=== PATIENT | female | born 1935 | race Caucasian/White ===

== ENCOUNTER → 2016-09-15 | Outpatient (CLI) | payer BC, OTHER ==
[~2016-09-15] MED LIST: ALLO100T PO; AMOX875T PO; ASPI81TA28 PO; ATOR-24 PO; CALC-354 PO; DONE10TA12 PO; ENAL10TA88 PO; ERTA1INJ IV; FURO-85 PO; INSDGI SC; LEVO125T4 PO; LEVO750T23 PO; METO50TA16 PO; MULTTAB58 PO; NMN10 PO; NVLG SC; PRED10TA PO; PRLSR20 PO; SRQ400 PO; SYN150 PO; VENL75CA73 PO
[2016-09-15 17:30] LABS: ESTIMATED AVERAGE GLUCOSE 137 mg/dl; HA1C FLAG Normal (Normal)
[2016-09-15 19:38] LABS: ALT/SGPT 28 U/L (12-78); AST/SGOT 19 U/L (15-37); BLOOD UREA NITROGEN 23 mg/dl (7-18); BUN/CREATININE RATIO 18.1 (10-20); CALCIUM 9.4 mg/dl (8.5-10.1); CARBON DIOXIDE 32 mmol/L (21-32); CHLORIDE 96 mmol/L (98-107); GLUCOSE 227 mg/dl (70-99); POTASSIUM 4.5 mmol/L (3.5-5.1); SODIUM 137 mmol/L (136-145)
[2016-09-15 19:49] LABS: ALB/GLOB RATIO 1.1 (0.9-2); ALKALINE PHOSPHATASE 143 U/L (45-117)
== END | disposition home or self-care (01) ==
LOC: C.LABBFT 13:00
PROVIDERS: ATTEND Internal Medicine
DX: E11.649 Type 2 diabetes mellitus with hypoglycemia without coma (principal)

== ENCOUNTER 2016-12-26 17:43 | Inpatient (IN) | payer BC, OTHER ==
[~2016-12-26] VITALS: Ht 154.9 cm; Wt 95.0 kg
[~2016-12-26 17:43] MED LIST changes: -AMOX875T PO; -INSDGI SC; -LEVO125T4 PO; +LEVO125T5 PO; -LEVO750T23 PO; -NVLG SC; -PRED10TA PO; -SRQ400 PO; -SYN150 PO
[2016-12-26] MEDS ORDERED: ALBUT/IPRATROP 3MG/0.5MG NEB 3 ML VIAL INH STA ×2 (18:18→21:04)
[2016-12-26] MEDS ORDERED: METHYLPREDNISOLONE 125 MG VIAL IV STA (18:18)
[2016-12-26] MEDS ORDERED: LEVAQUIN 750MG / 150ML D5W IV STA (18:59)
[2016-12-26 19:01] LABS: BASO % 0.1 %; BASO ABS # 0.01 K/uL (0-0.2); COMPLETE YES; EOS % 4.5 %; HEMATOCRIT 36.4 % (37-47); IG% 0.3 %; LYMPH % 17.1 %; LYMPH ABS # 1.21 K/uL (1.2-3.4); MEAN CELL VOLUME 90.1 fL (80-100); MEAN CORPUSCULAR HEMOGLOBIN 30.9 pg (25-34); MEAN CORPUSCULAR HGB CONC 34.3 g/dl (32-36); MEAN PLATELET VOLUME 10.1 fL (7.4-10.4); MONO % 14.7 %; NEUT % 63.3 %; PLATELET COUNT 116 K/uL (130-400); RED BLOOD COUNT 4.04 M/uL (4.2-5.4); WHITE BLOOD COUNT 7.08 K/uL (4.8-10.8)
--- NOTE | 2016-12-26 19:12 | DIAGNOSTIC IMAGING REPORT ---
CT SCAN OF THE BRAIN WITHOUT IV CONTRAST CLINICAL HISTORY: Fall. COMPARISON STUDY: CT of the brain dated 05/23/2016. TECHNIQUE: Unenhanced axial CT scan of the brain is performed from the vertex to the skull base. The skull base was scanned twice due to motion artifact. CT DOSE: 691.05 mGy.cm FINDINGS: Brain parenchyma: There are age-related involutional changes noting mild subcortical and periventricular microangiopathic change. There is no hemorrhage, mass effect, or evidence of acute territorial ischemia by CT criteria. Dunaway-white matter is preserved. No extra-axial fluid collection is seen. Ventricles, sulci, cisterns: Prominent secondary to involutional change. Intracranial vasculature: There is mild atherosclerotic calcification of the cavernous carotid and vertebral arteries. Calvarium: The skeletal structures are osteopenic. There is no depressed calvarial fracture. Sinuses and mastoids: Air-fluid levels are present within the maxillary antra. Mucosal thickening is seen within the ethmoid and frontal sinuses. The mastoid air cells are well pneumatized. Orbits: The bony orbits are grossly intact. There are bilateral ocular lens implants. IMPRESSION: 1. Senescent changes as above with no hemorrhage, mass effect, or evidence of acute territorial ischemia by CT criteria criteria. 2. Paranasal sinus disease as above. Electronically signed by: Dameon Rey M.D. 12/26/2016 7:10 PM Dictated Date/Time: 12/26/2016 7:07 PM
--- NOTE | 2016-12-26 19:31 | DIAGNOSTIC IMAGING REPORT ---
SINGLE VIEW CHEST CLINICAL HISTORY: Dyspnea. FINDINGS: An AP, portable, upright chest radiograph is compared to study dated 05/23/2016 and correlated with chest CT dated 05/01/2016. The examination is degraded by portable technique, large body habitus, and apical lordotic positioning. The cardiomediastinal silhouette is unremarkable. There is atherosclerotic calcification of the thoracic ureter. There are low lung lines and bibasilar atelectasis. The lungs and pleural spaces are otherwise clear. No pneumothorax is seen. The skeletal structures are osteopenic. Degenerative change is seen in the shoulders and thoracic spine. IMPRESSION: Low lung volumes with no active disease in the chest. Electronically signed by: Dameon Rey M.D. 12/26/2016 7:29 PM Dictated Date/Time: 12/26/2016 7:27 PM
[2016-12-26 19:33] LABS: ALT/SGPT 31 U/L (12-78); AST/SGOT 20 U/L (15-37); BLOOD UREA NITROGEN 17 mg/dl (7-18); BUN/CREATININE RATIO 13.4 (10-20); CALCIUM 9.2 mg/dl (8.5-10.1); CARBON DIOXIDE 34 mmol/L (21-32); CHLORIDE 88 mmol/L (98-107); GLUCOSE 330 mg/dl (70-99); POTASSIUM 4.7 mmol/L (3.5-5.1); SODIUM 127 mmol/L (136-145)
--- NOTE | 2016-12-26 19:36 | DIAGNOSTIC IMAGING REPORT ---
LEFT HAND 3 VIEWS CLINICAL HISTORY: Fall with bruising. FINDINGS: 3 views of the left hand are obtained. No prior studies are available for comparison at the time of dictation. The skeletal structures are osteopenic. No fracture is seen. 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 Advanced arthritic change is seen at the first carpometacarpal joint, with bony sclerosis, overgrowth, subchondral cyst formation, and subluxation. Narrowing is also seen at the radiocarpal articulation. Only mild degenerative change is seen at the metacarpophalangeal joints. A chronic avulsion injury is suspected involving the ulnar styloid. There is chondrocalcinosis of the triangular fibrocartilage. The overlying soft tissues are within normal limits. IMPRESSION: 1. No fracture is seen. 2. Osteopenia and advanced arthritic change as above. Electronically signed by: Dameon Rey M.D. 12/26/2016 7:34 PM Dictated Date/Time: 12/26/2016 7:31 PM
[2016-12-26 19:37] LABS: ALB/GLOB RATIO 0.9 (0.9-2); ALKALINE PHOSPHATASE 129 U/L (45-117)
[2016-12-26 19:45] LABS: BETA-HYDROXYBUTYRATE 0.96 mg/dL (0.2-2.81); CKMB/CK RATIO 3.1 (0-3.0)
[2016-12-26 20:50] LABS: URINE APPEARANCE CLEAR (CLEAR); URINE BILIRUBIN NEG (NEG); URINE COLOR YELLOW; URINE NITRITE NEG (NEG); URINE PH 6.5 (4.5-7.5); URINE SPECIFIC GRAVITY 1.011 (1.000-1.030); UROBILINOGEN NEG (NEG)
[2016-12-26 20:51] LABS: MANUAL MICROSCOPIC REQUIRED? NO; REVIEW REQ? NO
[2016-12-26] MEDS ORDERED: NVLG SC (21:01)
[2016-12-26] MEDS ORDERED: SYN150 PO (21:01)
[2016-12-26] MEDS ORDERED: INSDGI SC (21:01)
[2016-12-26] MEDS ORDERED: QUET1TAB20 PO (21:01)
[2016-12-26] MEDS ORDERED: LORAZEPAM 2 MG/ML 1 ML VIAL IV PRN (22:00)
[2016-12-26] MEDS ORDERED: ONDANSETRON INJ 2 MG/ML 2 ML VIAL IV PRN (22:15)
[2016-12-26] MEDS ORDERED: HEPARIN SOD 5000 UNIT/0.5 ML CARP SQ SCH (22:15)
[2016-12-26] MEDS ORDERED: MAGNESIUM HYDROXIDE SUSP 30 ML UDC PO PRN (22:15)
[2016-12-26] MEDS ORDERED: POLYETHYLENE (MIRALAX) 17 GM PACK PO PRN (22:15)
[2016-12-26] MEDS ORDERED: ACETAMINOPHEN 325 MG TAB PO PRN (22:15)
[2016-12-26] MEDS ORDERED: ALUMINUM/MAGNESIUM/SIMETH (MAALOX MAX) 30 ML UDC PO PRN (22:15)
[2016-12-26] MEDS ORDERED: ALBUTEROL 0.083% NEBU SOLN 3 ML VIAL INH PRN (22:15)
[2016-12-26 22:32] VITALS: BMI 39.6
--- NOTE | 2016-12-26 22:46 | History and Physical ---
History & Physical Date & Time of Service: Dec 26, 2016 at 22:10 Chief Complaint: Chest Congestion,Cough, Dr Referred Primary Care Physician: Luis Siddiqui M.D. History of Present Illness Source: family, other Pt cannot provide an adequate history due to dementia - obtained form family. 81 y/o F Hx HTN, DM 2, dementia. URI symptoms for 2 days including persistent wheezing, cough, SOB. She was treated as an outpt starting a few days ago with antibiotics and a low dose of steroids. She appears to be worsening regardless. She had not c/o CP, N/V, dysuria and had not recorded any fevers. Initial labs reveal hyponatremia, JAKOB, thrombocytopenia, hyperglycemia and a mild lactic acid elevation without leukocytosis. She does not have a history of smoking or lung disease. She reportedly fell 2 days ago sustaining wrist and minor head trauma. A CT head revealed sinus disease only. Upper extrem XR was negative. Past Medical/Surgical History Medical Problems: (1) Dementia Status: Chronic - with psychosis (2) DIAB KAREEM WO COMPL, TYPE II OR UNSPEC TYPE, NOT UNCNTRLD Status: Chronic (3) DIVERTICULOSIS COLON (W/O MENT OF HEMORRHAGE) Status: Chronic (4) Diverticulosis of colon without hemorrhage Status: Chronic (5) Esophageal reflux Status: Chronic (6) GOUT NOS Status: Chronic (7) HYPERTENSION NOS Status: Chronic (8) Hyponatremia Status: Resolved (9) HYPOTHYROIDISM NOS Status: Chronic (10) Osteomyelitis Status: Resolved (11) Unspecified sleep apnea Status: Chronic Family History FH: heart disease Social History Smoking Status: Never Smoker Alcohol Use: none Drug Use: none Housing status: lives with family Occupational Status: retired Immunizations History of Influenza Vaccine: Yes Influenza Vaccine Date: Jun 17, 2011 History of Tetanus Vaccine?: Yes History of Pneumococcal: Yes History of Hepatitis B Vaccine: Unknown Multi-Drug Resistant Organisms History of MDRO: No Allergies Coded Allergies: No Known Allergies (Unverified , 12/26/16) Home Medications Scheduled Allopurinol (Zyloprim), 100 MG PO QAM Aspirin (Aspirin Ec), 81 MG PO QAM Atorvastatin (Lipitor), 40 MG PO QAM Calcium Carbonate-Cholecalcife (Caltrate 600+D), 1 TAB PO BID Donepezil Hydrochloride (Aricept), 10 MG PO HS Enalapril (Vasotec), 10 MG PO QAM Furosemide (Lasix), 20 MG PO Q2D Insulin Glargine (Lantus), 25 UNITS SC BID Levothyroxine Sodium (Synthroid), 150 MCG PO QAM Metoprolol Tartrate (Lopressor) (Lopressor), 50 MG PO QAM Metoprolol Tartrate (Lopressor) (Lopressor), 25 MG PO QPM Multiple Vitamin (Multivitamin), 1 TAB PO DAILY@1200 Omeprazole (Prilosec), 20 MG PO DAILY@1200 Quetiapine Fumarate (Quetiapine Fumarate), 400 MG PO QPM Venlafaxine Hcl (Venlafaxine Extended Rel), 75 MG PO QAM Scheduled PRN Insulin Aspart (Novolog), 5 UNITS SC PRN PRN for PRN Review of Systems Cannot obtain from this pt reliably - SOB, wheezing as above - she is denying symptoms and was intent on going home Respiratory: + dyspnea at rest, + dyspnea on exertion, + shortness of breath Physical Exam Vital Signs Date Time Temp Pulse Resp B/P Pulse Ox O2 Delivery O2 Flow Rate FiO2 12/26/16 21:37 75 18 186/90 98 Room Air 12/26/16 19:59 77 22 163/89 98 Nasal Cannula 2.0 12/26/16 18:50 78 12/26/16 18:39 94 Nasal Cannula 2.0 12/26/16 18:39 Nasal Cannula 2.0 12/26/16 18:39 94 2.0 12/26/16 17:54 36.8 76 20 154/74 97 Room Air General Appearance: + pertinent finding (Obese elderly female - she is conversing with herself although she can stop to answer questions with prodding and is oriented x 2 ) Head: normocephalic, atraumatic Eyes: normal inspection, PERRL, EOMI ENT: normal ENT inspection Neck: supple, + pertinent finding (Limited exam due to habitus) Respiratory/Chest: chest non-tender, + decreased breath sounds, + pertinent finding (mild end expiratory wheezing) Cardiovascular: regular rate, rhythm, normal peripheral pulses, + pertinent finding (faint sounds) Abdomen/GI: normal bowel sounds, non tender, soft Back: normal inspection, no CVA tenderness Extremities/Musculoskelatal: normal inspection, no calf tenderness, no pedal edema, normal range of motion Neurologic/Psych: medical affairs leader II-XII nml as tested, no motor/sensory deficits, alert, normal mood/affect Skin: normal color, warm/dry, no rash Diagnostics Laboratory Results Results Past 24 Hours Test 12/26/16 18:33 12/26/16 18:40 12/26/16 18:52 12/26/16 19:40 Range/Units White Blood Count 7.08 4.8-10.8 K/uL Red Blood Count 4.04 4.2-5.4 M/uL Hemoglobin 12.5 12.0-16.0 g/dL Hematocrit 36.4 37-47 % Mean Corpuscular Volume 90.1 80-100 fL Mean Corpuscular Hemoglobin 30.9 25-34 pg Mean Corpuscular Hemoglobin Concent 34.3 32-36 g/dl Platelet Count 116 130-400 K/uL Mean Platelet Volume 10.1 7.4-10.4 fL Neutrophils (%) (Auto) 63.3 % Lymphocytes (%) (Auto) 17.1 % Monocytes (%) (Auto) 14.7 % Eosinophils (%) (Auto) 4.5 % Basophils (%) (Auto) 0.1 % Neutrophils # (Auto) 4.48 1.4-6.5 K/uL Lymphocytes # (Auto) 1.21 1.2-3.4 K/uL Monocytes # (Auto) 1.04 0.11-0.59 K/uL Eosinophils # (Auto) 0.32 0-0.5 K/uL Basophils # (Auto) 0.01 0-0.2 K/uL RDW Standard Deviation 44.7 36.4-46.3 fL RDW Coefficient of Variation 13.5 11.5-14.5 % Immature Granulocyte % (Auto) 0.3 % Immature Granulocyte # (Auto) 0.02 0.00-0.02 K/uL Sodium Level 127 136-145 mmol/L Potassium Level 4.7 3.5-5.1 mmol/L Chloride Level 88 98-107 mmol/L Carbon Dioxide Level 34 21-32 mmol/L Anion Gap 5.0 3-11 mmol/L Blood Urea Nitrogen 17 7-18 mg/dl Creatinine 1.30 0.60-1.20 mg/dl Est Creatinine Clear Calc Drug Dose 36.3 ml/min Estimated GFR () 44.9 Estimated GFR (Non- 38.7 BUN/Creatinine Ratio 13.4 10-20 Random Glucose 330 70-99 mg/dl Calcium Level 9.2 8.5-10.1 mg/dl Total Bilirubin 0.6 0.2-1 mg/dl Aspartate Amino Transf (AST/SGOT) 20 15-37 U/L Alanine Aminotransferase (ALT/SGPT) 31 12-78 U/L Alkaline Phosphatase 129 45-117 U/L Total Creatine Kinase 128 26-192 U/L Creatine Kinase MB 4.0 0.5-3.6 ng/ml Creatine Kinase MB Ratio 3.1 0-3.0 Troponin I < 0.015 0-0.045 ng/ml Pro-B-Type Natriuretic Peptide 886 0-1800 pg/ml Total Protein 7.0 6.4-8.2 gm/dl Albumin 3.3 3.4-5.0 gm/dl Globulin 3.7 2.5-4.0 gm/dl Albumin/Globulin Ratio 0.9 0.9-2 Beta-Hydroxybutyric Acid 0.96 0.2-2.81 mg/dL Bedside Lactic Acid Venous 1.99 0.90-1.70 mmol/L Bedside Glucose 304 70-90 mg/dl Urine Color YELLOW Urine Appearance CLEAR CLEAR Urine pH 6.5 4.5-7.5 Urine Specific Constantia 1.011 1.000-1.030 Urine Protein NEG NEG Urine Glucose (UA) 2+ NEG Urine Ketones NEG NEG Urine Occult Blood NEG NEG Urine Nitrite NEG NEG Urine Bilirubin NEG NEG Urine Urobilinogen NEG NEG Urine Leukocyte Esterase NEG NEG Microbiology Results 12/26/16 Blood Culture, Received Pending 12/26/16 Blood Culture, Received Pending 12/26/16 Urine Culture, Received Pending CXR normal Impression Assessment and Plan 81 y/o F Hx HTN, DM 2, dementia with psychosis. 2 days of URI symptoms including persistent wheezing, cough, SOB. She was treated as an outpt starting a few days ago with antibiotics and a low dose of steroids. She appears to be worsening regardless. She had not c/o CP, N/V, dysuria and had not recorded any fevers. Initial labs reveal hyponatremia, JAKOB, mild thrombocytopenia, hyperglycemia and mild lactic acid elevation without leukocytosis. She does not have a history of smoking or lung disease. She reportedly fell 2 days ago sustaining wrist and minor head trauma. A CT head revealed sinus disease only. Upper extrem XR was negative. 1) URI - wheezing, SOB, mild hypoxia - will continue Levaquin treatment as there is no evidence of a worsening PNM and the clinical picture is more consistent with reactive airway disease. Will provide zen, 02 protocol, IV steroids. Consider CT chest if there is no improvement. There is suspicion for sinus infection on CT so that antibiotics may help regardless. 2) HypoNa - IVF - recheck AM - clinically hypovolemic and is more in the range of 131-2 when corrected for her Glu. 3) AJKOB - likely prerenal - has occurred during previous illnesses although creat was recently normal - IVF recheck BMP AM. Diuretics held. 4) DM - placed on SS + Lantus 5) Thrombocytopenia - appears mild/stable 6) Hypothyroidism - check TSH - cont Synthroid 7) Dementia - Cont PM Seroquel. Heparin prophylaxis - DNR/DNI Total time for this admit including review of labs, meds, imaging, records - discussion with pt, family, ER attending - 38 min Level of Care Med/Surg Resuscitation Status DO NOT RESUSCITATE VTE Prophylaxis VTE Risk Assessment Done? Y/N: Yes Risk Level: Moderate Given or contraindicated: Unfractionated heparin SQ
[2016-12-26 23:20] VITALS: BP 171/82; PULSE 92; TEMP 37; O2SAT 93
[2016-12-27] VITALS (9 sets, daily range): BP systolic 144–161; BP diastolic 72–86; PULSE 65–92; TEMP 36.7–37; O2SAT 91–97; BMI 39.6
[2016-12-27] MEDS ORDERED: GLUCOSE 10 TABS/TUBE PO PRN (00:45)
[2016-12-27] MEDS ORDERED: GLUCOSE 40% GEL 15 GM TUBE PO PRN (00:45)
[2016-12-27] MEDS ORDERED: DEXTROSE 50% 50 ML SYR IV PRN (00:45)
[2016-12-27] MEDS ORDERED: LORAZEPAM INJ 0.5 MG in SYRINGE 0.75 ML IV PRN (00:45)
[2016-12-27] MEDS ORDERED: GLUCAGON FOR INJ 1 MG VIAL SQ PRN (00:45)
[2016-12-27] MEDS: METHYLPREDNISOLONE IV 40 MG in SYRINGE 0 ML IV SCH ×4 (00:53→18:37)
[2016-12-27] MEDS: INSULIN GLARGINE SOLOSTAR 100 UNITS/ML 3 ML PEN SC SCH ×3 (01:16→21:01)
[2016-12-27] MEDS: INSULIN ASPART 100 UNITS/ML 3 ML PEN SC SCH ×5 (01:17→21:00)
--- NOTE | 2016-12-27 02:02 | EMERGENCY ROOM VISIT NOTE ---
History Report prepared by Michael: Sp Wild Under the Supervision of: Dr. Zachary Plummer M.D. First contact with patient: 18:05 Chief Complaint: CONGESTION Stated Complaint: CHEST CONGESTION,COUGH, DR REFERRED History of Present Illness The patient is a 81 year old female who presents to the Emergency Room with complaints of worsening chest congestion beginning yesterday. Per family, the patient was referred to the ED by Dr. Siddiqui's office. She states that the patient was found to have a suspected left lower lobe pneumonia when she was seen earlier today. The patient's family states that the patient had similar symptoms occurring almost two months ago, though they never completely resolved. She notes that the patient was recently on Levaquin and Prednisone for her symptoms. The patient's family notes that the patient fell two days ago and hit her face and left hand on grass. The patient also complains of a cough and a headache. She states that her cough produces a yellow sputum. She has no history of COPD. She has no history of smoking. The patient has a history of diabetes, dementia and hypertension. Pt denies LOC, fevers, chills, diaphoresis , visual changes, neck pain, chest pain, nausea, vomiting, abdominal pain, back pain, melena, hematochezia, urinary symptoms, numbness, weakness, lymphadenopathy, rash, or other complaints. Source of History: patient, family Onset: Yesterday Position: chest Quality: other (congestion) Timing: worsening Associated Symptoms: + cough (productive), + headache, No back pain, No nausea, No vomiting Review of Systems See HPI for pertinent positives and negatives. A total of ten systems were reviewed and were otherwise negative. Past Medical & Surgical Medical Problems: (1) Bronchitis (2) Cellulitis (3) Dementia (4) DIAB KAREEM WO COMPL, TYPE II OR UNSPEC TYPE, NOT UNCNTRLD (5) Diabetic infection of left foot (6) DIVERTICULOSIS COLON (W/O MENT OF HEMORRHAGE) (7) Diverticulosis of colon without hemorrhage (8) Esophageal reflux (9) GOUT NOS (10) HYPERTENSION NOS (11) Hyponatremia (12) HYPOTHYROIDISM NOS (13) Hypoxia (14) Mental status change (15) Osteomyelitis (16) Pneumonia (17) Unspecified sleep apnea (18) URI (upper respiratory infection) Family History FH: heart disease Social History Smoking Status: Never Smoker Alcohol Use: none Drug Use: none Occupation Status: retired Current/Historical Medications Scheduled Allopurinol (Zyloprim), 100 MG PO QAM Aspirin (Aspirin Ec), 81 MG PO QAM Atorvastatin (Lipitor), 40 MG PO QAM Calcium Carbonate-Cholecalcife (Caltrate 600+D), 1 TAB PO BID Donepezil Hydrochloride (Aricept), 10 MG PO HS Enalapril (Vasotec), 10 MG PO QAM Furosemide (Lasix), 20 MG PO Q2D Insulin Glargine (Lantus), 25 UNITS SC BID Levothyroxine Sodium (Synthroid), 150 MCG PO QAM Metoprolol Tartrate (Lopressor) (Lopressor), 50 MG PO QAM Metoprolol Tartrate (Lopressor) (Lopressor), 25 MG PO QPM Multiple Vitamin (Multivitamin), 1 TAB PO DAILY@1200 Omeprazole (Prilosec), 20 MG PO DAILY@1200 Quetiapine Fumarate (Quetiapine Fumarate), 400 MG PO QPM Venlafaxine Hcl (Venlafaxine Extended Rel), 75 MG PO QAM Scheduled PRN Insulin Aspart (Novolog), 5 UNITS SC PRN PRN for PRN Allergies Coded Allergies: No Known Allergies (Unverified , 12/26/16) Physical Exam Vital Signs Date Time Temp Pulse Resp B/P Pulse Ox O2 Delivery O2 Flow Rate FiO2 12/26/16 21:37 75 18 186/90 98 Room Air 12/26/16 19:59 77 22 163/89 98 Nasal Cannula 2.0 12/26/16 18:50 78 12/26/16 18:39 94 Nasal Cannula 2.0 12/26/16 18:39 Nasal Cannula 2.0 12/26/16 18:39 94 2.0 12/26/16 17:54 36.8 76 20 154/74 97 Room Air Physical Exam GENERAL: Awake, alert, uncomfortable-appearing, in no distress HENT: Normocephalic, atraumatic. Oropharynx unremarkable. EYES: Normal conjunctiva. Sclera non-icteric. NECK: Supple. No nuchal rigidity. FROM. No JVD. RESPIRATORY: Inspiratory and expiratory wheezing to auscultation. CARDIAC: Regular rate, normal rhythm. Extremities warm and well perfused. Pulses equal. ABDOMEN: Soft, non-distended. No tenderness to palpation. No rebound or guarding. No masses. RECTAL: Deferred. MUSCULOSKELETAL: Chest examination reveals no tenderness. The back is symmetrical on inspection without obvious abnormality. There is no CVA tenderness to palpation. Swelling and tenderness over the left thenar eminence. Small bruise on the left bicep. LOWER EXTREMITIES: Calves are equal size bilaterally and non-tender. 1+ lower extremity edema. No discoloration. NEURO: Normal sensorium. No sensory or motor deficits noted. SKIN: No rash or jaundice noted. Medical Decision & Procedures ER Provider Diagnostic Interpretation: X ray results as stated below per my interpretation and radiologist interpretation. Other radiology results as stated below per my review and radiologist interpretation SINGLE VIEW CHEST FINDINGS: An AP, portable, upright chest radiograph is compared to study dated 05/23/2016 and correlated with chest CT dated 05/01/2016. The examination is degraded by portable technique, large body habitus, and apical lordotic positioning. The cardiomediastinal silhouette is unremarkable. There is atherosclerotic calcification of the thoracic ureter. There are low lung lines and bibasilar atelectasis. The lungs and pleural spaces are otherwise clear. No pneumothorax is seen. The skeletal structures are osteopenic. Degenerative change is seen in the shoulders and thoracic spine. IMPRESSION: Low lung volumes with no active disease in the chest. Electronically signed by: Dameon Rey M.D. LEFT HAND 3 VIEWS FINDINGS: 3 views of the left hand are obtained. No prior studies are available for comparison at the time of dictation. The skeletal structures are osteopenic. No fracture is seen. 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 Advanced arthritic change is seen at the first carpometacarpal joint, with bony sclerosis, overgrowth, subchondral cyst formation, and subluxation. Narrowing is also seen at the radiocarpal articulation. Only mild degenerative change is seen at the metacarpophalangeal joints. A chronic avulsion injury is suspected involving the ulnar styloid. There is chondrocalcinosis of the triangular fibrocartilage. The overlying soft tissues are within normal limits. IMPRESSION: 1. No fracture is seen. 2. Osteopenia and advanced arthritic change as above. Electronically signed by: Dameon Rey M.D. CT SCAN OF THE BRAIN WITHOUT IV CONTRAST FINDINGS: Brain parenchyma: There are age-related involutional changes noting mild subcortical and periventricular microangiopathic change. There is no hemorrhage, mass effect, or evidence of acute territorial ischemia by CT criteria. Dunaway-white matter is preserved. No extra-axial fluid collection is seen. Ventricles, sulci, cisterns: Prominent secondary to involutional change. Intracranial vasculature: There is mild atherosclerotic calcification of the cavernous carotid and vertebral arteries. Calvarium: The skeletal structures are osteopenic. There is no depressed calvarial fracture. Sinuses and mastoids: Air-fluid levels are present within the maxillary antra. Mucosal thickening is seen within the ethmoid and frontal sinuses. The mastoid air cells are well pneumatized. Orbits: The bony orbits are grossly intact. There are bilateral ocular lens implants. IMPRESSION: 1. Senescent changes as above with no hemorrhage, mass effect, or evidence of acute territorial ischemia by CT criteria criteria. 2. Paranasal sinus disease as above. Electronically signed by: Dameon Rey M.D. Laboratory Results 12/26/16 18:33 Red Blood Count 4.04, Mean Corpuscular Volume 90.1, Mean Corpuscular Hemoglobin 30.9, Mean Corpuscular Hemoglobin Concent 34.3, Mean Platelet Volume 10.1, Neutrophils (%) (Auto) 63.3, Lymphocytes (%) (Auto) 17.1, Monocytes (%) (Auto) 14.7, Eosinophils (%) (Auto) 4.5, Basophils (%) (Auto) 0.1, Neutrophils # (Auto ) 4.48, Lymphocytes # (Auto) 1.21, Monocytes # (Auto) 1.04, Eosinophils # (Auto ) 0.32, Basophils # (Auto) 0.01 12/26/16 18:33 Test 12/26/16 18:33 12/26/16 18:40 12/26/16 19:40 White Blood Count 7.08 K/uL (4.8-10.8) Red Blood Count 4.04 M/uL (4.2-5.4) Hemoglobin 12.5 g/dL (12.0-16.0) Hematocrit 36.4 % (37-47) Mean Corpuscular Volume 90.1 fL (80-100) Mean Corpuscular Hemoglobin 30.9 pg (25-34) Mean Corpuscular Hemoglobin Concent 34.3 g/dl (32-36) Platelet Count 116 K/uL (130-400) Mean Platelet Volume 10.1 fL (7.4-10.4) Neutrophils (%) (Auto) 63.3 % Lymphocytes (%) (Auto) 17.1 % Monocytes (%) (Auto) 14.7 % Eosinophils (%) (Auto) 4.5 % Basophils (%) (Auto) 0.1 % Neutrophils # (Auto) 4.48 K/uL (1.4-6.5) Lymphocytes # (Auto) 1.21 K/uL (1.2-3.4) Monocytes # (Auto) 1.04 K/uL (0.11-0.59) Eosinophils # (Auto) 0.32 K/uL (0-0.5) Basophils # (Auto) 0.01 K/uL (0-0.2) RDW Standard Deviation 44.7 fL (36.4-46.3) RDW Coefficient of Variation 13.5 % (11.5-14.5) Immature Granulocyte % (Auto) 0.3 % Immature Granulocyte # (Auto) 0.02 K/uL (0.00-0.02) Anion Gap 5.0 mmol/L (3-11) Est Creatinine Clear Calc Drug Dose 36.3 ml/min Estimated GFR () 44.9 Estimated GFR (Non- 38.7 BUN/Creatinine Ratio 13.4 (10-20) Calcium Level 9.2 mg/dl (8.5-10.1) Total Bilirubin 0.6 mg/dl (0.2-1) Aspartate Amino Transf (AST/SGOT) 20 U/L (15-37) Alanine Aminotransferase (ALT/SGPT) 31 U/L (12-78) Alkaline Phosphatase 129 U/L (45-117) Total Creatine Kinase 128 U/L (26-192) Creatine Kinase MB 4.0 ng/ml (0.5-3.6) Creatine Kinase MB Ratio 3.1 (0-3.0) Troponin I < 0.015 ng/ml (0-0.045) Pro-B-Type Natriuretic Peptide 886 pg/ml (0-1800) Total Protein 7.0 gm/dl (6.4-8.2) Albumin 3.3 gm/dl (3.4-5.0) Globulin 3.7 gm/dl (2.5-4.0) Albumin/Globulin Ratio 0.9 (0.9-2) Beta-Hydroxybutyric Acid 0.96 mg/dL (0.2-2.81) Bedside Lactic Acid Venous 1.99 mmol/L (0.90-1.70) Urine Color YELLOW Urine Appearance CLEAR (CLEAR) Urine pH 6.5 (4.5-7.5) Urine Specific Mart 1.011 (1.000-1.030) Urine Protein NEG (NEG) Urine Glucose (UA) 2+ (NEG) Urine Ketones NEG (NEG) Urine Occult Blood NEG (NEG) Urine Nitrite NEG (NEG) Urine Bilirubin NEG (NEG) Urine Urobilinogen NEG (NEG) Urine Leukocyte Esterase NEG (NEG) Laboratory results reviewed by me Medications Administered Medications (Trade) Dose Ordered Sig/Edilberto Route Start Time Stop Time Status Last Admin Dose Admin Methylprednisolone Sodium Succinate (Solu-Medrol IV) 125 mg NOW STAT IV 12/26/16 18:18 12/26/16 18:19 DC 12/26/16 18:34 125 MG Albuterol/ Ipratropium (Duoneb) 3 ml NOW STAT INH 12/26/16 18:18 12/26/16 18:19 DC 12/26/16 18:18 3 ML Levofloxacin (Levaquin / D5W) 750 mg NOW STAT IV 12/26/16 18:59 12/26/16 19:00 DC 12/26/16 19:54 750 MG Albuterol/ Ipratropium (Duoneb) 3 ml NOW STAT INH 12/26/16 21:04 12/26/16 21:05 DC 12/26/16 21:24 3 ML ECG Indication: chest pain (congestion) Rate (beats per minute): 74 Rhythm: sinus with SA Findings: no acute ischemic change, no ectopy, other (LAD. LVH. ) ED Course 1812: The patient was evaluated in room A9. A complete history and physical exam was performed. 1817: Ordered Duoneb 3 mL INH, Solu-Medrol 125 mg IV. 1858: Ordered Levaquin / D5W 750 mg IV. 1914: I reassessed the patient. She is currently at imaging. 2039: Upon reexamination, the patient was resting comfortably. I discussed the test results and treatment plan with her. The patient will be evaluated for further management. Medical Decision Triage Nursing notes reviewed. The patient's presentation and history were concerning for breathing difficulties. Etiologies such as pneumonia, COPD, reactive airway disease, CHF, cardiac ischemia, pulmonary embolism, pneumothorax, musculoskeletal, infections, gastrointestinal, as well as others were entertained. The patient was evaluated. She had minimal complaints but had significant wheezing. She had increased work of breathing. Blood work was ordered. Cultures were obtained. Lactate was done and was found to be slightly elevated. Chest x-ray and ECG were performed. No ischemia on ECG. The patient 's CBC was unremarkable. She had moderate hyponatremia noted on chemistry panel. She was also hyperglycemic. The patient had a unremarkable BNP and troponin. On reassessment she was doing better after the initial steroids and DuoNeb. She was given a second DuoNeb. The patient was also treated with IV Levaquin due to concerns for possible sepsis when her initial lactate was elevated and she was having respiratory difficulty. As it turns out there is no significant pneumonia. The patient's blood pressures been stable. She does have sinus disease on CT imaging. There is no trauma findings noted. The patient also has no fracture. As she is having increased work of breathing and failed outpatient management further testing will be necessary in the hospital. The chart was completed utilizing [employer] Speech voice recognition software. Grammatical errors, random word insertions, pronoun errors, and incomplete sentences are an occasional consequence of this system due to software limitations, ambient noise, and hardware issues. Any formal questions or concerns about the content, text, or information contained within the body of this dictation should be directly addressed to the physician for clarification. Consults Time Called: 2034 Consulting Physician: [facility] [place] Call: 2039 Discussed the patient's case. The patient will be evaluated for further treatment and disposition. Impression Primary Impression: Shortness of breath Additional Impressions: Wheezing Hyponatremia Hyperglycemia Scribe Attestation The scribe's documentation has been prepared under my direction and personally reviewed by me in its entirety. I confirm that the note above accurately reflects all work, treatment, procedures, and medical decision making performed by me. Departure Information Dispostion Being Evaluated By Hospitalist Referrals Luis Siddiqui M.D. (PCP) Patient Instructions My [facility] Problem Qualifiers
[2016-12-27] MEDS ORDERED: LEVOFLOXACIN CONSULT ACTIVE PRN (02:15)
[2016-12-27] MEDS: ALBUT/IPRATROP 3MG/0.5MG NEB 3 ML VIAL INH SCH ×4 (02:15→19:06)
--- NOTE | 2016-12-27 03:18 | Progress Note ---
Progress Note Date of Service Dec 27, 2016. Progress Note Phone by nursing informing me that patient's BSG > 400 since being admitted from ED. Patient was given 25 U Lantus and 7 U Aspart (per sliding scale parameters). Repeat BSG at 02:45 was 388. 9 units of regular insulin IV one time ordered for patient. In addition, sliding scale correction factor tightened to 30.
[2016-12-27] MEDS ORDERED: INSULIN HUMAN REGULAR PER UNIT 9 UNITS in SYRINGE 8.91 ML IV STA (03:27)
[2016-12-27] MEDS: LEVOTHYROXINE 150 MCG TAB PO SCH (06:14)
[2016-12-27 07:10] LABS: HEMATOCRIT 37.1 % (37-47); MEAN CELL VOLUME 89.2 fL (80-100); MEAN CORPUSCULAR HEMOGLOBIN 30.5 pg (25-34); MEAN CORPUSCULAR HGB CONC 34.2 g/dl (32-36); MEAN PLATELET VOLUME 10.1 fL (7.4-10.4); PLATELET COUNT 134 K/uL (130-400); RED BLOOD COUNT 4.16 M/uL (4.2-5.4); WHITE BLOOD COUNT 6.11 K/uL (4.8-10.8)
[2016-12-27 07:14] LABS: PROTHROMBIN TIME (PATIENT) 11.1 SECONDS (9.0-12.0)
[2016-12-27 07:50] LABS: BUN/CREATININE RATIO 13.5 (10-20); CALCIUM 9.7 mg/dl (8.5-10.1); CREATININE 1.4 mg/dl (0.60-1.20); MAGNESIUM 1.8 mg/dl (1.8-2.4); POTASSIUM 4.6 mmol/L (3.5-5.1)
[2016-12-27 08:01] LABS: BETA-HYDROXYBUTYRATE 1.22 mg/dL (0.2-2.81)
[2016-12-27] MEDS: CALCIUM 600MG + VIT D 400 IU TAB PO SCH ×2 (08:28→20:44)
[2016-12-27] MEDS: METOPROLOL TARTRATE 50 MG TAB PO SCH (08:28)
[2016-12-27] MEDS: ENALAPRIL MALEATE 10 MG TAB PO SCH (08:29)
[2016-12-27] MEDS: VENLAFAXINE HCL XR 75 MG CAPXR PO SCH (08:30)
[2016-12-27] MEDS: ASPIRIN 81 MG ECTAB PO SCH (08:30)
[2016-12-27] MEDS: ATORVASTATIN 40 MG TAB PO SCH (08:30)
[2016-12-27] MEDS: ALLOPURINOL 100 MG TAB PO SCH (08:31)
--- NOTE | 2016-12-27 09:07 | Hospitalist Progress Note ---
Hospitalist Progress Note Date of Service Dec 27, 2016. Subjective Pt evaluation today including: conversation w/ patient, conversation w/ family Pain: None PO Intake: Good Voiding: no voiding problems The patient was seen and examined this morning. Pt reports doing well. She states her breathing is slightly improved but is still coughing and bringing up sputum. Her granddaughter is present at bedside who provides history that she has been talking to herself and responding to hallucinations for about 20 years. It used to be worse with paranoid hallucination but now is improved since being on seroquel. The patient has no acute complaints. Constitutional: No chills, No fatigue, No fever, No sweats Eyes: No diplopia, No redness ENT: No dental problems, No nasal symptoms Respiratory: + cough, + sputum, No wheezing Cardiovascular: No chest pain, No palpitations Abdomen: No constipation, No diarrhea, No nausea, No pain, No vomiting Musculoskeletal: No joint pain, No muscle pain, No swelling Female : No dysuria Psychiatric: + problem reported (auditory hallucinations) Endo: No fatigue Skin: No itch, No rash Objective Vital Signs Date Time Temp Pulse Resp B/P Pulse Ox O2 Delivery O2 Flow Rate FiO2 12/27/16 07:36 36.7 92 22 144/83 91 Room Air 12/27/16 07:05 92 18 91 Room Air 12/27/16 00:13 144/72 12/27/16 00:00 Room Air 12/26/16 23:20 37.0 92 18 171/82 93 Room Air 12/26/16 22:54 85 20 168/96 94 Room Air 12/26/16 22:32 Nasal Cannula 2.0 12/26/16 22:17 81 12/26/16 21:37 75 18 186/90 98 Room Air 12/26/16 19:59 77 22 163/89 98 Nasal Cannula 2.0 12/26/16 18:50 78 12/26/16 18:39 94 Nasal Cannula 2.0 12/26/16 18:39 Nasal Cannula 2.0 12/26/16 18:39 94 2.0 12/26/16 17:54 36.8 76 20 154/74 97 Room Air Physical Exam General Appearance: WD/WN, no apparent distress, + obese, + pertinent finding ( mumbling things to herself throughout exam, answers appropriately, follows commands) Eyes: PERRL, EOMI ENT: hearing grossly normal, pharynx normal Neck: supple, no JVD Respiratory/Chest: chest non-tender, no respiratory distress, no accessory muscle use, + pertinent finding (on 2 L O2 via NC, +inspiratory and expiratory wheezing throughout, worse on the left compared to right, + cough) Cardiovascular: regular rate, rhythm, no murmur Abdomen: normal bowel sounds, non tender, soft Extremities: non-tender, no pedal edema, no calf tenderness Neurologic/Psychiatric: no motor/sensory deficits, alert, oriented x 3 Skin: normal color, warm/dry Laboratory Results Last 24 Hours Test 12/26/16 18:33 12/26/16 18:40 12/26/16 18:52 12/26/16 19:40 White Blood Count 7.08 K/uL Red Blood Count 4.04 M/uL Hemoglobin 12.5 g/dL Hematocrit 36.4 % Mean Corpuscular Volume 90.1 fL Mean Corpuscular Hemoglobin 30.9 pg Mean Corpuscular Hemoglobin Concent 34.3 g/dl Platelet Count 116 K/uL Mean Platelet Volume 10.1 fL Neutrophils (%) (Auto) 63.3 % Lymphocytes (%) (Auto) 17.1 % Monocytes (%) (Auto) 14.7 % Eosinophils (%) (Auto) 4.5 % Basophils (%) (Auto) 0.1 % Neutrophils # (Auto) 4.48 K/uL Lymphocytes # (Auto) 1.21 K/uL Monocytes # (Auto) 1.04 K/uL Eosinophils # (Auto) 0.32 K/uL Basophils # (Auto) 0.01 K/uL RDW Standard Deviation 44.7 fL RDW Coefficient of Variation 13.5 % Immature Granulocyte % (Auto) 0.3 % Immature Granulocyte # (Auto) 0.02 K/uL Sodium Level 127 mmol/L Potassium Level 4.7 mmol/L Chloride Level 88 mmol/L Carbon Dioxide Level 34 mmol/L Anion Gap 5.0 mmol/L Blood Urea Nitrogen 17 mg/dl Creatinine 1.30 mg/dl Est Creatinine Clear Calc Drug Dose 36.3 ml/min Estimated GFR () 44.9 Estimated GFR (Non- 38.7 BUN/Creatinine Ratio 13.4 Random Glucose 330 mg/dl Calcium Level 9.2 mg/dl Total Bilirubin 0.6 mg/dl Aspartate Amino Transf (AST/SGOT) 20 U/L Alanine Aminotransferase (ALT/SGPT) 31 U/L Alkaline Phosphatase 129 U/L Total Creatine Kinase 128 U/L Creatine Kinase MB 4.0 ng/ml Creatine Kinase MB Ratio 3.1 Troponin I < 0.015 ng/ml Pro-B-Type Natriuretic Peptide 886 pg/ml Total Protein 7.0 gm/dl Albumin 3.3 gm/dl Globulin 3.7 gm/dl Albumin/Globulin Ratio 0.9 Beta-Hydroxybutyric Acid 0.96 mg/dL Bedside Lactic Acid Venous 1.99 mmol/L Bedside Glucose 304 mg/dl Urine Color YELLOW Urine Appearance CLEAR Urine pH 6.5 Urine Specific Ethel 1.011 Urine Protein NEG Urine Glucose (UA) 2+ Urine Ketones NEG Urine Occult Blood NEG Urine Nitrite NEG Urine Bilirubin NEG Urine Urobilinogen NEG Urine Leukocyte Esterase NEG Test 12/27/16 00:55 12/27/16 00:57 12/27/16 02:45 12/27/16 03:44 Bedside Glucose 431 mg/dl 424 mg/dl 388 mg/dl 399 mg/dl Test 12/27/16 06:55 12/27/16 07:49 White Blood Count 6.11 K/uL Red Blood Count 4.16 M/uL Hemoglobin 12.7 g/dL Hematocrit 37.1 % Mean Corpuscular Volume 89.2 fL Mean Corpuscular Hemoglobin 30.5 pg Mean Corpuscular Hemoglobin Concent 34.2 g/dl RDW Standard Deviation 45.0 fL RDW Coefficient of Variation 13.7 % Platelet Count 134 K/uL Mean Platelet Volume 10.1 fL Prothrombin Time 11.1 SECONDS Prothromb Time International Ratio 1.0 Sodium Level 131 mmol/L Potassium Level 4.6 mmol/L Chloride Level 92 mmol/L Carbon Dioxide Level 33 mmol/L Anion Gap 6.0 mmol/L Blood Urea Nitrogen 19 mg/dl Creatinine 1.40 mg/dl Est Creatinine Clear Calc Drug Dose 33.7 ml/min Estimated GFR () 41.0 Estimated GFR (Non- 35.4 BUN/Creatinine Ratio 13.5 Random Glucose 347 mg/dl Lactic Acid Level 2.2 mmol/L Calcium Level 9.7 mg/dl Magnesium Level 1.8 mg/dl Beta-Hydroxybutyric Acid 1.22 mg/dL Bedside Glucose 361 mg/dl Assessment and Plan 81 y/o F Hx HTN, DM 2, dementia with psychosis. 2 days of URI symptoms including persistent wheezing, cough, SOB admitted after routine appt with PCP, Dr. Bennett who sent her to the ED for wheezing. URI - wheezing, SOB, mild hypoxia - will continue Levaquin (day 4) treatment as there is no evidence of a worsening PNM and the clinical picture is more consistent with reactive airway disease. - Sx seem to be improving with Solumedrol 40 mg Q6H hopefully can titrate down steriods tomorrow switch to prednisone orally - Continue prn 02 protocol and duonebs - Sinus infection on CT present so levaquin will help regardless. Hyponatremia - IVF overnight as she appeared dehydrated at time of admission. - NA+ still depressed this morning, clinically hypovolemic and is more in the range of 131-2 when corrected for her Glu. - if not improving with tighter glucose control consider SIADH DM II - Continue ISS with Lantus 25 U BID - Tightened coverage with CR of 20 and carb ratio 1:7 for elevated glucose. JAKOB on CKD stage III - Cr. actually increased from 1.3 to 1.4, will continue fluid hydration- likely prerenal - - Diuretics held - Follow with am labs Thrombocytopenia - appears mild/stable HTN - Continue metoprolol tartrate 50 mg QAM and 25 mg QPM Hypothyroidism - TSH not checked, will order - cont Synthroid Dementia Auditory Hallucinations- chronic, nonthreatening, pt hears her late , brothers and sisters (who are all ) and this does not bother her. She frequently talks to herself at baseline. Seroquel has decreased paranoid hallucinations. - Cont PM Seroquel 400 mg qpm Depression - Cont effexor 75 mg daily DVT ppx: teds, scds, heparin subq CODE STATUS: DNR Disposition: From home, lives with her sister, granddaughter who is present today serves as a caregiver during day. PT/OT to eval for rehab/SNF. Likely d/ c tomorrow
[2016-12-27] MEDS: PANTOprazole SOD 40 MG TAB PO SCH (13:10)
[2016-12-27] MEDS: HEPARIN SOD 5000 UNIT/0.5 ML CARP SQ SCH ×2 (13:58→21:06)
[2016-12-27] MEDS ORDERED: PHARMACY GLYCEMIC MGMT CONSULT PRN (14:00)
--- NOTE | 2016-12-27 14:20 | Pharmacy Progress Note ---
Glycemic Control Intl Consult Date of Service Dec 27, 2016. Scope Glycemic Pharmacist consulted by Dr Brannon on 12/27/16 for glycemic control and to write orders per [facility] inpatient glycemic control protocol Objective Weight (Kilograms): 95.000 Accuchecks BSG (last 24hrs): Test 12/26/16 18:33 12/26/16 18:52 12/27/16 00:57 12/27/16 02:45 Random Glucose 330 mg/dl (70-99) Bedside Glucose 304 mg/dl (70-90) 424 mg/dl (70-90) 388 mg/dl (70-90) Test 12/27/16 03:44 12/27/16 06:55 12/27/16 07:49 12/27/16 11:11 Bedside Glucose 399 mg/dl (70-90) 361 mg/dl (70-90) 338 mg/dl (70-90) Random Glucose 347 mg/dl (70-99) Laboratory Data (last 24hrs) Test 12/26/16 18:33 12/27/16 06:55 Anion Gap 5.0 mmol/L 6.0 mmol/L BUN/Creatinine Ratio 13.4 13.5 Blood Urea Nitrogen 17 mg/dl 19 mg/dl Creatinine 1.30 mg/dl 1.40 mg/dl Potassium Level 4.7 mmol/L 4.6 mmol/L Sodium Level 127 mmol/L 131 mmol/L White Blood Count 7.08 K/uL 6.11 K/uL Red Blood Count 4.04 M/uL Hemoglobin 12.5 g/dL Hematocrit 36.4 % Mean Corpuscular Volume 90.1 fL Mean Corpuscular Hemoglobin 30.9 pg Mean Corpuscular Hemoglobin Concent 34.3 g/dl Platelet Count 116 K/uL Mean Platelet Volume 10.1 fL Neutrophils (%) (Auto) 63.3 % Lymphocytes (%) (Auto) 17.1 % Monocytes (%) (Auto) 14.7 % Eosinophils (%) (Auto) 4.5 % Basophils (%) (Auto) 0.1 % Neutrophils # (Auto) 4.48 K/uL Lymphocytes # (Auto) 1.21 K/uL Monocytes # (Auto) 1.04 K/uL Eosinophils # (Auto) 0.32 K/uL Basophils # (Auto) 0.01 K/uL Recent Pertinent Medications Outpatient Anti-diabetic Regimen: * NovoLog 5 units SQ PRN * Lantus 24 units SQ BID * A1c = 6.4 % 09/2016 The patient is currently receiving: * Basal insulin: Lantus 24 units every 12 hours * Correctional Insulin: NovoLog Correction per scale ACHS Goal Range: Low 120 mg/dL - High 160 mg/dL Correction Factor: 20 mg/dL/unit * Prandial insulin: Per carb ratio of 1 unit per 7 grams CHO consumed * IV regular insulin: 9 units IV x1 dose at ~0330 this morning Risk Factors for Insulin Resistance: * Steroids: Solu-Medrol 125mg IV x1 dose 12/26 evening, then Solu-Medrol 40mg IV every 6 hours around the clock * Infection: levofloxacin IV - day #2 of therapy * Diet: AHA/T2DM Assessment & Plan ASSESSMENT: Initial: * ADA & AACE recommend a goal blood sugar range 140-180 mg/dl for the majority of critically ill & non-critically ill patients. However, more stringent targets may be selected in individual cases. Lower goal range currently being used to help control acute hyperglycemia. * 81 y/o type 2 diabetic who enjoys good glycemic control as evidence by an A1c of 6.4% (barring lack of hypoglycemia) 12/27/16 * Currently, around the clock steroids are being utilized to help manage symptoms of URI * BSGs have not been below 300mg/dL today despite additional SQ and IV insulin doses * BHA increased from yesterday * Tighten NovoLog parameters based on a stress of 3 PLAN FOR INPATIENT GLYCEMIC CONTROL: * Basal insulin: * continue Lantus 25 units SQ BID - this may bee too much at baseline, but appears necessary with ATC steroids * Bolus insulin: * continue NovoLog SQ AC and HS - ADD Accu-checks at 00:00 and 04:00 - Accu-check at 15:00 today (2 hours after NovoLog administration at lunch to ensure appropriate trend of BSGs) * Tighten Correction factor to 15mg/dL/unit * Tighten Carb ratio to 1 unit per 6g of CHO consumed * If BSGs do not respond to additional SQ insulin * May consider IV bolus insulin (0.05-0.1unit/kg) * May consider IV infusion insulin RECOMMENDATIONS FOR DISCHARGE: * Awaited * Please note that the plan above was derived based on current level of insulin resistance and hospital stress. These recommendations are appropriate for inpatient admission only. Plan of care upon discharge will need to be reassessed to avoid potential outpatient hypo/hyperglycemia. Thank you.
[2016-12-27] MEDS ORDERED: INSULIN ASPART 100 UNITS/ML 3 ML PEN SC SCH (15:00)
[2016-12-27] MEDS ORDERED: INSULIN REGULAR 5 UNITS in SYRINGE 0 ML IV ONE (20:30)
[2016-12-27] MEDS: QUETIAPINE FUMARATE 200 MG TAB PO SCH (20:45)
[2016-12-27] MEDS: METOPROLOL TARTRATE 25 MG TAB PO SCH (20:46)
[2016-12-27] MEDS: DONEPEZIL HCL 10 MG TAB PO SCH (21:01)
[2016-12-28] MEDS: INSULIN ASPART 100 UNITS/ML 3 ML PEN SC SCH ×6 (00:18→21:20)
[2016-12-28] MEDS: METHYLPREDNISOLONE IV 40 MG in SYRINGE 0 ML IV SCH ×2 (00:18→05:35)
[2016-12-28] MEDS: ALBUT/IPRATROP 3MG/0.5MG NEB 3 ML VIAL INH SCH ×5 (02:12→19:35)
[2016-12-28] MEDS: LEVOTHYROXINE 150 MCG TAB PO SCH (05:35)
[2016-12-28] MEDS: HEPARIN SOD 5000 UNIT/0.5 ML CARP SQ SCH ×3 (05:39→21:06)
[2016-12-28 07:42] VITALS: PULSE 89; O2SAT 95
[2016-12-28 07:48] VITALS: BP 132/78; PULSE 79; TEMP 36.7; O2SAT 92
[2016-12-28 08:00] VITALS: O2SAT 92
--- NOTE | 2016-12-28 08:19 | Hospitalist Progress Note ---
Hospitalist Progress Note Date of Service Dec 28, 2016. Subjective Pt evaluation today including: conversation w/ patient Pain: None PO Intake: Good Voiding: no voiding problems The patient was seen and examined this morning. Pt reports doing well, slept good overnight, she has no acute complaints. Pt has been ambulating about the room with walker without difficulty or shortness of breath. Constitutional: No chills, No fever, No sweats Eyes: No diplopia, No redness ENT: No sore throat, No trouble swallowing Respiratory: No cough, No dyspnea on exertion, No shortness of breath, No wheezing Cardiovascular: No chest pain Abdomen: No constipation, No diarrhea, No nausea, No pain, No vomiting Musculoskeletal: No joint pain, No swelling Neurologic: No numbness/tingling, No weakness Endo: No fatigue Skin: No itch, No rash Objective Vital Signs Date Time Temp Pulse Resp B/P Pulse Ox O2 Delivery O2 Flow Rate FiO2 12/28/16 07:48 36.7 79 18 132/78 92 Room Air 12/28/16 07:42 89 16 95 12/27/16 23:34 37.0 65 22 144/77 97 Room Air 12/27/16 23:30 Room Air 12/27/16 19:06 83 16 93 Room Air 12/27/16 16:00 96 Room Air 12/27/16 14:59 37.0 71 22 161/86 96 Room Air 12/27/16 14:26 82 18 91 Room Air 12/27/16 10:30 91 Room Air 2.0 Physical Exam General Appearance: WD/WN, no apparent distress, + obese Eyes: PERRL, EOMI ENT: hearing grossly normal, pharynx normal Neck: supple, no JVD Respiratory/Chest: no respiratory distress, no accessory muscle use, + pertinent finding (on 2 L O2 via NC, + occasional expiratory wheeze) Cardiovascular: regular rate, rhythm, no murmur Abdomen: non tender, soft Extremities: non-tender, no pedal edema, no calf tenderness Neurologic/Psychiatric: alert, + pertinent finding (oriented to self, slightly mumbles to herself and repeats what i am saying, ) Skin: normal color, warm/dry Laboratory Results Last 24 Hours Test 12/27/16 11:11 12/27/16 15:21 12/27/16 17:00 12/27/16 20:13 Bedside Glucose 338 mg/dl 283 mg/dl 238 mg/dl 300 mg/dl Test 12/28/16 00:15 12/28/16 04:18 12/28/16 04:44 12/28/16 07:37 Bedside Glucose 206 mg/dl 180 mg/dl 250 mg/dl Assessment and Plan 81 y/o F Hx HTN, DM 2, dementia with psychosis. 2 days of URI symptoms including persistent wheezing, cough, SOB admitted after routine appt with PCP, Dr. Bennett who sent her to the ED for wheezing. URI - wheezing, SOB, mild hypoxia - will continue Levaquin (day 5) treatment as there is no evidence of a worsening PNM and the clinical picture is more consistent with reactive airway disease. - Sx seem to be improving- decrease Solumedrol 40 mg to Q12H, will get one more dose tonight and then switch to 40 mg prednisone tomorrow morning. - Continue prn 02 protocol and duonebs - Sinus infection on CT present so levaquin will help regardless. - Blood culture x 2 negative, urine culture neg Hyponatremia - IVF overnight as she appeared dehydrated at time of admission. - NA+ still depressed this morning, clinically hypovolemic and is more in the range of 131-2 when corrected for her Glu. - if not improving with tighter glucose control, consider SIADH DM II - Continue ISS with Lantus 25 U BID - Tightened coverage with CR of 15 and carb ratio 1:6 for elevated glucose with steroid administration. JAKOB on CKD stage III - Cr. increased to 1.5, will start NSS @ 100mL/hr x 1 day, encouraged fluid hydration orally as the patient has been tolerating oral intake without difficulty. - Diuretics held - euvolemic currently - Follow with am labs Thrombocytopenia - appears mild/stable HTN - Continue metoprolol tartrate 50 mg QAM and 25 mg QPM Hypothyroidism - TSH = 0.289 - cont Synthroid 150 mcg daily Dementia Auditory Hallucinations- chronic, nonthreatening, pt hears her late , brothers and sisters (who are all ) and this does not bother her. She frequently talks to herself at baseline. Seroquel has decreased paranoid hallucinations. - Cont PM Seroquel 400 mg qpm Depression - Cont effexor 75 mg daily DVT ppx: teds, scds, heparin subq CODE STATUS: DNR Disposition: From home, lives with her sister, granddaughter who is present today serves as a caregiver during day. PT/OT to eval for rehab/SNF. Likely dc in 1 day
[2016-12-28] MEDS: ENALAPRIL MALEATE 10 MG TAB PO SCH (08:30)
[2016-12-28] MEDS ORDERED: INSULIN GLARGINE SOLOSTAR 100 UNITS/ML 3 ML PEN SC SCH (08:30)
[2016-12-28] MEDS: ASPIRIN 81 MG ECTAB PO SCH (08:31)
[2016-12-28] MEDS: ATORVASTATIN 40 MG TAB PO SCH (08:31)
[2016-12-28] MEDS: ALLOPURINOL 100 MG TAB PO SCH (08:31)
[2016-12-28] MEDS: CALCIUM 600MG + VIT D 400 IU TAB PO SCH ×2 (08:31→21:05)
[2016-12-28] MEDS: VENLAFAXINE HCL XR 75 MG CAPXR PO SCH (08:32)
[2016-12-28 09:13] LABS: ESTIMATED AVERAGE GLUCOSE 209 mg/dl; HA1C FLAG Normal (Normal)
[2016-12-28 09:17] LABS: BUN/CREATININE RATIO 20.7 (10-20); CREATININE 1.5 mg/dl (0.60-1.20); MAGNESIUM 2.1 mg/dl (1.8-2.4); POTASSIUM 4.3 mmol/L (3.5-5.1)
[2016-12-28 09:21] LABS: CALCIUM 10.2 mg/dl (8.5-10.1)
--- NOTE | 2016-12-28 10:59 | Pharmacy Progress Note ---
Glycemic Control: Progress Nt Date of Service Dec 28, 2016. Scope Glycemic Pharmacist consulted by Dr Brannon on 12/27/16 for glycemic control and to write orders per [facility] inpatient glycemic control protocol. Objective Accuchecks BSG (last 24hrs): Test 12/27/16 11:11 12/27/16 15:21 12/27/16 17:00 12/27/16 20:13 Bedside Glucose 338 mg/dl (70-90) 283 mg/dl (70-90) 238 mg/dl (70-90) 300 mg/dl (70-90) Test 12/28/16 00:15 12/28/16 04:18 12/28/16 07:37 12/28/16 08:16 Bedside Glucose 206 mg/dl (70-90) 180 mg/dl (70-90) 250 mg/dl (70-90) Random Glucose 267 mg/dl (70-99) Laboratory Data (last 24hrs) Test 12/28/16 08:16 Anion Gap 7.0 mmol/L BUN/Creatinine Ratio 20.7 Blood Urea Nitrogen 31 mg/dl Creatinine 1.50 mg/dl Hemoglobin A1c 8.9 % Potassium Level 4.3 mmol/L Sodium Level 131 mmol/L HbA1c: Test 12/28/16 08:16 Hemoglobin A1c 8.9 %(4.5-5.6) H Recent Pertinent Medications Outpatient Anti-diabetic Regimen: * NovoLog 5 units SQ PRN if BSG >200mg/dL * usually refuses * Lantus 20 units SQ BID (increased 11/07/16 from 15u BID) * A1c = 6.4 % 09/2016 --> 8.9 % 12/28/16 The patient is currently receiving: * Basal insulin: Lantus 25 units every 12 hours * Correctional Insulin: NovoLog Correction per scale AC/HS/ Goal Range: Low 120 mg/dL - High 160 mg/dL Correction Factor: 12 mg/dL/unit * Prandial insulin: Per carb ratio of 1 unit per 5 grams CHO consumed * IV regular insulin: 5 units IV x1 dose 12/27 PM Risk Factors for Insulin Resistance: * Steroids: Solu-Medrol 40mg IV every 6 hours around the clock * Infection: levofloxacin IV - day #3 of therapy * Diet: AHA/T2DM - tolerating well Risk Factors for Insulin Resistance: * Increasing serum creatinine Assessment & Plan ASSESSMENT: Initial: * ADA & AACE recommend a goal blood sugar range 140-180 mg/dl for the majority of critically ill & non-critically ill patients. However, more stringent targets may be selected in individual cases. Lower goal range currently being used to help control acute hyperglycemia. * 81 y/o type 2 diabetic who uses primarily basal insulin for BSG control as an outpatient * Decline in glycemic control over the past 3 months * possibly a falsely low A1c reported in September for some reason * BSGs elevated on admission and continue to be high secondary to ATC steroids 12/28/16 * Currently, around the clock steroids are being utilized to help manage symptoms of URI * --> DECREASED TO Q12H DOSING X1 DOSE, THEN PREDNISONE 40MG PO DAILY STARTING 12/29 * BSGs have not been reliably below 250mg/dL despite 145 units of insulin on * Continue with tighten NovoLog parameters until dinner, then slightly loosen in anticipation of decreasing needs with decreasing steroid dose * give a one time dose of Lantus 32u this AM (25% increase) * change Lantus to range dosing this evening when steroids begin taper * Continue to decrease insulin doses with each stepdown in steroid therapy PLAN FOR INPATIENT GLYCEMIC CONTROL: * Basal insulin: * continue Lantus SQ BID - 15 units for bsg below 120mg/dL - 20 units for bsg 120-180mg/dL - 25 units for bsg above 180mg/dL * Lantus 32 units SQ x1 dose this AM (25% increase for sustained hyperglycemia) * Bolus insulin: * continue NovoLog SQ / * Goal range: 120-160mg/dL * Tighten Correction factor to 10mg/dL/unit then back to 15mg/dL/unit with dinner * Tighten Carb ratio to 1 unit per 4g of CHO consumed then back to 1:6 with dinner * Decrease insulin doses with each stepdown in steroid therapy * If BSGs do not respond to additional SQ insulin * May consider IV bolus insulin (0.05-0.1unit/kg) * May consider IV infusion insulin if BSG >350mg/dL RECOMMENDATIONS FOR DISCHARGE: * Awaited - may require scheduled NovoLog doses (in lieu of PRN dosing) to help control BSGs * Please note that the plan above was derived based on current level of insulin resistance and hospital stress. These recommendations are appropriate for inpatient admission only. Plan of care upon discharge will need to be reassessed to avoid potential outpatient hypo/hyperglycemia. Thank you.
[2016-12-28] MEDS: METOPROLOL TARTRATE 50 MG TAB PO SCH (12:37)
[2016-12-28] MEDS: PANTOprazole SOD 40 MG TAB PO SCH (12:42)
--- NOTE | 2016-12-28 13:04 | DIAGNOSTIC IMAGING REPORT ---
TWO VIEW CHEST CLINICAL HISTORY: Upper respiratory tract infection. FINDINGS: PA and lateral chest radiographs are compared to study dated 12/26/2016 and correlated with chest CT dated 05/01/2016. The PA view is degraded by patient rotation. The cardiomediastinal silhouette is top normal for projection. There is atherosclerotic calcification of the thoracic aorta. The lungs and pleural spaces are clear. No pneumothorax is seen. The skeletal structures are osteopenic. Degenerative change is seen in the shoulders and thoracic spine. IMPRESSION: No active disease in the chest. Electronically signed by: Dameon Rey M.D. 12/28/2016 1:02 PM Dictated Date/Time: 12/28/2016 1:00 PM
[2016-12-28] MEDS: SODIUM CHLORIDE 0.9% 1000ML 1,000 ML IV SCH ×2 (14:37→22:10)
[2016-12-28 14:40] VITALS: Ht 154.9 cm; Wt 95.0 kg
[2016-12-28 16:00] VITALS: O2SAT 94
[2016-12-28 16:03] VITALS: BP 160/62; PULSE 78; TEMP 36.3; O2SAT 94
[2016-12-28 16:07] VITALS: BP 125/77; PULSE 83; TEMP 36.7; O2SAT 94
[2016-12-28] MEDS ORDERED: LEVOFLOXACIN 750 MG TAB PO SCH (17:00)
[2016-12-28] MEDS ORDERED: LEVOFLOXACIN / D5W 750 MG in PREMIXED IN D5W 150 ML IV SCH ×2 (20:00)
[2016-12-28] MEDS ORDERED: METHYLPREDNISOLONE IV 40 MG in SYRINGE 0 ML IV SCH (20:00)
[2016-12-28] MEDS: METOPROLOL TARTRATE 25 MG TAB PO SCH (21:05)
[2016-12-28] MEDS: QUETIAPINE FUMARATE 200 MG TAB PO SCH (21:06)
[2016-12-28] MEDS: DONEPEZIL HCL 10 MG TAB PO SCH (21:06)
[2016-12-28] MEDS: INSULIN GLARGINE SOLOSTAR 100 UNITS/ML 3 ML PEN SC SCH (21:19)
[2016-12-29] MEDS: INSULIN ASPART 100 UNITS/ML 3 ML PEN SC SCH ×4 (00:01→12:34)
[2016-12-29 00:38] VITALS: BP 129/75; PULSE 77; TEMP 36.6; O2SAT 91
[2016-12-29] MEDS: ALBUT/IPRATROP 3MG/0.5MG NEB 3 ML VIAL INH SCH ×3 (01:05→11:23)
[2016-12-29] MEDS: HEPARIN SOD 5000 UNIT/0.5 ML CARP SQ SCH (05:46)
[2016-12-29] MEDS: LEVOTHYROXINE 150 MCG TAB PO SCH (05:46)
[2016-12-29 07:48] VITALS: BP 150/77; PULSE 74; TEMP 36.7; O2SAT 93
[2016-12-29 08:00] VITALS: O2SAT 93
[2016-12-29] MEDS: METOPROLOL TARTRATE 50 MG TAB PO SCH (08:39)
[2016-12-29] MEDS: ENALAPRIL MALEATE 10 MG TAB PO SCH (08:39)
[2016-12-29] MEDS: CALCIUM 600MG + VIT D 400 IU TAB PO SCH (08:39)
[2016-12-29] MEDS: ATORVASTATIN 40 MG TAB PO SCH (08:40)
[2016-12-29] MEDS: ASPIRIN 81 MG ECTAB PO SCH (08:40)
[2016-12-29] MEDS: VENLAFAXINE HCL XR 75 MG CAPXR PO SCH (08:40)
[2016-12-29] MEDS: ALLOPURINOL 100 MG TAB PO SCH (08:40)
[2016-12-29] MEDS: INSULIN GLARGINE SOLOSTAR 100 UNITS/ML 3 ML PEN SC SCH (08:50)
[2016-12-29] MEDS: SODIUM CHLORIDE 0.9% 1000ML 1,000 ML IV SCH (08:51)
--- NOTE | 2016-12-29 09:25 | Discharge Instructions ---
Discharge Instructions Date of Service Dec 29, 2016. Admission Reason for Admission: Upper Respiratory Infection Discharge Discharge Diagnosis / Problem: Upper respiratory infection Discharge Goals Goal(s): Decrease discomfort, Improve function, Increase independence, Improve disease control Activity Recommendations Activity Limitations: resume your previous activity Lifting Limitations: gradually increase as tolerated Exercise/Sports Limitations: gradually increase as tolerated Shower/Bathe: no limitations (with assistance) Driving or Machine Use: no limitations . Instructions / Follow-Up Instructions / Follow-Up You were admitted to [facility] with upper respiratory infection and diagnosed with same. During your stay here you were treated with intravenous antibiotics, steroids, duoneb treatments, fluids, and supportive therapy. Continue taking prednisone taper as follows below Take 40 mg x 2 days Take 30 mg x 2 days Take 20 mg x 2 days Take 10 mg x 2 days then STOP Follow up with your Primary Care Provider within 1 week. Current Hospital Diet Patient's current hospital diet: AHA Diet (Heart Healthy), Diabetes Type 2 Diet Discharge Diet Recommended Diet: AHA Diet (Heart Healthy), Diabetes Type 2 Diet Pending Studies Studies pending at discharge: no Laboratory Results Hemoglobin A1c Test 12/28/16 08:16 Range/Units Estimated Average Glucose 209 mg/dl Hemoglobin A1c 8.9 H 4.5-5.6 % Medical Emergencies . Who to Call and When: Medical Emergencies: If at any time you feel your situation is an emergency, please call 911 immediately. . Non-Emergent Contact Non-Emergency issues call your: Primary Care Provider Call Non-Emergent contact if: you have a fever, temperature is above 100.5, your pain is not controlled, you have any medication questions Call 911 if you experience any of the following: Shortness of breath, increased work of breathing, chest pain, palpitations, fever, chills, confusion, Please call your family physician if you have any other concerns regarding your health . . Past History Medical & Surgical History: (1) URI (upper respiratory infection) (2) Bronchitis (3) HYPERTENSION NOS (4) HYPOTHYROIDISM NOS (5) Dementia (6) Esophageal reflux (7) Diabetic infection of left foot . "Provider Documentation" section prepared by eJanette Cornell. . VTE Core Measure Inpt VTE Proph given/why not?: Unfractionated heparin SQ, T.E.D. Stockings, SCD 's
[2016-12-29] MEDS ORDERED: PRED10TA PO (09:28)
[2016-12-29] MEDS ORDERED: MAGNESIUM HYDROXIDE SUSP 30 ML UDC PO ONE (09:30)
[2016-12-29 11:06] VITALS: BP 150/77; TEMP 36.7; O2SAT 93
[2016-12-29 11:23] VITALS: PULSE 88; O2SAT 95
--- NOTE | 2016-12-29 12:50 | Discharge Summary ---
Discharge Summary Date of Service Dec 29, 2016. Discharge Summary Admission Date: Dec 26, 2016 at 22:07 Discharge Date: Dec 29, 2016 Discharge Disposition: Home with services Principal Diagnosis: Upper respiratory infection Immunizations: Have You Had Influenza Vaccine: Yes Influenza Vaccine Date: Jun 17, 2011 History of Tetanus Vaccine?: Yes History of Pneumococcal: Yes History of Hepatitis B Vaccine: Unknown Procedures: SINGLE VIEW CHEST 12/26/16 IMPRESSION: Low lung volumes with no active disease in the chest. CT SCAN OF THE BRAIN WITHOUT IV CONTRAST 12/26/16 IMPRESSION: 1. Senescent changes as above with no hemorrhage, mass effect, or evidence of acute territorial ischemia by CT criteria criteria. 2. Paranasal sinus disease as above. LEFT HAND 3 VIEWS 12/26/16 IMPRESSION: 1. No fracture is seen. 2. Osteopenia and advanced arthritic change as above. TWO VIEW CHEST 12/28/16 IMPRESSION: No active disease in the chest. Consultations: None Medication Reconciliation New Medications: Prednisone Tab (Prednisone) 10 Mg Tab 10 MG PO UD for 8 Days, #20 TAB Take 4 tabs daily x 2 days, then 3 tabs daily x 2 days, then 2 tabs daily x 2 days, then 1 tab daily x 2 days. Continued Medications: Allopurinol (Zyloprim) 100 Mg Tab 100 MG PO QAM, 0 Refills Aspirin (Aspirin Ec) 81 Mg Tab 81 MG PO QAM Atorvastatin (Lipitor) 40 Mg Tab 40 MG PO QAM Calcium Carbonate-Cholecalcife (Caltrate 600+D) 1 Tab Tab 1 TAB PO BID Donepezil Hydrochloride (Aricept) 10 Mg Tab 10 MG PO HS Enalapril (Vasotec) 10 Mg Tab 10 MG PO QAM, TAB Furosemide (Lasix) 20 Mg Tab 20 MG PO Q2D Insulin Aspart (Novolog) 100 Units/Ml Inj 5 UNITS SC PRN PRN for PRN, #10 Insulin Glargine (Lantus) 100 Unit/Ml Inj 25 UNITS SC BID, #10 Levothyroxine Sodium (Synthroid) 150 Mcg Tab 150 MCG PO QAM Metoprolol Tartrate (Lopressor) (Lopressor) 50 Mg Tab 50 MG PO QAM, 0 Refills Metoprolol Tartrate (Lopressor) (Lopressor) 50 Mg Tab 25 MG PO QPM, 0 Refills TAKE 1/2 OF A 50MG TABLET IN THE PM Multiple Vitamin (Multivitamin) 1 Tab Tab 1 TAB PO DAILY@1200, TAB Omeprazole (Prilosec) 20 Mg Capcr 20 MG PO DAILY@1200, 0 Refills Quetiapine Fumarate (Quetiapine Fumarate) 400 Mg Tab 400 MG PO QPM, #30 Venlafaxine Hcl (Venlafaxine Extended Rel) 75 Mg Cap 75 MG PO QAM, CAP Discharge Exam The patient was seen and examined this morning. Pt reports her breathing is baseline and feels ok today. She denies shortness of breath with ambulating to the bathroom. Pt denies any shortness of breath at rest and is on room air. She has no acute complaints. Review of Systems: Constitutional: No chills, No fever, No sweats Eyes: No diplopia, No redness ENT: No sore throat Respiratory: No cough, No dyspnea on exertion, No shortness of breath, No sputum, No wheezing Cardiovascular: No chest pain, No palpitations Abdomen: No constipation, No diarrhea, No nausea, No pain, No vomiting Musculoskeletal: No calf pain, No joint pain, No swelling Genitourinary - Female: No dysuria Neurologic: No numbness/tingling Psychiatric: + problem reported (auditory hallucinations) Endocrine: No fatigue Integumentary: No itch, No rash Hospital Course H&P per Dr. Toy Rodriguez MD History of Present Illness Source: family, other Pt cannot provide an adequate history due to dementia - obtained form family. 81 y/o F Hx HTN, DM 2, dementia. URI symptoms for 2 days including persistent wheezing, cough, SOB. She was treated as an outpt starting a few days ago with antibiotics and a low dose of steroids. She appears to be worsening regardless. She had not c/o CP, N/V, dysuria and had not recorded any fevers. Initial labs reveal hyponatremia, JAKOB, thrombocytopenia, hyperglycemia and a mild lactic acid elevation without leukocytosis. She does not have a history of smoking or lung disease. She reportedly fell 2 days ago sustaining wrist and minor head trauma. A CT head revealed sinus disease only. Upper extrem XR was negative. Physical Exam Vital Signs Date Time Temp Pulse Resp B/P Pulse Ox O2 Delivery O2 Flow Rate FiO2 12/26/16 21:37 75 18 186/90 98 Room Air 12/26/16 19:59 77 22 163/89 98 Nasal Cannula 2.0 12/26/16 18:50 78 12/26/16 18:39 94 Nasal Cannula 2.0 12/26/16 18:39 Nasal Cannula 2.0 12/26/16 18:39 94 2.0 12/26/16 17:54 36.8 76 20 154/74 97 Room Air General Appearance: + pertinent finding (Obese elderly female - she is conversing with herself although she can stop to answer questions with prodding and is oriented x 2 ) Head: normocephalic, atraumatic Eyes: normal inspection, PERRL, EOMI ENT: normal ENT inspection Neck: supple, + pertinent finding (Limited exam due to habitus) Respiratory/Chest: chest non-tender, + decreased breath sounds, + pertinent finding (mild end expiratory wheezing) Cardiovascular: regular rate, rhythm, normal peripheral pulses, + pertinent finding (faint sounds) Abdomen/GI: normal bowel sounds, non tender, soft Back: normal inspection, no CVA tenderness Extremities/Musculoskelatal: normal inspection, no calf tenderness, no pedal edema, normal range of motion Neurologic/Psych: [employer] II-XII nml as tested, no motor/sensory deficits, alert, normal mood/affect Skin: normal color, warm/dry, no rash Hospital Course: 81 y/o F Hx HTN, DM 2, dementia with psychosis. 2 days of URI symptoms including persistent wheezing, cough, SOB admitted after routine appt with PCP, who sent her to the ED for wheezing. Pt was treated with supportive therapy, IV steroids, finished a 5 day levaquin course, and her breath sounds improved. She was not short of breath at rest or on exertion and O2 sats were adequate on room air. Pt was stable for discharge home. URI - wheezing, SOB, mild hypoxia - finished course of Levaquin yesterday,as there is no evidence of a worsening PNM and the clinical picture is more consistent with reactive airway disease. - Sx seem to be improving- decreased Solumedrol 40 mg to Q12H yesterday and was started on oral prednisone today with planned taper today. Will get one more dose tonight and then switch to 40 mg prednisone tomorrow morning. - Continue prn 02 protocol and duonebs - Sinus infection on CT treated covered with levaquin - Blood culture x 2 negative, urine culture neg Hyponatremia - IVF overnight as she appeared dehydrated at time of admission. - NA+ still depressed this morning, clinically hypovolemic and is more in the range of 131-2 when corrected for her Glu. - if not improving with tighter glucose control, consider SIADH DM II - Continue ISS with Lantus 25 U BID - Tightened coverage with CR of 15 and carb ratio 1:6 for elevated glucose with steroid administration. JAKOB on CKD stage III - Cr. increased to 1.5, will start NSS @ 100mL/hr x 1 day, encouraged fluid hydration orally as the patient has been tolerating oral intake without difficulty. - Diuretics held - euvolemic currently - Follow with am labs Thrombocytopenia - appears mild/stable HTN - Continue metoprolol tartrate 50 mg QAM and 25 mg QPM Hypothyroidism - TSH = 0.289 - cont Synthroid 150 mcg daily Dementia Auditory Hallucinations- chronic, nonthreatening, pt hears her late , brothers and sisters (who are all ) and this does not bother her. She frequently talks to herself at baseline. Seroquel has decreased paranoid hallucinations. - Cont PM Seroquel 400 mg qpm Depression - Cont effexor 75 mg daily DVT ppx: teds, scds, heparin subq CODE STATUS: DNR Disposition: From home, lives with her sister, granddaughter who is present today serves as a caregiver during day. Discharge home today. Total Time Spent: Greater than 30 minutes This includes examination of the patient, discharge planning, medication reconciliation, and communication with other providers. Discharge Instructions Please refer to the electronic Patient Visit Report (Discharge Instructions) for additional information. Follow-Up Follow up with your Primary Care Provider within 1 week. Additional Copies To Luis Siddiqui M.D.
[2017-03-29] MEDS ORDERED: AMOX875T PO (11:25)
[2017-03-29] MEDS ORDERED: LEVO750T23 PO (11:25)
== END 2016-12-29 13:28 | disposition home or self-care (01) | DRG 202 ==
LOC: ENRESERVTM → ENRESERVDT → C.EDB 17:46 → C.MS4W 22:07
PROVIDERS: ADMIT Internal Medicine; ATTEND Hospitalist
DX: J40 Bronchitis, not specified as acute or chronic (principal); E87.2 Acidosis; E87.1 Hypo-osmolality and hyponatremia; N17.9 Acute kidney failure, unspecified; R44.0 Auditory hallucinations; J06.9 Acute upper respiratory infection, unspecified; J45.909 Unspecified asthma, uncomplicated; R09.02 Hypoxemia; J32.9 Chronic sinusitis, unspecified; D69.6 Thrombocytopenia, unspecified; E86.0 Dehydration; S69.92XA Unspecified injury of left wrist, hand and finger(s), initial encounter; S09.93XA Unspecified injury of face, initial encounter; W19.XXXA Unspecified fall, initial encounter; E11.65 Type 2 diabetes mellitus with hyperglycemia; I12.9 Hypertensive chronic kidney disease with stage 1 through stage 4 chronic kidney disease, or unspecified chronic kidney disease; E11.22 Type 2 diabetes mellitus with diabetic chronic kidney disease; N18.3 Chronic kidney disease, stage 3 (moderate); E03.9 Hypothyroidism, unspecified; F03.90 Unspecified dementia, unspecified severity, without behavioral disturbance, psychotic disturbance, mood disturbance, and anxiety; F32.9 Major depressive disorder, single episode, unspecified; Z91.81 History of falling; Z66 Do not resuscitate; Z79.82 Long term (current) use of aspirin; Z79.4 Long term (current) use of insulin; Z79.899 Other long term (current) drug therapy

== ENCOUNTER 2017-03-22 15:04 | Inpatient (IN) | payer BC, OTHER ==
[~2017-03-22] VITALS: Ht 160 cm; Wt 97.0 kg
[~2017-03-22 15:04] MED LIST changes: -ERTA1INJ IV; +INSDGI SC; -LEVO125T5 PO; -NMN10 PO; +NVLG SC; +SRQ400 PO; +SYN150 PO
[2017-03-22] MEDS ORDERED: ONDANSETRON INJ 2 MG/ML 2 ML VIAL IV PRN (17:30)
[2017-03-22] MEDS ORDERED: ACETAMINOPHEN 325 MG TAB PO PRN (17:30)
--- NOTE | 2017-03-22 17:36 | History and Physical ---
History & Physical Date & Time of Service: Mar 22, 2017 at 17:22 Chief Complaint: Right Foot Cellulitis Primary Care Physician: Luis Siddiqui M.D. History of Present Illness This is a 82 yo F with PMHX of HTN, DM II with hx of hypoglycemia, GERD, HLD, dementia with auditory and visual hallucinations, bronchospasm, hyponatremia, hypothyroidism, osteoarthritis, sleep apnea, gout, diverticulosis, left foot osteomyelitis hx 1 year ago,who presented to her PCP acute visit last week for R toe pain, given keflex, and returned this morning for checkup with worsening symptoms. The patient is a poor historian, so her son and granddaughter provide the majority of the history. The patient was seen in the office on 03/20/17 for left toe cellulitis and was started on Keflex 500 mg TID. Patient reports worsening right foot pain since then. The patient reports that her pain in the right foot localized to the lateral side near the base of her foot, involving the arch of her foot, and that she has been unable to walk on it for approximately one day. There is now redness and swelling which developed in the past 24 hours. The patient typically uses a walker for ambulation. She has been taking her normally scheduled medications as prescribed including allopurinol. She does have a history of a left toe osteomyelitis one year ago where she required a PICC line insertion and IV antibiotics due to sepsis. Past Medical/Surgical History Medical Problems: (1) Dementia Status: Chronic (2) DIAB KAREEM WO COMPL, TYPE II OR UNSPEC TYPE, NOT UNCNTRLD Status: Chronic (3) DIVERTICULOSIS COLON (W/O MENT OF HEMORRHAGE) Status: Chronic (4) Diverticulosis of colon without hemorrhage Status: Chronic (5) Esophageal reflux Status: Chronic (6) GOUT NOS Status: Chronic (7) HYPERTENSION NOS Status: Chronic (8) Hyponatremia Status: Resolved (9) HYPOTHYROIDISM NOS Status: Chronic (10) Osteomyelitis Status: Resolved (11) Unspecified sleep apnea Status: Chronic Surgical Hx Cararact surgery on both eyes Ear surgery Shoulder surgery Family History FH: heart disease Social History Smoking Status: Never Smoker Smokeless Tobacco Use: No Drug Use: none Housing status: lives with family Occupational Status: retired Immunizations History of Influenza Vaccine: Yes Influenza Vaccine Date: Jun 17, 2011 History of Tetanus Vaccine?: Yes History of Pneumococcal: Yes History of Hepatitis B Vaccine: Unknown Multi-Drug Resistant Organisms History of MDRO: No Allergies Coded Allergies: No Known Allergies (Unverified , 12/26/16) Home Medications Scheduled Allopurinol (Zyloprim), 100 MG PO QAM Aspirin (Aspirin Ec), 81 MG PO QAM Atorvastatin (Lipitor), 40 MG PO QAM Calcium Carbonate-Cholecalcife (Caltrate 600+D), 1 TAB PO BID Donepezil Hydrochloride (Aricept), 10 MG PO HS Enalapril (Vasotec), 10 MG PO QAM Furosemide (Lasix), 20 MG PO Q2D Insulin Glargine (Lantus), 25 UNITS SC BID Levothyroxine Sodium (Synthroid), 150 MCG PO QAM Metoprolol Tartrate (Lopressor) (Lopressor), 50 MG PO QAM Metoprolol Tartrate (Lopressor) (Lopressor), 25 MG PO QPM Multiple Vitamin (Multivitamin), 1 TAB PO DAILY@1200 Omeprazole (Prilosec), 20 MG PO DAILY@1200 Quetiapine Fumarate (Quetiapine Fumarate), 400 MG PO QPM Venlafaxine Hcl (Venlafaxine Extended Rel), 75 MG PO QAM Scheduled PRN Insulin Aspart (Novolog), 5 UNITS SC PRN PRN for PRN Review of Systems Constitutional: No fever, sweats or chills Eyes: No diplopia, no worsening or blurred vision ENT: normal hearing, no trouble swallowing Respiratory: No cough, sputum, dyspnea at rest or on exertion Cardiovascular: No chest pain, tightness or palpitations Abdomen: No pain, nausea, vomiting, diarrhea or constipation Musculoskeletal: See HPI. No calf pain. Neurologic: No weakness, numbness/tingling, or balance problems Psychiatric: + Auditory and visual hallucinations at baseline, non-frightening, sees and speaks to multiple children and adults, Seroquel is helping. Skin: No rash or itch Physical Exam General: awake, alert, no apparent distress, obese, mumbles to herself throughout the exam Head: Normocephalic, atraumatic ENT: PERRL, EOMI, no pharyngeal exudate, mucous membranes moist Chest: Diminished breath sounds throughout with expiratory wheeze in all marin , on room air, no crackles or rales Cardiac: Regular rate and rhythm, + systolic ejection murmur grade II/, no JVD , normal peripheral pulses, good capillary refill Abdominal: NABS x 4 quadrants, soft, nontender to palpation, no rebound, guarding or tenderness Extremities: RLE: Small open lesion overlying the right great toe on DIP, surrounding erythema extends from the lateral aspect of the foot that the posterior ankle, 2+ nonpitting edema, warm to touch, outlined with marker by myself. No peripheral edema or erythema on the left foot,calfs nontender to palpation Psych: Normal mood and affect, does mumble words occasionally to self during exam which is her baseline per family. Neuro: AAO x 3, strength intact bilaterally and related 5/5, no motor deficits, speech is clear, no peripheral sensory deficits Impression Assessment and Plan This is a 82 yo F with PMHX of HTN, DM II with hx of hypoglycemia, GERD, HLD, dementia with auditory and visual hallucinations, bronchospasm, hyponatremia, hypothyroidism, osteoarthritis, sleep apnea, gout, diverticulosis, left foot osteomyelitis hx 1 year ago,who presented to her PCP for a checkup after initiation of Keflex, found to have worsening erythema and edema of the right foot so was sent to the hospital. Cellulitis of the R foot vs acute gouty attack - Admit to medsur - X-ray of the foot 3 views if possible, can do 2 views if the patient is unable to stand - Check CBC, BMP, blood cultures 2, ESR, CRP, lactic acid - Started the patient on Zosyn and vancomycin for broad-spectrum coverage - Pain control with tylenol, toradol if Cr. function ok - PT/OT evals - We'll consult ID for antibiotic recs recommendations since patient has a history of left foot osteomyelitis on 04/29/18 and was followed by Dr. Sy. She required a PICC line insertion at that time and was on Invanz for 32 days, started on 05/13/16 then transitioned to Bactrim. - Continue allopurinol 100 mg QAM for now, - May consider steroids if this is an acute gout attack after infectious etiology ruled out DM II - Continue ISS with Lantus 25 U BID - Insulin sliding scale with Accu-Cheks ACHS CKD stage III - Cr. baseline of 1.3, follow PRP - Lasix 20 mg PO QOD held with possible infection - appears euvolemic at this time - Follow with am labs Bronchospasm, chronic - Pt has tight breath sounds with expiratory wheeze throughout, will add nebulizers Q4H while awake and prn for sob. HTN - Continue metoprolol tartrate 50 mg QAM and 25 mg QPM, enalapril 10 mg QAM, ASA 81 mg Hypothyroidism - TSH = 0.289 on 12/27/16 - cont Synthroid 150 mcg daily Dementia Auditory Hallucinations- chronic, nonthreatening, pt hears her late , brothers and sisters (who are all ), also hears voices of school friends , and small children swearing. She frequently talks to herself at baseline. Seroquel has decreased paranoid hallucinations - Cont PM Seroquel 400 mg qpm - COntinue aricept 10 mg HS Depression - Cont Effexor 75 mg daily DVT ppx: teds, scds, heparin subq CODE STATUS: DNR Disposition: Patient from home, lives with her daughter, PT/OT eval discharge when medically stable Level of Care Med/Surg Resuscitation Status DO NOT RESUSCITATE VTE Prophylaxis Risk Level: Low Given or contraindicated: T.E.D. Stockings, SCD's, Refusal of treatmnt by pt Reviewed: Pt Seen/Exam by Me History Physician Executive Director Of Marketing Supervision Note: I interviewed and examined the patient. Discussed with ISRRAEL Cornell and agree with findings and plan as documented in the note. Any exceptions or clarifications are listed here: Pt is an 82 yo female with a h/o uncontrolled DMII, gout, dementia, psychosis, GERD, HLD, asthma, hypothyroidism, osteoarthritis, sleep apnea, diverticulosis, and left foot osteomyelitis hx 1 year ago, here as a direct admit from the PCP office after what was thought to be failed outpatient treatment of right foot and ankle cellulitis.Pt had no signs or symptoms of sepsis, but due to pt refusing care in the past, there was concern for continued outpatient management and the need for further evaluation to rule out osteomyelitis given her previous history. She was admitted here this evening and her labs do show some mildly elevated ESR, Crp, no leukocytosis, and normal lactate. Pain and edema, erythema have progressively worsened over the last 4 days and she has been unable to ambulate on the foot. Vitals: afebrile, mildly hypertensive at 160 sys NAD, Obese, muttering to herself but then answers all questions appropriately RRR +2/6 SHANAE at LLSB Lungs with diffuse exp wheezes Abd +BS soft NT ND Ext: Rt foot with 2+ pitting edema of ankle and foot on dorsum, very mild erythema of medial foot and posterior ankle with +TTP mostly over lateral ankle and medial foot, with warmth to the touch, 1+ DP pulses bilat, no ttp over toes , +hammer toes throughout 82 yo female with right foot and ankle pain, erythema, and edema--> suspect gout vs cellulitis, need to r/o OM given uncontrolled DM and history of previous OM. ESR and Crp mildly elevated, not septic. Xray no evidence of OM -continue Zosyn and Vanc for now, consult ID -check uric acid level as well -follow ESR, Crp, CBC in AM -Check MRI foot and ankle to r/o OM definitively -Ortho consult to see about arthrocentesis to analyze for gouty crystals -consider prednisone but will await Ortho consultation Documented By: Nory Rivas
[2017-03-22] MEDS ORDERED: PATIENT'S HEIGHT AND/OR WEIGHT NEEDED SCH (17:45)
[2017-03-22] MEDS ORDERED: POLYETHYLENE (MIRALAX) 17 GM PACK PO PRN (17:45)
[2017-03-22] MEDS ORDERED: PIPERACILL/TAZOBAC CONSULT ACTIVE PRN (18:00)
[2017-03-22] MEDS ORDERED: VANCOMYCIN CONSULT ACTIVE PRN (18:00)
[2017-03-22] MEDS ORDERED: PIPERACILL/TAZOBAC IV 4.5 GM in DEXTROSE 5% 100ML 100 ML IV ONE (18:15)
[2017-03-22 18:39] LABS: BASO % 0.2 %; BASO ABS # 0.02 K/uL (0-0.2); COMPLETE YES; EOS % 3.2 %; HEMATOCRIT 37.7 % (37-47); IG% 0.1 %; LYMPH % 19.7 %; LYMPH ABS # 1.68 K/uL (1.2-3.4); MEAN CELL VOLUME 93.1 fL (80-100); MEAN CORPUSCULAR HEMOGLOBIN 32.1 pg (25-34); MEAN CORPUSCULAR HGB CONC 34.5 g/dl (32-36); MEAN PLATELET VOLUME 10.1 fL (7.4-10.4); MONO % 12.9 %; NEUT % 63.9 %; PLATELET COUNT 157 K/uL (130-400); RED BLOOD COUNT 4.05 M/uL (4.2-5.4); WHITE BLOOD COUNT 8.54 K/uL (4.8-10.8)
[2017-03-22 19:00] LABS: BLOOD UREA NITROGEN 17 mg/dl (7-18); BUN/CREATININE RATIO 13.4 (10-20); C-REACTIVE PROTEIN 2.36 mg/dl (0-0.29); CALCIUM 9.5 mg/dl (8.5-10.1); CARBON DIOXIDE 37 mmol/L (21-32); CHLORIDE 94 mmol/L (98-107); GLUCOSE 256 mg/dl (70-99); POTASSIUM 4.2 mmol/L (3.5-5.1); SODIUM 135 mmol/L (136-145)
[2017-03-22] MEDS ORDERED: GLUCOSE 10 TABS/TUBE PO PRN (19:15)
[2017-03-22] MEDS ORDERED: GLUCAGON FOR INJ 1 MG VIAL SQ PRN (19:15)
[2017-03-22] MEDS ORDERED: GLUCOSE 40% GEL 15 GM TUBE PO PRN (19:15)
[2017-03-22] MEDS ORDERED: DEXTROSE 50% 50 ML SYR IV PRN (19:15)
[2017-03-22] MEDS ORDERED: VANCOMYCIN INJ 2,250 MG in SODIUM CHLORIDE 0.9% 500ML 500 ML IV ONE (19:30)
--- NOTE | 2017-03-22 20:01 | DIAGNOSTIC IMAGING REPORT ---
RIGHT FOOT MIN 3 VIEWS ROUTINE CLINICAL HISTORY: Assess for osteomyelitis Right COMPARISON: None. DISCUSSION: The bones and joint spaces appear intact. There is no evidence of fracture, dislocation or bony disease. Considerable soft tissue edema. No bony destructive or erosive process. IMPRESSION: Soft tissue edema. Degenerative change. No evidence for bony destructive process. The above report was generated using voice recognition software. It may contain grammatical, syntax or spelling errors. Electronically signed by: Rosalio Early M.D. 03/22/2017 8:00 PM Dictated Date/Time: 03/22/2017 7:59 PM
[2017-03-22 20:22] VITALS: BMI 37.9
[2017-03-22] MEDS ORDERED: VANCOMYCIN INJ 1,000 MG in SODIUM CHLORIDE 0.9% 250ML 250 ML IV SCH (21:00)
[2017-03-22] MEDS: ALBUTEROL 0.083% NEBU SOLN 3 ML VIAL INH SCH (21:00)
--- NOTE | 2017-03-22 21:52 | DIAGNOSTIC IMAGING REPORT ---
RIGHT ORBITS FOR MRI HISTORY: pre-MRI screening. COMPARISON: None. FINDINGS: There are no radiopaque foreign bodies identified within the orbits. IMPRESSION: No radiopaque foreign bodies identified within the orbits. The above report was generated using voice recognition software. It may contain grammatical, syntax or spelling errors. Electronically signed by: Rosalio Early M.D. 03/22/2017 9:51 PM Dictated Date/Time: 03/22/2017 9:50 PM
[2017-03-22 22:40] VITALS: BP 162/85; PULSE 74; TEMP 36.7; BMI 37.9
[2017-03-22 22:41] VITALS: O2SAT 95
[2017-03-22] MEDS ORDERED: GADAVIST IV PRN (23:15)
[2017-03-22 23:56] VITALS: BP 153/71; PULSE 72; TEMP 37; O2SAT 96
[2017-03-23] VITALS (7 sets, daily range): BP systolic 89–125; BP diastolic 48–83; PULSE 56–68; TEMP 36.3–36.6; O2SAT 91–96; Ht 160 cm; Wt 97.0 kg
[2017-03-23 00:02] LABS: PROTHROMBIN TIME (PATIENT) 10.7 SECONDS (9.0-12.0)
[2017-03-23] MEDS: METOPROLOL TARTRATE 25 MG TAB PO SCH ×2 (00:26→21:15)
[2017-03-23] MEDS: CALCIUM 600MG + VIT D 400 IU TAB PO SCH ×3 (00:26→21:14)
[2017-03-23] MEDS: DONEPEZIL HCL 10 MG TAB PO SCH ×2 (00:26→21:14)
[2017-03-23] MEDS: QUETIAPINE FUMARATE 200 MG TAB PO SCH ×2 (00:26→21:15)
[2017-03-23] MEDS: ACETAMINOPHEN 500 MG TAB PO SCH ×4 (00:27→21:13)
[2017-03-23] MEDS: INSULIN GLARGINE SOLOSTAR 100 UNITS/ML 3 ML PEN SC SCH ×3 (00:34→21:20)
[2017-03-23] MEDS: INSULIN ASPART 100 UNITS/ML 3 ML PEN SC SCH ×5 (00:37→21:19)
[2017-03-23] MEDS: ALBUTEROL 0.083% NEBU SOLN 3 ML VIAL INH SCH ×5 (01:54→19:14)
[2017-03-23] MEDS: PIPERACILL/TAZOBAC IV 4.5 GM in DEXTROSE 5% 100ML IV SCH ×3 (02:13→18:18)
[2017-03-23] MEDS: HEPARIN SOD 5000 UNIT/0.5 ML CARP SQ SCH ×3 (06:14→21:20)
[2017-03-23] MEDS: LEVOTHYROXINE 150 MCG TAB PO SCH (06:15)
[2017-03-23 06:25] LABS: BASO % 0.3 %; BASO ABS # 0.02 K/uL (0-0.2); COMPLETE YES; HEMATOCRIT 32.8 % (37-47); IG% 0.3 %; LYMPH ABS # 2.18 K/uL (1.2-3.4); MEAN CELL VOLUME 91.9 fL (80-100); MEAN CORPUSCULAR HEMOGLOBIN 31.1 pg (25-34); MEAN CORPUSCULAR HGB CONC 33.8 g/dl (32-36); MEAN PLATELET VOLUME 9.5 fL (7.4-10.4); MONO % 12.4 %; PLATELET COUNT 132 K/uL (130-400); RED BLOOD COUNT 3.57 M/uL (4.2-5.4); WHITE BLOOD COUNT 7.51 K/uL (4.8-10.8)
[2017-03-23 06:58] LABS: BUN/CREATININE RATIO 10.5 (10-20); C-REACTIVE PROTEIN 2.41 mg/dl (0-0.29); CALCIUM 9.3 mg/dl (8.5-10.1); CREATININE 1.7 mg/dl (0.60-1.20); POTASSIUM 3.9 mmol/L (3.5-5.1)
--- NOTE | 2017-03-23 07:20 | DIAGNOSTIC IMAGING REPORT ---
MRI OF THE RIGHT FOREFOOT WITHOUT AND WITH CONTRAST CLINICAL HISTORY: Foot pain. Possible osteomyelitis. COMPARISON STUDY: No previous studies for comparison. FINDINGS: Imaging was performed in the sagittal, axial, and coronal planes before and after the administration of 5.5 cc of intravenous Gadavist. There are flexion deformities of the toes. There are no areas of marrow edema to indicate neoplasm,: Fracture, or osteomyelitis. The Lisfranc joint appears intact. There is moderate soft tissue edema, most pronounced dorsally. There are no fluid collections to indicate osteomyelitis. There is mild edema and enhancement of the flexor and intraosseous musculature. This could indicate a mild nonspecific myositis. IMPRESSION: 1. No evidence of occult fracture 2. No evidence of osteomyelitis 3. Moderate soft tissue edema most pronounced dorsally 4. Mild edema and enhancement of the flexor intraosseous musculature. This could indicate a mild nonspecific myositis Electronically signed by: Grant Sewell M.D. 03/23/2017 7:19 AM Dictated Date/Time: 03/23/2017 6:46 AM
--- NOTE | 2017-03-23 07:31 | DIAGNOSTIC IMAGING REPORT ---
RIGHT LOWER EXT NONJOINT COMBO CLINICAL HISTORY: 82 years-old Female presenting with right foot pain and swelling since Jaden, unable to walk, localizes to the lateral ankle, no history of injury, r/o osteomyelitis or gout, no prior surgery, no history cancer. TECHNIQUE: Multisequence, multiplanar MR imaging of the right ankle performed after the administration of intravenous contrast. IV contrast: 9.5 mL of Gadavist. Axial COMPARISON: Correlation made to plain radiographs from 03/22/2017. FINDINGS: Tendons: Achilles tendon normal in morphology and signal intensity. Anterior, and posterior tendons appear intact. Fluid noted in the tendon sheath along the peroneus longus and peroneus brevis, indicative of tenosynovitis. Joint effusion: None. Ligaments: Anterior talofibular ligament appears intact. Deltoid and spring ligaments are normal as visualized. Plantar fascia: Visualized portions of the plantar fascia normal in morphology and signal intensity. Bones: No bony edema. Ankle mortise intact. Hindfoot and midfoot articulations congruent. Musculature: Intramuscular edema in the flexor digitorum brevis and to a lesser extent in the deeper flexor compartment. Postcontrast imaging demonstrates enhancement of this region. Fatty atrophy noted in the abductor hallucis and abductor digiti minimi. Remaining soft tissues: Diffuse subcutaneous edema predominantly along the dorsum of the foot. IMPRESSION: 1. Edematous and enhancing flexor compartment musculature concerning for myositis. No evidence of osteomyelitis. No acute osseous injury. 2. Evidence of tenosynovitis of the peroneus longus and peroneus brevis. 3. Diffuse subcutaneous edema. Electronically signed by: Sam Andrade M.D. 03/23/2017 7:30 AM Dictated Date/Time: 03/23/2017 6:51 AM
[2017-03-23 07:55] LABS: ESTIMATED AVERAGE GLUCOSE 186 mg/dl; HA1C FLAG Normal (Normal)
[2017-03-23] MEDS: ASPIRIN 81 MG ECTAB PO SCH (08:16)
[2017-03-23] MEDS: METOPROLOL TARTRATE 50 MG TAB PO SCH (08:17)
[2017-03-23] MEDS: VENLAFAXINE HCL XR 75 MG CAPXR PO SCH (08:17)
[2017-03-23] MEDS: ALLOPURINOL 100 MG TAB PO SCH (08:17)
[2017-03-23] MEDS: ATORVASTATIN 40 MG TAB PO SCH (08:17)
[2017-03-23] MEDS: PANTOprazole SOD 40 MG TAB PO SCH (08:17)
--- NOTE | 2017-03-23 11:01 | Medical Consult ---
Consultation Date of Consultation: Mar 23, 2017. Attending Physician: Nory Rivas MD Reason for Consultation: cellulitis, osteomyelitis of R great toe History of Present Illness Patient is an 82 yo female with an extensive medical history including DM, dementia, gout, and history of osteomyelitis of the left foot last year in May at which time she was seen by Dr. Sy. She presented to the hospital for admission for concerns of right foot cellulitis. The patient states that she is unsure when her right foot became edematous/erythematous, but she knows that it started recently. She states that her right ankle hurts whenever she tries to bear weight. She denies fever, sweats, chills, SOB, chest pain, N/V/D, or left foot pain. She did have MRI of the right foot and right lower extremity. MRI showed edematous and enhancing flexor compartment concerning for myositis but no evidence of osteomyelitis. Tenosynovitis of the peroneus longus and brevis was also noted along with subcutaneous edema. WBC count on admission was 8.54. ESR was 37. She has been afebrile. Blood cultures are pending. Ortho consult is pending. She is currently on IV Vancomycin and Zosyn. Past Medical/Surgical History Medical Problems: (1) Altered mental status Status: Acute (2) Cellulitis of right foot Status: Acute (3) Closed head injury Status: Acute (4) Hyperglycemia Status: Acute (5) Hyponatremia Status: Acute (6) Hypoxia Status: Acute (7) Multiple contusions Status: Acute (8) Shortness of breath Status: Acute (9) Wheezing Status: Acute Medical Problems: (1) Bronchitis (2) Cellulitis (3) Cellulitis of right toe (4) Dementia (5) DIAB KAREEM WO COMPL, TYPE II OR UNSPEC TYPE, NOT UNCNTRLD (6) Diabetic infection of left foot (7) DIVERTICULOSIS COLON (W/O MENT OF HEMORRHAGE) (8) Diverticulosis of colon without hemorrhage (9) Esophageal reflux (10) GOUT NOS (11) HYPERTENSION NOS (12) Hyponatremia (13) HYPOTHYROIDISM NOS (14) Hypoxia (15) Mental status change (16) Osteomyelitis (17) Pneumonia (18) Unspecified sleep apnea (19) URI (upper respiratory infection) Family History FH: heart disease Noncontributory Social History Smoking Status: Never Smoker Smokeless Tobacco Use: No Drug Use: none Occupation Status: retired Allergies Coded Allergies: No Known Allergies (Unverified , 12/26/16) Home Medications Reported Home Medications Medications Dose Route/Sig Max Daily Dose Days Date Category Dose Instructions Novolog (Insulin Aspart) 100 Units/Ml Inj 5 Units SC PRN PRN 12/26/16 Reported Lantus (Insulin Glargine) 100 Unit/Ml Inj 25 Units SC BID 12/26/16 Reported Quetiapine Fumarate 400 Mg Tab 400 Mg PO QPM 12/26/16 Reported Synthroid (Levothyroxine Sodium) 150 Mcg Tab 150 Mcg PO QAM 12/26/16 Reported Caltrate 600+D (Calcium Carbonate-Cholecalcife) 1 Tab Tab 1 Tab PO BID 05/01/16 Reported Aspirin Ec (Aspirin) 81 Mg Tab 81 Mg PO QAM 05/01/16 Reported Multivitamin (Multiple Vitamin) 1 Tab Tab 1 Tab PO DAILY@1200 09/10/15 Reported Vasotec (Enalapril Maleate) 10 Mg Tab 10 Mg PO QAM 09/10/15 Reported Venlafaxine Extended Rel (Venlafaxine Hcl) 75 Mg Cap 75 Mg PO QAM 09/10/15 Reported Lasix (Furosemide) 20 Mg Tab 20 Mg PO Q2D 09/10/15 Reported Aricept (Donepezil Hydrochloride) 10 Mg Tab 10 Mg PO HS 01/16/12 Reported Prilosec (Omeprazole) 20 Mg Capcr 20 Mg PO DAILY@1200 11/04/11 Reported Zyloprim (Allopurinol) 100 Mg Tab 100 Mg PO QAM 11/04/11 Reported Lopressor (Metoprolol Tartrate) 50 Mg Tab 25 Mg PO QPM 06/22/11 Reported TAKE 1/2 OF A 50MG TABLET IN THE PM Lopressor (Metoprolol Tartrate) 50 Mg Tab 50 Mg PO QAM 06/22/11 Reported Lipitor (Atorvastatin Calcium) 40 Mg Tab 40 Mg PO QAM 12/31/08 Reported Current Inpatient Medications Current Inpatient Medications Medications (Trade) Dose Ordered Sig/Edilberto Route Start Time Stop Time Status Last Admin Dose Admin Acetaminophen (Tylenol Tab) 650 mg Q4H PRN PO 03/22/17 17:30 04/21/17 17:29 Future Hold Polyethylene (Miralax Powder Packet) 17 gm DAILY PRN PO 03/22/17 17:45 04/21/17 17:44 Ondansetron HCl (Zofran Inj) 4 mg Q6H PRN IV 03/22/17 17:30 04/21/17 17:29 Allopurinol (Zyloprim Tab) 100 mg QAM PO 03/23/17 09:00 04/22/17 08:59 03/23/17 08:17 100 MG Aspirin (Ecotrin Tab) 81 mg QAM PO 03/23/17 09:00 04/22/17 08:59 03/23/17 08:16 81 MG Atorvastatin Calcium (Lipitor Tab) 40 mg QAM PO 03/23/17 09:00 04/22/17 08:59 03/23/17 08:17 40 MG Donepezil HCl (Aricept Tab) 10 mg HS PO 03/22/17 21:00 04/21/17 20:59 03/23/17 00:26 10 MG Enalapril Maleate (Vasotec Tab) 10 mg QAM PO 03/23/17 09:00 04/22/17 08:59 Insulin Glargine (Lantus Solostar Pen) 25 units BID SC 03/22/17 21:00 04/21/17 20:59 03/23/17 08:24 25 UNITS Levothyroxine Sodium (Synthroid Tab) 150 mcg DAILYBB PO 03/23/17 06:30 04/22/17 06:29 03/23/17 06:15 150 MCG Metoprolol Tartrate (Lopressor Tab) 25 mg QPM PO 03/22/17 21:00 04/21/17 20:59 03/23/17 00:26 25 MG Metoprolol Tartrate (Lopressor Tab) 50 mg QAM PO 03/23/17 09:00 04/22/17 08:59 Multivitamins (Multivitamin Tab) 1 tab DAILY@1200 PO 03/23/17 12:00 04/22/17 11:59 Venlafaxine HCl (effeXOR EXTENDED REL CAP) 75 mg QAM PO 03/23/17 09:00 04/22/17 08:59 03/23/17 08:17 75 MG Calcium/Vitamin D (Caltrate Plus Tab) 1 tab BID PO 03/22/17 21:00 04/21/17 20:59 03/23/17 08:16 1 TAB Pantoprazole Sodium (Protonix Tab) 40 mg QAM PO 03/23/17 09:00 04/22/17 08:59 03/23/17 08:17 40 MG Quetiapine Fumarate (seroQUEL TAB) 400 mg HS PO 03/22/17 21:00 04/21/17 20:59 03/23/17 00:26 400 MG Piperacillin Sod/ Tazobactam Sod (Consult) 1 ea UD PRN N/A 03/22/17 18:00 04/21/17 17:59 Vancomycin HCl (Consult) 1 ea UD PRN N/A 03/22/17 18:00 04/21/17 17:59 Heparin Sodium (Porcine) (Heparin Sq 5000 Unit/0.5ml) 5,000 unit Q8H SQ 03/23/17 06:00 04/22/17 05:59 03/23/17 06:14 5,000 UNIT Insulin Aspart (novoLOG ASPART) SLIDING SCALE If C... ACHS SC 03/22/17 21:00 04/21/17 20:59 03/23/17 08:23 3 UNITS Glucose (Glucose 40% Gel) 15-30 GRAMS 15 GRAMS... UD PRN PO 03/22/17 19:15 04/21/17 19:14 Glucose (Glucose Chew Tab) 4-8 Tablets 4 Tabl... UD PRN PO 03/22/17 19:15 04/21/17 19:14 Dextrose (Dextrose 50% 50ML Syringe) 25-50ML OF 50% DW IV FOR... UD PRN IV 03/22/17 19:15 04/21/17 19:14 Glucagon (Glucagon Inj) 1 mg UD PRN SQ 03/22/17 19:15 04/21/17 19:14 Acetaminophen (Tylenol Tab) 1,000 mg Q8 PO 03/22/17 22:00 04/21/17 21:59 03/23/17 06:15 1,000 MG Piperacillin Sod/ Tazobactam Sod 4.5 gm/Dextrose 120 ml @ 30 mls/hr Q8H IV 03/23/17 02:00 04/02/17 01:59 03/23/17 10:07 30 MLS/HR Albuterol Sulfate (Ventolin 0.083% 2.5MG/3ML Neb) 2.5 mg Q6R INH 03/22/17 21:00 04/21/17 20:59 Gadobutrol (Gadavist) 9.5 mmol UD PRN IV 03/22/17 23:15 03/26/17 23:14 Vancomycin HCl 1000 mg/Sodium Chloride 270 ml @ 125 mls/hr Q30H IV 03/24/17 06:00 04/02/17 05:59 Review of Systems Constitutional: + fatigue, No fever, No chills, No sweats Eyes: No worsening of vision ENT: No hearing loss Respiratory: No cough, No shortness of breath Cardiovascular: No chest pain Abdomen: No pain, No nausea, No vomiting, No diarrhea Musculoskeletal: + joint pain (right foot and ankle), + swelling (right ankle/ foot) Genitourinary - Female: No dysuria, No urinary frequency, No urinary urgency Integumentary: + color change (mild erythema of the right foot and ankle), No rash, No itch Physical Exam Date Time Temp Pulse Resp B/P (MAP) Pulse Ox O2 Delivery O2 Flow Rate FiO2 03/23/17 10:32 Room Air 03/23/17 08:11 56 103/67 (79) 03/23/17 07:56 36.3 58 16 89/48 (62) 94 Room Air 03/23/17 01:20 Room Air 03/22/17 23:56 37.0 72 20 153/71 (98) 96 Room Air 03/22/17 22:41 95 Room Air 03/22/17 22:40 36.7 74 18 162/85 General Appearance: no apparent distress, + obese Head: normocephalic, atraumatic Eyes: normal inspection, sclerae normal ENT: hearing grossly normal Neck: supple, trachea midline Respiratory/Chest: chest non-tender, no respiratory distress, no accessory muscle use, + decreased breath sounds (bases) Cardiovascular: regular rate, rhythm, no murmur Abdomen/GI: normal bowel sounds, non tender, soft Extremities/Musculoskelatal: + swelling (right 1-2+ pitting pedal edema. Tenderness of the right lateral ankle) Neurologic/Psych: alert, normal mood/affect, oriented x 3 Skin: no rash, + pertinent finding (very mild erythema/discoloration of the right lateral ankle and foot. Note line drawn around the area) Laboratory Results RIGHT LOWER EXT NONJOINT COMBO CLINICAL HISTORY: 82 years-old Female presenting with right foot pain and swelling since Jaden, unable to walk, localizes to the lateral ankle, no history of injury, r/o osteomyelitis or gout, no prior surgery, no history cancer. TECHNIQUE: Multisequence, multiplanar MR imaging of the right ankle performed after the administration of intravenous contrast. IV contrast: 9.5 mL of Gadavist. Axial COMPARISON: Correlation made to plain radiographs from 03/22/2017. FINDINGS: Tendons: Achilles tendon normal in morphology and signal intensity. Anterior, and posterior tendons appear intact. Fluid noted in the tendon sheath along the peroneus longus and peroneus brevis, indicative of tenosynovitis. Joint effusion: None. Ligaments: Anterior talofibular ligament appears intact. Deltoid and spring ligaments are normal as visualized. Plantar fascia: Visualized portions of the plantar fascia normal in morphology and signal intensity. Bones: No bony edema. Ankle mortise intact. Hindfoot and midfoot articulations congruent. Musculature: Intramuscular edema in the flexor digitorum brevis and to a lesser extent in the deeper flexor compartment. Postcontrast imaging demonstrates enhancement of this region. Fatty atrophy noted in the abductor hallucis and abductor digiti minimi. Remaining soft tissues: Diffuse subcutaneous edema predominantly along the dorsum of the foot. IMPRESSION: 1. Edematous and enhancing flexor compartment musculature concerning for myositis. No evidence of osteomyelitis. No acute osseous injury. 2. Evidence of tenosynovitis of the peroneus longus and peroneus brevis. 3. Diffuse subcutaneous edema. Item Value Date Time Blood Culture Received 03/22/171821 Blood Pending Blood Culture Received 03/22/171813 Blood Pending Last 24 Hours Test 03/22/17 17:12 03/22/17 17:22 03/22/17 18:14 03/22/17 18:22 Bedside Glucose 250 mg/dl Uric Acid 4.4 mg/dl White Blood Count 8.54 K/uL Red Blood Count 4.05 M/uL Hemoglobin 13.0 g/dL Hematocrit 37.7 % Mean Corpuscular Volume 93.1 fL Mean Corpuscular Hemoglobin 32.1 pg Mean Corpuscular Hemoglobin Concent 34.5 g/dl Platelet Count 157 K/uL Mean Platelet Volume 10.1 fL Neutrophils (%) (Auto) 63.9 % Lymphocytes (%) (Auto) 19.7 % Monocytes (%) (Auto) 12.9 % Eosinophils (%) (Auto) 3.2 % Basophils (%) (Auto) 0.2 % Neutrophils # (Auto) 5.46 K/uL Lymphocytes # (Auto) 1.68 K/uL Monocytes # (Auto) 1.10 K/uL Eosinophils # (Auto) 0.27 K/uL Basophils # (Auto) 0.02 K/uL RDW Standard Deviation 48.0 fL RDW Coefficient of Variation 14.1 % Immature Granulocyte % (Auto) 0.1 % Immature Granulocyte # (Auto) 0.01 K/uL Erythrocyte Sedimentation Rate 37 mm/hr Lactic Acid Level 1.4 mmol/L Sodium Level 135 mmol/L Potassium Level 4.2 mmol/L Chloride Level 94 mmol/L Carbon Dioxide Level 37 mmol/L Anion Gap 4.0 mmol/L Blood Urea Nitrogen 17 mg/dl Creatinine 1.30 mg/dl Estimated GFR () 44.6 Estimated GFR (Non- 38.4 BUN/Creatinine Ratio 13.4 Random Glucose 256 mg/dl Calcium Level 9.5 mg/dl C-Reactive Protein 2.36 mg/dl Test 03/22/17 20:48 03/22/17 23:45 03/23/17 00:31 03/23/17 06:01 Bedside Glucose 277 mg/dl 195 mg/dl Prothrombin Time 10.7 SECONDS Prothromb Time International Ratio 1.0 Activated Partial Thromboplast Time 25.9 SECONDS Partial Thromboplastin Ratio 1.0 White Blood Count 7.51 K/uL Red Blood Count 3.57 M/uL Hemoglobin 11.1 g/dL Hematocrit 32.8 % Mean Corpuscular Volume 91.9 fL Mean Corpuscular Hemoglobin 31.1 pg Mean Corpuscular Hemoglobin Concent 33.8 g/dl Platelet Count 132 K/uL Mean Platelet Volume 9.5 fL Neutrophils (%) (Auto) 54.0 % Lymphocytes (%) (Auto) 29.0 % Monocytes (%) (Auto) 12.4 % Eosinophils (%) (Auto) 4.0 % Basophils (%) (Auto) 0.3 % Neutrophils # (Auto) 4.06 K/uL Lymphocytes # (Auto) 2.18 K/uL Monocytes # (Auto) 0.93 K/uL Eosinophils # (Auto) 0.30 K/uL Basophils # (Auto) 0.02 K/uL RDW Standard Deviation 48.0 fL RDW Coefficient of Variation 14.2 % Immature Granulocyte % (Auto) 0.3 % Immature Granulocyte # (Auto) 0.02 K/uL Erythrocyte Sedimentation Rate 29 mm/hr Sodium Level 136 mmol/L Potassium Level 3.9 mmol/L Chloride Level 96 mmol/L Carbon Dioxide Level 37 mmol/L Anion Gap 3.0 mmol/L Blood Urea Nitrogen 18 mg/dl Creatinine 1.70 mg/dl Est Creatinine Clear Calc Drug Dose 28.8 ml/min Estimated GFR () 32.2 Estimated GFR (Non- 27.8 BUN/Creatinine Ratio 10.5 Random Glucose 125 mg/dl Estimated Average Glucose 186 mg/dl Hemoglobin A1c 8.1 % Calcium Level 9.3 mg/dl C-Reactive Protein 2.41 mg/dl Test 03/23/17 07:08 Bedside Glucose 114 mg/dl Assessment & Plan Diabetic female with right ankle and foot cellulitis along with possible septic tenosynovitis and myositis. She is currently on IV Vancomycin and Zosyn which is appropriate pending further workup and final cultures. Will await orthopedic opinion regarding tenosynovitis/myositis. We will follow. Case reviewed and agree with above assessment.
[2017-03-23] MEDS: ENALAPRIL MALEATE 10 MG TAB PO SCH (12:42)
[2017-03-23] MEDS: MULTIVITAMIN TAB PO SCH (12:42)
--- NOTE | 2017-03-23 13:28 | Pharmacy Progress Note ---
Pharmacy Abx Initial Consult Date of Service Mar 23, 2017. Pharmacy Dosing Scope Date of Consult: 03/22/17 Consultation requested by: Gregoria Cornell, PAC Pharmacy is consulted to initiate vancomycin and Zosyn IV dosing therapy, order appropriate labs and adjust drug dose/frequency. Subjective The patient is a 82 year old female admitted on Mar 22, 2017 at 15:04. Objective Height (Feet): 5 Height (Inches): 3.00 Weight (Kilograms): 97.000 (BMI = 38) Vital Signs (Past 12Hrs) Vital Signs Past 12 Hours Date Time Temp Pulse Resp B/P (MAP) Pulse Ox O2 Delivery O2 Flow Rate FiO2 03/23/17 12:39 56 125/83 (97) 03/23/17 10:32 Room Air 03/23/17 08:11 56 103/67 (79) 03/23/17 07:56 36.3 58 16 89/48 (62) 94 Room Air Lab Results (24Hrs) Laboratory Tests (24 Hours) Test 03/22/17 18:14 03/23/17 06:01 Lactic Acid Level 1.4 mmol/L (0.4-2.0) C-Reactive Protein 2.41 mg/dl (0-0.29) H Erythrocyte Sedimentation Rate 29 mm/hr (0-21) H White Blood Count 7.51 K/uL (4.8-10.8) Red Blood Count 3.57 M/uL (4.2-5.4) L Hemoglobin 11.1 g/dL (12.0-16.0) L Hematocrit 32.8 % (37-47) L Mean Corpuscular Volume 91.9 fL (80-100) Mean Corpuscular Hemoglobin 31.1 pg (25-34) Mean Corpuscular Hemoglobin Concent 33.8 g/dl (32-36) Platelet Count 132 K/uL (130-400) Mean Platelet Volume 9.5 fL (7.4-10.4) Neutrophils (%) (Auto) 54.0 % Lymphocytes (%) (Auto) 29.0 % Monocytes (%) (Auto) 12.4 % Eosinophils (%) (Auto) 4.0 % Basophils (%) (Auto) 0.3 % Neutrophils # (Auto) 4.06 K/uL (1.4-6.5) Lymphocytes # (Auto) 2.18 K/uL (1.2-3.4) Monocytes # (Auto) 0.93 K/uL (0.11-0.59) H Eosinophils # (Auto) 0.30 K/uL (0-0.5) Basophils # (Auto) 0.02 K/uL (0-0.2) Micro Results Date/Time Source Procedure Growth Status 03/22/17 18:22 Blood Blood Culture Pending Received 03/22/17 18:14 Blood Blood Culture Pending Received Assessment & Plan Assessment 82 year old female admitted for R foot cellulitis with possible septic tenosynovitis and myositis Today is day #2 of antibiotics SCr has increased from 1.3-> 1.7 so need to be cautious with vancomycin dosing Plan Vancomycin IV * Loading dose: 2250 mg (24 mg/kg) - given last night * Maintenance dose: 1000 mg IV (10.3 mg/kg) every 30 hours * Goal trough level for cellulitis/septic tenosynovitis : ~15 mcg/mL * Trough level ordered for 03/25/17 prior to the dose due at noon - will NOT be at steady state but need to evaluate level sooner due to elevated BMI and reduced renal function * A less than traditional dose and/or extended dosing interval has/have been selected due to likelihood of drug accumulation in obese patient/patient with h/ o CKD. Piperacillin/tazobactam * 4.5 g bolus administered over 30 minutes, then 4.5 g IV extended infusion every 8 hours for CrCl greater than 20 mL/min * Aggressive dosing selected due to BMI 35 or more Pharmacy will continue to follow and will adjust dose/frequency as necessary. Thank you.
[2017-03-23] MEDS ORDERED: VANCOMYCIN INJ 1,250 MG in SODIUM CHLORIDE 0.9% 250ML 250 ML IV SCH (20:00)
--- NOTE | 2017-03-24 01:09 | Hospitalist Progress Note ---
Hospitalist Progress Note Date of Service Mar 23, 2017. Subjective Pt evaluation today including: conversation w/ patient Patient with no complaints All Other Systems: Reviewed and Negative Objective Vital Signs Date Time Temp Pulse Resp B/P (MAP) Pulse Ox O2 Delivery O2 Flow Rate FiO2 03/24/17 00:00 Room Air 03/23/17 23:19 36.6 68 20 111/67 (82) 93 Room Air 03/23/17 16:02 91 Room Air 03/23/17 15:57 36.4 67 18 124/74 (91) 91 Room Air 03/23/17 14:05 62 14 96 Room Air 03/23/17 12:39 56 125/83 (97) 03/23/17 10:32 Room Air 03/23/17 08:11 56 103/67 (79) 03/23/17 07:56 36.3 58 16 89/48 (62) 94 Room Air 03/23/17 01:20 Room Air Physical Exam General Appearance: no apparent distress Eyes: normal inspection ENT: hearing grossly normal Neck: trachea midline Respiratory/Chest: lungs clear Cardiovascular: regular rate, rhythm Abdomen: normal bowel sounds Extremities: normal inspection Laboratory Results Last 24 Hours Test 03/23/17 06:01 03/23/17 07:08 03/23/17 11:14 03/23/17 16:23 White Blood Count 7.51 K/uL Red Blood Count 3.57 M/uL Hemoglobin 11.1 g/dL Hematocrit 32.8 % Mean Corpuscular Volume 91.9 fL Mean Corpuscular Hemoglobin 31.1 pg Mean Corpuscular Hemoglobin Concent 33.8 g/dl Platelet Count 132 K/uL Mean Platelet Volume 9.5 fL Neutrophils (%) (Auto) 54.0 % Lymphocytes (%) (Auto) 29.0 % Monocytes (%) (Auto) 12.4 % Eosinophils (%) (Auto) 4.0 % Basophils (%) (Auto) 0.3 % Neutrophils # (Auto) 4.06 K/uL Lymphocytes # (Auto) 2.18 K/uL Monocytes # (Auto) 0.93 K/uL Eosinophils # (Auto) 0.30 K/uL Basophils # (Auto) 0.02 K/uL RDW Standard Deviation 48.0 fL RDW Coefficient of Variation 14.2 % Immature Granulocyte % (Auto) 0.3 % Immature Granulocyte # (Auto) 0.02 K/uL Erythrocyte Sedimentation Rate 29 mm/hr Sodium Level 136 mmol/L Potassium Level 3.9 mmol/L Chloride Level 96 mmol/L Carbon Dioxide Level 37 mmol/L Anion Gap 3.0 mmol/L Blood Urea Nitrogen 18 mg/dl Creatinine 1.70 mg/dl Est Creatinine Clear Calc Drug Dose 28.8 ml/min Estimated GFR () 32.2 Estimated GFR (Non- 27.8 BUN/Creatinine Ratio 10.5 Random Glucose 125 mg/dl Estimated Average Glucose 186 mg/dl Hemoglobin A1c 8.1 % Calcium Level 9.3 mg/dl C-Reactive Protein 2.41 mg/dl Bedside Glucose 114 mg/dl 105 mg/dl 145 mg/dl Test 03/23/17 19:55 Bedside Glucose 117 mg/dl Assessment and Plan This is a 82 yo F with PMHX of HTN, DM II with hx of hypoglycemia, GERD, HLD, dementia with auditory and visual hallucinations, bronchospasm, hyponatremia, hypothyroidism, osteoarthritis, sleep apnea, gout, diverticulosis, left foot osteomyelitis hx 1 year ago,who presented to her PCP for a checkup after initiation of Keflex, found to have worsening erythema and edema of the right foot so was sent to the hospital. Cellulitis of the R foot vs acute gouty attack -Improved with Zosyn plus vancomycin - May consider steroids if this is an acute gout attack after infectious etiology ruled out DM II - Continue ISS with Lantus 25 U BID - Insulin sliding scale with Accu-Cheks ACHS CKD stage III - Cr. baseline of 1.3, follow PRP - Lasix 20 mg PO QOD held with possible infection - appears euvolemic at this time - Follow with am labs Bronchospasm, chronic - Pt has tight breath sounds with expiratory wheeze throughout, will add nebulizers Q4H while awake and prn for sob. Patient improved with nebulized treatments HTN - Continue metoprolol tartrate 50 mg QAM and 25 mg QPM, enalapril 10 mg QAM, ASA 81 mg Hypothyroidism - TSH = 0.289 on 12/27/16 - cont Synthroid 150 mcg daily Dementia Auditory Hallucinations- chronic, nonthreatening, pt hears her late , brothers and sisters (who are all ), also hears voices of school friends , and small children swearing. She frequently talks to herself at baseline. Seroquel has decreased paranoid hallucinations - Cont PM Seroquel 400 mg qpm - COntinue aricept 10 mg HS Depression - Cont Effexor 75 mg daily DVT ppx: teds, scds, heparin subq CODE STATUS: DNR Disposition: Patient from home, lives with her daughter, PT/OT eval discharge when medically stable Level of Care Med/Surg Resuscitation Status DO NOT RESUSCITATE VTE Prophylaxis Risk Level: Low Given or contraindicated: T.E.D. Stockings, SCD's, Refusal of treatmnt by pt
[2017-03-24] MEDS: ALBUTEROL 0.083% NEBU SOLN 3 ML VIAL INH SCH ×4 (01:50→19:16)
[2017-03-24] MEDS: PIPERACILL/TAZOBAC IV 4.5 GM in DEXTROSE 5% 100ML IV SCH ×3 (02:19→18:17)
[2017-03-24] MEDS: HEPARIN SOD 5000 UNIT/0.5 ML CARP SQ SCH ×3 (05:30→22:06)
[2017-03-24] MEDS: LEVOTHYROXINE 150 MCG TAB PO SCH (05:32)
[2017-03-24] MEDS ORDERED: VANCOMYCIN INJ 1,000 MG in SODIUM CHLORIDE 0.9% 250ML 250 ML IV SCH (06:00)
[2017-03-24] MEDS: ACETAMINOPHEN 500 MG TAB PO SCH ×3 (06:16→23:07)
[2017-03-24 07:15] VITALS: BP 129/78; PULSE 62; TEMP 37.3; O2SAT 93
[2017-03-24 07:24] LABS: BASO % 0.6 %; BASO ABS # 0.04 K/uL (0-0.2); COMPLETE YES; EOS % 4.5 %; HEMATOCRIT 35.2 % (37-47); IG% 0.5 %; LYMPH % 33.1 %; LYMPH ABS # 2.11 K/uL (1.2-3.4); MEAN CELL VOLUME 92.6 fL (80-100); MEAN CORPUSCULAR HGB CONC 32.4 g/dl (32-36); MEAN PLATELET VOLUME 9.9 fL (7.4-10.4); MONO % 11.4 %; NEUT % 49.9 %; PLATELET COUNT 157 K/uL (130-400); WHITE BLOOD COUNT 6.38 K/uL (4.8-10.8)
[2017-03-24] MEDS: INSULIN ASPART 100 UNITS/ML 3 ML PEN SC SCH ×4 (07:55→22:05)
[2017-03-24 07:58] LABS: BUN/CREATININE RATIO 11.8 (10-20); CALCIUM 9.9 mg/dl (8.5-10.1); POTASSIUM 3.7 mmol/L (3.5-5.1)
[2017-03-24] MEDS: CALCIUM 600MG + VIT D 400 IU TAB PO SCH ×2 (08:30→23:07)
[2017-03-24] MEDS: PANTOprazole SOD 40 MG TAB PO SCH (08:30)
[2017-03-24] MEDS: VENLAFAXINE HCL XR 75 MG CAPXR PO SCH (08:30)
[2017-03-24] MEDS: METOPROLOL TARTRATE 50 MG TAB PO SCH (08:30)
[2017-03-24] MEDS: ENALAPRIL MALEATE 10 MG TAB PO SCH (08:30)
[2017-03-24] MEDS: ALLOPURINOL 100 MG TAB PO SCH (08:30)
[2017-03-24] MEDS: ATORVASTATIN 40 MG TAB PO SCH (08:30)
[2017-03-24] MEDS: ASPIRIN 81 MG ECTAB PO SCH (08:30)
[2017-03-24] MEDS: INSULIN GLARGINE SOLOSTAR 100 UNITS/ML 3 ML PEN SC SCH ×2 (08:32→22:06)
[2017-03-24] MEDS: MULTIVITAMIN TAB PO SCH (12:08)
--- NOTE | 2017-03-24 14:21 | Infectious Disease Progress Nt ---
Progress Note Date of Service Mar 24, 2017. Subjective Pt evaluation today including: conversation w/ patient, physical exam, chart review, lab review, review of studies, review of inpatient medication list Patient is feeling slightly improved today. She offers no real complaints. She states that she does not have any pain in her lateral ankle currently. Her white blood cell count today was 6.38. Her creatinine was 2.00. Orthopedics does not appear to have evaluated this patient yet. She is currently on IV Zosyn and vancomycin. She has been afebrile. Blood cultures are showing no growth to date. All Other Systems: Reviewed and Negative Medications Current Inpatient Medications Medications (Trade) Dose Ordered Sig/Edilberto Route Start Time Stop Time Status Last Admin Dose Admin Acetaminophen (Tylenol Tab) 650 mg Q4H PRN PO 03/22/17 17:30 04/21/17 17:29 Future Hold Polyethylene (Miralax Powder Packet) 17 gm DAILY PRN PO 03/22/17 17:45 04/21/17 17:44 Ondansetron HCl (Zofran Inj) 4 mg Q6H PRN IV 03/22/17 17:30 04/21/17 17:29 Allopurinol (Zyloprim Tab) 100 mg QAM PO 03/23/17 09:00 04/22/17 08:59 03/24/17 08:30 100 MG Aspirin (Ecotrin Tab) 81 mg QAM PO 03/23/17 09:00 04/22/17 08:59 03/24/17 08:30 81 MG Atorvastatin Calcium (Lipitor Tab) 40 mg QAM PO 03/23/17 09:00 04/22/17 08:59 03/24/17 08:30 40 MG Donepezil HCl (Aricept Tab) 10 mg HS PO 03/22/17 21:00 04/21/17 20:59 03/23/17 21:14 10 MG Enalapril Maleate (Vasotec Tab) 10 mg QAM PO 03/23/17 09:00 04/22/17 08:59 03/24/17 08:30 10 MG Insulin Glargine (Lantus Solostar Pen) 25 units BID SC 03/22/17 21:00 04/21/17 20:59 03/24/17 08:32 25 UNITS Levothyroxine Sodium (Synthroid Tab) 150 mcg DAILYBB PO 03/23/17 06:30 04/22/17 06:29 03/24/17 05:32 150 MCG Metoprolol Tartrate (Lopressor Tab) 25 mg QPM PO 03/22/17 21:00 04/21/17 20:59 03/23/17 21:15 25 MG Metoprolol Tartrate (Lopressor Tab) 50 mg QAM PO 03/23/17 09:00 04/22/17 08:59 03/24/17 08:30 50 MG Multivitamins (Multivitamin Tab) 1 tab DAILY@1200 PO 03/23/17 12:00 04/22/17 11:59 03/24/17 12:08 1 TAB Venlafaxine HCl (effeXOR EXTENDED REL CAP) 75 mg QAM PO 03/23/17 09:00 04/22/17 08:59 03/24/17 08:30 75 MG Calcium/Vitamin D (Caltrate Plus Tab) 1 tab BID PO 03/22/17 21:00 04/21/17 20:59 03/24/17 08:30 1 TAB Pantoprazole Sodium (Protonix Tab) 40 mg QAM PO 03/23/17 09:00 04/22/17 08:59 03/24/17 08:30 40 MG Quetiapine Fumarate (seroQUEL TAB) 400 mg HS PO 03/22/17 21:00 04/21/17 20:59 03/23/17 21:15 400 MG Piperacillin Sod/ Tazobactam Sod (Consult) 1 ea UD PRN N/A 03/22/17 18:00 04/21/17 17:59 Vancomycin HCl (Consult) 1 ea UD PRN N/A 03/22/17 18:00 04/21/17 17:59 Heparin Sodium (Porcine) (Heparin Sq 5000 Unit/0.5ml) 5,000 unit Q8H SQ 03/23/17 06:00 04/22/17 05:59 03/24/17 13:52 5,000 UNIT Insulin Aspart (novoLOG ASPART) SLIDING SCALE If C... ACHS SC 03/22/17 21:00 04/21/17 20:59 03/24/17 12:11 6 UNITS Glucose (Glucose 40% Gel) 15-30 GRAMS 15 GRAMS... UD PRN PO 03/22/17 19:15 04/21/17 19:14 Glucose (Glucose Chew Tab) 4-8 Tablets 4 Tabl... UD PRN PO 03/22/17 19:15 04/21/17 19:14 Dextrose (Dextrose 50% 50ML Syringe) 25-50ML OF 50% DW IV FOR... UD PRN IV 03/22/17 19:15 04/21/17 19:14 Glucagon (Glucagon Inj) 1 mg UD PRN SQ 03/22/17 19:15 04/21/17 19:14 Acetaminophen (Tylenol Tab) 1,000 mg Q8 PO 03/22/17 22:00 04/21/17 21:59 03/24/17 13:51 1,000 MG Piperacillin Sod/ Tazobactam Sod 4.5 gm/Dextrose 120 ml @ 30 mls/hr Q8H IV 03/23/17 02:00 04/02/17 01:59 03/24/17 09:46 30 MLS/HR Albuterol Sulfate (Ventolin 0.083% 2.5MG/3ML Neb) 2.5 mg Q6R INH 03/22/17 21:00 04/21/17 20:59 03/23/17 13:57 2.5 MG Gadobutrol (Gadavist) 9.5 mmol UD PRN IV 03/22/17 23:15 03/26/17 23:14 Vancomycin HCl 1000 mg/Sodium Chloride 270 ml @ 125 mls/hr Q30H IV 03/24/17 06:00 04/02/17 05:59 Future Hold 03/24/17 06:16 125 MLS/HR Objective Vital Signs Date Time Temp Pulse Resp B/P (MAP) Pulse Ox O2 Delivery O2 Flow Rate FiO2 03/24/17 08:30 Room Air 03/24/17 07:15 37.3 62 18 129/78 (95) 93 Room Air 03/24/17 00:00 Room Air 03/23/17 23:19 36.6 68 20 111/67 (82) 93 Room Air 03/23/17 16:02 91 Room Air 03/23/17 15:57 36.4 67 18 124/74 (91) 91 Room Air Physical Exam General Appearance: WD/WN, no apparent distress Eyes: normal inspection, sclerae normal ENT: hearing grossly normal Neck: supple Respiratory/Chest: no respiratory distress, no accessory muscle use Cardiovascular: regular rate, rhythm Extremities: + pertinent finding (mild edema RLE) Neurologic/Psychiatric: alert, normal mood/affect Skin: warm/dry Laboratory Results Item Value Date Time Blood Culture - Preliminary Resulted 03/22/17 1822 Blood NO GROWTH TO DATE. Blood Culture - Preliminary Resulted 03/22/17 1814 Blood NO GROWTH TO DATE. Last 24 Hours Test 03/23/17 16:23 03/23/17 19:55 03/24/17 05:41 03/24/17 07:29 Bedside Glucose 145 mg/dl 117 mg/dl 71 mg/dl White Blood Count 6.38 K/uL Red Blood Count 3.80 M/uL Hemoglobin 11.4 g/dL Hematocrit 35.2 % Mean Corpuscular Volume 92.6 fL Mean Corpuscular Hemoglobin 30.0 pg Mean Corpuscular Hemoglobin Concent 32.4 g/dl Platelet Count 157 K/uL Mean Platelet Volume 9.9 fL Neutrophils (%) (Auto) 49.9 % Lymphocytes (%) (Auto) 33.1 % Monocytes (%) (Auto) 11.4 % Eosinophils (%) (Auto) 4.5 % Basophils (%) (Auto) 0.6 % Neutrophils # (Auto) 3.18 K/uL Lymphocytes # (Auto) 2.11 K/uL Monocytes # (Auto) 0.73 K/uL Eosinophils # (Auto) 0.29 K/uL Basophils # (Auto) 0.04 K/uL RDW Standard Deviation 49.6 fL RDW Coefficient of Variation 14.5 % Immature Granulocyte % (Auto) 0.5 % Immature Granulocyte # (Auto) 0.03 K/uL Sodium Level 138 mmol/L Potassium Level 3.7 mmol/L Chloride Level 97 mmol/L Carbon Dioxide Level 36 mmol/L Anion Gap 5.0 mmol/L Blood Urea Nitrogen 24 mg/dl Creatinine 2.00 mg/dl Est Creatinine Clear Calc Drug Dose 24.5 ml/min Estimated GFR () 26.5 Estimated GFR (Non- 22.8 BUN/Creatinine Ratio 11.8 Random Glucose 66 mg/dl Calcium Level 9.9 mg/dl Test 03/24/17 11:44 Bedside Glucose 169 mg/dl Assessment and Plan Diabetic female with right ankle and foot cellulitis along with possible septic tenosynovitis and myositis. She is currently on IV Vancomycin and Zosyn which is appropriate pending further workup. Will await orthopedic opinion regarding tenosynovitis/myositis. If orthopedic intervention is not planned, patient likely will need at least 2 weeks of broad-spectrum IV antibiotics. We will follow. Case reviewed and agree with above assessment.
[2017-03-24 15:06] VITALS: BP 132/76; PULSE 64; TEMP 36.7; O2SAT 92
--- NOTE | 2017-03-24 17:20 | Orthopedic Progress Note ---
Orthopedic Progress Note Date of Service Mar 24, 2017. Subjective Reports: feeling well, Denies: complaints Additional Notes: States that her ankle and foot have been feeling a little better each day. No new complaints. Objective Right ankle and foot with markings to follow erythema. Mainly erythematous over the lateral malleolus. Mildly tender on palpation. No fluid collection that I can feel. Boggy swelling. Good DF/PF of the lateral ankle with mild pain on dorsiflexion. Sensation intact. Date Time Temp Pulse Resp B/P (MAP) Pulse Ox O2 Delivery O2 Flow Rate FiO2 03/24/17 15:06 36.7 64 19 132/76 (94) 92 Room Air 03/24/17 08:30 Room Air 03/24/17 07:15 37.3 62 18 129/78 (95) 93 Room Air 03/24/17 00:00 Room Air 03/23/17 23:19 36.6 68 20 111/67 (82) 93 Room Air Laboratory Results 24 Hours: Test 03/24/17 05:41 White Blood Count 6.38 K/uL Red Blood Count 3.80 M/uL Hemoglobin 11.4 g/dL Hematocrit 35.2 % Mean Corpuscular Volume 92.6 fL Mean Corpuscular Hemoglobin 30.0 pg Mean Corpuscular Hemoglobin Concent 32.4 g/dl Platelet Count 157 K/uL Mean Platelet Volume 9.9 fL Neutrophils (%) (Auto) 49.9 % Lymphocytes (%) (Auto) 33.1 % Monocytes (%) (Auto) 11.4 % Eosinophils (%) (Auto) 4.5 % Basophils (%) (Auto) 0.6 % Neutrophils # (Auto) 3.18 K/uL Lymphocytes # (Auto) 2.11 K/uL Monocytes # (Auto) 0.73 K/uL Eosinophils # (Auto) 0.29 K/uL Basophils # (Auto) 0.04 K/uL Assessment & Plan Assessment: Cellulitis vs Gout of the right ankle. Original consult dictated today by Dr Denise Melton to see pt over the weekend to follow progress. Continue IV antibx
--- NOTE | 2017-03-24 17:48 | ORTHOPEDIC CONSULTATION ---
DATE OF CONSULTATION: 03/24/2017 CHIEF COMPLAINT: Right ankle pain. HISTORY OF PRESENT ILLNESS: The patient has had previous bouts of painful swelling in the foot before. This most recent time started 3 or 4 days ago. She is currently admitted to the hospital on intravenous antibiotics. PHYSICAL EXAMINATION: Reveals diffuse swelling about the right foot and ankle. No gross ankle effusion. Minimal discomfort on active or passive range of motion of the ankle. ASSESSMENT: Cellulitis right ankle. Recommend continued physical therapy. Weightbearing as tolerated. We will follow for evidence of developing abscess.
[2017-03-24] MEDS: METOPROLOL TARTRATE 25 MG TAB PO SCH (23:05)
[2017-03-24] MEDS: DONEPEZIL HCL 10 MG TAB PO SCH (23:05)
[2017-03-24] MEDS: QUETIAPINE FUMARATE 200 MG TAB PO SCH (23:06)
[2017-03-24 23:09] VITALS: BP 189/81; PULSE 82; TEMP 36.6; O2SAT 90
--- NOTE | 2017-03-25 00:19 | Hospitalist Progress Note ---
Hospitalist Progress Note Date of Service Mar 24, 2017. Subjective Pt evaluation today including: conversation w/ patient Patient ankle feeling better Objective Vital Signs Date Time Temp Pulse Resp B/P (MAP) Pulse Ox O2 Delivery O2 Flow Rate FiO2 03/25/17 00:00 Room Air 03/24/17 23:09 36.6 82 20 189/81 (117) 90 Room Air 03/24/17 16:30 Room Air 03/24/17 15:06 36.7 64 19 132/76 (94) 92 Room Air 03/24/17 08:30 Room Air 03/24/17 07:15 37.3 62 18 129/78 (95) 93 Room Air Physical Exam General Appearance: no apparent distress ENT: hearing grossly normal Neck: trachea midline Respiratory/Chest: lungs clear Cardiovascular: regular rate, rhythm Abdomen: normal bowel sounds, non tender Extremities: no calf tenderness Laboratory Results Last 24 Hours Test 03/24/17 05:41 03/24/17 07:29 03/24/17 11:44 03/24/17 16:18 White Blood Count 6.38 K/uL Red Blood Count 3.80 M/uL Hemoglobin 11.4 g/dL Hematocrit 35.2 % Mean Corpuscular Volume 92.6 fL Mean Corpuscular Hemoglobin 30.0 pg Mean Corpuscular Hemoglobin Concent 32.4 g/dl Platelet Count 157 K/uL Mean Platelet Volume 9.9 fL Neutrophils (%) (Auto) 49.9 % Lymphocytes (%) (Auto) 33.1 % Monocytes (%) (Auto) 11.4 % Eosinophils (%) (Auto) 4.5 % Basophils (%) (Auto) 0.6 % Neutrophils # (Auto) 3.18 K/uL Lymphocytes # (Auto) 2.11 K/uL Monocytes # (Auto) 0.73 K/uL Eosinophils # (Auto) 0.29 K/uL Basophils # (Auto) 0.04 K/uL RDW Standard Deviation 49.6 fL RDW Coefficient of Variation 14.5 % Immature Granulocyte % (Auto) 0.5 % Immature Granulocyte # (Auto) 0.03 K/uL Sodium Level 138 mmol/L Potassium Level 3.7 mmol/L Chloride Level 97 mmol/L Carbon Dioxide Level 36 mmol/L Anion Gap 5.0 mmol/L Blood Urea Nitrogen 24 mg/dl Creatinine 2.00 mg/dl Est Creatinine Clear Calc Drug Dose 24.5 ml/min Estimated GFR () 26.5 Estimated GFR (Non- 22.8 BUN/Creatinine Ratio 11.8 Random Glucose 66 mg/dl Calcium Level 9.9 mg/dl Bedside Glucose 71 mg/dl 169 mg/dl 89 mg/dl Test 03/24/17 19:54 Bedside Glucose 110 mg/dl Assessment and Plan This is a 82 yo F with PMHX of HTN, DM II with hx of hypoglycemia, GERD, HLD, dementia with auditory and visual hallucinations, bronchospasm, hyponatremia, hypothyroidism, osteoarthritis, sleep apnea, gout, diverticulosis, left foot osteomyelitis hx 1 year ago,who presented to her PCP for a checkup after initiation of Keflex, found to have worsening erythema and edema of the right foot so was sent to the hospital. Cellulitis of the R foot vs acute gouty attack -Improved with Zosyn plus vancomycin DM II - Continue ISS with Lantus 25 U BID - Insulin sliding scale with Accu-Cheks ACHS CKD stage III - Cr. baseline of 1.3, follow PRP - Lasix 20 mg PO QOD held with possible infection - appears euvolemic at this time - Follow with am labs Bronchospasm, chronic - Pt has tight breath sounds with expiratory wheeze throughout, will add nebulizers Q4H while awake and prn for sob. Patient improved with nebulized treatments HTN - Continue metoprolol tartrate 50 mg QAM and 25 mg QPM, enalapril 10 mg QAM, ASA 81 mg Hypothyroidism - TSH = 0.289 on 12/27/16 - cont Synthroid 150 mcg daily Dementia Auditory Hallucinations- chronic, nonthreatening, pt hears her late , brothers and sisters (who are all ), also hears voices of school friends , and small children swearing. She frequently talks to herself at baseline. Seroquel has decreased paranoid hallucinations - Cont PM Seroquel 400 mg qpm - COntinue aricept 10 mg HS Depression - Cont Effexor 75 mg daily DVT ppx: teds, scds, heparin subq CODE STATUS: DNR Disposition: Patient from home, lives with her daughter, PT/OT eval discharge when medically stable Level of Care Med/Surg Resuscitation Status DO NOT RESUSCITATE VTE Prophylaxis Risk Level: Low Given or contraindicated: T.E.D. Stockings, SCD's, Refusal of treatmnt by pt
[2017-03-25] MEDS: ALBUTEROL 0.083% NEBU SOLN 3 ML VIAL INH SCH ×4 (02:05→18:56)
[2017-03-25] MEDS: PIPERACILL/TAZOBAC IV 4.5 GM in DEXTROSE 5% 100ML IV SCH ×3 (02:29→18:27)
[2017-03-25] MEDS: LEVOTHYROXINE 150 MCG TAB PO SCH (05:58)
[2017-03-25] MEDS: ACETAMINOPHEN 500 MG TAB PO SCH ×3 (05:58→22:00)
[2017-03-25] MEDS: HEPARIN SOD 5000 UNIT/0.5 ML CARP SQ SCH ×3 (06:01→22:18)
[2017-03-25 06:44] VITALS: BP 119/61
[2017-03-25 07:39] LABS: BASO % 0.7 %; BASO ABS # 0.04 K/uL (0-0.2); COMPLETE YES; EOS % 5.3 %; HEMATOCRIT 33.4 % (37-47); IG% 0.2 %; LYMPH % 35.6 %; LYMPH ABS # 2.02 K/uL (1.2-3.4); MEAN CELL VOLUME 93.8 fL (80-100); MEAN CORPUSCULAR HEMOGLOBIN 30.6 pg (25-34); MEAN CORPUSCULAR HGB CONC 32.6 g/dl (32-36); MEAN PLATELET VOLUME 9.1 fL (7.4-10.4); MONO % 12.3 %; NEUT % 45.9 %; PLATELET COUNT 128 K/uL (130-400); RED BLOOD COUNT 3.56 M/uL (4.2-5.4); WHITE BLOOD COUNT 5.67 K/uL (4.8-10.8)
[2017-03-25 07:41] VITALS: BP 131/63; PULSE 64; TEMP 36.4; O2SAT 92
[2017-03-25 07:45] VITALS: O2SAT 92
[2017-03-25] MEDS: METOPROLOL TARTRATE 50 MG TAB PO SCH (08:32)
[2017-03-25] MEDS: ASPIRIN 81 MG ECTAB PO SCH (08:32)
[2017-03-25] MEDS: PANTOprazole SOD 40 MG TAB PO SCH (08:32)
[2017-03-25] MEDS: ENALAPRIL MALEATE 10 MG TAB PO SCH (08:32)
[2017-03-25] MEDS: ALLOPURINOL 100 MG TAB PO SCH (08:32)
[2017-03-25] MEDS: ATORVASTATIN 40 MG TAB PO SCH (08:33)
[2017-03-25] MEDS: CALCIUM 600MG + VIT D 400 IU TAB PO SCH ×2 (08:33→22:10)
[2017-03-25] MEDS: VENLAFAXINE HCL XR 75 MG CAPXR PO SCH (08:33)
[2017-03-25] MEDS: INSULIN ASPART 100 UNITS/ML 3 ML PEN SC SCH ×4 (08:39→22:16)
[2017-03-25] MEDS: INSULIN GLARGINE SOLOSTAR 100 UNITS/ML 3 ML PEN SC SCH ×2 (08:40→22:17)
[2017-03-25 08:52] LABS: CREATININE 1.6 mg/dl (0.60-1.20)
[2017-03-25] MEDS ORDERED: VANCOMYCIN TROUGH ONE (11:30)
--- NOTE | 2017-03-25 11:37 | Orthopedic Progress Note ---
Orthopedic Progress Note Date of Service Mar 25, 2017. Subjective Reports: feeling well, Denies: chest pain, SOB, nausea / vomiting, light headedness, calf pain Additional Notes: Right foot pain improved. No pain at rest. Continued improving with weightbearing. No fever or chills. Objective calves soft nontender, capillary refill less than 2 sec., A&O x3, toes mobile Diminished erythema and resolving proximal streaking r foot and ankle. Right foot soft with minimal tenderness with moderate pressure palpation. Diminished light touch sensation consistent with neuropathy. Multiple rigid hammertoes B LE. Hallux valgus with clawing deformity. DP/PT 2/4 b LE. No open ulcers or rashes B LE. Date Time Temp Pulse Resp B/P (MAP) Pulse Ox O2 Delivery O2 Flow Rate FiO2 03/25/17 07:45 92 Room Air 03/25/17 07:41 36.4 64 16 131/63 (85) 92 Room Air 03/25/17 06:44 119/61 (80) 03/25/17 00:00 Room Air 03/24/17 23:09 36.6 82 20 189/81 (117) 90 Room Air 03/24/17 16:30 Room Air 03/24/17 15:06 36.7 64 19 132/76 (94) 92 Room Air Laboratory Results 24 Hours: Test 03/25/17 07:24 White Blood Count 5.67 K/uL Red Blood Count 3.56 M/uL Hemoglobin 10.9 g/dL Hematocrit 33.4 % Mean Corpuscular Volume 93.8 fL Mean Corpuscular Hemoglobin 30.6 pg Mean Corpuscular Hemoglobin Concent 32.6 g/dl Platelet Count 128 K/uL Mean Platelet Volume 9.1 fL Neutrophils (%) (Auto) 45.9 % Lymphocytes (%) (Auto) 35.6 % Monocytes (%) (Auto) 12.3 % Eosinophils (%) (Auto) 5.3 % Basophils (%) (Auto) 0.7 % Neutrophils # (Auto) 2.60 K/uL Lymphocytes # (Auto) 2.02 K/uL Monocytes # (Auto) 0.70 K/uL Eosinophils # (Auto) 0.30 K/uL Basophils # (Auto) 0.04 K/uL Assessment & Plan Assessment: Cellulitis of the right foot/ankle-improved on IV anbx. Multiple hammertoes and clawtoes B LE Diabetic neuropathy B LE. Plan: Limited WB R LE with soft stable foot wear Continue IV antibx per Medical service. Nonoperative care at this time, will eventually need multiple hammertoe/ clawtoe corrections Will sign off for now. F/U with Dr Melton in office 2-3 weeks for reassessment
--- NOTE | 2017-03-25 11:39 | Consultant Recommendations ---
Cane Weigher Recommendations Date of Service Mar 25, 2017. Cane Weigher Recommendations WBAT with custom Diabetic footwear and inserts Foot checks 3x per day F/U with Dr Melton in 2-3 weeks for reassessment
[2017-03-25] MEDS: MULTIVITAMIN TAB PO SCH (12:44)
--- NOTE | 2017-03-25 13:40 | Pharmacy Progress Note ---
Pharmacy Abx Dose Progress Nt Date of Service Mar 25, 2017. Pharmacy Dosing Scope The patient is currently receiving the following antimicrobial agents per Pharmacy consult: Vancomycin 1000 mg IV/PO every 30 hours Objective Height (Feet): 5 Height (Inches): 3.00 Weight (Kilograms): 97.000 (BMI = 38) Vital Signs (Past 12Hrs) Vital Signs Past 12 Hours Date Time Temp Pulse Resp B/P (MAP) Pulse Ox O2 Delivery O2 Flow Rate FiO2 03/25/17 07:45 92 Room Air 03/25/17 07:41 36.4 64 16 131/63 (85) 92 Room Air 03/25/17 06:44 119/61 (80) Lab Results (24Hrs) Laboratory Tests (24 Hours) Test 03/25/17 07:24 White Blood Count 5.67 K/uL (4.8-10.8) Red Blood Count 3.56 M/uL (4.2-5.4) L Hemoglobin 10.9 g/dL (12.0-16.0) L Hematocrit 33.4 % (37-47) L Mean Corpuscular Volume 93.8 fL (80-100) Mean Corpuscular Hemoglobin 30.6 pg (25-34) Mean Corpuscular Hemoglobin Concent 32.6 g/dl (32-36) Platelet Count 128 K/uL (130-400) L Mean Platelet Volume 9.1 fL (7.4-10.4) Neutrophils (%) (Auto) 45.9 % Lymphocytes (%) (Auto) 35.6 % Monocytes (%) (Auto) 12.3 % Eosinophils (%) (Auto) 5.3 % Basophils (%) (Auto) 0.7 % Neutrophils # (Auto) 2.60 K/uL (1.4-6.5) Lymphocytes # (Auto) 2.02 K/uL (1.2-3.4) Monocytes # (Auto) 0.70 K/uL (0.11-0.59) H Eosinophils # (Auto) 0.30 K/uL (0-0.5) Basophils # (Auto) 0.04 K/uL (0-0.2) Micro Results Date/Time Source Procedure Growth Status 03/22/17 18:22 Blood Blood Culture - Preliminary NO GROWTH TO DATE. Resulted 03/22/17 18:14 Blood Blood Culture - Preliminary NO GROWTH TO DATE. Resulted Assessment & Plan Assessment 82 year old female admitted for R foot cellulitis with possible septic tenosynovitis and myositis * day #3 of antibiotics * fluctuating renal function - Scr improved to 1.6 mg/dL today Plan Vancomycin IV * Trough level of 10.8 mg/dL is subtherapeutic (of note, level not at steady state) * Increase dose to 1250 mg (12.8 mg/kg) IV every 24 hours * Goal trough level for cellulitis/septic tenosynovitis : >/= 15 mcg/mL * Will repeat trough level on 03/27 if patient remains in hospital Piperacillin/tazobactam * 4.5 g bolus administered over 30 minutes, then 4.5 g IV extended infusion every 8 hours for CrCl greater than 20 mL/min * Aggressive dosing selected due to BMI 35 or more Pharmacy will continue to follow and will adjust dose/frequency as necessary. Thank you.
[2017-03-25] MEDS: VANCOMYCIN INJ 1,250 MG in SODIUM CHLORIDE 0.9% 250ML 250 ML IV SCH (14:12)
[2017-03-25 16:00] VITALS: O2SAT 93
[2017-03-25 16:23] VITALS: BP 183/78; PULSE 63; TEMP 36.5; O2SAT 93
--- NOTE | 2017-03-25 19:22 | Hospitalist Progress Note ---
Hospitalist Progress Note Date of Service Mar 25, 2017. Subjective Pt evaluation today including: conversation w/ patient, physical exam, chart review, review of inpatient medication list Objective Vital Signs Date Time Temp Pulse Resp B/P (MAP) Pulse Ox O2 Delivery O2 Flow Rate FiO2 03/25/17 16:23 36.5 63 18 183/78 (113) 93 Room Air 03/25/17 07:45 92 Room Air 03/25/17 07:41 36.4 64 16 131/63 (85) 92 Room Air 03/25/17 06:44 119/61 (80) 03/25/17 00:00 Room Air 03/24/17 23:09 36.6 82 20 189/81 (117) 90 Room Air Physical Exam General Appearance: no apparent distress ENT: hearing grossly normal Neck: supple, trachea midline Respiratory/Chest: chest non-tender, lungs clear Cardiovascular: regular rate, rhythm Abdomen: normal bowel sounds Extremities: non-tender Neurologic/Psychiatric: alert Laboratory Results Last 24 Hours Test 03/24/17 19:54 03/25/17 07:24 03/25/17 07:25 03/25/17 11:07 Bedside Glucose 110 mg/dl 107 mg/dl 117 mg/dl White Blood Count 5.67 K/uL Red Blood Count 3.56 M/uL Hemoglobin 10.9 g/dL Hematocrit 33.4 % Mean Corpuscular Volume 93.8 fL Mean Corpuscular Hemoglobin 30.6 pg Mean Corpuscular Hemoglobin Concent 32.6 g/dl Platelet Count 128 K/uL Mean Platelet Volume 9.1 fL Neutrophils (%) (Auto) 45.9 % Lymphocytes (%) (Auto) 35.6 % Monocytes (%) (Auto) 12.3 % Eosinophils (%) (Auto) 5.3 % Basophils (%) (Auto) 0.7 % Neutrophils # (Auto) 2.60 K/uL Lymphocytes # (Auto) 2.02 K/uL Monocytes # (Auto) 0.70 K/uL Eosinophils # (Auto) 0.30 K/uL Basophils # (Auto) 0.04 K/uL RDW Standard Deviation 50.5 fL RDW Coefficient of Variation 14.7 % Immature Granulocyte % (Auto) 0.2 % Immature Granulocyte # (Auto) 0.01 K/uL Creatinine 1.60 mg/dl Est Creatinine Clear Calc Drug Dose 30.6 ml/min Estimated GFR () 34.7 Estimated GFR (Non- 29.9 Test 03/25/17 11:42 03/25/17 16:39 Vancomycin Level Trough 10.8 mcg/ml Bedside Glucose 117 mg/dl Assessment and Plan This is a 82 yo F with PMHX of HTN, DM II with hx of hypoglycemia, GERD, HLD, dementia with auditory and visual hallucinations, bronchospasm, hyponatremia, hypothyroidism, osteoarthritis, sleep apnea, gout, diverticulosis, left foot osteomyelitis hx 1 year ago,who presented to her PCP for a checkup after initiation of Keflex, found to have worsening erythema and edema of the right foot so was sent to the hospital. Cellulitis of the R foot vs acute gouty attack -Improved with Zosyn plus vancomycin Continue with present antibiotics orthopedics input and infectious disease appreciated DM II - Continue ISS with Lantus 25 U BID - Insulin sliding scale with Accu-Cheks ACHS CKD stage III - Cr. baseline of 1.3, follow PRP Bronchospasm, chronic - Pt has tight breath sounds with expiratory wheeze throughout, will add nebulizers Q4H while awake and prn for sob. Patient improved with nebulized treatments HTN - Continue metoprolol tartrate 50 mg QAM and 25 mg QPM, enalapril 10 mg QAM, ASA 81 mg Hypothyroidism - TSH = 0.289 on 12/27/16 - cont Synthroid 150 mcg daily Dementia Auditory Hallucinations- chronic, nonthreatening, pt hears her late , brothers and sisters (who are all ), also hears voices of school friends , and small children swearing. She frequently talks to herself at baseline. Seroquel has decreased paranoid hallucinations - Cont PM Seroquel 400 mg qpm - COntinue aricept 10 mg HS Depression - Cont Effexor 75 mg daily DVT ppx: teds, scds, heparin subq CODE STATUS: DNR Disposition: Patient from home, lives with her daughter, PT/OT eval discharge when medically stable Level of Care Med/Surg Resuscitation Status DO NOT RESUSCITATE VTE Prophylaxis Risk Level: Low Given or contraindicated: T.E.D. Stockings, SCD's, Refusal of treatmnt by pt
[2017-03-25] MEDS: METOPROLOL TARTRATE 25 MG TAB PO SCH (22:10)
[2017-03-25] MEDS: QUETIAPINE FUMARATE 200 MG TAB PO SCH (22:11)
[2017-03-25] MEDS: DONEPEZIL HCL 10 MG TAB PO SCH ×2 (22:11→23:31)
[2017-03-26] VITALS (7 sets, daily range): BP systolic 146–186; BP diastolic 63–89; PULSE 60–72; TEMP 36.3–36.7; O2SAT 91–95
[2017-03-26] MEDS: PIPERACILL/TAZOBAC IV 4.5 GM in DEXTROSE 5% 100ML IV SCH ×3 (01:57→17:59)
[2017-03-26] MEDS: ALBUTEROL 0.083% NEBU SOLN 3 ML VIAL INH SCH ×4 (03:00→19:00)
[2017-03-26] MEDS: ACETAMINOPHEN 500 MG TAB PO SCH ×3 (06:00→21:49)
[2017-03-26] MEDS: HEPARIN SOD 5000 UNIT/0.5 ML CARP SQ SCH ×3 (06:06→21:43)
[2017-03-26] MEDS: LEVOTHYROXINE 150 MCG TAB PO SCH (06:06)
[2017-03-26 06:47] LABS: MEAN CELL VOLUME 92.8 fL (80-100); MEAN CORPUSCULAR HEMOGLOBIN 29.4 pg (25-34); MEAN CORPUSCULAR HGB CONC 31.7 g/dl (32-36); MEAN PLATELET VOLUME 8.7 fL (7.4-10.4); PLATELET COUNT 136 K/uL (130-400); RED BLOOD COUNT 3.88 M/uL (4.2-5.4); WHITE BLOOD COUNT 5.84 K/uL (4.8-10.8)
[2017-03-26] MEDS: CALCIUM 600MG + VIT D 400 IU TAB PO SCH ×2 (08:10→21:48)
[2017-03-26] MEDS: VENLAFAXINE HCL XR 75 MG CAPXR PO SCH (08:10)
[2017-03-26] MEDS: METOPROLOL TARTRATE 50 MG TAB PO SCH (08:10)
[2017-03-26] MEDS: ATORVASTATIN 40 MG TAB PO SCH (08:10)
[2017-03-26] MEDS: PANTOprazole SOD 40 MG TAB PO SCH (08:10)
[2017-03-26] MEDS: ASPIRIN 81 MG ECTAB PO SCH (08:10)
[2017-03-26] MEDS: ENALAPRIL MALEATE 10 MG TAB PO SCH (08:10)
[2017-03-26] MEDS: ALLOPURINOL 100 MG TAB PO SCH (08:11)
[2017-03-26] MEDS: INSULIN GLARGINE SOLOSTAR 100 UNITS/ML 3 ML PEN SC SCH ×2 (08:17→21:43)
[2017-03-26] MEDS: INSULIN ASPART 100 UNITS/ML 3 ML PEN SC SCH ×4 (08:17→21:41)
[2017-03-26] MEDS: MULTIVITAMIN TAB PO SCH (12:12)
[2017-03-26] MEDS: VANCOMYCIN INJ 1,250 MG in SODIUM CHLORIDE 0.9% 250ML 250 ML IV SCH (14:01)
--- NOTE | 2017-03-26 18:29 | Hospitalist Progress Note ---
Hospitalist Progress Note Date of Service Mar 26, 2017. Subjective Pt evaluation today including: conversation w/ patient Patient with no complaints feeling better Objective Vital Signs Date Time Temp Pulse Resp B/P (MAP) Pulse Ox O2 Delivery O2 Flow Rate FiO2 03/26/17 16:17 36.5 60 18 186/86 (119) 93 Room Air 03/26/17 10:30 36.4 72 20 146/74 (98) 94 Room Air 03/26/17 08:00 95 Room Air 03/26/17 07:13 36.5 70 20 181/77 (111) 95 Room Air 03/26/17 00:11 36.7 67 20 162/89 (113) 91 Room Air 03/26/17 00:10 Room Air Physical Exam General Appearance: WD/WN Eyes: normal inspection ENT: hearing grossly normal Neck: trachea midline Respiratory/Chest: lungs clear Cardiovascular: regular rate, rhythm Abdomen: normal bowel sounds Extremities: normal range of motion Laboratory Results Last 24 Hours Test 03/25/17 20:29 03/26/17 06:36 03/26/17 07:38 03/26/17 11:25 Bedside Glucose 204 mg/dl 134 mg/dl 137 mg/dl White Blood Count 5.84 K/uL Red Blood Count 3.88 M/uL Hemoglobin 11.4 g/dL Hematocrit 36.0 % Mean Corpuscular Volume 92.8 fL Mean Corpuscular Hemoglobin 29.4 pg Mean Corpuscular Hemoglobin Concent 31.7 g/dl RDW Standard Deviation 49.9 fL RDW Coefficient of Variation 14.7 % Platelet Count 136 K/uL Mean Platelet Volume 8.7 fL Test 03/26/17 16:30 Bedside Glucose 101 mg/dl Assessment and Plan This is a 82 yo F with PMHX of HTN, DM II with hx of hypoglycemia, GERD, HLD, dementia with auditory and visual hallucinations, bronchospasm, hyponatremia, hypothyroidism, osteoarthritis, sleep apnea, gout, diverticulosis, left foot osteomyelitis hx 1 year ago,who presented to her PCP for a checkup after initiation of Keflex, found to have worsening erythema and edema of the right foot so was sent to the hospital. 1. Cellulitis of the R foot vs acute gouty attack -Improved with Zosyn plus vancomycin Continue with present antibiotics orthopedics input and infectious disease appreciated Physical therapy eval and treat 2. DM II - Continue ISS with Lantus 25 U BID - Insulin sliding scale with Accu-Cheks ACHS 3. CKD stage III - Cr. baseline of 1.3, follow PRP 4. Bronchospasm, chronic - Pt has tight breath sounds with expiratory wheeze throughout, will add nebulizers Q4H while awake and prn for sob. Patient improved with nebulized treatments 5. HTN - Continue metoprolol tartrate 50 mg QAM and 25 mg QPM, enalapril 10 mg QAM, ASA 81 mg 6. Hypothyroidism - TSH = 0.289 on 12/27/16 - cont Synthroid 150 mcg daily 7. Dementia Auditory Hallucinations- chronic, nonthreatening, pt hears her late , brothers and sisters (who are all ), also hears voices of school friends , and small children swearing. She frequently talks to herself at baseline. Seroquel has decreased paranoid hallucinations - Cont PM Seroquel 400 mg qpm - COntinue aricept 10 mg HS 8. Depression - Cont Effexor 75 mg daily 9. DVT ppx: teds, scds, heparin subq 10. CODE STATUS: DNR Disposition: Patient from home, lives with her daughter, PT/OT eval discharge when medically stable Level of Care Med/Surg Resuscitation Status DO NOT RESUSCITATE VTE Prophylaxis Risk Level: Low Given or contraindicated: T.E.D. Stockings, SCD's, Refusal of treatmnt by pt
[2017-03-26 19:27] LABS: BUN/CREATININE RATIO 10.2 (10-20); CALCIUM 9.6 mg/dl (8.5-10.1); CREATININE 1.7 mg/dl (0.60-1.20); POTASSIUM 4.1 mmol/L (3.5-5.1)
[2017-03-26] MEDS: DONEPEZIL HCL 10 MG TAB PO SCH (21:48)
[2017-03-26] MEDS: METOPROLOL TARTRATE 25 MG TAB PO SCH (21:48)
[2017-03-26] MEDS: QUETIAPINE FUMARATE 200 MG TAB PO SCH (21:49)
[2017-03-27 01:00] VITALS: BP 172/81; PULSE 75
[2017-03-27] MEDS: ALBUTEROL 0.083% NEBU SOLN 3 ML VIAL INH SCH ×4 (02:11→18:58)
[2017-03-27] MEDS: PIPERACILL/TAZOBAC IV 4.5 GM in DEXTROSE 5% 100ML IV SCH ×3 (02:36→17:35)
[2017-03-27] MEDS: ACETAMINOPHEN 500 MG TAB PO SCH ×3 (06:00→21:34)
[2017-03-27] MEDS: LEVOTHYROXINE 150 MCG TAB PO SCH (06:17)
[2017-03-27] MEDS: HEPARIN SOD 5000 UNIT/0.5 ML CARP SQ SCH ×3 (06:25→21:34)
[2017-03-27 06:54] LABS: CREATININE 1.6 mg/dl (0.60-1.20)
[2017-03-27 07:07] VITALS: BP 136/75; PULSE 70; TEMP 36.4; O2SAT 92
[2017-03-27] MEDS: CALCIUM 600MG + VIT D 400 IU TAB PO SCH ×2 (08:51→21:37)
[2017-03-27] MEDS: ASPIRIN 81 MG ECTAB PO SCH (08:51)
[2017-03-27] MEDS: ALLOPURINOL 100 MG TAB PO SCH (08:51)
[2017-03-27] MEDS: ATORVASTATIN 40 MG TAB PO SCH (08:51)
[2017-03-27] MEDS: PANTOprazole SOD 40 MG TAB PO SCH (08:51)
[2017-03-27] MEDS: VENLAFAXINE HCL XR 75 MG CAPXR PO SCH (08:51)
[2017-03-27] MEDS: ENALAPRIL MALEATE 10 MG TAB PO SCH (08:52)
[2017-03-27] MEDS: METOPROLOL TARTRATE 50 MG TAB PO SCH (08:52)
[2017-03-27] MEDS: INSULIN ASPART 100 UNITS/ML 3 ML PEN SC SCH ×4 (08:58→21:31)
[2017-03-27] MEDS: INSULIN GLARGINE SOLOSTAR 100 UNITS/ML 3 ML PEN SC SCH ×2 (08:59→21:32)
[2017-03-27] MEDS: MULTIVITAMIN TAB PO SCH (11:59)
[2017-03-27] MEDS ORDERED: VANCOMYCIN TROUGH SCH (13:30)
[2017-03-27] MEDS: VANCOMYCIN INJ 1,250 MG in SODIUM CHLORIDE 0.9% 250ML 250 ML IV SCH (14:09)
--- NOTE | 2017-03-27 14:56 | Infectious Disease Progress Nt ---
Progress Note Date of Service Mar 27, 2017. Subjective Pt evaluation today including: conversation w/ patient, physical exam, chart review, lab review, review of studies, review of inpatient medication list Patient is feeling slightly better today. She continues to have some tenderness of the right lateral ankle. She states that she does not want to go to rehab. She states that bearing weight on her ankle still slightly hurts. Reviewed orthopedic notes- no surgical intervention planned. Question gout versus cellulitis. WBC count yesterday was 5.84. Creatinine today was 1.60. Blood cultures showing no growth. All Other Systems: Reviewed and Negative Medications Current Inpatient Medications Medications (Trade) Dose Ordered Sig/Edilberto Route Start Time Stop Time Status Last Admin Dose Admin Acetaminophen (Tylenol Tab) 650 mg Q4H PRN PO 03/22/17 17:30 04/21/17 17:29 Future Hold Polyethylene (Miralax Powder Packet) 17 gm DAILY PRN PO 03/22/17 17:45 04/21/17 17:44 Ondansetron HCl (Zofran Inj) 4 mg Q6H PRN IV 03/22/17 17:30 04/21/17 17:29 Allopurinol (Zyloprim Tab) 100 mg QAM PO 03/23/17 09:00 04/22/17 08:59 03/27/17 08:51 100 MG Aspirin (Ecotrin Tab) 81 mg QAM PO 03/23/17 09:00 04/22/17 08:59 03/27/17 08:51 81 MG Atorvastatin Calcium (Lipitor Tab) 40 mg QAM PO 03/23/17 09:00 04/22/17 08:59 03/27/17 08:51 40 MG Donepezil HCl (Aricept Tab) 10 mg HS PO 03/22/17 21:00 04/21/17 20:59 03/26/17 21:48 10 MG Enalapril Maleate (Vasotec Tab) 10 mg QAM PO 03/23/17 09:00 04/22/17 08:59 03/27/17 08:52 10 MG Levothyroxine Sodium (Synthroid Tab) 150 mcg DAILYBB PO 03/23/17 06:30 04/22/17 06:29 03/27/17 06:17 150 MCG Metoprolol Tartrate (Lopressor Tab) 25 mg QPM PO 03/22/17 21:00 04/21/17 20:59 03/26/17 21:48 25 MG Metoprolol Tartrate (Lopressor Tab) 50 mg QAM PO 03/23/17 09:00 04/22/17 08:59 03/27/17 08:52 50 MG Multivitamins (Multivitamin Tab) 1 tab DAILY@1200 PO 03/23/17 12:00 04/22/17 11:59 03/27/17 11:59 1 TAB Venlafaxine HCl (effeXOR EXTENDED REL CAP) 75 mg QAM PO 03/23/17 09:00 04/22/17 08:59 03/27/17 08:51 75 MG Calcium/Vitamin D (Caltrate Plus Tab) 1 tab BID PO 03/22/17 21:00 04/21/17 20:59 03/27/17 08:51 1 TAB Pantoprazole Sodium (Protonix Tab) 40 mg QAM PO 03/23/17 09:00 04/22/17 08:59 03/27/17 08:51 40 MG Quetiapine Fumarate (seroQUEL TAB) 400 mg HS PO 03/22/17 21:00 04/21/17 20:59 03/26/17 21:49 400 MG Piperacillin Sod/ Tazobactam Sod (Consult) 1 ea UD PRN N/A 03/22/17 18:00 04/21/17 17:59 Vancomycin HCl (Consult) 1 ea UD PRN N/A 03/22/17 18:00 04/21/17 17:59 Heparin Sodium (Porcine) (Heparin Sq 5000 Unit/0.5ml) 5,000 unit Q8H SQ 03/23/17 06:00 04/22/17 05:59 03/27/17 14:07 5,000 UNIT Insulin Aspart (novoLOG ASPART) SLIDING SCALE If C... ACHS SC 03/22/17 21:00 04/21/17 20:59 03/27/17 11:58 5 UNITS Glucose (Glucose 40% Gel) 15-30 GRAMS 15 GRAMS... UD PRN PO 03/22/17 19:15 04/21/17 19:14 Glucose (Glucose Chew Tab) 4-8 Tablets 4 Tabl... UD PRN PO 03/22/17 19:15 04/21/17 19:14 Dextrose (Dextrose 50% 50ML Syringe) 25-50ML OF 50% DW IV FOR... UD PRN IV 03/22/17 19:15 04/21/17 19:14 Glucagon (Glucagon Inj) 1 mg UD PRN SQ 03/22/17 19:15 04/21/17 19:14 Acetaminophen (Tylenol Tab) 1,000 mg Q8 PO 03/22/17 22:00 04/21/17 21:59 03/27/17 14:08 1,000 MG Piperacillin Sod/ Tazobactam Sod 4.5 gm/Dextrose 120 ml @ 30 mls/hr Q8H IV 03/23/17 02:00 04/02/17 01:59 03/27/17 10:11 30 MLS/HR Albuterol Sulfate (Ventolin 0.083% 2.5MG/3ML Neb) 2.5 mg Q6R INH 03/22/17 21:00 04/21/17 20:59 03/23/17 13:57 2.5 MG Insulin Glargine (Lantus Solostar Pen) 20 units BID SC 03/24/17 21:00 04/23/17 20:59 03/27/17 08:59 20 UNITS Vancomycin HCl 1250 mg/Sodium Chloride 275 ml @ 125 mls/hr Q24H IV 03/25/17 14:00 04/02/17 05:59 03/27/17 14:09 125 MLS/HR Objective Vital Signs Date Time Temp Pulse Resp B/P (MAP) Pulse Ox O2 Delivery O2 Flow Rate FiO2 03/27/17 08:08 Room Air 03/27/17 07:07 36.4 70 18 136/75 (95) 92 Room Air 03/27/17 01:00 75 172/81 (111) 03/26/17 23:59 Room Air 03/26/17 23:31 36.3 66 18 179/63 (101) 92 Room Air 03/26/17 16:17 36.5 60 18 186/86 (119) 93 Room Air 03/26/17 16:00 94 Room Air Physical Exam General Appearance: no apparent distress, + obese Eyes: normal inspection, sclerae normal ENT: hearing grossly normal Neck: supple, trachea midline Respiratory/Chest: no respiratory distress, no accessory muscle use Cardiovascular: regular rate, rhythm Extremities: + swelling (1+ right pedal edema. Continued mild edema of the right lateral ankle. Mild tenderness to palpation. ) Neurologic/Psychiatric: alert, normal mood/affect Skin: normal color, warm/dry, no rash Laboratory Results Item Value Date Time Blood Culture - Preliminary Resulted 03/22/17 1822 Blood NO GROWTH TO DATE. Blood Culture - Preliminary Resulted 03/22/174 Blood NO GROWTH TO DATE. Last 24 Hours Test 03/26/17 16:30 03/26/17 18:49 03/26/17 20:50 03/27/17 06:04 Bedside Glucose 101 mg/dl 173 mg/dl Sodium Level 137 mmol/L Potassium Level 4.1 mmol/L Chloride Level 98 mmol/L Carbon Dioxide Level 34 mmol/L Anion Gap 5.0 mmol/L Blood Urea Nitrogen 17 mg/dl Creatinine 1.70 mg/dl 1.60 mg/dl Est Creatinine Clear Calc Drug Dose 28.8 ml/min 30.6 ml/min Estimated GFR () 32.2 34.7 Estimated GFR (Non- 27.8 29.9 BUN/Creatinine Ratio 10.2 Random Glucose 150 mg/dl Calcium Level 9.6 mg/dl Test 03/27/17 07:28 03/27/17 11:40 03/27/17 14:06 Bedside Glucose 190 mg/dl 194 mg/dl Assessment and Plan Diabetic female with right ankle and foot cellulitis along with possible septic tenosynovitis and myositis. She is currently on IV Vancomycin and Zosyn which is appropriate pending further workup. Patient has completed about 6 days of IV abx therapy. Ideally, would continue current therapy to complete 14 days with follow up prior to discontinuation. If she continues to improve, may consider transition to PO Levaquin and Augmentin. We will follow. PROVIDER ADDENDUM: Patient reviewed with Mrs. Sears. agree with above assessment.
[2017-03-27 15:55] VITALS: BP 166/75; PULSE 59; TEMP 36.5; O2SAT 92
--- NOTE | 2017-03-27 16:00 | Progress Note ---
Subjective Date of Service: Mar 27, 2017. Subjective Pt evaluation today including: conversation w/ patient, physical exam, chart review, lab review, review of studies, review of inpatient medication list No acute events overnight No fevers Pt resting comfortably in bed Problem List Medical Problems: (1) Altered mental status Status: Acute (2) Cellulitis of right foot Status: Acute (3) Closed head injury Status: Acute (4) Hyperglycemia Status: Acute (5) Hyponatremia Status: Acute (6) Hypoxia Status: Acute (7) Multiple contusions Status: Acute (8) Shortness of breath Status: Acute (9) Wheezing Status: Acute Review of Systems Constitutional: No fever, No chills, No sweats, No weight loss, No weakness Eyes: No worsening of vision, No eye pain, No redness, No discharge Respiratory: No cough, No sputum, No wheezing, No shortness of breath, No dyspnea on exertion Cardiac: No chest pain, No orthopnea, No PND, No edema Abdomen: No pain, No nausea, No vomiting, No diarrhea Musculoskeletal: No joint pain, No muscle pain, No swelling, No calf pain Female : No dysuria, No urinary frequency, No hematuria Neurologic: No memory loss, No paralysis, No weakness, No numbness/tingling Psychiatric: No depression symptoms, No anhedonism, No anxiety, No insomnia Endo: No fatigue, No excessive thirst, No excessive urination Skin: No rash, No itch Objective Vital Signs Date Time Temp Pulse Resp B/P (MAP) Pulse Ox O2 Delivery O2 Flow Rate FiO2 03/27/17 08:08 Room Air 03/27/17 07:07 36.4 70 18 136/75 (95) 92 Room Air 03/27/17 01:00 75 172/81 (111) 03/26/17 23:59 Room Air 03/26/17 23:31 36.3 66 18 179/63 (101) 92 Room Air 03/26/17 16:17 36.5 60 18 186/86 (119) 93 Room Air 03/26/17 16:00 94 Room Air Physical Exam General Appearance: WD/WN, no apparent distress ENT: normal ENT inspection, hearing grossly normal, TMs normal, pharynx normal Neck: supple, no adenopathy, thyroid normal, no JVD Respiratory/Chest: chest non-tender, lungs clear, normal breath sounds, no respiratory distress Cardiovascular: regular rate, rhythm, no edema, no gallop, no JVD Abdomen: normal bowel sounds, non tender, soft, no organomegaly Extremities: normal range of motion, non-tender, normal inspection, + pertinent finding (mild redness right foot but clearing from demarcated line, no pain) Neurologic/Psychiatric: no motor/sensory deficits, alert, normal mood/affect, oriented x 3 Laboratory Results Last 24 Hours Test 03/26/17 16:30 03/26/17 18:49 03/26/17 20:50 03/27/17 06:04 Bedside Glucose 101 mg/dl 173 mg/dl Sodium Level 137 mmol/L Potassium Level 4.1 mmol/L Chloride Level 98 mmol/L Carbon Dioxide Level 34 mmol/L Anion Gap 5.0 mmol/L Blood Urea Nitrogen 17 mg/dl Creatinine 1.70 mg/dl 1.60 mg/dl Est Creatinine Clear Calc Drug Dose 28.8 ml/min 30.6 ml/min Estimated GFR () 32.2 34.7 Estimated GFR (Non- 27.8 29.9 BUN/Creatinine Ratio 10.2 Random Glucose 150 mg/dl Calcium Level 9.6 mg/dl Test 03/27/17 07:28 03/27/17 11:40 03/27/17 14:06 Bedside Glucose 190 mg/dl 194 mg/dl Vancomycin Level Trough 14.6 mcg/ml Assessment and Plan This is a 82 yo F with PMHX of HTN, DM II with hx of hypoglycemia, GERD, HLD, dementia with auditory and visual hallucinations, bronchospasm, hyponatremia, hypothyroidism, osteoarthritis, sleep apnea, gout, diverticulosis, left foot osteomyelitis hx 1 year ago,who presented to her PCP for a checkup after initiation of Keflex, found to have worsening erythema and edema of the right foot so was sent to the hospital. Cellulitis/tenosynvitis of the R foot Improved with Zosyn plus vancomycin Blood cx NG ID consulted, rec continued IV antibx for 14 days Pt states she wants only PO on DC Will give 1 more day IV then transition to PO on discharge DM II stable Continue ISS with Lantus 25 U BID Insulin sliding scale with Accu-Cheks ACHS CKD stage III Cr 1.6 today Cr. baseline of 1.3, follow PRP Bronchospasm, chronic Pt has tight breath sounds with expiratory wheeze throughout, will add nebulizers Q4H while awake and prn for sob. Patient improved with nebulized treatments HTN improving with pain control Continue metoprolol tartrate 50 mg QAM and 25 mg QPM, enalapril 10 mg QAM, ASA 81 mg Hypothyroidism TSH = 0.289 on 12/27/16 Cont Synthroid 150 mcg daily Dementia Auditory Hallucinations- chronic, nonthreatening, pt hears her late , brothers and sisters (who are all ), also hears voices of school friends , and small children swearing. She frequently talks to herself at baseline. Seroquel has decreased paranoid hallucinations Cont PM Seroquel 400 mg qpm Continue aricept 10 mg HS Depression Cont Effexor 75 mg daily DVT ppx: teds, scds, heparin subq CODE STATUS: DNR
--- NOTE | 2017-03-27 16:29 | Pharmacy Progress Note ---
Pharmacy Abx Dose Progress Nt Date of Service Mar 27, 2017. Pharmacy Dosing Scope The patient is currently receiving the following antimicrobial agents per Pharmacy consult: Vancomycin 1250mg IV q24h Zosyn 4.5gm IV q8h (extended infusion) Objective Height (Feet): 5 Height (Inches): 3.00 Weight (Kilograms): 97.000 (BMI = 38) Vital Signs (Past 12Hrs) Vital Signs Past 12 Hours Date Time Temp Pulse Resp B/P (MAP) Pulse Ox O2 Delivery O2 Flow Rate FiO2 03/27/17 15:55 36.5 59 18 166/75 (105) 92 Room Air 03/27/17 08:08 Room Air 03/27/17 07:07 36.4 70 18 136/75 (95) 92 Room Air Lab Results (24Hrs) Item Value Date Time Vancomycin Level Trough 10.8 mcg/ml 03/25/17 1142 Vancomycin Level Trough 14.6 mcg/ml 03/27/17 1406 Micro Results Date/Time Source Procedure Growth Status 03/22/17 18:22 Blood Blood Culture - Preliminary NO GROWTH TO DATE. Resulted 03/22/17 18:14 Blood Blood Culture - Preliminary NO GROWTH TO DATE. Resulted Assessment & Plan Assessment * 82 year old female admitted for R foot cellulitis with possible septic tenosynovitis and myositis * day #6 of antibiotics * fluctuating renal function - Scr 1.6mg/dL today Plan Vancomycin IV * Trough level of 14.6mg/dL is almost therapeutic (of note, level not at steady state) * Continue Vancomycin 1250mg (12.8 mg/kg) IV q24h * Goal trough level for cellulitis/septic tenosynovitis : >/= 15 mcg/mL * Will recheck trough in a few days if pt remains admitted and/or on IV Vancomycin Piperacillin/tazobactam * 4.5 g bolus administered over 30 minutes, then 4.5 g IV extended infusion every 8 hours for CrCl greater than 20 mL/min * Aggressive dosing selected due to BMI 35 or more Pharmacy will continue to follow and will adjust dose/frequency as necessary. Thank you.
[2017-03-27] MEDS: QUETIAPINE FUMARATE 200 MG TAB PO SCH (21:36)
[2017-03-27] MEDS: METOPROLOL TARTRATE 25 MG TAB PO SCH (21:36)
[2017-03-27] MEDS: DONEPEZIL HCL 10 MG TAB PO SCH (21:37)
[2017-03-27 21:39] VITALS: BP 158/83; PULSE 67
[2017-03-27 23:27] VITALS: BP 138/63; PULSE 69; TEMP 36.4; O2SAT 92
[2017-03-28] MEDS: ALBUTEROL 0.083% NEBU SOLN 3 ML VIAL INH SCH ×4 (01:53→18:55)
[2017-03-28] MEDS: PIPERACILL/TAZOBAC IV 4.5 GM in DEXTROSE 5% 100ML IV SCH ×3 (01:58→17:56)
[2017-03-28] MEDS: ACETAMINOPHEN 500 MG TAB PO SCH ×3 (06:00→20:59)
[2017-03-28] MEDS: LEVOTHYROXINE 150 MCG TAB PO SCH (06:22)
[2017-03-28] MEDS: HEPARIN SOD 5000 UNIT/0.5 ML CARP SQ SCH ×3 (06:25→20:55)
[2017-03-28 07:44] VITALS: BP 117/69; PULSE 71; TEMP 36.6; O2SAT 94
[2017-03-28 08:00] VITALS: O2SAT 94
[2017-03-28] MEDS: ASPIRIN 81 MG ECTAB PO SCH (08:18)
[2017-03-28] MEDS: ENALAPRIL MALEATE 10 MG TAB PO SCH (08:19)
[2017-03-28] MEDS: ALLOPURINOL 100 MG TAB PO SCH (08:19)
[2017-03-28] MEDS: METOPROLOL TARTRATE 50 MG TAB PO SCH (08:19)
[2017-03-28] MEDS: ATORVASTATIN 40 MG TAB PO SCH (08:19)
[2017-03-28 08:20] LABS: CREATININE 1.5 mg/dl (0.60-1.20)
[2017-03-28] MEDS: CALCIUM 600MG + VIT D 400 IU TAB PO SCH ×2 (08:20→20:58)
[2017-03-28] MEDS: VENLAFAXINE HCL XR 75 MG CAPXR PO SCH (08:20)
[2017-03-28] MEDS: PANTOprazole SOD 40 MG TAB PO SCH (08:20)
[2017-03-28] MEDS: INSULIN ASPART 100 UNITS/ML 3 ML PEN SC SCH ×4 (08:26→21:16)
[2017-03-28] MEDS: INSULIN GLARGINE SOLOSTAR 100 UNITS/ML 3 ML PEN SC SCH ×2 (08:27→21:17)
[2017-03-28] MEDS: MULTIVITAMIN TAB PO SCH (12:44)
[2017-03-28] MEDS: VANCOMYCIN INJ 1,250 MG in SODIUM CHLORIDE 0.9% 250ML 250 ML IV SCH (14:10)
[2017-03-28 15:18] VITALS: BP 183/69; PULSE 71; TEMP 36.9; O2SAT 95
--- NOTE | 2017-03-28 16:18 | Progress Note ---
Subjective Date of Service: Mar 28, 2017. Subjective Pt evaluation today including: conversation w/ patient, physical exam, chart review, lab review, review of studies, review of inpatient medication list States right foot pain No redness or swelling No acute events overnight Problem List Medical Problems: (1) Altered mental status Status: Acute (2) Cellulitis of right foot Status: Acute (3) Closed head injury Status: Acute (4) Hyperglycemia Status: Acute (5) Hyponatremia Status: Acute (6) Hypoxia Status: Acute (7) Multiple contusions Status: Acute (8) Shortness of breath Status: Acute (9) Wheezing Status: Acute Review of Systems Constitutional: No fever, No chills, No sweats, No weight loss Eyes: No worsening of vision, No eye pain, No redness, No discharge ENT: No hearing loss, No unusual epistaxis, No nasal symptoms, No sore throat Respiratory: No cough, No sputum, No wheezing, No shortness of breath Cardiac: No chest pain, No orthopnea, No PND, No edema Abdomen: No pain, No nausea, No vomiting, No diarrhea Musculoskeletal: No joint pain, No muscle pain, No swelling, No calf pain Female : No dysuria, No urinary frequency, No hematuria Neurologic: No memory loss, No paralysis, No weakness, No numbness/tingling Psychiatric: No depression symptoms, No anhedonism, No anxiety, No insomnia Endo: No fatigue, No excessive thirst Skin: No rash, No itch Objective Vital Signs Date Time Temp Pulse Resp B/P (MAP) Pulse Ox O2 Delivery O2 Flow Rate FiO2 03/28/17 15:18 36.9 71 18 183/69 (107) 95 Room Air 03/28/17 08:00 94 Room Air 03/28/17 07:44 36.6 71 18 117/69 (85) 94 Room Air 03/28/17 00:00 Room Air 03/27/17 23:27 36.4 69 20 138/63 (88) 92 Room Air 03/27/17 21:39 67 158/83 (108) Physical Exam General Appearance: WD/WN, no apparent distress Eyes: normal inspection, PERRL, EOMI, sclerae normal Neck: supple, no adenopathy, thyroid normal, no JVD Respiratory/Chest: chest non-tender, lungs clear, normal breath sounds, no respiratory distress Cardiovascular: regular rate, rhythm, no edema, no gallop, no JVD Abdomen: normal bowel sounds, non tender, soft, no organomegaly Neurologic/Psychiatric: no motor/sensory deficits, alert, normal mood/affect, oriented x 3 Skin: normal color, warm/dry, no rash Lymphatic: no adenopathy Laboratory Results Last 24 Hours Test 03/27/17 16:52 03/27/17 20:04 03/28/17 06:51 03/28/17 07:30 Bedside Glucose 124 mg/dl 245 mg/dl 158 mg/dl Creatinine 1.50 mg/dl Est Creatinine Clear Calc Drug Dose 32.6 ml/min Estimated GFR () 37.5 Estimated GFR (Non- 32.3 Test 03/28/17 11:12 Bedside Glucose 191 mg/dl Assessment and Plan This is a 82 yo F with PMHX of HTN, DM II with hx of hypoglycemia, GERD, HLD, dementia with auditory and visual hallucinations, bronchospasm, hyponatremia, hypothyroidism, osteoarthritis, sleep apnea, gout, diverticulosis, left foot osteomyelitis hx 1 year ago,who presented to her PCP for a checkup after initiation of Keflex, found to have worsening erythema and edema of the right foot so was sent to the hospital. Cellulitis/tenosynvitis of the R foot Improved with Zosyn plus vancomycin Blood cx NG ID consulted, rec continued IV antibx for 14 days Pt states she wants only PO on DC, likely DC in next 24 hrs DM II stable Continue ISS with Lantus 25 U BID Insulin sliding scale with Accu-Cheks ACHS CKD stage III Cr 1.5 today Cr. baseline of 1.3, follow PRP Bronchospasm, chronic Pt has tight breath sounds with expiratory wheeze throughout, will add nebulizers Q4H while awake and prn for sob. Patient improved with nebulized treatments HTN improving with pain control Continue metoprolol tartrate 50 mg QAM and 25 mg QPM, enalapril 10 mg QAM, ASA 81 mg Hypothyroidism TSH = 0.289 on 12/27/16 Cont Synthroid 150 mcg daily Dementia Auditory Hallucinations- chronic, nonthreatening, pt hears her late , brothers and sisters (who are all ), also hears voices of school friends , and small children swearing. She frequently talks to herself at baseline. Seroquel has decreased paranoid hallucinations Cont PM Seroquel 400 mg qpm Continue aricept 10 mg HS Depression Cont Effexor 75 mg daily DVT ppx: teds, scds, heparin subq CODE STATUS: DNR
[2017-03-28] MEDS: QUETIAPINE FUMARATE 200 MG TAB PO SCH (20:57)
[2017-03-28] MEDS: DONEPEZIL HCL 10 MG TAB PO SCH (20:59)
[2017-03-28] MEDS: METOPROLOL TARTRATE 25 MG TAB PO SCH (20:59)
[2017-03-28 23:08] VITALS: BP 116/58; PULSE 66; TEMP 36.6; O2SAT 92
[2017-03-29] MEDS: ALBUTEROL 0.083% NEBU SOLN 3 ML VIAL INH SCH ×3 (02:35→14:26)
[2017-03-29] MEDS: PIPERACILL/TAZOBAC IV 4.5 GM in DEXTROSE 5% 100ML IV SCH ×2 (03:38→10:52)
[2017-03-29] MEDS: ACETAMINOPHEN 500 MG TAB PO SCH ×2 (06:00→14:00)
[2017-03-29] MEDS: LEVOTHYROXINE 150 MCG TAB PO SCH (06:09)
[2017-03-29] MEDS: HEPARIN SOD 5000 UNIT/0.5 ML CARP SQ SCH ×2 (06:10→14:00)
[2017-03-29 07:17] VITALS: BP 112/73; PULSE 61; TEMP 36.4; O2SAT 92
[2017-03-29 08:00] VITALS: O2SAT 92
[2017-03-29] MEDS: VENLAFAXINE HCL XR 75 MG CAPXR PO SCH (08:31)
[2017-03-29] MEDS: CALCIUM 600MG + VIT D 400 IU TAB PO SCH (08:31)
[2017-03-29] MEDS: MULTIVITAMIN TAB PO SCH (08:31)
[2017-03-29] MEDS: ASPIRIN 81 MG ECTAB PO SCH (08:31)
[2017-03-29] MEDS: METOPROLOL TARTRATE 50 MG TAB PO SCH (08:31)
[2017-03-29] MEDS: ENALAPRIL MALEATE 10 MG TAB PO SCH (08:31)
[2017-03-29] MEDS: PANTOprazole SOD 40 MG TAB PO SCH (08:31)
[2017-03-29] MEDS: ATORVASTATIN 40 MG TAB PO SCH (08:31)
[2017-03-29] MEDS: ALLOPURINOL 100 MG TAB PO SCH (08:32)
[2017-03-29] MEDS: INSULIN GLARGINE SOLOSTAR 100 UNITS/ML 3 ML PEN SC SCH (08:35)
[2017-03-29] MEDS: INSULIN ASPART 100 UNITS/ML 3 ML PEN SC SCH ×2 (08:35→12:53)
[2017-03-29 08:57] LABS: HEMATOCRIT 36.5 % (37-47); MEAN CELL VOLUME 93.8 fL (80-100); MEAN CORPUSCULAR HEMOGLOBIN 29.8 pg (25-34); MEAN CORPUSCULAR HGB CONC 31.8 g/dl (32-36); MEAN PLATELET VOLUME 9.8 fL (7.4-10.4); PLATELET COUNT 144 K/uL (130-400); RED BLOOD COUNT 3.89 M/uL (4.2-5.4); WHITE BLOOD COUNT 5.55 K/uL (4.8-10.8)
[2017-03-29] MEDS ORDERED: LEVO750T23 PO (11:25)
[2017-03-29] MEDS ORDERED: AMOX875T PO (11:25)
--- NOTE | 2017-03-29 11:27 | Discharge Instructions ---
Discharge Instructions Date of Service Mar 29, 2017. Admission Reason for Admission: Right Foot Cellulitis Discharge Discharge Diagnosis / Problem: right foot cellulitis,tenosynovitis Discharge Goals Goal(s): Decrease discomfort, Improve function, Increase independence, Improve disease control, Learn about illness, Diagnostic testing, Prevent Disease Progression Activity Recommendations Activity Limitations: resume your previous activity . Instructions / Follow-Up Instructions / Follow-Up Patient to be discharged home Prescriptions sent for two antibiotics on discharge: levaquin 750 mg tablet to take once a day and augmentin 875/125 tablet to take twice a day, please take for 7 days total If worsening fevers, redness or swelling in feet please report back to ER Follow up with Dr Siddiqui in 1-2 weeks Current Hospital Diet Patient's current hospital diet: Diabetes Type 2 Diet Discharge Diet Recommended Diet: Diabetes Type 2 Diet Pending Studies Studies pending at discharge: no Laboratory Results Hemoglobin A1c Test 03/23/17 06:01 Range/Units Estimated Average Glucose 186 mg/dl Hemoglobin A1c 8.1 H 4.5-5.6 % Medical Emergencies . Who to Call and When: Medical Emergencies: If at any time you feel your situation is an emergency, please call 911 immediately. . Non-Emergent Contact Non-Emergency issues call your: Primary Care Provider Call Non-Emergent contact if: you have a fever, your pain is worsening . . "Provider Documentation" section prepared by [facility]. . Ui Engineer Recommendations Ui Engineer Recommendations: WBAT with custom Diabetic footwear and inserts Foot checks 3x per day F/U with Dr Melton in 2-3 weeks for reassessment VTE Core Measure Inpt VTE Proph given/why not?: TMathieu Stockings, SCD's, Refusal of treatmnt by pt
[2017-03-29 12:29] VITALS: BP 112/73; PULSE 61; TEMP 36.4; O2SAT 92
[2017-03-29] MEDS: VANCOMYCIN INJ 1,250 MG in SODIUM CHLORIDE 0.9% 250ML 250 ML IV SCH (14:00)
--- NOTE | 2017-03-29 15:05 | Discharge Summary ---
Discharge Summary Date of Service Mar 29, 2017. Discharge Summary Admission Date: Mar 22, 2017 at 15:04 Discharge Date: Mar 29, 2017 Discharge Disposition: Home Principal Diagnosis: Right foot cellulitis/tenosynovitis Immunizations: Have You Had Influenza Vaccine: Yes Influenza Vaccine Date: Jun 17, 2011 History of Tetanus Vaccine?: Yes History of Pneumococcal: Yes History of Hepatitis B Vaccine: Unknown Consultations: Infectious disease Medication Reconciliation New Medications: Amoxicillin & Pot Clavulanate (Augmentin 875-125 mg) 1 Tab Tab 875 MG PO BID for 7 Days, #14 TAB Levofloxacin (Levaquin) 750 Mg Tab 1 TAB PO DAILY for 7 Days, #7 TAB Continued Medications: Allopurinol (Zyloprim) 100 Mg Tab 100 MG PO QAM, 0 Refills Aspirin (Aspirin Ec) 81 Mg Tab 81 MG PO QAM Atorvastatin (Lipitor) 40 Mg Tab 40 MG PO QAM Calcium Carbonate-Cholecalcife (Caltrate 600+D) 1 Tab Tab 1 TAB PO BID Donepezil Hydrochloride (Aricept) 10 Mg Tab 10 MG PO HS Enalapril (Vasotec) 10 Mg Tab 10 MG PO QAM, TAB Furosemide (Lasix) 20 Mg Tab 20 MG PO Q2D Insulin Aspart (Novolog) 100 Units/Ml Inj 5 UNITS SC PRN PRN for PRN, #10 Insulin Glargine (Lantus) 100 Unit/Ml Inj 25 UNITS SC BID, #10 Levothyroxine Sodium (Synthroid) 150 Mcg Tab 150 MCG PO QAM Metoprolol Tartrate (Lopressor) (Lopressor) 50 Mg Tab 50 MG PO QAM, 0 Refills Metoprolol Tartrate (Lopressor) (Lopressor) 50 Mg Tab 25 MG PO QPM, 0 Refills TAKE 1/2 OF A 50MG TABLET IN THE PM Multiple Vitamin (Multivitamin) 1 Tab Tab 1 TAB PO DAILY@1200, TAB Omeprazole (Prilosec) 20 Mg Capcr 20 MG PO DAILY@1200, 0 Refills Quetiapine Fumarate (Quetiapine Fumarate) 400 Mg Tab 400 MG PO QPM, #30 Venlafaxine Hcl (Venlafaxine Extended Rel) 75 Mg Cap 75 MG PO QAM, CAP Discharge Exam Review of Systems: Constitutional: No fever, No chills, No sweats, No weakness ENT: No hearing loss, No unusual epistaxis, No nasal symptoms, No sore throat Respiratory: No cough, No sputum, No wheezing, No shortness of breath Cardiovascular: No chest pain, No orthopnea, No PND, No edema Abdomen: No pain, No nausea, No vomiting, No diarrhea Musculoskeletal: No joint pain, No muscle pain, No swelling, No calf pain Genitourinary - Female: No dysuria, No urinary frequency, No urinary urgency , No urinary incontinence Neurologic: No memory loss, No paralysis, No weakness, No numbness/tingling Psychiatric: No depression symptoms, No anhedonism, No anxiety, No insomnia Endocrine: No fatigue, No excessive thirst, No excessive urination Physical Exam: General Appearance: WD/WN, no apparent distress Eyes: normal inspection, PERRL, EOMI, sclerae normal ENT: normal ENT inspection, hearing grossly normal, TMs normal, pharynx normal Neck: supple, no adenopathy, thyroid normal, no JVD Respiratory/Chest: chest non-tender, lungs clear, normal breath sounds, no respiratory distress Cardiovascular: regular rate, rhythm, no edema, no gallop, no JVD Abdomen / GI: normal bowel sounds, non tender, soft, no organomegaly Extremities: normal inspection, no calf tenderness, normal capillary refill , no pedal edema Neurologic/Psychiatric: no motor/sensory deficits, alert, normal mood/affect , normal reflexes Skin: normal color, warm/dry, no rash Lymphatic: no adenopathy Hospital Course This is a 82 yo F with PMHX of HTN, DM II with hx of hypoglycemia, GERD, HLD, dementia with auditory and visual hallucinations, bronchospasm, hyponatremia, hypothyroidism, osteoarthritis, sleep apnea, gout, diverticulosis, left foot osteomyelitis hx 1 year ago,who presented to her PCP for a checkup after initiation of Keflex, found to have worsening erythema and edema of the right foot so was sent to the hospital. Cellulitis/tenosynvitis of the R foot Improved with Zosyn plus vancomycin Blood cx NG ID consulted, rec continued IV antibx for 14 days Pt states she wants only PO antibx on DC Pt completed 7 days of IV antibx as inpt, will DC on levaquin 750 mg PO daily and augmentin 875/125 PO BID for 7 more days Pt reports improved pain, swelling and redness DM II stable Continue ISS with Lantus 25 U BID Insulin sliding scale with Accu-Cheks ACHS CKD stage III close to baseline Cr. baseline of 1.3 Bronchospasm, chronic Pt has tight breath sounds with expiratory wheeze throughout, will add nebulizers Q4H while awake and prn for sob. Patient improved with nebulized treatments HTN improving with pain control Continue metoprolol tartrate 50 mg QAM and 25 mg QPM, enalapril 10 mg QAM, ASA 81 mg Hypothyroidism TSH = 0.289 on 12/27/16 Cont Synthroid 150 mcg daily Dementia Auditory Hallucinations- chronic, nonthreatening, pt hears her late , brothers and sisters (who are all ), also hears voices of school friends , and small children swearing. She frequently talks to herself at baseline. Seroquel has decreased paranoid hallucinations Cont PM Seroquel 400 mg qpm Continue aricept 10 mg HS Depression Cont Effexor 75 mg daily DVT ppx: teds, scds, heparin subq CODE STATUS: DNR Total Time Spent: Greater than 30 minutes This includes examination of the patient, discharge planning, medication reconciliation, and communication with other providers. Discharge Instructions Please refer to the electronic Patient Visit Report (Discharge Instructions) for additional information. Additional Copies To Luis Siddiqui M.D.
== END 2017-03-29 15:30 | disposition home health service (06) | DRG 603 ==
LOC: C.MS2W 15:04
PROVIDERS: ADMIT Family Medicine; ATTEND Hospitalist
DX: L03.115 Cellulitis of right lower limb (principal); R44.0 Auditory hallucinations; M65.171 Other infective (teno)synovitis, right ankle and foot; M10.9 Gout, unspecified; N18.3 Chronic kidney disease, stage 3 (moderate); I12.9 Hypertensive chronic kidney disease with stage 1 through stage 4 chronic kidney disease, or unspecified chronic kidney disease; E11.22 Type 2 diabetes mellitus with diabetic chronic kidney disease; E11.40 Type 2 diabetes mellitus with diabetic neuropathy, unspecified; E11.65 Type 2 diabetes mellitus with hyperglycemia; F03.90 Unspecified dementia, unspecified severity, without behavioral disturbance, psychotic disturbance, mood disturbance, and anxiety; K21.9 Gastro-esophageal reflux disease without esophagitis; E78.5 Hyperlipidemia, unspecified; E03.9 Hypothyroidism, unspecified; J98.01 Acute bronchospasm; F32.9 Major depressive disorder, single episode, unspecified; G47.30 Sleep apnea, unspecified; Z66 Do not resuscitate; Z79.4 Long term (current) use of insulin; Z79.82 Long term (current) use of aspirin; Z79.899 Other long term (current) drug therapy

== ENCOUNTER → 2017-06-20 | Outpatient (CLI) | payer BC, OTHER ==
[2017-06-20 17:34] LABS: URINE APPEARANCE CLEAR (CLEAR); URINE BILIRUBIN NEG (NEG); URINE COLOR YELLOW; URINE EPITHELIAL CELL AUTO >30 /lpf (0-5); URINE NITRITE NEG (NEG); URINE SPECIFIC GRAVITY 1.014 (1.000-1.030); UROBILINOGEN NEG (NEG)
[2017-06-20 17:41] LABS: MANUAL MICROSCOPIC REQUIRED? NO; REVIEW REQ? NO
== END | disposition home or self-care (01) ==
LOC: C.LABSPEC 12:13
PROVIDERS: ATTEND Physician Assistant Medical
DX: R39.9 Unspecified symptoms and signs involving the genitourinary system (principal)

== ENCOUNTER → 2017-06-22 | Outpatient (CLI) | payer BC, OTHER ==
[2017-06-22 17:04] LABS: ALT/SGPT 25 U/L (12-78); AST/SGOT 17 U/L (15-37); BLOOD UREA NITROGEN 16 mg/dl (7-18); BUN/CREATININE RATIO 11.8 (10-20); CALCIUM 9.6 mg/dl (8.5-10.1); CARBON DIOXIDE 35 mmol/L (21-32); CHLORIDE 93 mmol/L (98-107); CREATININE 1.32 mg/dl (0.60-1.20); GLUCOSE 147 mg/dl (70-99); POTASSIUM 5.1 mmol/L (3.5-5.1); SODIUM 132 mmol/L (136-145)
[2017-06-22 17:07] LABS: ALB/GLOB RATIO 0.8 (0.9-2); ALKALINE PHOSPHATASE 156 U/L (45-117)
== END | disposition home or self-care (01) ==
LOC: C.LABBC 13:37
PROVIDERS: ATTEND Physician Assistant Medical
DX: J06.9 Acute upper respiratory infection, unspecified (principal)

== ENCOUNTER → 2017-06-28 | Outpatient (CLI) | payer BC, OTHER ==
[~2017-06-28] MED LIST changes: +QUET1TAB20 PO; -SRQ400 PO
[2017-06-28 17:46] LABS: BLOOD UREA NITROGEN 17 mg/dl (7-18); BUN/CREATININE RATIO 12.3 (10-20); CALCIUM 9.2 mg/dl (8.5-10.1); CARBON DIOXIDE 35 mmol/L (21-32); CHLORIDE 91 mmol/L (98-107); CREATININE 1.35 mg/dl (0.60-1.20); GLUCOSE 161 mg/dl (70-99); POTASSIUM 4.6 mmol/L (3.5-5.1); SODIUM 130 mmol/L (136-145)
== END | disposition home or self-care (01) ==
LOC: C.LABBFT 13:27
PROVIDERS: ATTEND Physician Assistant Medical
DX: E03.9 Hypothyroidism, unspecified (principal); E87.1 Hypo-osmolality and hyponatremia

== ENCOUNTER → 2017-09-13 | Outpatient (CLI) | payer OTHER ==
[2017-09-13 17:54] LABS: ALBUMIN 3.3 gm/dl (3.4-5.0); ALT/SGPT 26 U/L (12-78); BLOOD UREA NITROGEN 17 mg/dl (7-18); CALCIUM 10.4 mg/dl (8.5-10.1); CARBON DIOXIDE 35 mmol/L (21-32); GLUCOSE 204 mg/dl (70-99); POTASSIUM 4.7 mmol/L (3.5-5.1); SODIUM 127 mmol/L (136-145)
[2017-09-13 18:04] LABS: ALKALINE PHOSPHATASE 142 U/L (45-117); AST/SGOT 19 U/L (15-37); TOTAL PROTEIN 7.8 gm/dl (6.4-8.2)
[2017-09-14 06:19] LABS: HEMOGLOBIN A1C 8.6 % (4.5-5.6)
== END | disposition home or self-care (01) ==
LOC: C.LABBFT 14:11
PROVIDERS: ATTEND Internal Medicine
DX: E11.649 Type 2 diabetes mellitus with hypoglycemia without coma (principal)

== ENCOUNTER 2017-10-20 15:39 | Emergency (ER) | payer OTHER ==
[~2017-10-20] VITALS: Ht 160 cm; Wt 99.4 kg
[2017-10-20 15:40] VITALS: TEMP 37; O2SAT 98
--- NOTE | 2017-10-20 15:53 | EMERGENCY ROOM VISIT NOTE ---
History Report prepared by Michael: Adina Hawley Under the Supervision of: Dr. Jp Huang D.O. First contact with patient: 15:43 Chief Complaint: ALTERED MENTAL STATUS Stated Complaint: AMS, NAUSEA History of Present Illness The patient is a 82 year old female who presents to the Emergency Room with complaints of altered mental status and generalized weakness. The patient presented to the emergency department by ambulance. Her granddaughter/ c java developer arrived emergency department with the patient. She states for the last few days her grandmother has been progressively more weak. She is having difficulty ambulating. She appears to have shakiness in her legs. She does not have any unilateral weakness or facial droop but her granddaughter states that she has been having slurred speech. According to the prehospital personnel the patient also complained of a headache but at this time she does not complain of any headache. Her granddaughter states that she also complained of nausea earlier but none at this time. There was no witnessed fall but the patient has a bruise on her right hand. This bruise is not painful. She does not have any other signs of trauma according to her granddaughter. The patient denies having any chest pain shortness of breath. She does have underlying dementia. Source of History: family (granddaughter/c java developer) History Limited By: AMS Associated Symptoms: No chest pain, No SOB, No weakness (unilateral ) Note: Negative facial droop. Positive slurred speech and bruise on right hand. Review of Systems See HPI for pertinent positives & negatives. A total of 10 systems reviewed and were otherwise negative. Past Medical & Surgical Medical Problems: (1) Bronchitis (2) Cellulitis (3) Cellulitis of right toe (4) Dementia (5) DIAB KAREEM WO COMPL, TYPE II OR UNSPEC TYPE, NOT UNCNTRLD (6) Diabetic infection of left foot (7) DIVERTICULOSIS COLON (W/O MENT OF HEMORRHAGE) (8) Diverticulosis of colon without hemorrhage (9) Esophageal reflux (10) GOUT NOS (11) HYPERTENSION NOS (12) Hyponatremia (13) HYPOTHYROIDISM NOS (14) Hypoxia (15) Mental status change (16) Osteomyelitis (17) Pneumonia (18) Unspecified sleep apnea (19) URI (upper respiratory infection) Family History FH: heart disease Social History Smoking Status: Never Smoker Alcohol Use: none Drug Use: none Occupation Status: retired Current/Historical Medications Scheduled Allopurinol (Zyloprim), 100 MG PO QAM Aspirin (Aspirin Ec), 81 MG PO QAM Atorvastatin (Lipitor), 40 MG PO QAM Calcium Carbonate-Cholecalcife (Caltrate 600+D), 1 TAB PO BID Donepezil Hydrochloride (Aricept), 10 MG PO HS Enalapril (Vasotec), 10 MG PO QAM Insulin Glargine (Lantus), 25 UNITS SC BID Levothyroxine Sodium (Levothyroxine Sodium), 175 MCG PO DAILY Memantine (Namenda), 10 MG PO BID Metoprolol Tartrate (Lopressor) (Lopressor), 50 MG PO QAM Metoprolol Tartrate (Lopressor) (Lopressor), 25 MG PO QPM Multiple Vitamin (Multivitamin), 1 TAB PO DAILY@1200 Nystatin (Topical) (Nystatin), 1 APPLN TOP TID Olanzapine (Zyprexa), 5 MG PO BID Omeprazole (Prilosec), 20 MG PO DAILY@1200 Polyethylene Glycol 3350 (Miralax), 17 GM PO DAILY Quetiapine Fumarate (Quetiapine Fumarate), 400 MG PO HS Venlafaxine Hcl (Venlafaxine Hcl Er), 150 MG PO DAILY Scheduled PRN Furosemide (Lasix), 20 MG PO DAILY PRN for WEIGHT GAIN/EDEMA Insulin Aspart (Novolog), 5 UNITS SC TIDM PRN for Hyperglycemia Protocol Lorazepam (Ativan), 0.5 MG PO BID PRN for Anxiety/Agitation Allergies Coded Allergies: No Known Allergies (Unverified , 10/20/17) Physical Exam Vital Signs Date Time Temp Pulse Resp B/P (MAP) Pulse Ox O2 Delivery O2 Flow Rate FiO2 10/20/17 19:34 78 20 150/80 90 10/20/17 18:22 61 18 158/63 99 Nasal Cannula 2.0 10/20/17 17:29 61 10/20/17 17:07 68 18 185/82 99 Room Air 10/20/17 15:40 89 Room Air 10/20/17 15:40 98 Nasal Cannula 2.0 10/20/17 15:40 37.0 68 13 149/88 89 Room Air 10/20/17 15:40 89 Room Air Physical Exam GENERAL: Patient is a awake and alert. She answers questions appropriately but slowly. EYES: The conjunctivae are clear. The pupils are round and reactive. EARS, NOSE, MOUTH AND THROAT: The nose is without any evidence of any deformity. Mucous membranes are moist tongue is midline NECK: The neck is nontender and supple. RESPIRATORY: Diminished breath sounds were noted throughout. There are rales at both bases. No tachypnea or conversational dyspnea was noted. CARDIOVASCULAR: Regular rate and rhythm noted there no murmurs rubs or gallops normal S1 normal S2 GASTROINTESTINAL: The abdomen was distended but soft. There is diffuse tenderness to palpation but no guarding or rigidity. MUSCULOSKELETAL/EXTREMITIES: There is no evidence of gross deformity full range of motion is noted in the hips and shoulders. There is ecchymosis over the right hand but no tenderness to palpation. SKIN: There is no obvious evidence of any rash. There is bilateral pedal edema. NEUROLOGIC: Patient is awake alert and oriented to person place and situation. She is confused about the time. Strength is diminished but symmetric. Medical Decision & Procedures ER Provider Diagnostic Interpretation: Radiology results as stated below per my review and radiologist interpretation: CHEST ONE VIEW PORTABLE CLINICAL HISTORY: Altered status. Weakness. COMPARISON STUDY: Chest radiograph December 28, 2016. FINDINGS: Lung volumes are mildly diminished. There is slight elevation of the right hemidiaphragm. There is no evidence for pulmonary edema. Minimal left basilar opacity favors atelectasis. There is no consolidation to suggest pneumonia. Cardiomediastinal silhouette is stable. IMPRESSION: 1. No acute cardiopulmonary findings. 2. Mild left basilar opacity which favors atelectasis. Electronically signed by: Germán Guevara M.D. 10/20/2017 4:31 PM Dictated Date/Time: 10/20/2017 4:[address] CT DOSE: 921.40 mGy.cm HISTORY: EVALUATE ALTERED MENTAL STATUS/WEAKNESS TECHNIQUE: Multiaxial CT images of the head were performed without the use of intravenous contrast. Automated exposure control was utilized for this study. A dose lowering technique was utilized adhering to the principles of ALARA. Comparison: Head CT 12/26/2016. Findings: The paranasal sinuses and mastoid air cells are clear. The calvarium and skull base are intact. There is no mass, hematoma, midline shift, acute infarct. White matter hypodensity is nonspecific but suggestive of microvascular ischemic change. The ventricles and sulci demonstrate mild age-related involutional changes. Impression: No acute intracranial abnormality. Atrophy and microvascular ischemic changes. Electronically signed by: Les Ibarra M.D. 10/20/2017 5:08 PM Dictated Date/Time: 10/20/2017 5:[address] OF THE ABDOMEN AND PELVIS WITHOUT CONTRAST CLINICAL HISTORY: Abdominal pain. Altered mental status. Nausea. COMPARISON STUDY: CT of the abdomen and pelvis January 16, 2012. TECHNIQUE: Axial images of the abdomen and pelvis were obtained without IV contrast. Images were reviewed in the axial, sagittal, and coronal planes. A dose lowering technique was utilized adhering to the principles of ALARA. FINDINGS: Lung bases are clear. A subcentimeter left breast nodule is unchanged since exam of January 16, 2012 and is therefore benign. No renal, ureteral or bladder calculi are present. There is no hydronephrosis or hydroureter. Evaluation of the remainder of the abdomen and pelvis is suboptimal on this unenhanced exam. There are small gallstones within the gallbladder without evidence for acute cholecystitis. There is no biliary or pancreatic ductal dilatation. Bilateral adrenal hypodense nodules are unchanged and prior CT and are consistent with adenomas. There is no evidence for a bowel obstruction. The appendix is slightly bulbous but is unchanged in appearance. There is no periappendiceal infiltration. There is no evidence for acute appendicitis. This colonic diverticulosis without evidence for acute diverticulitis. No suspicious osseous lesions are present. There is no lymphadenopathy or ascites. IMPRESSION: 1. No acute process within the abdomen or pelvis on unenhanced exam. 2. Cholelithiasis without evidence for acute cholecystitis. 3. No bowel obstruction. No evidence for acute appendicitis. Electronically signed by: Germán Guevara M.D. 10/20/2017 5:13 PM Dictated Date/Time: 10/20/2017 5:06 PM Laboratory Results 10/20/17 16:00 Red Blood Count 4.37, Mean Corpuscular Volume 94.5, Mean Corpuscular Hemoglobin 31.8, Mean Corpuscular Hemoglobin Concent 33.7, Mean Platelet Volume 9.8, Neutrophils (%) (Auto) 61.4, Lymphocytes (%) (Auto) 25.6, Monocytes (%) (Auto) 10.1, Eosinophils (%) (Auto) 2.1, Basophils (%) (Auto) 0.4, Neutrophils # (Auto ) 4.76, Lymphocytes # (Auto) 1.98, Monocytes # (Auto) 0.78, Eosinophils # (Auto ) 0.16, Basophils # (Auto) 0.03 10/20/17 16:00 Test 10/20/17 16:00 10/20/17 16:05 White Blood Count 7.74 K/uL (4.8-10.8) Red Blood Count 4.37 M/uL (4.2-5.4) Hemoglobin 13.9 g/dL (12.0-16.0) Hematocrit 41.3 % (37-47) Mean Corpuscular Volume 94.5 fL (80-100) Mean Corpuscular Hemoglobin 31.8 pg (25-34) Mean Corpuscular Hemoglobin Concent 33.7 g/dl (32-36) Platelet Count 158 K/uL (130-400) Mean Platelet Volume 9.8 fL (7.4-10.4) Neutrophils (%) (Auto) 61.4 % Lymphocytes (%) (Auto) 25.6 % Monocytes (%) (Auto) 10.1 % Eosinophils (%) (Auto) 2.1 % Basophils (%) (Auto) 0.4 % Neutrophils # (Auto) 4.76 K/uL (1.4-6.5) Lymphocytes # (Auto) 1.98 K/uL (1.2-3.4) Monocytes # (Auto) 0.78 K/uL (0.11-0.59) Eosinophils # (Auto) 0.16 K/uL (0-0.5) Basophils # (Auto) 0.03 K/uL (0-0.2) RDW Standard Deviation 51.2 fL (36.4-46.3) RDW Coefficient of Variation 14.8 % (11.5-14.5) Immature Granulocyte % (Auto) 0.4 % Immature Granulocyte # (Auto) 0.03 K/uL (0.00-0.02) Prothrombin Time 10.7 SECONDS (9.0-12.0) Prothromb Time International Ratio 1.0 (0.9-1.1) Activated Partial Thromboplast Time 23.8 SECONDS (21.0-31.0) Partial Thromboplastin Ratio 0.9 Anion Gap 3.0 mmol/L (3-11) Est Creatinine Clear Calc Drug Dose 33.7 ml/min Estimated GFR () 38.4 Estimated GFR (Non- 33.1 BUN/Creatinine Ratio 10.2 (10-20) Calcium Level 10.9 mg/dl (8.5-10.1) Phosphorus Level 3.3 mg/dl (2.5-4.9) Magnesium Level 1.7 mg/dl (1.8-2.4) Total Bilirubin 0.5 mg/dl (0.2-1) Direct Bilirubin 0.2 mg/dl (0-0.2) Aspartate Amino Transf (AST/SGOT) 19 U/L (15-37) Alanine Aminotransferase (ALT/SGPT) 26 U/L (12-78) Alkaline Phosphatase 125 U/L (45-117) Total Creatine Kinase 52 U/L (26-192) Creatine Kinase MB 1.4 ng/ml (0.5-3.6) Creatine Kinase MB Ratio 2.7 (0-3.0) Troponin I < 0.015 ng/ml (0-0.045) Pro-B-Type Natriuretic Peptide 509 pg/ml (0-1800) Total Protein 7.1 gm/dl (6.4-8.2) Albumin 3.3 gm/dl (3.4-5.0) Lipase 135 U/L (73-393) Thyroid Stimulating Hormone (TSH) 3.780 uIu/ml (0.300-4.500) Urine Color YELLOW Urine Appearance CLEAR (CLEAR) Urine pH 7.0 (4.5-7.5) Urine Specific [place] 1.011 (1.000-1.030) Urine Protein 1+ (NEG) Urine Glucose (UA) NEG (NEG) Urine Ketones NEG (NEG) Urine Occult Blood NEG (NEG) Urine Nitrite NEG (NEG) Urine Bilirubin NEG (NEG) Urine Urobilinogen NEG (NEG) Urine Leukocyte Esterase TRACE (NEG) Urine WBC (Auto) 1-5 /hpf (0-5) Urine RBC (Auto) 0-4 /hpf (0-4) Urine Hyaline Casts (Auto) 1-5 /lpf (0-5) Urine Epithelial Cells (Auto) >30 /lpf (0-5) Urine Bacteria (Auto) NEG (NEG) Laboratory results per my review. Medications Administered Medications (Trade) Dose Ordered Sig/Edilberto Route Start Time Stop Time Status Last Admin Dose Admin Magnesium Sulfate (Magnesium Sulfate) 1 gm NOW STAT IV 10/20/17 17:06 10/20/17 17:07 DC 10/20/17 17:30 1 GM ECG Per My Interpretation Indication: weakness Rate (beats per minute): 68 Rhythm: normal sinus Findings: no ectopy, other (No acute ST segments, LVH was noted by voltage criteria. ) Comparison ECG Date: 12/26/16 Change: no significant change ED Course 1544: The patient was evaluated in room B9. A complete history and physical examination were performed. 1705: Ordered Magnesium Sulfate 1 gm IV 170: I checked on the patient at this time. She appears content. 1906: Upon reevaluation, the patient is content. I discussed the results and treatment plan with her and her granddaughter. They verbalized agreement of the treatment plan. She was discharged home. Medical Decision Prior records/ancillary studies reviewed and summarized above. Nursing notes reviewed. Additional history obtained from the patient's granddaughter as well as the prehospital personnel. The patient's history was concerning for altered mental status. Differential diagnosis: Etiologies such as metabolic, infection, hypoglycemia, electrolyte abnormalities , cardiac sources, intracerebral event, toxicologic, neurologic, as well as others were entertained. The patient is an 82-year-old female who presented to the emergency department for evaluation of altered mental status. The patient's caregiver felt that she was having lower extremity weakness. The patient appeared to be at her baseline on my evaluation according to family members. I discussed the patient' s laboratory and radiographic studies with her and her family members. She was treated with IV magnesium replacement as well as IV fluids. She was improved on subsequent reevaluation. I discussed follow-up and recommended that they call the primary care physician and she is possible to schedule a follow-up appointment. Otherwise encouraged to continue all medications as prescribed and return to the emergency department immediately if symptoms change worsening of the need arises. Medication Reconcilliation Current Medication List: was personally reviewed by me Blood Pressure Screening Patient's blood pressure: Elevated blood pressure Blood pressure disposition: Elevated BP felt to be situational Impression Primary Impression: Generalized weakness Additional Impressions: Hypomagnesemia Dehydration Scribe Attestation The scribe's documentation has been prepared under my direction and personally reviewed by me in its entirety. I confirm that the note above accurately reflects all work, treatment, procedures, and medical decision making performed by me. Departure Information Dispostion Home / Self-Care Referrals Luis Siddiqui M.D. (PCP) Forms HOME CARE DOCUMENTATION FORM, IMPORTANT VISIT INFORMATION Patient Instructions My [facility] Additional Instructions Continue all medications as prescribed. Encourage the patient to eat and drink as frequently as possible. Follow-up with your primary care physician as soon as possible. Return to the emergency department immediately if symptoms change or worsen or the need arises. Problem Qualifiers
[2017-10-20 15:55] VITALS: Ht 160 cm; Wt 99.4 kg
[2017-10-20 16:27] LABS: BASO % 0.4 %; BASO ABS # 0.03 K/uL (0-0.2); EOS % 2.1 %; EOS ABS # 0.16 K/uL (0-0.5); HEMATOCRIT 41.3 % (37-47); HEMOGLOBIN 13.9 g/dL (12.0-16.0); IG# 0.03 K/uL (0.00-0.02); LYMPH % 25.6 %; LYMPH ABS # 1.98 K/uL (1.2-3.4); MEAN CELL VOLUME 94.5 fL (80-100); MEAN CORPUSCULAR HEMOGLOBIN 31.8 pg (25-34); MEAN CORPUSCULAR HGB CONC 33.7 g/dl (32-36); MEAN PLATELET VOLUME 9.8 fL (7.4-10.4); MONO % 10.1 %; MONO ABS # 0.78 K/uL (0.11-0.59); NEUT % 61.4 %; NEUT ABS # 4.76 K/uL (1.4-6.5); PLATELET COUNT 158 K/uL (130-400); RED CELL DISTRIBUTION WIDTH CV 14.8 % (11.5-14.5); RED CELL DISTRIBUTION WIDTH SD 51.2 fL (36.4-46.3); WHITE BLOOD COUNT 7.74 K/uL (4.8-10.8)
--- NOTE | 2017-10-20 16:32 | DIAGNOSTIC IMAGING REPORT ---
CHEST ONE VIEW PORTABLE CLINICAL HISTORY: Altered status. Weakness. COMPARISON STUDY: Chest radiograph December 28, 2016. FINDINGS: Lung volumes are mildly diminished. There is slight elevation of the right hemidiaphragm. There is no evidence for pulmonary edema. Minimal left basilar opacity favors atelectasis. There is no consolidation to suggest pneumonia. Cardiomediastinal silhouette is stable. IMPRESSION: 1. No acute cardiopulmonary findings. 2. Mild left basilar opacity which favors atelectasis. Electronically signed by: Germán Guevara M.D. 10/20/2017 4:31 PM Dictated Date/Time: 10/20/2017 4:29 PM
[2017-10-20 16:36] LABS: PTT PATIENT 23.8 SECONDS (21.0-31.0)
[2017-10-20 16:52] LABS: ALBUMIN 3.3 gm/dl (3.4-5.0); ALT/SGPT 26 U/L (12-78); AST/SGOT 19 U/L (15-37); BLOOD UREA NITROGEN 15 mg/dl (7-18); CALCIUM 10.9 mg/dl (8.5-10.1); CARBON DIOXIDE 41 mmol/L (21-32); CREATININE 1.47 mg/dl (0.60-1.20); GLUCOSE 124 mg/dl (70-99); LIPASE 135 U/L (73-393); PHOSPHORUS 3.3 mg/dl (2.5-4.9); POTASSIUM 4.1 mmol/L (3.5-5.1); SODIUM 135 mmol/L (136-145)
[2017-10-20 16:55] LABS: ALKALINE PHOSPHATASE 125 U/L (45-117); CKMB 1.4 ng/ml (0.5-3.6); TOTAL PROTEIN 7.1 gm/dl (6.4-8.2)
[2017-10-20] MEDS ORDERED: MAGNESIUM SULFATE 1GM / D5W 1 GM BAG IV STA (17:06)
--- NOTE | 2017-10-20 17:10 | DIAGNOSTIC IMAGING REPORT ---
HEAD CT NONCONTRAST CT DOSE: 921.40 mGy.cm HISTORY: EVALUATE ALTERED MENTAL STATUS/WEAKNESS TECHNIQUE: Multiaxial CT images of the head were performed without the use of intravenous contrast. Automated exposure control was utilized for this study. A dose lowering technique was utilized adhering to the principles of ALARA. Comparison: Head CT 12/26/2016. Findings: The paranasal sinuses and mastoid air cells are clear. The calvarium and skull base are intact. There is no mass, hematoma, midline shift, acute infarct. White matter hypodensity is nonspecific but suggestive of microvascular ischemic change. The ventricles and sulci demonstrate mild age-related involutional changes. Impression: No acute intracranial abnormality. Atrophy and microvascular ischemic changes. Electronically signed by: Les Ibarra M.D. 10/20/2017 5:08 PM Dictated Date/Time: 10/20/2017 5:05 PM
--- NOTE | 2017-10-20 17:14 | DIAGNOSTIC IMAGING REPORT ---
CT OF THE ABDOMEN AND PELVIS WITHOUT CONTRAST CLINICAL HISTORY: Abdominal pain. Altered mental status. Nausea. COMPARISON STUDY: CT of the abdomen and pelvis January 16, 2012. TECHNIQUE: Axial images of the abdomen and pelvis were obtained without IV contrast. Images were reviewed in the axial, sagittal, and coronal planes. A dose lowering technique was utilized adhering to the principles of ALARA. FINDINGS: Lung bases are clear. A subcentimeter left breast nodule is unchanged since exam of January 16, 2012 and is therefore benign. No renal, ureteral or bladder calculi are present. There is no hydronephrosis or hydroureter. Evaluation of the remainder of the abdomen and pelvis is suboptimal on this unenhanced exam. There are small gallstones within the gallbladder without evidence for acute cholecystitis. There is no biliary or pancreatic ductal dilatation. Bilateral adrenal hypodense nodules are unchanged and prior CT and are consistent with adenomas. There is no evidence for a bowel obstruction. The appendix is slightly bulbous but is unchanged in appearance. There is no periappendiceal infiltration. There is no evidence for acute appendicitis. This colonic diverticulosis without evidence for acute diverticulitis. No suspicious osseous lesions are present. There is no lymphadenopathy or ascites. IMPRESSION: 1. No acute process within the abdomen or pelvis on unenhanced exam. 2. Cholelithiasis without evidence for acute cholecystitis. 3. No bowel obstruction. No evidence for acute appendicitis. Electronically signed by: Germán Guevara M.D. 10/20/2017 5:13 PM Dictated Date/Time: 10/20/2017 5:06 PM
[2017-10-20] MEDS ORDERED: NYST1POW7 TOP (17:30)
[2017-10-20] MEDS ORDERED: POLY335019 PO (17:30)
[2017-10-20] MEDS ORDERED: NMN10 PO (17:30)
[2017-10-20] MEDS ORDERED: LORA-741 PO (17:30)
[2017-10-20] MEDS ORDERED: VENL150T33 PO (17:30)
[2017-10-20] MEDS ORDERED: OLAN-111 PO (17:30)
[2017-10-20] MEDS ORDERED: LEVO175T3 PO (17:30)
[2017-10-20 19:34] VITALS: BP 150/80; PULSE 78; O2SAT 90
== END 2017-10-20 19:30 | disposition home or self-care (01) ==
LOC: EDBD 15:39 → C.EDB 15:40
DX: R53.1 Weakness (principal); E83.42 Hypomagnesemia; E86.0 Dehydration; F03.90 Unspecified dementia, unspecified severity, without behavioral disturbance, psychotic disturbance, mood disturbance, and anxiety; E11.9 Type 2 diabetes mellitus without complications; I10 Essential (primary) hypertension; E03.9 Hypothyroidism, unspecified; R60.9 Edema, unspecified; M10.9 Gout, unspecified; K21.9 Gastro-esophageal reflux disease without esophagitis; Z87.01 Personal history of pneumonia (recurrent); Z79.82 Long term (current) use of aspirin; Z79.4 Long term (current) use of insulin; Z79.899 Other long term (current) drug therapy

== ENCOUNTER → 2017-10-24 | Outpatient (CLI) | payer OTHER ==
[~2017-10-24] MED LIST changes: +LEVO175T3 PO; +LORA-741 PO; +NMN10 PO; +NYST1POW7 TOP; +OLAN-111 PO; +POLY335019 PO; -SYN150 PO; +VENL150T33 PO; -VENL75CA73 PO
--- NOTE | 2017-10-24 14:38 | DIAGNOSTIC IMAGING REPORT ---
LEFT FIRST TOE 3 VIEWS HISTORY: Left first toe pain. ACUTE OSTEOMYELITIS OF TOE COMPARISON: None. FINDINGS: The bones are osteopenic. No acute fracture or dislocation. Soft tissue swelling within the first toe. Small soft tissue ulceration at the distal tip of the toe which measures 6 mm. No underlying bony abnormality to suggest osteomyelitis. Mild osteoarthritis at the first MTP joint and interphalangeal joint. Flexion deformities seen within the toes. No radiopaque foreign bodies. IMPRESSION: A 6 mm skin ulceration at the distal tip of the left first toe. No underlying bony abnormality to suggest osteomyelitis. Electronically signed by: Les Ibarra M.D. 10/24/2017 2:36 PM Dictated Date/Time: 10/24/2017 2:34 PM
== END | disposition home or self-care (01) ==
LOC: C.RAD1850 14:15
PROVIDERS: ATTEND Nurse Practitioner
DX: M86.172 Other acute osteomyelitis, left ankle and foot (principal); L97.529 Non-pressure chronic ulcer of other part of left foot with unspecified severity

== ENCOUNTER 2017-12-08 14:10 | Inpatient (IN) | payer OTHER ==
[~2017-12-08] VITALS: Ht 157.5 cm; Wt 99.5 kg
[~2017-12-08 14:10] MED LIST changes: -INSDGI SC; -LEVO175T3 PO; -LORA-741 PO; -METO50TA16 PO; -NMN10 PO; -NVLG SC; -NYST1POW7 TOP; -OLAN-111 PO; -POLY335019 PO; -QUET1TAB20 PO; -VENL150T33 PO
[2017-12-08] MEDS ORDERED: ALBUT/IPRATROP 3MG/0.5MG NEB 3 ML VIAL INH STA ×2 (14:25→15:40)
--- NOTE | 2017-12-08 14:28 | EMERGENCY ROOM VISIT NOTE ---
History Report prepared by Michael: Fransisco Aceves Under the Supervision of: Freedom De LeonO. First contact with patient: 14:18 Chief Complaint: RESPIRATORY PROBLEMS Stated Complaint: RESPIRATORY Nursing Triage Summary: See triage note History of Present Illness The patient is an 82 year old female with a history of pneumonia who presents to the Emergency Room with complaints of worsening respiratory problems that started 2 days ago. Per the patient's daughter, the patient started getting sick with a cough and hoarse voice. The patient has also been complaining of headaches. This morning, she was noted to be very shaky on her feet, and had to be caught because she was about to fall. The patient has been complaining of feeling weak. She was seen at Dr. Siddiqui's office this morning, and her oxygen saturation was noted to be 80%. She was given a breathing treatment there. Any fevers or leg swelling was denied on behalf of the patient. She did get her flu shot this season. Source of History: patient, family, nursing staff Onset: 2 days ago Position: other (global) Symptom Intensity: o2 sat 80 Quality: other (respiratory problems) Timing: worsening Associated Symptoms: + headache, + cough, + SOB, + weakness, No fevers Note: Leg swelling denied. Review of Systems See HPI for pertinent positives & negatives. A total of 10 systems reviewed and were otherwise negative. Past Medical & Surgical Medical Problems: (1) Acute respiratory failure with hypoxia (2) Bronchitis (3) Cellulitis (4) Cellulitis of right toe (5) Dementia (6) DIAB KAREEM WO COMPL, TYPE II OR UNSPEC TYPE, NOT UNCNTRLD (7) Diabetic infection of left foot (8) DIVERTICULOSIS COLON (W/O MENT OF HEMORRHAGE) (9) Diverticulosis of colon without hemorrhage (10) Esophageal reflux (11) GOUT NOS (12) HYPERTENSION NOS (13) Hyponatremia (14) HYPOTHYROIDISM NOS (15) Hypoxia (16) Mental status change (17) Osteomyelitis (18) Pneumonia (19) Unspecified sleep apnea (20) URI (upper respiratory infection) Family History FH: heart disease Social History Smoking Status: Never Smoker Alcohol Use: none Drug Use: none Occupation Status: retired Current/Historical Medications Scheduled Allopurinol (Zyloprim), 100 MG PO QAM Aspirin (Aspirin Ec), 81 MG PO QAM Atorvastatin (Lipitor), 40 MG PO QAM Calcium Carbonate-Cholecalcife (Caltrate 600+D), 1 TAB PO BID Donepezil Hydrochloride (Aricept), 10 MG PO HS Enalapril (Vasotec), 10 MG PO QAM Furosemide (Lasix), 20 MG PO Q2D Insulin Glargine (Lantus), 25 UNITS SC BID Levothyroxine Sodium (Levothyroxine Sodium), 175 MCG PO DAILY Memantine (Namenda), 10 MG PO BID Metoprolol Tartrate (Lopressor) (Lopressor), 50 MG PO QAM Metoprolol Tartrate (Lopressor) (Lopressor), 25 MG PO QPM Multiple Vitamin (Multivitamin), 1 TAB PO DAILY@1200 Nystatin (Topical) (Nystatin), 1 APPLN TOP TID Olanzapine (Zyprexa), 5 MG PO BID Omeprazole (Prilosec), 20 MG PO DAILY@1200 Polyethylene Glycol 3350 (Miralax), 17 GM PO DAILY Quetiapine Fumarate (Quetiapine Fumarate), 400 MG PO HS Venlafaxine Hcl (Venlafaxine Hcl Er), 150 MG PO DAILY Scheduled PRN Insulin Aspart (Novolog), 5 UNITS SC TIDM PRN for Hyperglycemia Protocol Lorazepam (Ativan), 0.5 MG PO BID PRN for Anxiety/Agitation Allergies Coded Allergies: No Known Allergies (Unverified , 10/20/17) Physical Exam Vital Signs Date Time Temp Pulse Resp B/P (MAP) Pulse Ox O2 Delivery O2 Flow Rate FiO2 12/08/17 16:07 70 18 179/95 100 Nebulizer 9.0 12/08/17 14:24 Nasal Cannula 2.0 12/08/17 14:19 67 12/08/17 14:14 37.4 70 18 179/82 96 Nasal Cannula 3.0 12/08/17 14:14 87 Room Air 12/08/17 14:14 96 Nasal Cannula 3.0 Physical Exam GENERAL: Patient is awake, alert, mildly anxious appearing. EYES: The conjunctivae are clear. The pupils are round and reactive. EARS, NOSE, MOUTH AND THROAT: The nose is without any evidence of any deformity. Mucous membranes are moist tongue is midline NECK: The neck is nontender and supple. RESPIRATORY: Lung sounds are diminished throughout with expiratory wheezing in all marin. Tachypnea and conversational dyspnea noted. CARDIOVASCULAR: Regular rate and rhythm noted there no murmurs rubs or gallops normal S1 normal S2 GASTROINTESTINAL: The abdomen is soft. Bowel sounds are present in all quadrants. Abdomen is nontender MUSCULOSKELETAL/EXTREMITIES: There is no evidence of gross deformity full range of motion is noted in the hips and shoulders SKIN: There is no obvious evidence of any rash. There are no petechiae, pallor or cyanosis noted. NEUROLOGIC: Patient is awake alert and oriented x3. Medical Decision & Procedures ER Provider Diagnostic Interpretation: X-ray results as stated below per interpretation by me and the radiologist. SINGLE VIEW CHEST CLINICAL HISTORY: Dyspnea. FINDINGS: An AP, portable, upright chest radiograph is compared to study dated 10/20/2017. The examination is degraded by portable technique and patient rotation. The heart is enlarged and there is atherosclerotic calcification of the thoracic aorta. The pulmonary vasculature is noncongested. There are low lung volumes. No airspace consolidation or large pleural effusion is identified. No pneumothorax is seen. The skeletal structures are osteopenic. The bony thorax is grossly intact. Degenerative change is seen throughout the thoracic spine. IMPRESSION: Cardiomegaly with no acute cardiopulmonary abnormality. Electronically signed by: Dameon Rey M.D. 12/08/2017 2:48 PM Dictated Date/Time: 12/08/2017 2:47 PM Laboratory Results Test 12/08/17 14:25 12/08/17 14:33 12/08/17 14:54 Prothrombin Time 11.0 SECONDS (9.0-12.0) Prothromb Time International Ratio 1.0 (0.9-1.1) Activated Partial Thromboplast Time 25.5 SECONDS (21.0-31.0) Partial Thromboplastin Ratio 1.0 Total Bilirubin 0.6 mg/dl (0.2-1) Aspartate Amino Transf (AST/SGOT) 18 U/L (15-37) Alanine Aminotransferase (ALT/SGPT) 23 U/L (12-78) Alkaline Phosphatase 141 U/L (45-117) Troponin I < 0.015 ng/ml (0-0.045) Pro-B-Type Natriuretic Peptide 750 pg/ml (0-1800) Total Protein 7.1 gm/dl (6.4-8.2) Albumin 3.3 gm/dl (3.4-5.0) Globulin 3.8 gm/dl (2.5-4.0) Albumin/Globulin Ratio 0.9 (0.9-2) Influenza Type A (RT-PCR) Neg for Influ A (NEG) Influenza Type B (RT-PCR) Neg for Influ B (NEG) Venous Blood pH 7.30 (7.36-7.41) Venous Blood Partial Pressure CO2 78 mmHg (38.0-50.0) Venous Blood Partial Pressure O2 38 mmHg Venous Blood HCO3 38 mmol/L Venous Blood Oxygen Saturation 64.3 % Venous Blood Base Excess 8.4 mEq/L Laboratory results per my review. Medications Administered Medications (Trade) Dose Ordered Sig/Edilberto Route Start Time Stop Time Status Last Admin Dose Admin Albuterol/ Ipratropium (Duoneb) 3 ml NOW STAT INH 12/08/17 14:25 12/08/17 14:27 DC 12/08/17 14:35 3 ML Albuterol/ Ipratropium (Duoneb) 3 ml NOW STAT INH 12/08/17 15:40 12/08/17 15:41 DC 12/08/17 16:06 3 ML Methylprednisolone Sodium Succinate (Solu-Medrol IV) 125 mg NOW STAT IV 12/08/17 15:43 12/08/17 15:44 DC 12/08/17 16:06 125 MG Acetaminophen (Tylenol Tab) 650 mg Q4H PRN PO 12/08/17 16:45 01/07/18 16:44 12/08/17 22:49 650 MG ECG Per My Interpretation Indication: SOB/dyspnea Rate (beats per minute): 69 Rhythm: normal sinus Findings: other (LVH noted by voltage criteria, no acute ST segment abnormalities) ED Course 1420: The patient was evaluated in room A3. A complete history and physical examination were performed. 1425: DuoNeb 3 ml INH. 1543: Solu-Medrol IV 125 mg. 1600: Upon reevaluation, the patient is resting. I discussed results and treatment plan with her. She verbalizes agreement and understanding. The patient will be evaluated for further management and care. 1603: I discussed the patient with Neelima JOHNSTON. She will evaluate the patient for further treatment. Medical Decision Differential diagnosis: Etiologies such as infections, reactive airway disease, pneumonia, pneumothorax , COPD, CHF, cardiac ischemia, pulmonary embolism, musculoskeletal, gastrointestinal, as well as others were entertained. Nursing notes reviewed. The patient is an 82-year-old female who presented to the emergency department for an evaluation of shortness of breath. The patient was treated with DuoNeb therapy in the emergency department. On subsequent reevaluation she was somewhat improved. The patient was further treated with IV steroids as well as multiple DuoNeb treatments. She continued to have significant symptoms. I discussed the patient's laboratory and radiographic studies with her. Because of her ongoing symptoms and hypoxia I also discussed this case with the on-call [facility] hospitalist group. They have agreed to evaluate the patient in the emergency department for further management and disposition. Medication Reconcilliation Current Medication List: was personally reviewed by me Blood Pressure Screening Patient's blood pressure: Elevated blood pressure Referred to hospitalist. Consults Time Called: 1600 Consulting Physician: Neelima DELGADO Returned Call: 1603 I discussed the patient with Neelima JOHNSTON. She will evaluate the patient for further treatment. Impression Primary Impression: Hyponatremia Additional Impressions: Bronchitis Hypoxia Scribe Attestation The scribe's documentation has been prepared under my direction and personally reviewed by me in its entirety. I confirm that the note above accurately reflects all work, treatment, procedures, and medical decision making performed by me. Departure Information Dispostion Being Evaluated By Hospitalist Referrals Luis Siddiqui M.D. (PCP) Patient Instructions My [facility] Health Problem Qualifiers
[2017-12-08 14:45] LABS: BASO % 0.2 %; BASO ABS # 0.02 K/uL (0-0.2); EOS % 2.2 %; EOS ABS # 0.22 K/uL (0-0.5); HEMATOCRIT 38.1 % (37-47); IG# 0.03 K/uL (0.00-0.02); LYMPH % 14.9 %; LYMPH ABS # 1.49 K/uL (1.2-3.4); MEAN CELL VOLUME 93.2 fL (80-100); MEAN CORPUSCULAR HEMOGLOBIN 31.8 pg (25-34); MEAN CORPUSCULAR HGB CONC 34.1 g/dl (32-36); MEAN PLATELET VOLUME 9.6 fL (7.4-10.4); MONO % 10.1 %; MONO ABS # 1.01 K/uL (0.11-0.59); NEUT % 72.3 %; NEUT ABS # 7.21 K/uL (1.4-6.5); PLATELET COUNT 130 K/uL (130-400); RED CELL DISTRIBUTION WIDTH CV 14.6 % (11.5-14.5); RED CELL DISTRIBUTION WIDTH SD 49.6 fL (36.4-46.3); WHITE BLOOD COUNT 9.98 K/uL (4.8-10.8)
--- NOTE | 2017-12-08 14:49 | DIAGNOSTIC IMAGING REPORT ---
SINGLE VIEW CHEST CLINICAL HISTORY: Dyspnea. FINDINGS: An AP, portable, upright chest radiograph is compared to study dated 10/20/2017. The examination is degraded by portable technique and patient rotation. The heart is enlarged and there is atherosclerotic calcification of the thoracic aorta. The pulmonary vasculature is noncongested. There are low lung volumes. No airspace consolidation or large pleural effusion is identified. No pneumothorax is seen. The skeletal structures are osteopenic. The bony thorax is grossly intact. Degenerative change is seen throughout the thoracic spine. IMPRESSION: Cardiomegaly with no acute cardiopulmonary abnormality. Electronically signed by: Dameon Rey M.D. 12/08/2017 2:48 PM Dictated Date/Time: 12/08/2017 2:47 PM
[2017-12-08 14:50] LABS: PTT PATIENT 25.5 SECONDS (21.0-31.0)
[2017-12-08 14:57] LABS: ALBUMIN 3.3 gm/dl (3.4-5.0); BLOOD UREA NITROGEN 15 mg/dl (7-18); CALCIUM 9.9 mg/dl (8.5-10.1); CARBON DIOXIDE 37 mmol/L (21-32); CREATININE 1.23 mg/dl (0.60-1.20); GLUCOSE 164 mg/dl (70-99); POTASSIUM 4.8 mmol/L (3.5-5.1); SODIUM 127 mmol/L (136-145)
[2017-12-08 15:05] LABS: ALKALINE PHOSPHATASE 141 U/L (45-117); ALT/SGPT 23 U/L (12-78); AST/SGOT 18 U/L (15-37); TOTAL PROTEIN 7.1 gm/dl (6.4-8.2)
[2017-12-08 15:28] LABS: INFLUENZA A PCR Neg for Influ A (NEG); INFLUENZA B PCR Neg for Influ B (NEG)
[2017-12-08] MEDS ORDERED: METHYLPREDNISOLONE 125 MG VIAL IV STA (15:43)
[2017-12-08] MEDS ORDERED: ACETAMINOPHEN 325 MG TAB PO PRN (16:45)
[2017-12-08] MEDS ORDERED: ONDANSETRON INJ 2 MG/ML 2 ML VIAL IV PRN (16:45)
--- NOTE | 2017-12-08 17:27 | History and Physical ---
History & Physical Date & Time of Service: Dec 08, 2017 at 16:11 Chief Complaint: Respiratory Primary Care Physician: Luis Siddiqui M.D. History of Present Illness Source: patient, family Ms. Buckley has baseline dementia so her granddaughter provides most of the history. Today Ms. Buckley was very weak on her feet and feeling unwell. She had sweats, headache, appeared to have labored breathing and at her pcp office today , her sats were around 80%. No fevers. She has been ill since Monday. She did have swelling in her lower extremities last week and received an extra lasix. She has had a moist cough productive of brown sputum. Patient's daughter also had a cough as well as a cousin. ROS Constitutional: see HPI Respiratory: see HPI Cardiac: no chest pain, palpitations,orthopnea or lightheadedness GI: no abdominal pain, nausea, vomiting, diarrhea or constipation : no dysuria or hesitancy Extremities: no joint pain or weakness Skin: no rash All other systems reviewed and negative Past Medical/Surgical History Medical Problems: (1) Altered mental status (2) Bronchitis (3) Cellulitis (4) Cellulitis of right foot (5) Cellulitis of right toe (6) Closed head injury (7) Dehydration (8) Dementia (9) DIAB KAREEM WO COMPL, TYPE II OR UNSPEC TYPE, NOT UNCNTRLD (10) Diabetic infection of left foot (11) DIVERTICULOSIS COLON (W/O MENT OF HEMORRHAGE) (12) Diverticulosis of colon without hemorrhage (13) Esophageal reflux (14) Generalized weakness (15) GOUT NOS (16) Hyperglycemia (17) HYPERTENSION NOS (18) Hypomagnesemia (19) Hyponatremia (20) Hyponatremia (21) HYPOTHYROIDISM NOS (22) Hypoxia (23) Hypoxia (24) Mental status change (25) Multiple contusions (26) Osteomyelitis (27) Pneumonia (28) Shortness of breath (29) Unspecified sleep apnea (30) URI (upper respiratory infection) (31) Wheezing Family History FH: heart disease non contributory due to advance disease Social History Smoking Status: Never Smoker Smokeless Tobacco Use: No Alcohol Use: none Drug Use: none Housing status: lives with family Occupational Status: retired Immunizations History of Influenza Vaccine: Yes Influenza Vaccine Date: May 05, 2017 History of Tetanus Vaccine?: Yes History of Pneumococcal: Yes History of Hepatitis B Vaccine: Unknown Allergies Coded Allergies: No Known Allergies (Unverified , 10/20/17) Home Medications Scheduled Allopurinol (Zyloprim), 100 MG PO QAM Aspirin (Aspirin Ec), 81 MG PO QAM Atorvastatin (Lipitor), 40 MG PO QAM Calcium Carbonate-Cholecalcife (Caltrate 600+D), 1 TAB PO BID Donepezil Hydrochloride (Aricept), 10 MG PO HS Enalapril (Vasotec), 10 MG PO QAM Furosemide (Lasix), 20 MG PO Q2D Insulin Glargine (Lantus), 25 UNITS SC BID Levothyroxine Sodium (Levothyroxine Sodium), 175 MCG PO DAILY Memantine (Namenda), 10 MG PO BID Metoprolol Tartrate (Lopressor) (Lopressor), 50 MG PO QAM Metoprolol Tartrate (Lopressor) (Lopressor), 25 MG PO QPM Multiple Vitamin (Multivitamin), 1 TAB PO DAILY@1200 Nystatin (Topical) (Nystatin), 1 APPLN TOP TID Olanzapine (Zyprexa), 5 MG PO BID Omeprazole (Prilosec), 20 MG PO DAILY@1200 Polyethylene Glycol 3350 (Miralax), 17 GM PO DAILY Quetiapine Fumarate (Quetiapine Fumarate), 400 MG PO HS Venlafaxine Hcl (Venlafaxine Hcl Er), 150 MG PO DAILY Scheduled PRN Insulin Aspart (Novolog), 5 UNITS SC TIDM PRN for Hyperglycemia Protocol Lorazepam (Ativan), 0.5 MG PO BID PRN for Anxiety/Agitation Physical Exam Vital Signs Date Time Temp Pulse Resp B/P (MAP) Pulse Ox O2 Delivery O2 Flow Rate FiO2 12/08/17 16:07 70 18 179/95 100 Nebulizer 9.0 12/08/17 14:24 Nasal Cannula 2.0 12/08/17 14:19 67 12/08/17 14:14 37.4 70 18 179/82 96 Nasal Cannula 3.0 12/08/17 14:14 87 Room Air 12/08/17 14:14 96 Nasal Cannula 3.0 General: no distress Eyes: normal inspection, PERLL Respiratory: chest non tender, coarse breath sounds with expiratory wheezes throughout lung marin, no respiratory distress, no accessory muscle use Cardiac: regular rate and rhythm, no rub or gallop, 2/6 holosystolic murmur LLSB , no edema, no jvd GI/: active bowel sounds, no abd pain or tenderness, soft, non distended Extremities: normal range of motion, normal strength, non tender Neuro/Psych: oriented to person only, normal mood and affect Skin: normal color, dry Diagnostics Laboratory Results Results Past 24 Hours Test 12/08/17 14:25 12/08/17 14:33 12/08/17 14:54 Range/Units White Blood Count 9.98 4.8-10.8 K/uL Red Blood Count 4.09 4.2-5.4 M/uL Hemoglobin 13.0 12.0-16.0 g/dL Hematocrit 38.1 37-47 % Mean Corpuscular Volume 93.2 80-100 fL Mean Corpuscular Hemoglobin 31.8 25-34 pg Mean Corpuscular Hemoglobin Concent 34.1 32-36 g/dl Platelet Count 130 130-400 K/uL Mean Platelet Volume 9.6 7.4-10.4 fL Neutrophils (%) (Auto) 72.3 % Lymphocytes (%) (Auto) 14.9 % Monocytes (%) (Auto) 10.1 % Eosinophils (%) (Auto) 2.2 % Basophils (%) (Auto) 0.2 % Neutrophils # (Auto) 7.21 1.4-6.5 K/uL Lymphocytes # (Auto) 1.49 1.2-3.4 K/uL Monocytes # (Auto) 1.01 0.11-0.59 K/uL Eosinophils # (Auto) 0.22 0-0.5 K/uL Basophils # (Auto) 0.02 0-0.2 K/uL RDW Standard Deviation 49.6 36.4-46.3 fL RDW Coefficient of Variation 14.6 11.5-14.5 % Immature Granulocyte % (Auto) 0.3 % Immature Granulocyte # (Auto) 0.03 0.00-0.02 K/uL Prothrombin Time 11.0 9.0-12.0 SECONDS Prothromb Time International Ratio 1.0 0.9-1.1 Activated Partial Thromboplast Time 25.5 21.0-31.0 SECONDS Partial Thromboplastin Ratio 1.0 Sodium Level 127 136-145 mmol/L Potassium Level 4.8 3.5-5.1 mmol/L Chloride Level 87 98-107 mmol/L Carbon Dioxide Level 37 21-32 mmol/L Anion Gap 3.0 3-11 mmol/L Blood Urea Nitrogen 15 7-18 mg/dl Creatinine 1.23 0.60-1.20 mg/dl Est Creatinine Clear Calc Drug Dose 40.1 ml/min Estimated GFR () 47.6 Estimated GFR (Non- 41.1 BUN/Creatinine Ratio 12.2 10-20 Random Glucose 164 70-99 mg/dl Calcium Level 9.9 8.5-10.1 mg/dl Total Bilirubin 0.6 0.2-1 mg/dl Aspartate Amino Transf (AST/SGOT) 18 15-37 U/L Alanine Aminotransferase (ALT/SGPT) 23 12-78 U/L Alkaline Phosphatase 141 45-117 U/L Troponin I < 0.015 0-0.045 ng/ml Pro-B-Type Natriuretic Peptide 750 0-1800 pg/ml Total Protein 7.1 6.4-8.2 gm/dl Albumin 3.3 3.4-5.0 gm/dl Globulin 3.8 2.5-4.0 gm/dl Albumin/Globulin Ratio 0.9 0.9-2 Influenza Type A (RT-PCR) Neg for Influ A NEG Influenza Type B (RT-PCR) Neg for Influ B NEG Venous Blood pH 7.30 7.36-7.41 Venous Blood Partial Pressure CO2 78 38.0-50.0 mmHg Venous Blood Partial Pressure O2 38 mmHg Venous Blood HCO3 38 mmol/L Venous Blood Oxygen Saturation 64.3 % Venous Blood Base Excess 8.4 mEq/L Microbiology Results 12/08/17 Blood Culture, Received Pending 12/08/17 Blood Culture, Received Pending Diagnostic Radiology SINGLE VIEW CHEST CLINICAL HISTORY: Dyspnea. FINDINGS: An AP, portable, upright chest radiograph is compared to study dated 10/20/2017. The examination is degraded by portable technique and patient rotation. The heart is enlarged and there is atherosclerotic calcification of the thoracic aorta. The pulmonary vasculature is noncongested. There are low lung volumes. No airspace consolidation or large pleural effusion is identified. No pneumothorax is seen. The skeletal structures are osteopenic. The bony thorax is grossly intact. Degenerative change is seen throughout the thoracic spine. IMPRESSION: Cardiomegaly with no acute cardiopulmonary abnormality. Electronically signed by: Dameon Rey M.D. 12/08/2017 2:48 PM EKG Normal sinus rhythm Left axis deviation Voltage criteria for left ventricular hypertrophy Abnormal ECG When compared with ECG of 20-OCT-2017 15:55, Non-specific change in ST segment in Inferior leads Impression Assessment and Plan Ms. Buckley is an 82 year old woman here for hypoxic respiratory failure Hypoxic respiratory failure due to viral illness with reactive airway vs pneumonia vs CHF - admit telemetry - Solu-medrol bid, bipap, duonebs - Blood cultures, sputum culture - will give IV levaquin - may discontinue of no growth from cultures after 48 hours - Bipap - patient is retaining CO2 - VBG CO2 78 - CT chest no contrast - no fluid overload, bilateral basilar consolidations likely atelectasis - Rapid flu negative - flu pcr - droplet precautions until resulted DM II - lantus, ss, glycemic consult as patient prescribed steroids - bsgs ac and hs Dementia - continue home antipsychotics, memantine, donepezil, venlafaxine GERD - ppi HTN - prn hydralazine - continue enalapril Gout - continue allopurinol Hypothyroid - levothyroxine Hypercholesteremia - continue statin Full code - daughter was unclear of code status wishes and will check with poa - she thinks patient might be DNR heparin subq Resident Physician Supervision Note: I was present with Caryl Bennett [employer] during the history and exam. I discussed the case with the resident and agree with the findings and plan as documented in the note. Any exceptions or clarifications are listed here: 82 y/o F Hx DM II, HTN, HPL, dementia - pt had a URI earlier in the wk - was brought into PCP who noted breathing was labored and diverted pt to the hospital. She is hypoxic on arrival. Both a CT chest and CXR are equivocal (Atelectasis vs infection) - pt does not have a known history of COPD OE AAO x 1 S1,2 R Decreased air movement at bases NT, ND Minimal edema BL P: URI - treated with nebs, steroids, abx due to persistent hypoxia - 02 protocol provided DM - placed on SS HTN - cont enalapril HPL - statin Documented By: Toy Rodriguez Advanced Directives Existing Advance Directive: No Existing Living Will: No Existing Power of Electronic Equipment Trades Worker: No (son) Existing Health Care Proxy: No Resuscitation Status full code VTE Prophylaxis Will order VTE Prophylaxis: Yes
[2017-12-08] MEDS ORDERED: VENL150T33 PO (17:30)
[2017-12-08] MEDS ORDERED: OLAN-111 PO (17:30)
[2017-12-08] MEDS ORDERED: NYST1POW7 TOP (17:30)
[2017-12-08] MEDS ORDERED: NMN10 PO (17:30)
[2017-12-08] MEDS ORDERED: SODIUM CHLORIDE 0.9% 1000ML 1,000 ML IV SCH (17:30)
[2017-12-08] MEDS ORDERED: POLY335019 PO (17:30)
[2017-12-08] MEDS ORDERED: LEVO175T3 PO (17:30)
[2017-12-08] MEDS ORDERED: LORA-741 PO (17:30)
[2017-12-08] MEDS ORDERED: HydrALAZINE HCL 20 MG/ML VIAL IV. PRN (17:45)
[2017-12-08] MEDS ORDERED: PHARMACY GLYCEMIC MGMT CONSULT SCH (17:46)
--- NOTE | 2017-12-08 18:00 | Pharmacy Progress Note ---
Glycemic Control Intl Consult Date of Service Dec 08, 2017. Scope Glycemic Pharmacist consulted by SANDY Seo on 12/08/17 for glycemic control and to write orders per [facility] inpatient glycemic control protocol Objective Weight (Kilograms): 98.300 Accuchecks BSG (last 24hrs): Test 12/08/17 14:25 Random Glucose 164 mg/dl (70-99) Laboratory Data (last 24hrs) Test 12/08/17 14:25 Anion Gap 3.0 mmol/L BUN/Creatinine Ratio 12.2 Blood Urea Nitrogen 15 mg/dl Creatinine 1.23 mg/dl Potassium Level 4.8 mmol/L Sodium Level 127 mmol/L White Blood Count 9.98 K/uL Red Blood Count 4.09 M/uL Hemoglobin 13.0 g/dL Hematocrit 38.1 % Mean Corpuscular Volume 93.2 fL Mean Corpuscular Hemoglobin 31.8 pg Mean Corpuscular Hemoglobin Concent 34.1 g/dl Platelet Count 130 K/uL Mean Platelet Volume 9.6 fL Neutrophils (%) (Auto) 72.3 % Lymphocytes (%) (Auto) 14.9 % Monocytes (%) (Auto) 10.1 % Eosinophils (%) (Auto) 2.2 % Basophils (%) (Auto) 0.2 % Neutrophils # (Auto) 7.21 K/uL Lymphocytes # (Auto) 1.49 K/uL Monocytes # (Auto) 1.01 K/uL Eosinophils # (Auto) 0.22 K/uL Basophils # (Auto) 0.02 K/uL Recent Pertinent Medications Outpatient Anti-diabetic Regimen: * Novolog 5 units TIDm prn BSG > 200mg/dl * Lantus 25 units BID * A1c = 8.6 % 09/13/17 Risk Factors for Insulin Resistance: * Steroids: Solu-medrol 125mg IV x1 in ED, then 60mg IV Q12H * Infection: possible Pneumonia, IV Levaquin * Diet: Type 2 DM Assessment & Plan ASSESSMENT: * 82 year old type 2 diabetic admitted with respiratory failure d/t CHF vs pneumonia, started on IV steroids. * Pt known to pharmacy glycemic service from past admissions * Will start with tight CF and CR for IV steroids, and home dose of Lantus, and titrate as needed. * Will add additional accuchecks overnight for IV steroids PLAN FOR INPATIENT GLYCEMIC CONTROL: * Basal insulin with LANTUS 25 units SQ BID * Correctional Insulin with NOVOLOG per scale ACHS or Q6hrs while NPO and 0000 and 0400 * Goal Range: Low 110 mg/dL - High 140 mg/dL * Correction Factor: 10 mg/dL/unit * Nutritional / Prandial insulin per carb ratio of 1 unit per 4 grams CHO consumed * Please note that the plan above was derived based on current level of insulin resistance and hospital stress. These recommendations are appropriate for inpatient admission only. Plan of care upon discharge will need to be reassessed to avoid potential outpatient hypo/hyperglycemia. Thank you.
--- NOTE | 2017-12-08 18:16 | DIAGNOSTIC IMAGING REPORT ---
(CHEST) THORAX WITHOUT CLINICAL HISTORY: Shortness of breath. Suspected pneumonia. COMPARISON STUDY: Chest x-ray dated 12/08/2017, CT scan dated 04/23/2016 CT DOSE: 781.59 mGy.cm TECHNIQUE: CT of the thorax was performed from the thoracic inlet to the lung bases. Images are reviewed in the axial, sagittal, and coronal planes. IV contrast was not administered for this examination. A dose lowering technique was utilized adhering to the principles of ALARA. FINDINGS: Thyroid: Imaged portions of the thyroid gland are normal in appearance. Thoracic aorta: There is mild ectasia of the ascending thoracic aorta which measures 38 mm. Heart: The heart is borderline enlarged. There is no pericardial effusion. Lungs and pleural spaces: There are no pleural effusions. There are dependent lower lobe airspace opacities likely atelectatic. The upper lobes are clear. Mediastinum: There is no mediastinal lymphadenopathy. Whit: There is no evidence of pathologic hilar adenopathy given the limitations of a noncontrast study Axilla: There is no evidence of pathologic axillary lymphadenopathy Upper abdomen: Cholelithiasis. 20 mm left adrenal adenoma. Skeletal structures: There are no lytic or blastic osseous lesions. IMPRESSION: 1. Lower lobe dependent opacities, likely atelectatic 2. No evidence of pathologic adenopathy 3. Cholelithiasis 4. Left adrenal adenoma Electronically signed by: Grant Sewell M.D. 12/08/2017 6:14 PM Dictated Date/Time: 12/08/2017 6:10 PM
[2017-12-08 18:35] VITALS: BP 181/82; PULSE 84; TEMP 36.8; O2SAT 98; Ht 157.5 cm; Wt 99.5 kg
[2017-12-08] MEDS: ALBUT/IPRATROP 3MG/0.5MG NEB 3 ML VIAL INH SCH (18:57)
[2017-12-08] MEDS ORDERED: INSULIN ASPART 100 UNITS/ML 3 ML PEN SC SCH (19:00)
[2017-12-08] MEDS: SODIUM CHLORIDE 0.9% 1000ML 1,000 ML IV SCH (19:15)
[2017-12-08] MEDS ORDERED: LEVOFLOXACIN CONSULT ACTIVE PRN (19:30)
[2017-12-08] MEDS ORDERED: METO50TA16 PO ×2 (20:23)
[2017-12-08] MEDS: LEVOFLOXACIN / D5W 750 MG in PREMIXED IN D5W 150 ML IV SCH (20:59)
[2017-12-08] MEDS: NYSTATIN POWDER 15GM BTL EXT SCH (21:00)
[2017-12-08] MEDS: HEPARIN SOD 5000 UNIT/0.5 ML CARP SQ SCH (21:00)
[2017-12-08] MEDS: OLANZAPINE 5 MG TAB PO SCH (21:00)
[2017-12-08] MEDS ORDERED: NVLG SC (21:01)
[2017-12-08] MEDS ORDERED: INSDGI SC (21:01)
[2017-12-08] MEDS ORDERED: QUET1TAB20 PO (21:01)
[2017-12-08] MEDS: MEMANTINE 10 MG TAB PO SCH (21:05)
[2017-12-08] MEDS: DONEPEZIL HCL 10 MG TAB PO SCH (21:05)
[2017-12-08] MEDS: CALCIUM 600MG + VIT D 400 IU TAB PO SCH (21:05)
[2017-12-08] MEDS: METOPROLOL TARTRATE 25 MG TAB PO SCH (21:05)
[2017-12-08] MEDS: QUETIAPINE FUMARATE 200 MG TAB PO SCH (21:05)
[2017-12-08] MEDS: INSULIN ASPART 100 UNITS/ML 3 ML PEN SC SCH (21:10)
[2017-12-08] MEDS: INSULIN GLARGINE SOLOSTAR 100 UNITS/ML 3 ML PEN SC SCH (21:10)
[2017-12-08 23:38] VITALS: BP 163/73; PULSE 68; TEMP 36.2; O2SAT 92
[2017-12-09] VITALS (10 sets, daily range): BP systolic 144–161; BP diastolic 67–82; PULSE 65–89; TEMP 36.5–37.2; O2SAT 91–99
[2017-12-09] MEDS ORDERED: INSULIN ASPART 100 UNITS/ML 3 ML PEN SC SCH
[2017-12-09] MEDS: INSULIN ASPART 100 UNITS/ML 3 ML PEN SC SCH ×6 (00:36→20:42)
[2017-12-09] MEDS: METHYLPREDNISOLONE IV 60 MG in SYRINGE 0 ML IV SCH ×2 (04:06→16:03)
[2017-12-09] MEDS: SODIUM CHLORIDE 0.9% 1000ML 1,000 ML IV SCH ×2 (04:08→14:11)
[2017-12-09] MEDS: LEVOTHYROXINE 175 MCG TAB PO SCH (06:30)
[2017-12-09] MEDS: ALBUT/IPRATROP 3MG/0.5MG NEB 3 ML VIAL INH SCH ×4 (07:15→19:22)
[2017-12-09] MEDS: ASPIRIN 81 MG ECTAB PO SCH (08:47)
[2017-12-09] MEDS: NYSTATIN POWDER 15GM BTL EXT SCH ×3 (08:47→21:13)
[2017-12-09] MEDS: ENALAPRIL MALEATE 10 MG TAB PO SCH (08:48)
[2017-12-09] MEDS: VENLAFAXINE HCL XR 150 MG CAPXR PO SCH (08:48)
[2017-12-09] MEDS: ALLOPURINOL 100 MG TAB PO SCH (08:49)
[2017-12-09] MEDS: ATORVASTATIN 40 MG TAB PO SCH (08:49)
[2017-12-09] MEDS: POLYETHYLENE (MIRALAX) 17 GM PACK PO SCH (08:49)
[2017-12-09] MEDS: MEMANTINE 10 MG TAB PO SCH ×2 (08:49→20:40)
[2017-12-09] MEDS: METOPROLOL TARTRATE 50 MG TAB PO SCH (08:49)
[2017-12-09] MEDS: CALCIUM 600MG + VIT D 400 IU TAB PO SCH ×2 (08:50→20:41)
[2017-12-09] MEDS: OLANZAPINE 5 MG TAB PO SCH ×2 (08:50→20:40)
[2017-12-09] MEDS: HEPARIN SOD 5000 UNIT/0.5 ML CARP SQ SCH ×2 (08:55→20:43)
[2017-12-09] MEDS ORDERED: INSULIN GLARGINE SOLOSTAR 100 UNITS/ML 3 ML PEN SC SCH (09:00)
[2017-12-09] MEDS: PANTOprazole SOD 40 MG TAB PO SCH (12:18)
[2017-12-09] MEDS: MULTIVITAMIN TAB PO SCH (12:18)
--- NOTE | 2017-12-09 12:37 | Pharmacy Progress Note ---
Pharmacy Glycemic Short Note 2 Date of Service Dec 09, 2017. OUTPATIENT ANTIDIABETIC REGIMEN: * Lantus 25 units twice daily * Novolog 5 units TIDM if blood sugar greater than 200 mg/dL ASSESSMENT: * Ms Buckley is an 82 y/o F with a PMH of gout, hypothyroidism, dementia, and poorly controlled type 2 diabetes who presents with SOB/weakness. Differential diagnosis includes pneumonia vs CHF exacerbation. Patient received Solu-Medrol 125 mg x 1 yesterday then 60 mg IV q12 hours starting this morning. Blood sugar on admission was 164 mg/dL. Overnight blood sugar was 242-204 mg/dL with fasting of 169 mg/dL. Patient received 18 units of Novolog overnight. * For Lantus, gave additional 5 units this morning as patient is already at weight-based stress of 3 dosing as well as has extremely heavy basal regimen at home. Will resume home dose tonight with 0200 check to ensure full 24 hour coverage. For Novolog, the correction factor appeared to reduce blood sugars successfully. Tightened carbohydrate ratio slightly to produce more Novolog coverage. For steroids, a 40/60 split of basal/bolus is desired. PLAN FOR INPATIENT GLYCEMIC CONTROL: * Basal insulin * Lantus 30 units SQ x 1 then 25 units SQ BID * Bolus insulin * NovoLog per scale ACHS or Q6hrs while NPO * Goal Range: Low 110 mg/dL - High 140 mg/dL * Correction Factor: 8 mg/dL/unit * Nutritional / Prandial insulin per carb ratio of 1 unit per 3 grams CHO consumed PLAN FOR DISCHARGE: * Patient's HbA1C is not well controlled. Recommend lowering threshold for patient to receive Novolog so that the patient's regimen is not completely basal insulin.
--- NOTE | 2017-12-09 16:35 | Progress Note ---
Subjective Date of Service: Dec 09, 2017. Subjective this pt is pleasantly confused, she remains fairly short of breath and has accessory muscle use on exam Problem List Medical Problems: (1) Altered mental status Status: Acute (2) Cellulitis of right foot Status: Acute (3) Closed head injury Status: Acute (4) Hyperglycemia Status: Acute (5) Hyponatremia Status: Acute (6) Hypoxia Status: Acute (7) Multiple contusions Status: Acute (8) Shortness of breath Status: Acute (9) Wheezing Status: Acute Review of Systems Constitutional: + weakness, + fatigue, No fever, No chills Respiratory: + cough, + wheezing, + shortness of breath Cardiac: No chest pain, No edema Abdomen: No pain, No nausea, No vomiting, No diarrhea Female : No dysuria, No urinary frequency Objective Vital Signs Date Time Temp Pulse Resp B/P (MAP) Pulse Ox O2 Delivery O2 Flow Rate FiO2 12/09/17 07:15 88 18 96 Nasal Cannula 3.0 12/09/17 04:03 37.1 66 18 148/69 (95) 96 Nasal Cannula 3.0 12/09/17 04:00 Nasal Cannula 3.0 12/09/17 00:00 Nasal Cannula 3.0 12/08/17 23:38 36.2 68 22 163/73 (103) 92 Nasal Cannula 3.0 12/08/17 20:00 Nasal Cannula 3.0 12/08/17 18:35 36.8 84 18 181/82 98 Nasal Cannula 3.0 12/08/17 18:09 75 18 212/87 97 12/08/17 17:03 75 12/08/17 16:07 70 18 179/95 100 Nebulizer 9.0 12/08/17 14:24 Nasal Cannula 2.0 12/08/17 14:19 67 12/08/17 14:14 37.4 70 18 179/82 96 Nasal Cannula 3.0 12/08/17 14:14 87 Room Air 12/08/17 14:14 96 Nasal Cannula 3.0 Physical Exam General Appearance: WD/WN, + moderate distress Respiratory/Chest: + respiratory distress, + decreased breath sounds, + accessory muscle use, + rhonchi Cardiovascular: regular rate, rhythm, no murmur Abdomen: normal bowel sounds, non tender, soft Extremities: no pedal edema, no calf tenderness Neurologic/Psychiatric: alert, oriented x 3 Laboratory Results Last 24 Hours Test 12/08/17 14:25 12/08/17 14:33 12/08/17 14:54 12/08/17 17:20 White Blood Count 9.98 K/uL Red Blood Count 4.09 M/uL Hemoglobin 13.0 g/dL Hematocrit 38.1 % Mean Corpuscular Volume 93.2 fL Mean Corpuscular Hemoglobin 31.8 pg Mean Corpuscular Hemoglobin Concent 34.1 g/dl Platelet Count 130 K/uL Mean Platelet Volume 9.6 fL Neutrophils (%) (Auto) 72.3 % Lymphocytes (%) (Auto) 14.9 % Monocytes (%) (Auto) 10.1 % Eosinophils (%) (Auto) 2.2 % Basophils (%) (Auto) 0.2 % Neutrophils # (Auto) 7.21 K/uL Lymphocytes # (Auto) 1.49 K/uL Monocytes # (Auto) 1.01 K/uL Eosinophils # (Auto) 0.22 K/uL Basophils # (Auto) 0.02 K/uL RDW Standard Deviation 49.6 fL RDW Coefficient of Variation 14.6 % Immature Granulocyte % (Auto) 0.3 % Immature Granulocyte # (Auto) 0.03 K/uL Prothrombin Time 11.0 SECONDS Prothromb Time International Ratio 1.0 Activated Partial Thromboplast Time 25.5 SECONDS Partial Thromboplastin Ratio 1.0 Sodium Level 127 mmol/L Potassium Level 4.8 mmol/L Chloride Level 87 mmol/L Carbon Dioxide Level 37 mmol/L Anion Gap 3.0 mmol/L Blood Urea Nitrogen 15 mg/dl Creatinine 1.23 mg/dl Est Creatinine Clear Calc Drug Dose 40.1 ml/min Estimated GFR () 47.6 Estimated GFR (Non- 41.1 BUN/Creatinine Ratio 12.2 Random Glucose 164 mg/dl Calcium Level 9.9 mg/dl Total Bilirubin 0.6 mg/dl Aspartate Amino Transf (AST/SGOT) 18 U/L Alanine Aminotransferase (ALT/SGPT) 23 U/L Alkaline Phosphatase 141 U/L Troponin I < 0.015 ng/ml Pro-B-Type Natriuretic Peptide 750 pg/ml Total Protein 7.1 gm/dl Albumin 3.3 gm/dl Globulin 3.8 gm/dl Albumin/Globulin Ratio 0.9 Influenza Type A (RT-PCR) Neg for Influ A Influenza Type B (RT-PCR) Neg for Influ B Venous Blood pH 7.30 Venous Blood Partial Pressure CO2 78 mmHg Venous Blood Partial Pressure O2 38 mmHg Venous Blood HCO3 38 mmol/L Venous Blood Oxygen Saturation 64.3 % Venous Blood Base Excess 8.4 mEq/L Urine Color YELLOW Urine Appearance CLEAR Urine pH 6.0 Urine Specific [place] 1.010 Urine Protein TRACE Urine Glucose (UA) NEG Urine Ketones NEG Urine Occult Blood NEG Urine Nitrite NEG Urine Bilirubin NEG Urine Urobilinogen NEG Urine Leukocyte Esterase TRACE Urine WBC (Auto) 1-5 /hpf Urine RBC (Auto) 0-4 /hpf Urine Hyaline Casts (Auto) 1-5 /lpf Urine Epithelial Cells (Auto) >30 /lpf Urine Bacteria (Auto) NEG Test 12/08/17 20:03 12/09/17 00:15 12/09/17 03:59 12/09/17 06:14 Bedside Glucose 181 mg/dl 242 mg/dl 204 mg/dl 169 mg/dl Assessment and Plan Ms. Buckley is an 82 year old woman here for hypoxic respiratory failure Hypoxic respiratory failure due to viral illness with reactive airway possibly CHF - Solu-medrol bid, bipap, duonebs, added formoterol - Blood cultures, sputum culture, IV levaquin Vbg suggested some co2 retention, but she is improved despite no bipap - CT chest no contrast - no fluid overload, bilateral basilar consolidations likely atelectasis - Rapid flu negative - flu pcr - droplet precautions until resulted DM II- avinash, ss, glycemic consult as patient prescribed steroids - bsgs ac and hs Dementia- continue home antipsychotics, memantine, donepezil, venlafaxine GERD - ppi HTN- enalapril, prn hydralazine Gout asymptomatic allopurinol Hypothyroid- levothyroxine Hypercholesteremia- statin Full code - daughter was unclear of code status wishes and will check with poa - she thinks patient might be DNR heparin subq
[2017-12-09] MEDS: FORMOTEROL FUMA NEBULIZER SOLN 20 MCG/2 ML VIAL INH SCH (19:22)
[2017-12-09] MEDS: QUETIAPINE FUMARATE 200 MG TAB PO SCH (20:40)
[2017-12-09] MEDS: DONEPEZIL HCL 10 MG TAB PO SCH (20:41)
[2017-12-09] MEDS: METOPROLOL TARTRATE 25 MG TAB PO SCH (20:41)
[2017-12-09] MEDS: INSULIN GLARGINE SOLOSTAR 100 UNITS/ML 3 ML PEN SC SCH (20:43)
[2017-12-10] VITALS (11 sets, daily range): BP systolic 111–174; BP diastolic 65–88; PULSE 63–97; TEMP 36.5–37.1; O2SAT 90–98
[2017-12-10] MEDS: SODIUM CHLORIDE 0.9% 1000ML 1,000 ML IV SCH ×3 (00:09→20:07)
[2017-12-10] MEDS ORDERED: INSULIN ASPART 100 UNITS/ML 3 ML PEN SC SCH (02:00)
[2017-12-10] MEDS: METHYLPREDNISOLONE IV 60 MG in SYRINGE 0 ML IV SCH (04:18)
[2017-12-10] MEDS: LEVOTHYROXINE 175 MCG TAB PO SCH (05:38)
[2017-12-10 06:42] LABS: CREATININE 1.33 mg/dl (0.60-1.20)
[2017-12-10] MEDS: FORMOTEROL FUMA NEBULIZER SOLN 20 MCG/2 ML VIAL INH SCH ×2 (07:29→19:47)
[2017-12-10] MEDS: ALBUT/IPRATROP 3MG/0.5MG NEB 3 ML VIAL INH SCH ×4 (07:29→19:48)
--- NOTE | 2017-12-10 08:38 | Progress Note ---
Subjective Date of Service: Dec 10, 2017. Subjective Family has arrived and states Zyprexa has been discontinued, pt is slightly improved today but remains with some dyspnea and confused, she however is pleasant and has no focal complaints Problem List Medical Problems: (1) Altered mental status Status: Acute (2) Cellulitis of right foot Status: Acute (3) Closed head injury Status: Acute (4) Hyperglycemia Status: Acute (5) Hyponatremia Status: Acute (6) Hypoxia Status: Acute (7) Multiple contusions Status: Acute (8) Shortness of breath Status: Acute (9) Wheezing Status: Acute Review of Systems Constitutional: No fever, No chills, No weakness, No fatigue Respiratory: + cough, + shortness of breath, + dyspnea on exertion Cardiac: No chest pain, No edema Abdomen: No pain, No diarrhea Neurologic: + memory loss, + weakness Objective Vital Signs Date Time Temp Pulse Resp B/P (MAP) Pulse Ox O2 Delivery O2 Flow Rate FiO2 12/10/17 07:30 76 18 93 Nasal Cannula 2.0 12/10/17 04:00 Nasal Cannula 2.0 12/10/17 02:53 36.7 84 23 120/65 (83) 94 Nasal Cannula 2.0 12/10/17 00:00 Nasal Cannula 2.0 12/09/17 23:24 36.5 88 20 151/73 (99) 91 Nasal Cannula 2.0 12/09/17 20:14 37.2 86 18 160/82 (108) 99 Nasal Cannula 3.0 12/09/17 20:00 Nasal Cannula 2.0 12/09/17 19:24 74 18 92 Nasal Cannula 2.0 12/09/17 16:43 36.9 68 18 161/81 (107) 99 Nasal Cannula 7.0 12/09/17 16:00 Nasal Cannula 2.0 12/09/17 15:20 67 18 98 Nasal Cannula 3.0 12/09/17 12:00 Nasal Cannula 3.0 12/09/17 11:18 36.7 65 24 156/79 (104) 98 Nasal Cannula 3.0 12/09/17 11:08 89 18 96 Nasal Cannula 3.0 Physical Exam General Appearance: WD/WN, no apparent distress Neck: supple, no JVD Respiratory/Chest: + decreased breath sounds, + accessory muscle use, + rhonchi Cardiovascular: regular rate, rhythm, no murmur Abdomen: normal bowel sounds, non tender, soft Extremities: no pedal edema, no calf tenderness Neurologic/Psychiatric: alert, + disoriented Laboratory Results Last 24 Hours Test 12/09/17 11:18 12/09/17 16:11 12/09/17 20:22 12/10/17 01:59 Bedside Glucose 192 mg/dl 132 mg/dl 199 mg/dl 155 mg/dl Test 12/10/17 05:52 12/10/17 06:28 12/10/17 08:34 12/10/17 08:35 Creatinine 1.33 mg/dl Est Creatinine Clear Calc Drug Dose 36.6 ml/min Estimated GFR () 43.3 Estimated GFR (Non- 37.4 Bedside Glucose 182 mg/dl Assessment and Plan Ms. Buckley is an 82 year old woman here for hypoxic respiratory failure Hypoxic respiratory failure due to viral illness with reactive airway - Solu-medrol dose reduced 12/10, bid, bipap, duonebs, added formoterol with improvement - Blood cultures, sputum culture, IV levaquin Vbg had suggested some co2 retention, but she did not require Bipap - CT chest no contrast - no fluid overload, bilateral basilar consolidations likely atelectasis - Rapid flu negative - flu pcr - droplet precautions until resulted DM II- avinash, naveen, glycemic consult as patient prescribed steroids - bsgs ac and hs Dementia- continue home, memantine, donepezil, venlafaxine due to daytime sleepiness will reduce seroquel and family states had discontinued zyprexa some time ago GERD - ppi HTN- enalapril, prn hydralazine Gout asymptomatic allopurinol Hypothyroid- levothyroxine Hypercholesteremia- statin Full code - family is checking if living will addresses code status transfer to floor
[2017-12-10] MEDS: OLANZAPINE 5 MG TAB PO SCH (08:59)
[2017-12-10] MEDS: METOPROLOL TARTRATE 50 MG TAB PO SCH (09:00)
[2017-12-10] MEDS: POLYETHYLENE (MIRALAX) 17 GM PACK PO SCH (09:00)
[2017-12-10] MEDS: ENALAPRIL MALEATE 10 MG TAB PO SCH (09:00)
[2017-12-10] MEDS: ASPIRIN 81 MG ECTAB PO SCH (09:00)
[2017-12-10] MEDS ORDERED: INSULIN GLARGINE SOLOSTAR 100 UNITS/ML 3 ML PEN SC SCH (09:00)
[2017-12-10] MEDS: VENLAFAXINE HCL XR 150 MG CAPXR PO SCH (09:00)
[2017-12-10] MEDS: ATORVASTATIN 40 MG TAB PO SCH (09:00)
[2017-12-10] MEDS: NYSTATIN POWDER 15GM BTL EXT SCH ×3 (09:00→20:21)
[2017-12-10] MEDS: MEMANTINE 10 MG TAB PO SCH ×2 (09:00→20:24)
[2017-12-10] MEDS: CALCIUM 600MG + VIT D 400 IU TAB PO SCH ×2 (09:00→20:22)
[2017-12-10] MEDS: ALLOPURINOL 100 MG TAB PO SCH (09:00)
[2017-12-10] MEDS: INSULIN ASPART 100 UNITS/ML 3 ML PEN SC SCH ×4 (09:10→20:30)
[2017-12-10] MEDS: HEPARIN SOD 5000 UNIT/0.5 ML CARP SQ SCH ×2 (09:11→20:30)
[2017-12-10 09:13] LABS: HEMOGLOBIN 12.6 g/dL (12.0-16.0); IG# 0.02 K/uL (0.00-0.02); LYMPH % 6.1 %; LYMPH ABS # 0.61 K/uL (1.2-3.4); MEAN CELL VOLUME 96.2 fL (80-100); MEAN CORPUSCULAR HEMOGLOBIN 31.9 pg (25-34); MEAN CORPUSCULAR HGB CONC 33.2 g/dl (32-36); MEAN PLATELET VOLUME 9.5 fL (7.4-10.4); MONO % 5.3 %; MONO ABS # 0.53 K/uL (0.11-0.59); NEUT % 88.4 %; NEUT ABS # 8.76 K/uL (1.4-6.5); PLATELET COUNT 137 K/uL (130-400); RED CELL DISTRIBUTION WIDTH CV 15.2 % (11.5-14.5); RED CELL DISTRIBUTION WIDTH SD 53.6 fL (36.4-46.3); WHITE BLOOD COUNT 9.92 K/uL (4.8-10.8)
[2017-12-10 09:53] LABS: CALCIUM 9.4 mg/dl (8.5-10.1); CREATININE 1.25 mg/dl (0.60-1.20); POTASSIUM 4.9 mmol/L (3.5-5.1)
--- NOTE | 2017-12-10 11:22 | Pharmacy Progress Note ---
Pharmacy Glycemic Short Note 2 Date of Service Dec 10, 2017. OUTPATIENT ANTIDIABETIC REGIMEN: * Lantus 25 units twice daily * Novolog 5 units TIDM if blood sugar greater than 200 mg/dL ASSESSMENT: * Ms Buckley is an 82 y/o F with a PMH of gout, hypothyroidism, dementia, and poorly controlled type 2 diabetes who presents with SOB/weakness. Differential diagnosis includes pneumonia vs CHF exacerbation. Patient received Solu-Medrol 125 mg x 1 on admission then 60 mg IV q12 hours starting yesterday morning. She received 3 doses and this has been reduced to 40 mg IV q12 hours. Do not expect much difference in blood sugars even with this reduction. * Blood sugars yesterday were [phone] and fasting this morning was 182 mg/dL. She reduced 115 units of insulin yesterday with 55 units of basal. For Lantus, gave additional 5 units this morning to make 30 units. Have 30 units available for this evening in case blood sugar over 180 mg/dL. Overnight check added. * For Novolog, patient was tightened with breakfast then lunch. It appears that the correction factor is appropriate but carbohydrates are not covered. Decreased from lunch-dinner but increased from dinner-bedtime. Tighten carbohydrates. PLAN FOR INPATIENT GLYCEMIC CONTROL: * Basal insulin * Lantus 30 units SQ x 1 then 25-30 units SQ BID (30 units if blood sugar over 180 mg/dL) * Bolus insulin * NovoLog per scale ACHS or Q6hrs while NPO * Goal Range: Low 110 mg/dL - High 140 mg/dL * Correction Factor: 8 mg/dL/unit * Nutritional / Prandial insulin per carb ratio of 1 unit per 2 grams CHO consumed PLAN FOR DISCHARGE: * Patient's HbA1C is not well controlled. Recommend lowering threshold for patient to receive Novolog so that the patient's regimen is not completely basal insulin.
[2017-12-10] MEDS: MULTIVITAMIN TAB PO SCH (12:57)
[2017-12-10] MEDS: PANTOprazole SOD 40 MG TAB PO SCH (12:57)
[2017-12-10] MEDS: METHYLPREDNISOLONE IV 40 MG in SYRINGE 0 ML IV SCH (15:44)
[2017-12-10] MEDS: LEVOFLOXACIN / D5W 750 MG in PREMIXED IN D5W 150 ML IV SCH (20:08)
[2017-12-10] MEDS: METOPROLOL TARTRATE 25 MG TAB PO SCH (20:20)
[2017-12-10] MEDS: DONEPEZIL HCL 10 MG TAB PO SCH (20:21)
[2017-12-10] MEDS: QUETIAPINE FUMARATE 200 MG TAB PO SCH (20:23)
[2017-12-10] MEDS: INSULIN GLARGINE SOLOSTAR 100 UNITS/ML 3 ML PEN SC SCH (20:29)
[2017-12-11] VITALS (11 sets, daily range): BP systolic 157–192; BP diastolic 71–91; PULSE 68–98; TEMP 36.5–36.8; O2SAT 80–99
[2017-12-11] MEDS ORDERED: INSULIN ASPART 100 UNITS/ML 3 ML PEN SC SCH (02:00)
[2017-12-11] MEDS: METHYLPREDNISOLONE IV 40 MG in SYRINGE 0 ML IV SCH ×2 (03:56→16:50)
[2017-12-11] MEDS: LEVOTHYROXINE 175 MCG TAB PO SCH (05:53)
[2017-12-11 06:13] LABS: HEMATOCRIT 37.4 % (37-47); HEMOGLOBIN 12.3 g/dL (12.0-16.0); MEAN CELL VOLUME 97.7 fL (80-100); MEAN CORPUSCULAR HEMOGLOBIN 32.1 pg (25-34); MEAN CORPUSCULAR HGB CONC 32.9 g/dl (32-36); MEAN PLATELET VOLUME 9.3 fL (7.4-10.4); PLATELET COUNT 134 K/uL (130-400); RED CELL DISTRIBUTION WIDTH CV 15.4 % (11.5-14.5); RED CELL DISTRIBUTION WIDTH SD 54.8 fL (36.4-46.3); WHITE BLOOD COUNT 10.04 K/uL (4.8-10.8)
[2017-12-11 06:49] LABS: CALCIUM 9.2 mg/dl (8.5-10.1); CREATININE 1.22 mg/dl (0.60-1.20); POTASSIUM 5.1 mmol/L (3.5-5.1)
[2017-12-11] MEDS: ALBUT/IPRATROP 3MG/0.5MG NEB 3 ML VIAL INH SCH ×4 (06:56→19:43)
[2017-12-11] MEDS: FORMOTEROL FUMA NEBULIZER SOLN 20 MCG/2 ML VIAL INH SCH ×2 (06:56→19:44)
[2017-12-11] MEDS: INSULIN ASPART 100 UNITS/ML 3 ML PEN SC SCH ×4 (08:17→21:00)
[2017-12-11] MEDS: INSULIN GLARGINE SOLOSTAR 100 UNITS/ML 3 ML PEN SC SCH ×2 (08:18→21:40)
[2017-12-11] MEDS: HEPARIN SOD 5000 UNIT/0.5 ML CARP SQ SCH ×2 (08:19→21:40)
[2017-12-11] MEDS: SODIUM CHLORIDE 0.9% 1000ML 1,000 ML IV SCH (08:23)
[2017-12-11] MEDS: CALCIUM 600MG + VIT D 400 IU TAB PO SCH ×2 (08:24→21:23)
[2017-12-11] MEDS: NYSTATIN POWDER 15GM BTL EXT SCH ×3 (08:24→21:24)
[2017-12-11] MEDS: ALLOPURINOL 100 MG TAB PO SCH (08:25)
[2017-12-11] MEDS: ASPIRIN 81 MG ECTAB PO SCH (08:25)
[2017-12-11] MEDS: METOPROLOL TARTRATE 50 MG TAB PO SCH (08:26)
[2017-12-11] MEDS: ENALAPRIL MALEATE 10 MG TAB PO SCH (08:27)
[2017-12-11] MEDS: VENLAFAXINE HCL XR 150 MG CAPXR PO SCH (08:27)
[2017-12-11] MEDS: ATORVASTATIN 40 MG TAB PO SCH (08:27)
[2017-12-11] MEDS: POLYETHYLENE (MIRALAX) 17 GM PACK PO SCH (08:28)
[2017-12-11] MEDS: MEMANTINE 10 MG TAB PO SCH ×2 (08:28→21:22)
--- NOTE | 2017-12-11 11:45 | Pharmacy Progress Note ---
Pharmacy Glycemic Short Note 2 Date of Service Dec 11, 2017. OUTPATIENT ANTIDIABETIC REGIMEN: * Lantus 25 units twice daily * Novolog 5 units TIDM if blood sugar greater than 200 mg/dL Item Value Date Time Bedside Glucose 182 mg/dl H 12/10/17 0628 Bedside Glucose 209 mg/dl H 12/10/17 1124 Bedside Glucose 191 mg/dl H 12/10/17 1634 Bedside Glucose 90 mg/dl 12/10/172007 Bedside Glucose 113 mg/dl H 12/11/17 0158 Bedside Glucose 102 mg/dl H 12/11/17 0451 Bedside Glucose 137 mg/dl H 12/11/17 0737 ASSESSMENT: * 82yo T2DM female with adequate control of diabetes as an outpatient based on age/co-morbidities. * Pt has been receiving stressed outpatient insulin dosing for steroid induced hyperglycemia * Pt received 138 units of insulin over the past 24hrs with adequate control * 55 units of basal insulin with Lantus (outpatient dosing is 50 units) * 83 units of prandial/correctional insulin with NovoLog * Regimen is weighted towards prandial/correctional since steroids have their most profound effect on post-prandial hyperglycemia. Do not want large basal insulin doses on board in the event that steroids are rapidly tapered and then hypoglycemia could occur. * Steroids decreased from Solumedrol 60mg IV BID to Solumedrol 40mg IV BID. This should only yield a mild improvement in BSGs since total daily dose of steroids is still >80mg/dl. Therefore, will only make minimal changes today and titrate based on BSG trends. PLAN FOR INPATIENT GLYCEMIC CONTROL: * Basal insulin; no change, continue dosing per scale. * Lantus 25-30 units SQ BID (25 units if BSG <180 mg/dl & 30 units if BSG 180 mg/dL or above) * Bolus insulin: loosen CR for step down in steroid dosing * NovoLog per scale ACHS or Q6hrs while NPO * Goal Range: Low 110 mg/dL - High 140 mg/dL * Correction Factor: 8 mg/dL/unit * Nutritional / Prandial insulin per carb ratio of 1 unit per 3 grams CHO consumed PLAN FOR DISCHARGE: * A1c = 8.6% on 09/13/17 * This is in range for patient based on age/comorbidities. * No changes need to regimen at discharge unless steroid taper is continued. May need to increase dosage of NovoLog scale (increase to 10 units SQ TIDM) while patient on prednisone taper only
--- NOTE | 2017-12-11 12:00 | Hospitalist Progress Note ---
Hospitalist Progress Note Date of Service Dec 11, 2017. (Sandy Albert ., ISRRAEL-C) Subjective Pt evaluation today including: conversation w/ patient, conversation w/ family (granddaughter at bedside), physical exam, chart review, lab review, review of inpatient medication list Pain: None PO Intake: Tolerating PO diet Voiding: no voiding problems The patient reports feeling well. She is pleasantly confused. She denies any complaints. Per granddaughter at bedside, the patient had a productive cough following her nebulizer with thin, clear sputum. She has also noted wheezing, although this is improved from yesterday. Per nursing, the patient did de-sat last night on room air, down to 86% but is now sating fine on room air while awake. The patient denies fevers, chills, sweats, chest pain, palpitations, claudication, shortness of breath, nausea, vomiting, abdominal pain, dysuria, hematuria, urinary retention, paralysis, weakness, numbness and tingling. Additional Comments: See HPI for pertinent positives and negatives. All other systems reviewed and negative. (Snady Albert ., PA-C) Objective Vital Signs Date Time Temp Pulse Resp B/P (MAP) Pulse Ox O2 Delivery O2 Flow Rate FiO2 12/11/17 11:16 72 16 95 Room Air 12/11/17 07:52 36.5 87 20 172/91 (118) 95 2.0 12/11/17 06:57 68 16 92 Room Air 12/11/17 00:00 Room Air 12/10/17 22:27 90 174/88 (116) 12/10/17 22:14 36.8 88 20 173/75 (107) 95 Nasal Cannula 2.0 12/10/17 20:00 Room Air 12/10/17 19:48 68 16 90 Room Air 12/10/17 19:00 93 Room Air 12/10/17 16:00 Nasal Cannula 2.0 12/10/17 15:17 63 18 98 Nasal Cannula 2.0 12/10/17 14:12 36.5 64 20 111/74 (86) 93 2.0 12/10/17 12:00 Nasal Cannula 2.0 (Sandy Albert ., ISRRAEL-C) Physical Exam Notes: General appearance: +Morbidly obese. Well-developed, well-nourished, no apparent distress Head: Normocephalic, atraumatic Eyes: Normal inspection, PERRL, EOMI ENT: Normal ENT inspection, hearing grossly normal, pharynx normal Neck: Supple, no JVD, trachea midline Respiratory/Chest: +Tight, poor air movement, wheezing throughout. Decreased breath sounds. No respiratory distress Cardiovascular: +Systolic murmur. Regular rate & rhythm, no gallop Abdomen/GI: Normal bowel sounds, non-tender, soft Extremities/Musculoskeletal: Normal inspection, no calf tenderness, no pedal edema Neurological/Psych: +Disoriented to time. Alert, normal mood/affect, oriented x 2 Skin: Normal color, warm/dry, no rash (Sandy Albert ., PA-C) Laboratory Results Last 24 Hours Test 12/10/17 16:34 12/10/17 20:08 12/11/17 01:58 12/11/17 04:51 Bedside Glucose 191 mg/dl 90 mg/dl 113 mg/dl 102 mg/dl Test 12/11/17 05:58 12/11/17 07:37 12/11/17 11:28 White Blood Count 10.04 K/uL Red Blood Count 3.83 M/uL Hemoglobin 12.3 g/dL Hematocrit 37.4 % Mean Corpuscular Volume 97.7 fL Mean Corpuscular Hemoglobin 32.1 pg Mean Corpuscular Hemoglobin Concent 32.9 g/dl RDW Standard Deviation 54.8 fL RDW Coefficient of Variation 15.4 % Platelet Count 134 K/uL Mean Platelet Volume 9.3 fL Sodium Level 139 mmol/L Potassium Level 5.1 mmol/L Chloride Level 101 mmol/L Carbon Dioxide Level 34 mmol/L Anion Gap 3.0 mmol/L Blood Urea Nitrogen 23 mg/dl Creatinine 1.22 mg/dl Est Creatinine Clear Calc Drug Dose 39.9 ml/min Estimated GFR () 48.1 Estimated GFR (Non- 41.5 BUN/Creatinine Ratio 18.6 Random Glucose 119 mg/dl Calcium Level 9.2 mg/dl Bedside Glucose 137 mg/dl 219 mg/dl (Sandy Albert ., PA-C) Assessment and Plan 82 y/o female with a history of HTN, HLD, DM II, hypothyroidism, hyponatremia, anxiety/depression, dementia, gout, KELI, and GERD who presents with acute respiratory failure with hypoxia. Acute respiratory failure with hypoxia and hypercarbia secondary to reactive airway disease and/or viral illness--improving -Admitted to telemetry, stable, transferred to med/surg -Continue Solu-Medrol 40 mg IV q12h -Continue formoterol BID, DuoNebs QIDR -Blood cultures NGTD -Continue Levaquin 750 mg IV q48h, day #4 -Improved, no BiPAP -CT chest w/lower lobe opacities, likely atelectatic -Flu PCR negative HTN, HLD--stable -Continue ASA, enalapril 10 mg PO qd, Lopressor 50 mg PO qam and 25 mg PO qpm, Lipitor 40 mg PO qd -Change hydralazine 10 mg IV q6h prn SBP >160 DM II--HgbA1c 8.6 on 09/13/17 -Lantus SC BID per protocol, pharmacy managing -Insulin sliding scale -Check BSGs q ac and qhs Hypothyroidism -Continue Synthroid 175 mcg PO qd Acute on chronic hyponatremia--resolved w/IVF -D/C IVF Anxiety, depression, dementia--stable -Continue Effexor 150 mg PO qd, Seroquel 100 mg PO hs (decreased from home dose) , Aricept 10 mg PO hs, Namenda 10 mg PO BID Gout -Continue allopurinol 100 mg PO qd KELI, morbid obesity w/BMI 40.1 -CPAP DVT prophylaxis -Heparin 5000 units SC q12h -SCDs Code Status -Level I, FULL RESUSCITATION STATUS (Sandy Albert ., PA-C) I personally interviewed and examined the patient. I agree with history of present illness and physical exam mentioned above, I also performed my own history taking and examination. Past medical history and review of system has been obtained by myself I reviewed all pertinent labs and studies Reviewed current medications I discussed and formulated of the assessment and plan mentioned above. Please refer to the Summary mentioned below. 82-year-old female with history of dyslipidemia, diabetes mellitus, hypothyroidism, and anxiety/depression, dementia, gout, obstructive sleep apnea , GERD, hypertension who presented to the ED with acute respiratory failure with hypoxemia, appears to be secondary COPD exacerbation, patient started on bronchodilators and steroids. Also she had suspected pneumonia/bronchitis, started on levofloxacin. Started on her home medications She is currently improving slowly. General Appearance: not in acute distress Eyes: normal Sclerae, extraocular muscle intact ENT: hearing grossly normal Neck: supple Respiratory/Chest: Decreased air entry bilaterally, positive for wheezing, scattered rhonchi,no respiratory distress, no accessory muscle use Cardiovascular: regular rate, rhythm, no murmur Abdomen: non tender, soft, no masses Extremities: no edema musculoskeletal: no significant swelling or inflammation in any joint Neurologic/Psychiatric: Awake alert oriented times place and person moves all extremities sensation intact cranial nerves II-12 appear to be intact Skin: normal color, warm/dry, no rash Skin: normal color, warm/dry, no rash Oumou Mcleod MD, [facility] hospitalist group (Oumou Cunningham MD)
[2017-12-11] MEDS: MULTIVITAMIN TAB PO SCH (12:13)
[2017-12-11] MEDS: PANTOprazole SOD 40 MG TAB PO SCH (12:13)
--- NOTE | 2017-12-11 12:29 | Clinical Documentation Query ---
QUERY 1 OF [address] REED, In your clinical opinion is this patient being managed for: ( x) Hyponatremia treated and resolved ( ) Not Agree ( ) Other explanation of clinical findings (Please Explain) ( ) Unable to determine (Please Define) ( ) Need to Discuss The medical record reflects the following clinical findings, treatment, and risk factors. Clinical Indicators: 82 yo female presenting with worsening dyspnea. Initial Na 127 which has trended up to Na 139 Treatment: IV fluids, serial PRP's Risk Factors: age, viral illness QUERY 2 OF 2 In your clinical opinion is this patient being managed for: ( x ) Morbid obesity with BMI 40.1 ( ) Not Agree ( ) Other explanation of clinical findings (Please Explain) ( ) Unable to determine (Please Define) ( ) Need to Discuss A significantly high (>40) or significantly low (<19) BMI will impact the severity of illness and risk of mortality of your patient. However, the physician must document a correlating diagnosis in the medical record. Please clarify and document your clinical opinion in the progress notes and discharge summary. Terms such as "probable", "suspected", "likely", "questionable", "possible", or "still to be ruled out" are acceptable. IF IN AGREEMENT, YOU MUST DOCUMENT ABOVE DIAGNOSTIC STATEMENT IN DAILY PROGRESS NOTES AND DISCHARGE SUMMARY. This document is not part of the patient's record. Thank You, Reanna Gusman, BERNADETTE [phone]
[2017-12-11] MEDS ORDERED: HydrALAZINE HCL 20 MG/ML VIAL IV. PRN (14:30)
[2017-12-11] MEDS: QUETIAPINE FUMARATE 200 MG TAB PO SCH (21:21)
[2017-12-11] MEDS: DONEPEZIL HCL 10 MG TAB PO SCH (21:25)
[2017-12-11] MEDS: METOPROLOL TARTRATE 25 MG TAB PO SCH (21:31)
[2017-12-12] VITALS (11 sets, daily range): BP systolic 172–200; BP diastolic 79–104; PULSE 70–102; TEMP 36.3–37.4; O2SAT 90–97
[2017-12-12] MEDS: METHYLPREDNISOLONE IV 40 MG in SYRINGE 0 ML IV SCH ×2 (04:21→16:10)
[2017-12-12] MEDS: LEVOTHYROXINE 175 MCG TAB PO SCH (05:32)
[2017-12-12] MEDS: ALBUT/IPRATROP 3MG/0.5MG NEB 3 ML VIAL INH SCH ×3 (07:04→15:03)
[2017-12-12] MEDS: FORMOTEROL FUMA NEBULIZER SOLN 20 MCG/2 ML VIAL INH SCH (07:04)
[2017-12-12 07:21] LABS: HEMATOCRIT 44.5 % (37-47); HEMOGLOBIN 14.2 g/dL (12.0-16.0); MEAN CELL VOLUME 97.8 fL (80-100); MEAN CORPUSCULAR HEMOGLOBIN 31.2 pg (25-34); MEAN CORPUSCULAR HGB CONC 31.9 g/dl (32-36); MEAN PLATELET VOLUME 9.6 fL (7.4-10.4); PLATELET COUNT 163 K/uL (130-400); RED CELL DISTRIBUTION WIDTH CV 15.4 % (11.5-14.5); RED CELL DISTRIBUTION WIDTH SD 55.4 fL (36.4-46.3)
[2017-12-12 07:50] LABS: CALCIUM 9.9 mg/dl (8.5-10.1); CREATININE 1.23 mg/dl (0.60-1.20); POTASSIUM 4.3 mmol/L (3.5-5.1)
[2017-12-12] MEDS: LACTOBACILLUS ACIDOPHILUS (FLORANEX) TAB PO SCH ×3 (08:08→17:06)
[2017-12-12] MEDS: ASPIRIN 81 MG ECTAB PO SCH (08:08)
[2017-12-12] MEDS: ENALAPRIL MALEATE 10 MG TAB PO SCH (08:08)
[2017-12-12] MEDS: CALCIUM 600MG + VIT D 400 IU TAB PO SCH (08:08)
[2017-12-12] MEDS: VENLAFAXINE HCL XR 150 MG CAPXR PO SCH (08:08)
[2017-12-12] MEDS: ALLOPURINOL 100 MG TAB PO SCH (08:08)
[2017-12-12] MEDS: MEMANTINE 10 MG TAB PO SCH (08:10)
[2017-12-12] MEDS: ATORVASTATIN 40 MG TAB PO SCH (08:10)
[2017-12-12] MEDS: POLYETHYLENE (MIRALAX) 17 GM PACK PO SCH (08:10)
[2017-12-12] MEDS: METOPROLOL TARTRATE 50 MG TAB PO SCH (08:10)
[2017-12-12] MEDS: INSULIN ASPART 100 UNITS/ML 3 ML PEN SC SCH ×3 (08:15→17:08)
[2017-12-12] MEDS: HEPARIN SOD 5000 UNIT/0.5 ML CARP SQ SCH (08:16)
[2017-12-12] MEDS: INSULIN GLARGINE SOLOSTAR 100 UNITS/ML 3 ML PEN SC SCH (08:16)
[2017-12-12] MEDS: NYSTATIN POWDER 15GM BTL EXT SCH ×2 (08:16→13:33)
[2017-12-12] MEDS ORDERED: METOPROLOL TARTRATE 25 MG TAB PO ONE (09:00)
[2017-12-12] MEDS: PANTOprazole SOD 40 MG TAB PO SCH (12:13)
[2017-12-12] MEDS: MULTIVITAMIN TAB PO SCH (12:13)
[2017-12-12] MEDS ORDERED: AMLODIPINE BESYLATE 5 MG TAB PO ONE (13:00)
--- NOTE | 2017-12-12 13:52 | Pharmacy Progress Note ---
Pharmacy Glycemic Short Note 2 Date of Service Dec 12, 2017. OUTPATIENT ANTIDIABETIC REGIMEN: * Lantus 25 units twice daily * Novolog 5 units TIDM if blood sugar greater than 200 mg/dL Item Value Date Time Bedside Glucose 182 mg/dl H 12/10/17 0628 Bedside Glucose 209 mg/dl H 12/10/17 1124 Bedside Glucose 191 mg/dl H 12/10/17 1634 Bedside Glucose 90 mg/dl 12/10/172007 Bedside Glucose 113 mg/dl H 12/11/17 0158 Bedside Glucose 102 mg/dl H 12/11/17 0451 Bedside Glucose 137 mg/dl H 12/11/17 0737 Bedside Glucose 116 mg/dl H 12/11/17 1639 Bedside Glucose 68 mg/dl *L 12/11/172012 Bedside Glucose 99 mg/dl H 12/11/17 2115 Bedside Glucose 125 mg/dl H 12/12/17 0734 Bedside Glucose 138 mg/dl H 12/12/17 1122 ASSESSMENT: * 82yo T2DM female with adequate control of diabetes as an outpatient based on age/co-morbidities. * Pt has been receiving stressed outpatient insulin dosing for steroid induced hyperglycemia * Total daily insulin dose has been decreasing over the past 48hrs secondary to step down in steroid dosing. Pt received 138 units of insulin on 12/10/17 & 103 units of insulin on 12/11/17. * 50 units of basal insulin with Lantus (outpatient dosing is 50 units) * 50 units of prandial/correctional insulin with NovoLog * Pt with "LOW" BSG last evening at bedtime, BSG = 68 mg/dl. Low BSG most likely from CF/CR insulin and step down in steroid dosing. CF/CR were "loosened " yesterday and now BSGs in goal range. No changes needed. PLAN FOR INPATIENT GLYCEMIC CONTROL: * Basal insulin; no change * Lantus 25 units SQ BID * Bolus insulin: no change * NovoLog per scale ACHS or Q6hrs while NPO * Goal Range: Low 110 mg/dL - High 140 mg/dL * Correction Factor: 10 mg/dL/unit * Nutritional / Prandial insulin per carb ratio of 1 unit per 3 grams CHO consumed * Continue to taper NovoLog with each step down in steroid dosing. PLAN FOR DISCHARGE: * A1c = 8.6% on 09/13/17 * This is in range for patient based on age/comorbidities. * No changes need to regimen at discharge unless steroid taper is continued. May need to increase dosage of NovoLog scale (increase to 10 units SQ TIDM) while patient on prednisone taper only
[2017-12-12] MEDS ORDERED: LVQ750 PO (15:00)
[2017-12-12] MEDS ORDERED: PRED10TA PO (15:00)
[2017-12-12] MEDS ORDERED: AMLO10TA2 PO (15:00)
[2017-12-12] MEDS ORDERED: SRQ200 PO (15:00)
[2017-12-12] MEDS ORDERED: LCTX PO (15:00)
[2017-12-12] MEDS ORDERED: IPRA1AER2 INH (15:00)
--- NOTE | 2017-12-12 15:10 | Discharge Instructions ---
Discharge Instructions Date of Service Dec 12, 2017. Admission Reason for Admission: Acute Respiratory Failure With Hypoxia Discharge Discharge Diagnosis / Problem: Acute respiratory failure with hypoxia Discharge Goals Goal(s): Decrease discomfort, Improve function, Diagnostic testing, Therapeutic intervention Activity Recommendations Activity Limitations: resume your previous activity (as tolerated) . Instructions / Follow-Up Instructions / Follow-Up You were admitted to the hospital with acute respiratory failure and you were found to be hypoxic, requiring supplemental oxygen. This is likely due to an underlying reactive airway disease and/or pneumonia. You were treated with IV steroids, breathing treatments, and an antibiotic. As you are now feeling better and have been weaned off oxygen, you are now medically stable for discharge back to home with your caregivers. Medications: *Please take the following prednisone taper. This is an oral steroid to help your breathing. -Take 40 mg (4 tablets) by mouth daily for 2 days, then -Take 30 mg (3 tablets) by mouth daily for 2 days, then -Take 20 mg (2 tablets) by mouth daily for 2 days, then -Take 10 mg (1 tablet) by mouth daily for 2 days, then stop. *Please take Levaquin 750 mg every other day for 2 more doses. Take 1 tablet tonight, on 12/12, and the other tablet on 12/14. This is an antibiotic. *You may use the Combivent inhaler up to four times a day as needed for shortness of breath and/or wheezing. *You may take Floranex 4 tablets three times a day with meals. This is probiotic to protect your gut while you're on antibiotics. *You have been started on amlodipine 10 mg daily. This is a new blood pressure medication to take in addition to your normal regimen. *Your Seroquel dose has been reduced to 100 mg at bedtime. DO NOT take the 400 mg tablets. *Continue your other home medications as prescribed. Follow up: *You will be scheduled to follow up with your primary care provider. *Please have your caregivers continue to monitor your blood pressure at home to see if the new medication is helping to better control it. Please seek medical attention if you experience fevers, chills, sweats, dizziness/lightheadedness, loss of consciousness, chest pain, shortness of breath, nausea, vomiting, numbness or tingling. Current Hospital Diet Patient's current hospital diet: Diabetes Type 2 Diet Discharge Diet Recommended Diet: AHA Diet (Heart Healthy), Diabetes Type 2 Diet Pending Studies Studies pending at discharge: no Laboratory Results Hemoglobin A1c Test 09/13/17 14:17 Range/Units Estimated Average Glucose 200 mg/dl Hemoglobin A1c 8.6 H 4.5-5.6 % Medical Emergencies . Who to Call and When: Medical Emergencies: If at any time you feel your situation is an emergency, please call 911 immediately. . Non-Emergent Contact Non-Emergency issues call your: Primary Care Provider Call Non-Emergent contact if: you have a fever, you have any medication questions . Past History Medical & Surgical History: (1) Acute respiratory failure with hypoxia . "Provider Documentation" section prepared by Sandy Albert. .
--- NOTE | 2017-12-12 15:18 | Discharge Summary ---
Discharge Summary Date of Service Dec 12, 2017. Discharge Summary Admission Date: Dec 08, 2017 at 16:55 Discharge Date: Dec 12, 2017 Discharge Disposition: Home with services Principal Diagnosis: Acute respiratory failure with hypoxia Problems/Secondary Diagnoses: HTN, HLD, DM II, hypothyroidism, hyponatremia, anxiety/depression, dementia, gout, KELI, GERD Immunizations: Have You Had Influenza Vaccine: Yes Influenza Vaccine Date: May 05, 2017 History of Tetanus Vaccine?: Yes History of Pneumococcal: Yes History of Hepatitis B Vaccine: Unknown Procedures: (CHEST) THORAX WITHOUT CLINICAL HISTORY: Shortness of breath. Suspected pneumonia. COMPARISON STUDY: Chest x-ray dated 12/08/2017, CT scan dated 04/23/2016 CT DOSE: 781.59 mGy.cm TECHNIQUE: CT of the thorax was performed from the thoracic inlet to the lung bases. Images are reviewed in the axial, sagittal, and coronal planes. IV contrast was not administered for this examination. A dose lowering technique was utilized adhering to the principles of ALARA. FINDINGS: Thyroid: Imaged portions of the thyroid gland are normal in appearance. Thoracic aorta: There is mild ectasia of the ascending thoracic aorta which measures 38 mm. Heart: The heart is borderline enlarged. There is no pericardial effusion. Lungs and pleural spaces: There are no pleural effusions. There are dependent lower lobe airspace opacities likely atelectatic. The upper lobes are clear. Mediastinum: There is no mediastinal lymphadenopathy. Whit: There is no evidence of pathologic hilar adenopathy given the limitations of a noncontrast study Axilla: There is no evidence of pathologic axillary lymphadenopathy Upper abdomen: Cholelithiasis. 20 mm left adrenal adenoma. Skeletal structures: There are no lytic or blastic osseous lesions. IMPRESSION: 1. Lower lobe dependent opacities, likely atelectatic 2. No evidence of pathologic adenopathy 3. Cholelithiasis 4. Left adrenal adenoma Medication Reconciliation New Medications: Amlodipine Besylate (Norvasc) 10 Mg Tab 1 TAB PO DAILY for 30 Days, #30 TAB Ipratropium-Albuterol (Combivent Respimat) 1 Aer Aer 1 PUFFS INH QID PRN for SOB/Wheezing for 30 Days, #120 PUFFS Prednisone (Prednisone) 10 Mg Tab 10 MG PO UD for 8 Days, #20 TAB 4 tabs daily for 2 days, 3 tabs daily for 2 days, 2 tabs daily for 2 days, 1 tab daily for 2 days Lactobacillus Acidophilus (Floranex) 1 Tab Tab 4 TAB PO TIDM for 7 Days, #84 TAB Levofloxacin (Levofloxacin) 750 Mg Tab 750 MG PO Q48H for 4 Days, #2 TAB First dose due evening of 12/12, next dose 12/14 Quetiapine Fumarate (Seroquel) 200 Mg Tab 100 MG PO HS for 30 Days, #15 TAB Take 0.5 tablet at night Continued Medications: Allopurinol (Zyloprim) 100 Mg Tab 100 MG PO QAM, 0 Refills Aspirin (Aspirin Ec) 81 Mg Tab 81 MG PO QAM Atorvastatin (Lipitor) 40 Mg Tab 40 MG PO QAM Calcium Carbonate-Cholecalcife (Caltrate 600+D) 1 Tab Tab 1 TAB PO BID Donepezil Hydrochloride (Aricept) 10 Mg Tab 10 MG PO HS Enalapril (Vasotec) 10 Mg Tab 10 MG PO QAM, TAB Furosemide (Lasix) 20 Mg Tab 20 MG PO Q2D Insulin Aspart (Novolog) 100 Units/Ml Inj 5 UNITS SC TIDM PRN for Hyperglycemia Protocol 5 UNITS IF BSG IS GREATER THAN 200 Insulin Glargine (Lantus) 100 Unit/Ml Inj 25 UNITS SC BID, #10 Levothyroxine Sodium (Levothyroxine Sodium) 175 Mcg Tab 175 MCG PO DAILY, TAB Lorazepam (Ativan) 0.5 Mg Tab 0.5 MG PO BID PRN for Anxiety/Agitation, TAB Memantine (Namenda) 10 Mg Tab 10 MG PO BID, TAB Metoprolol Tartrate (Lopressor) (Lopressor) 50 Mg Tab 50 MG PO QAM, 0 Refills Metoprolol Tartrate (Lopressor) (Lopressor) 50 Mg Tab 25 MG PO QPM, 0 Refills TAKE 1/2 OF A 50MG TABLET IN THE PM Multiple Vitamin (Multivitamin) 1 Tab Tab 1 TAB PO DAILY@1200, TAB Nystatin (Topical) (Nystatin) 1 Pow Pow 1 APPLN TOP TID UNDER SKIN FOLDS Olanzapine (Zyprexa) 5 Mg Tab 5 MG PO BID, TAB Omeprazole (Prilosec) 20 Mg Capcr 20 MG PO DAILY@1200, 0 Refills Polyethylene Glycol 3350 (Miralax) 1 Pow Pow 17 GM PO DAILY, GM Venlafaxine Hcl (Venlafaxine Hcl Er) 150 Mg Tab 150 MG PO DAILY, TAB Discontinued Medications: Quetiapine Fumarate (Quetiapine Fumarate) 400 Mg Tab 400 MG PO HS, #30 Discharge Exam Patient reports feeling well, pleasantly confused. She reports a non- productive cough. The patient denies fevers, chills, sweats, chest pain, palpitations, claudication, wheezing, shortness of breath, nausea, vomiting, abdominal pain, dysuria, hematuria, urinary retention, paralysis, weakness, numbness and tingling. Constitutional: No fever, No chills, No sweats Eyes: No worsening of vision, No eye pain, No diplopia ENT: No hearing loss, No nasal symptoms, No trouble swallowing Respiratory: +Cough. No wheezing, No shortness of breath Cardiovascular: No chest pain, No claudication, No palpitations Abdomen: No pain, No nausea, No vomiting Musculoskeletal: No joint pain, No muscle pain, No swelling Genitourinary - Female: No dysuria, No urinary retention, No hematuria Neurologic: No paralysis, No weakness, No numbness/tingling Integumentary: No rash, No itch, No color change General appearance: +Morbidly obese. Well-developed, well-nourished, no apparent distress Head: Normocephalic, atraumatic Eyes: Normal inspection, PERRL, EOMI ENT: Normal ENT inspection, hearing grossly normal, pharynx normal Neck: Supple, no JVD, trachea midline Respiratory/Chest: +Decreased breath sounds, wheezing. No respiratory distress Cardiovascular: +Systolic murmur. Regular rate & rhythm, no gallop Abdomen/GI: Normal bowel sounds, non-tender, soft Extremities/Musculoskeletal: Normal inspection, no calf tenderness, no pedal edema Neurological/Psych: +Disoriented to time. Alert, normal mood/affect, oriented x 2 Skin: Normal color, warm/dry, no rash Hospital Course 82 y/o female with a history of HTN, HLD, DM II, hypothyroidism, hyponatremia, anxiety/depression, dementia, gout, KELI, and GERD who presents with acute respiratory failure with hypoxia. Acute respiratory failure with hypoxia and hypercarbia secondary to reactive airway disease and/or viral illness vs PNA--improving -Admitted to telemetry, stable, transferred to med/surg -Continue Solu-Medrol 40 mg IV q12h. D/C with Prednisone taper: 40 mg x 2 days , 30 mg x 2 days, 20 mg x 2 days, 10 mg x 2 days -Continue formoterol BID, DuoNebs QIDR. D/C with Combivent inhaler prn SOB/ wheezing -Blood cultures NGTD -Continue Levaquin 750 mg IV q48h, day #5 (dose due tonight on 12/12). Continue as outpt PO for total 7 days -Improved, no BiPAP -CT chest w/lower lobe opacities, likely atelectatic -Flu PCR negative HTN, HLD--stable -Continue ASA, enalapril 10 mg PO qd, Lopressor 50 mg PO qam and 25 mg PO qpm, Lipitor 40 mg PO qd -Add Norvasc 10 mg PO qd, caregivers can continue to monitor -Change hydralazine 10 mg IV q6h prn SBP >160 DM II--HgbA1c 8.6 on 09/13/17 -Lantus SC BID per protocol, pharmacy managing. Continue home dose at discharge -Insulin sliding scale -Check BSGs q ac and qhs Hypothyroidism -Continue Synthroid 175 mcg PO qd Acute on chronic hyponatremia--resolved w/IVF -D/C IVF Anxiety, depression, dementia--stable -Continue Effexor 150 mg PO qd, Seroquel 100 mg PO hs (decreased from home dose) , Aricept 10 mg PO hs, Namenda 10 mg PO BID Gout -Continue allopurinol 100 mg PO qd KELI, morbid obesity w/BMI 40.1 -CPAP DVT prophylaxis -Heparin 5000 units SC q12h -SCDs Code Status -Level I, FULL RESUSCITATION STATUS I personally interviewed and examined the patient. I agree with history of present illness and physical exam mentioned above, I also performed my own history taking and examination. Past medical history and review of system has been obtained by myself I reviewed all pertinent labs and studies Reviewed current medications I discussed and formulated of the assessment and plan mentioned above. Please refer to the Summary mentioned below. 82-year-old female with history of dyslipidemia, diabetes mellitus, hypothyroidism, and anxiety/depression, dementia, gout, obstructive sleep apnea , GERD, hypertension who presented to the ED with acute respiratory failure with hypoxemia, appears to be secondary COPD exacerbation, patient started on bronchodilators and steroids. Also she had suspected pneumonia/bronchitis, started on levofloxacin. Started on her home medications She improved significantly and was found ready for discharge today General Appearance: not in acute distress Eyes: normal Sclerae, extraocular muscle intact ENT: hearing grossly normal Neck: supple Respiratory/Chest: Decreased air entry bilaterally, positive for wheezing, scattered rhonchi,no respiratory distress, no accessory muscle use Cardiovascular: regular rate, rhythm, no murmur Abdomen: non tender, soft, no masses Extremities: no edema musculoskeletal: no significant swelling or inflammation in any joint Neurologic/Psychiatric: Awake alert oriented times place and person moves all extremities sensation intact cranial nerves II-12 appear to be intact Skin: normal color, warm/dry, no rash Skin: normal color, warm/dry, no rash Oumou Mcleod MD, [facility] hospitalist group Total Time Spent: Greater than 30 minutes This includes examination of the patient, discharge planning, medication reconciliation, and communication with other providers. Discharge Instructions Please refer to the electronic Patient Visit Report (Discharge Instructions) for additional information. Additional Copies To Luis Siddiqui M.D.
[2017-12-12] MEDS ORDERED: NEBMAC (15:59)
[2017-12-12] MEDS ORDERED: IPRASOL4 INH (15:59)
[2017-12-12] MEDS ORDERED: INSULIN GLARGINE SOLOSTAR 100 UNITS/ML 3 ML PEN SC SCH (21:00)
[2017-12-12] MEDS ORDERED: LEVOFLOXACIN 750 MG TAB PO SCH (21:00)
[2017-12-13] MEDS ORDERED: METOPROLOL TARTRATE 25 MG TAB PO SCH (09:00)
== END 2017-12-12 19:00 | disposition home or self-care (01) | DRG 865 ==
LOC: EDBD 14:10 → C.EDA 14:11 → C.2T 16:55 → ENRESERV 17:09 → C.MS2W 12-10 15:20
PROVIDERS: ADMIT Internal Medicine; ATTEND Internal Medicine
DX: B34.9 Viral infection, unspecified (principal); J96.01 Acute respiratory failure with hypoxia; J96.02 Acute respiratory failure with hypercapnia; Z68.41 Body mass index [BMI] 40.0-44.9, adult; E87.1 Hypo-osmolality and hyponatremia; F03.90 Unspecified dementia, unspecified severity, without behavioral disturbance, psychotic disturbance, mood disturbance, and anxiety; E11.9 Type 2 diabetes mellitus without complications; M10.9 Gout, unspecified; I10 Essential (primary) hypertension; E03.9 Hypothyroidism, unspecified; K21.9 Gastro-esophageal reflux disease without esophagitis; E78.00 Pure hypercholesterolemia, unspecified; E66.01 Morbid (severe) obesity due to excess calories; F32.9 Major depressive disorder, single episode, unspecified; F41.9 Anxiety disorder, unspecified; G47.33 Obstructive sleep apnea (adult) (pediatric); Z79.4 Long term (current) use of insulin; Z79.82 Long term (current) use of aspirin; Z79.899 Other long term (current) drug therapy; Z87.01 Personal history of pneumonia (recurrent)

== ENCOUNTER 2018-01-14 06:35 | Inpatient (IN) | payer OTHER ==
[2018-01-14] VITALS (8 sets, daily range): BP systolic 159–183; BP diastolic 70–79; PULSE 61–100; TEMP 36.4–37.4; O2SAT 93–100; BMI 44.1
[~2018-01-14] VITALS: Ht 152.4 cm; Wt 98.3 kg
[~2018-01-14 06:35] MED LIST changes: +AMLO10TA2 PO; +INSDGI SC; +LCTX PO; +LEVO175T3 PO; +LORA-741 PO; +LVQ750 PO; +METO50TA16 PO; +NMN10 PO; +NVLG SC; +NYST1POW7 TOP; +OLAN-111 PO; +POLY335019 PO; +SRQ200 PO; +VENL150T33 PO
[2018-01-14] MEDS ORDERED: PIPERACILL/TAZOBAC IV 4.5 GM in DEXTROSE 5% 100ML 100 ML IV STA (06:55)
[2018-01-14] MEDS ORDERED: ALBUT/IPRATROP 3MG/0.5MG NEB 3 ML VIAL INH STA (06:55)
[2018-01-14] MEDS ORDERED: LEVOFLOXACIN / D5W 750 MG in PREMIXED IN D5W 150 ML IV STA (06:55)
[2018-01-14 07:19] LABS: ALBUMIN 3.4 gm/dl (3.4-5.0); ALT/SGPT 32 U/L (12-78); AST/SGOT 21 U/L (15-37); BLOOD UREA NITROGEN 17 mg/dl (7-18); CALCIUM 9.5 mg/dl (8.5-10.1); CARBON DIOXIDE 35 mmol/L (21-32); CREATININE 1.21 mg/dl (0.60-1.20); GLUCOSE 248 mg/dl (70-99); POTASSIUM 4.5 mmol/L (3.5-5.1); SODIUM 123 mmol/L (136-145)
[2018-01-14 07:20] LABS: PTT PATIENT 26.3 SECONDS (21.0-31.0)
[2018-01-14 07:24] LABS: ALKALINE PHOSPHATASE 154 U/L (45-117); CKMB 3.2 ng/ml (0.5-3.6); TOTAL PROTEIN 7.5 gm/dl (6.4-8.2)
--- NOTE | 2018-01-14 07:45 | DIAGNOSTIC IMAGING REPORT ---
CHEST ONE VIEW PORTABLE HISTORY: Shortness of breath. COMPARISON: Chest 12/08/2017. FINDINGS: There are low lung volumes. Bibasilar densities favor subsegmental atelectasis. There is mild central pulmonary vascular congestion without overt edema. The heart remains top normal in size. No pleural effusions. No pneumothorax. IMPRESSION: 1. Mild central pulmonary vascular congestion without overt edema. 2. Bibasilar densities favor atelectasis. Electronically signed by: Les Ibarra M.D. 01/14/2018 7:44 AM Dictated Date/Time: 01/14/2018 7:42 AM
[2018-01-14] MEDS ORDERED: VENL75CA73 PO (07:52)
[2018-01-14 08:38] LABS: BASO % 0.1 %; BASO ABS # 0.01 K/uL (0-0.2); EOS % 0.1 %; EOS ABS # 0.01 K/uL (0-0.5); HEMATOCRIT 36.5 % (37-47); HEMOGLOBIN 12.8 g/dL (12.0-16.0); IG# 0.06 K/uL (0.00-0.02); LYMPH % 11.7 %; LYMPH ABS # 1.09 K/uL (1.2-3.4); MEAN CELL VOLUME 91.9 fL (80-100); MEAN CORPUSCULAR HEMOGLOBIN 32.2 pg (25-34); MEAN CORPUSCULAR HGB CONC 35.1 g/dl (32-36); MONO % 11.5 %; MONO ABS # 1.07 K/uL (0.11-0.59); NEUT ABS # 7.07 K/uL (1.4-6.5); RED CELL DISTRIBUTION WIDTH CV 13.9 % (11.5-14.5); RED CELL DISTRIBUTION WIDTH SD 46.9 fL (36.4-46.3); WHITE BLOOD COUNT 9.31 K/uL (4.8-10.8)
--- NOTE | 2018-01-14 08:44 | History and Physical ---
History & Physical Date & Time of Service: January 14, 2018 at 08:41 Chief Complaint: Shortness Of Breath Primary Care Physician: Luis Siddiqui M.D. History of Present Illness This is a 82-year-old female with past medical history of HTN, HLD, DM II, hypothyroidism, hyponatremia, anxiety/depression, dementia, gout, KELI not on cpap, and GERD who presents with acute respiratory failure with hypoxia. The patient initially began having symptoms on Monday which consisted of an increased cough with yellow sputum and feeling of shortness of breath. At home the patient was using her routine medications along with a nebulizer but reports her symptoms did not improve. She does have a follow-up with her PCP scheduled for this however this morning her cough worsened and appeared to be worse per the daughter therefore she was brought here by EMS. She was recently admitted ~1 month ago for similar symptoms and treated for CAP and reactive airway disease. She was reported to be hypoxic with O2 sats as low as 80% by EMS in the field. Past Medical/Surgical History Medical Problems: (1) Acute respiratory failure with hypoxia (2) Bronchitis (3) Cellulitis (4) Cellulitis of right toe (5) Dementia (6) DIAB KAREEM WO COMPL, TYPE II OR UNSPEC TYPE, NOT UNCNTRLD (7) Diabetic infection of left foot (8) DIVERTICULOSIS COLON (W/O MENT OF HEMORRHAGE) (9) Diverticulosis of colon without hemorrhage (10) Esophageal reflux (11) GOUT NOS (12) HYPERTENSION NOS (13) Hyponatremia (14) HYPOTHYROIDISM NOS (15) Hypoxia (16) Mental status change (17) Osteomyelitis (18) Pneumonia (19) Unspecified sleep apnea (20) URI (upper respiratory infection) Family History FH: heart disease Social History Smoking Status: Never Smoker Smokeless Tobacco Use: No Alcohol Use: none Drug Use: none Housing status: lives with family Occupational Status: retired Immunizations History of Influenza Vaccine: Yes Influenza Vaccine Date: May 05, 2017 History of Tetanus Vaccine?: Yes History of Pneumococcal: Yes History of Hepatitis B Vaccine: Unknown Allergies Coded Allergies: No Known Allergies (Unverified , 01/14/18) Home Medications Scheduled Allopurinol (Zyloprim), 100 MG PO QAM Amlodipine Besylate (Norvasc), 1 TAB PO DAILY Aspirin (Aspirin Ec), 81 MG PO QAM Atorvastatin (Lipitor), 40 MG PO QAM Calcium Carbonate-Cholecalcife (Caltrate 600+D), 1 TAB PO BID Donepezil Hydrochloride (Aricept), 10 MG PO HS Enalapril (Vasotec), 10 MG PO QAM Furosemide (Lasix), 20 MG PO Q2D Insulin Glargine (Lantus), 25 UNITS SC BID Levothyroxine Sodium (Levothyroxine Sodium), 175 MCG PO DAILY Memantine (Namenda), 10 MG PO BID Metoprolol Tartrate (Lopressor) (Lopressor), 50 MG PO QAM Metoprolol Tartrate (Lopressor) (Lopressor), 25 MG PO QPM Multiple Vitamin (Multivitamin), 1 TAB PO DAILY@1200 Nystatin (Topical) (Nystatin), 1 APPLN TOP TID Olanzapine (Zyprexa), 2.5 MG PO HS Omeprazole (Prilosec), 20 MG PO DAILY@1200 Polyethylene Glycol 3350 (Miralax), 17 GM PO 5XWK Quetiapine Fumarate (Seroquel), 100 MG PO HS Venlafaxine Hcl (Venlafaxine Extended Rel), 75 MG PO DAILY Scheduled PRN Insulin Aspart (Novolog), 5 UNITS SC TIDM PRN for Hyperglycemia Protocol Review of Systems Constitutional: + fatigue, No fever, No chills, No sweats, No weight loss Eyes: No worsening of vision ENT: No sore throat, No trouble swallowing Respiratory: + cough, + sputum, + wheezing, + dyspnea on exertion, + dyspnea at rest, No hemoptysis Cardiovascular: No chest pain, No orthopnea, No palpitations Abdomen: + problem reported (large external hemorrhoid), No pain, No nausea, No vomiting, No diarrhea, No constipation Musculoskeletal: + swelling, No joint pain, No calf pain Genitourinary - Female: No dysuria Neurologic: No numbness/tingling Psychiatric: + depression symptoms, + anxiety, + problem reported (insomnia, dementia) Endocrine: + fatigue Integumentary: No rash, No itch Physical Exam Vital Signs Date Time Temp Pulse Resp B/P (MAP) Pulse Ox O2 Delivery O2 Flow Rate FiO2 01/14/18 08:00 76 14 113/48 99 Nasal Cannula 2.0 01/14/18 07:35 76 15 112/49 99 Nasal Cannula 2.0 01/14/18 07:25 Nasal Cannula 2.0 01/14/18 07:07 84 01/14/18 07:03 78 14 97/86 100 Nebulizer 01/14/18 06:45 Nasal Cannula 3.0 01/14/18 06:43 37.4 75 24 145/66 97 Nasal Cannula 01/14/18 06:43 88 Room Air General Appearance: WD/WN, no apparent distress, + obese Head: normocephalic, atraumatic Eyes: PERRL, EOMI ENT: hearing grossly normal, pharynx normal Neck: supple, + pertinent finding (JVD difficult to assess due to body habitus) Respiratory/Chest: no accessory muscle use, + pertinent finding (on 2 L via NC , diffuse expiratory wheeze, faint crackles at bases, dyspnea with movement) Cardiovascular: regular rate, rhythm, + systolic murmur (grade III/ at LSB) Abdomen/GI: normal bowel sounds, non tender, soft Back: normal inspection Extremities/Musculoskelatal: no calf tenderness, + pedal edema (1+ pitting in BLE, ankles) Neurologic/Psych: alert, normal reflexes, oriented x 3 Skin: normal color, warm/dry Diagnostics Laboratory Results Results Past 24 Hours Test 01/14/18 06:20 01/14/18 07:08 01/14/18 07:13 Range/Units White Blood Count 9.31 4.8-10.8 K/uL Red Blood Count 3.97 4.2-5.4 M/uL Hemoglobin 12.8 12.0-16.0 g/dL Hematocrit 36.5 37-47 % Mean Corpuscular Volume 91.9 80-100 fL Mean Corpuscular Hemoglobin 32.2 25-34 pg Mean Corpuscular Hemoglobin Concent 35.1 32-36 g/dl Platelet Count 130-400 K/uL Mean Platelet Volume 7.4-10.4 fL Neutrophils (%) (Auto) 76.0 % Lymphocytes (%) (Auto) 11.7 % Monocytes (%) (Auto) 11.5 % Eosinophils (%) (Auto) 0.1 % Basophils (%) (Auto) 0.1 % Neutrophils # (Auto) 7.07 1.4-6.5 K/uL Lymphocytes # (Auto) 1.09 1.2-3.4 K/uL Monocytes # (Auto) 1.07 0.11-0.59 K/uL Eosinophils # (Auto) 0.01 0-0.5 K/uL Basophils # (Auto) 0.01 0-0.2 K/uL RDW Standard Deviation 46.9 36.4-46.3 fL RDW Coefficient of Variation 13.9 11.5-14.5 % Immature Granulocyte % (Auto) 0.6 % Immature Granulocyte # (Auto) 0.06 0.00-0.02 K/uL Prothrombin Time 10.5 9.0-12.0 SECONDS Prothromb Time International Ratio 1.0 0.9-1.1 Activated Partial Thromboplast Time 26.3 21.0-31.0 SECONDS Partial Thromboplastin Ratio 1.0 Sodium Level 123 136-145 mmol/L Potassium Level 4.5 3.5-5.1 mmol/L Chloride Level 81 98-107 mmol/L Carbon Dioxide Level 35 21-32 mmol/L Anion Gap 7.0 3-11 mmol/L Blood Urea Nitrogen 17 7-18 mg/dl Creatinine 1.21 0.60-1.20 mg/dl Est Creatinine Clear Calc Drug Dose 39.3 ml/min Estimated GFR () 48.6 Estimated GFR (Non- 41.9 BUN/Creatinine Ratio 14.3 10-20 Random Glucose 248 70-99 mg/dl Calcium Level 9.5 8.5-10.1 mg/dl Total Bilirubin 0.5 0.2-1 mg/dl Direct Bilirubin 0.1 0-0.2 mg/dl Aspartate Amino Transf (AST/SGOT) 21 15-37 U/L Alanine Aminotransferase (ALT/SGPT) 32 12-78 U/L Alkaline Phosphatase 154 45-117 U/L Total Creatine Kinase 103 26-192 U/L Creatine Kinase MB 3.2 0.5-3.6 ng/ml Creatine Kinase MB Ratio 3.1 0-3.0 Troponin I < 0.015 0-0.045 ng/ml Total Protein 7.5 6.4-8.2 gm/dl Albumin 3.4 3.4-5.0 gm/dl Lactic Acid Level 1.1 0.4-2.0 mmol/L Microbiology Results 01/14/18 Blood Culture, Received Pending 01/14/18 Blood Culture, Received Pending Diagnostic Radiology CHEST ONE VIEW PORTABLE HISTORY: Shortness of breath. COMPARISON: Chest 12/08/2017. FINDINGS: There are low lung volumes. Bibasilar densities favor subsegmental atelectasis. There is mild central pulmonary vascular congestion without overt edema. The heart remains top normal in size. No pleural effusions. No pneumothorax. IMPRESSION: 1. Mild central pulmonary vascular congestion without overt edema. 2. Bibasilar densities favor atelectasis. Electronically signed by: Les Ibarra M.D. 01/14/2018 7:44 AM Dictated Date/Time: 01/14/2018 7:42 AM The status of this report is Signed. EKG Normal sinus rhythm Moderate voltage criteria for LVH, may be normal variant Borderline ECG When compared with ECG of 08-DEC-2017 14:15, No significant change was found Vent. rate 80 BPM DC interval 148 ms QRS duration 98 ms QT/QTc 368/424 ms P-R-T axes 47 -21 74 Impression Assessment and Plan 82 y/o female with a history of HTN, HLD, DM II, hypothyroidism, hyponatremia, anxiety/depression, dementia, gout, KELI not on cpap, and GERD who presents with acute respiratory failure with hypoxia. Acute respiratory failure with hypoxia and hypercarbia - Admit to tele - Possibly secondary to reactive airway disease and/or viral illness vs PNA - Flu swab in process - Start solu-Medrol 80 mg IV q8h, levaquin IV renally dosed, duonebs, o2 protocol (does not wear O2 at baseline but requiring 2 L here), mucinex, incentive spirometry, flutter, sputum culture - Continue formoterol BID, was given a Combivent inhaler prn SOB/wheezing at time of dc last time but per family pt not using this at home. - Will order VBG and place on bipap - No WBC, VSS - Follow BCx x 2 - Check UA and Ucx - CXR showing mild central pulmonary edema and bibasilar atelectasis but not specifically pneumonia - however we will treat as such with acute onset of sx. Hyponatremia - Appears to be acute on chronic - NA 123 upon admission and baseline is low normal, hold on fluids for now with acute respiratory failure as above. Fluid restriction to 1500mL. consider 1x dose of Lasix 20 mg IV as she does appear slightly volume overloaded to see if this improved sodium. - Recheck PRP in 6 hours. - Check urine osm, random urine sodium to check for SIADH HTN HLD - ASA 81 mg, enalapril 10 mg PO qd, Lopressor 50 mg PO qam and 25 mg PO qpm, Lipitor 40 mg PO qd, amlodipine 10 mg dialy DM II--HgbA1c 8.6 on 09/13/17 - Lantus 25 U BID at home- previous admissions show she has tolerated Lantus 25 U BID, CF: 10 and carb ratio of 3 so will tighten to this coverage with steroids as above. - ISS with accuchecks - Check BSGs q ac and qhs CKD stage III - Cr. appears to be at baseline, 1.2-1.3 - follow prp daily Hypothyroidism - Continue Synthroid 175 mcg PO qd Anxiety, depression, dementia--stable -Continue Effexor 150 mg PO qd, Seroquel 100 mg PO hs, Aricept 10 mg PO hs, Namenda 10 mg PO daily, zyprexa 2.5 mg daily Gout -Continue allopurinol 100 mg PO qd KELI, morbid obesity w/ BMI 44.1 -Does not tolerate cpap and not wearing at home. DVT prophylaxis: heparin Q8H CODE: DNR, living will on chart, discussed with family. Disposition: From home, lives with daughter, Chapis. PT/OT to [facility] to assist with dc planning. Supervising Note Dr. Carrasco I performed a history and physical examination on the patient. I reviewed above note and agree with it. I discussed plan with APC and patient. During my face to face encounter with the patient, I answered all of the patient's questions. will have patient on fluid restriction. will monitor sodium in AM. Resuscitation Status VTE Prophylaxis Will order VTE Prophylaxis: Yes
[2018-01-14 08:46] LABS: INFLUENZA B ANTIGEN Neg for Influ B (NEG)
[2018-01-14] MEDS ORDERED: ALUMINUM/MAGNESIUM/SIMETH (MAALOX MAX) 30 ML UDC PO PRN (09:15)
[2018-01-14] MEDS ORDERED: POLYETHYLENE (MIRALAX) 17 GM PACK PO PRN (09:15)
[2018-01-14] MEDS ORDERED: ACETAMINOPHEN 325 MG TAB PO PRN (09:15)
[2018-01-14] MEDS ORDERED: GLUCAGON FOR INJ 1 MG VIAL SQ PRN (09:30)
[2018-01-14] MEDS ORDERED: ALBUT/IPRATROP 3MG/0.5MG NEB 3 ML VIAL INH PRN (09:30)
[2018-01-14] MEDS ORDERED: DEXTROSE 50% 50 ML SYR IV PRN (09:30)
[2018-01-14] MEDS ORDERED: GLUCOSE 40% GEL 15 GM TUBE PO PRN (09:30)
[2018-01-14] MEDS ORDERED: GLUCOSE 10 TABS/TUBE PO PRN (09:30)
[2018-01-14] MEDS ORDERED: CARBOHYDRATES FOR HYPOGLYCEMIA PO PRN (09:30)
--- NOTE | 2018-01-14 09:39 | EMERGENCY ROOM VISIT NOTE ---
History Report prepared by Michael: Fransisco Aceves Under the Supervision of: Dr. Glen Flores D.O. First contact with patient: 06:44 Chief Complaint: RESPIRATORY PROBLEMS Stated Complaint: SHORTNESS OF BREATH History of Present Illness The patient is an 82 year old female who presents to the Emergency Room via EMS with complaints of worsening shortness of breath that started 2 weeks ago. Per the nursing staff, the patient's shortness of breath worsened overnight, and she is now "wheezing throughout". The patient says that she has had a productive cough for about a week with green sputum. The patient was noted by EMS to have an oxygen saturation of 80% on room air, and the patient's family notes that the patient does not wear oxygen at home. She received a nebulizer and albuterol treatment in the ambulance, and her shortness of breath has gotten better. The patient denies any current pain. She says that she is not currently on any antibiotics, and has not seen a doctor since the symptoms started. Source of History: patient, family, nursing staff Onset: 2 days ago Position: other (global) Symptom Intensity: 80% on room air upon EMS arrival Quality: other (shortness of breath) Timing: worsening Associated Symptoms: + cough (with green phlegm) Note: Associated symptoms: Denies any pain. Review of Systems See HPI for pertinent positives & negatives. A total of 10 systems reviewed and were otherwise negative. Past Medical & Surgical Medical Problems: (1) Acute respiratory failure with hypoxia (2) Bronchitis (3) Cellulitis (4) Cellulitis of right toe (5) Dementia (6) DIAB KAREEM WO COMPL, TYPE II OR UNSPEC TYPE, NOT UNCNTRLD (7) Diabetic infection of left foot (8) DIVERTICULOSIS COLON (W/O MENT OF HEMORRHAGE) (9) Diverticulosis of colon without hemorrhage (10) Esophageal reflux (11) GOUT NOS (12) HYPERTENSION NOS (13) Hyponatremia (14) HYPOTHYROIDISM NOS (15) Hypoxia (16) Mental status change (17) Osteomyelitis (18) Pneumonia (19) Unspecified sleep apnea (20) URI (upper respiratory infection) Family History FH: heart disease Social History Smoking Status: Never Smoker Alcohol Use: none Drug Use: none Occupation Status: retired Current/Historical Medications Scheduled Allopurinol (Zyloprim), 100 MG PO QAM Amlodipine Besylate (Norvasc), 1 TAB PO DAILY Aspirin (Aspirin Ec), 81 MG PO QAM Atorvastatin (Lipitor), 40 MG PO QAM Calcium Carbonate-Cholecalcife (Caltrate 600+D), 1 TAB PO BID Donepezil Hydrochloride (Aricept), 10 MG PO HS Enalapril (Vasotec), 10 MG PO QAM Furosemide (Lasix), 20 MG PO Q2D Insulin Glargine (Lantus), 25 UNITS SC BID Levothyroxine Sodium (Levothyroxine Sodium), 175 MCG PO DAILY Memantine (Namenda), 10 MG PO BID Metoprolol Tartrate (Lopressor) (Lopressor), 50 MG PO QAM Metoprolol Tartrate (Lopressor) (Lopressor), 25 MG PO QPM Multiple Vitamin (Multivitamin), 1 TAB PO DAILY@1200 Nystatin (Topical) (Nystatin), 1 APPLN TOP TID Olanzapine (Zyprexa), 2.5 MG PO HS Omeprazole (Prilosec), 20 MG PO DAILY@1200 Polyethylene Glycol 3350 (Miralax), 17 GM PO 5XWK Quetiapine Fumarate (Seroquel), 100 MG PO HS Venlafaxine Hcl (Venlafaxine Extended Rel), 75 MG PO DAILY Scheduled PRN Insulin Aspart (Novolog), 5 UNITS SC TIDM PRN for Hyperglycemia Protocol Allergies Coded Allergies: No Known Allergies (Unverified , 01/14/18) Physical Exam Vital Signs Date Time Temp Pulse Resp B/P (MAP) Pulse Ox O2 Delivery O2 Flow Rate FiO2 01/14/18 09:00 76 19 122/61 98 Nasal Cannula 2.0 01/14/18 08:00 76 14 113/48 99 Nasal Cannula 2.0 01/14/18 07:35 76 15 112/49 99 Nasal Cannula 2.0 01/14/18 07:25 Nasal Cannula 2.0 01/14/18 07:07 84 01/14/18 07:03 78 14 97/86 100 Nebulizer 01/14/18 06:45 Nasal Cannula 3.0 01/14/18 06:43 37.4 75 24 145/66 97 Nasal Cannula 01/14/18 06:43 88 Room Air Physical Exam CONSTITUTIONAL/VITAL SIGNS: Reviewed / noted above. GENERAL: Non-toxic in appearance. INTEGUMENTARY: Warm, dry, and [place]. HEAD: Normocephalic. EYES: without scleral icterus or trauma. ENT/OROPHARYNX: clear and moist. LYMPHADENOPATHY/NECK: Is supple without lymphadenopathy or meningismus. RESPIRATORY: Increased work of breathing with scattered wheezes. Mild upper airway stridulous noises. Productive cough with yellow/green sputum. CARDIOVASCULAR: Regular rate and rhythm. GI/ABDOMEN: Soft and nontender. No organomegaly or pulsatile mass. No rebound or guarding. Normal bowel sounds. EXTREMITIES: Warm and well perfused. BACK: No CVA tenderness. NEUROLOGICAL: Intact without focal deficits. PSYCHIATRIC: normal affect. MUSCULOSKELETAL: Normally developed with good muscle tone. Medical Decision & Procedures ER Provider Diagnostic Interpretation: X ray results and stated below per my interpretation and radiology interpretation. CHEST ONE VIEW PORTABLE HISTORY: Shortness of breath. COMPARISON: Chest 12/08/2017. FINDINGS: There are low lung volumes. Bibasilar densities favor subsegmental atelectasis. There is mild central pulmonary vascular congestion without overt edema. The heart remains top normal in size. No pleural effusions. No pneumothorax. IMPRESSION: 1. Mild central pulmonary vascular congestion without overt edema. 2. Bibasilar densities favor atelectasis. Electronically signed by: Les Ibarra M.D. 01/14/2018 7:44 AM Dictated Date/Time: 01/14/2018 7:42 AM Laboratory Results 01/14/18 06:20 Red Blood Count 3.97, Mean Corpuscular Volume 91.9, Mean Corpuscular Hemoglobin 32.2, Mean Corpuscular Hemoglobin Concent 35.1, Mean Platelet Volume , Neutrophils (%) (Auto) 76.0, Lymphocytes (%) (Auto) 11.7, Monocytes (%) (Auto) 11.5, Eosinophils (%) (Auto) 0.1, Basophils (%) (Auto) 0.1, Neutrophils # (Auto ) 7.07, Lymphocytes # (Auto) 1.09, Monocytes # (Auto) 1.07, Eosinophils # (Auto ) 0.01, Basophils # (Auto) 0.01 01/14/18 06:20 Test 01/14/18 06:20 01/14/18 07:08 01/14/18 07:13 White Blood Count 9.31 K/uL (4.8-10.8) Red Blood Count 3.97 M/uL (4.2-5.4) Hemoglobin 12.8 g/dL (12.0-16.0) Hematocrit 36.5 % (37-47) Mean Corpuscular Volume 91.9 fL (80-100) Mean Corpuscular Hemoglobin 32.2 pg (25-34) Mean Corpuscular Hemoglobin Concent 35.1 g/dl (32-36) Platelet Count K/uL (130-400) Mean Platelet Volume fL (7.4-10.4) Neutrophils (%) (Auto) 76.0 % Lymphocytes (%) (Auto) 11.7 % Monocytes (%) (Auto) 11.5 % Eosinophils (%) (Auto) 0.1 % Basophils (%) (Auto) 0.1 % Neutrophils # (Auto) 7.07 K/uL (1.4-6.5) Lymphocytes # (Auto) 1.09 K/uL (1.2-3.4) Monocytes # (Auto) 1.07 K/uL (0.11-0.59) Eosinophils # (Auto) 0.01 K/uL (0-0.5) Basophils # (Auto) 0.01 K/uL (0-0.2) RDW Standard Deviation 46.9 fL (36.4-46.3) RDW Coefficient of Variation 13.9 % (11.5-14.5) Immature Granulocyte % (Auto) 0.6 % Immature Granulocyte # (Auto) 0.06 K/uL (0.00-0.02) Prothrombin Time 10.5 SECONDS (9.0-12.0) Prothromb Time International Ratio 1.0 (0.9-1.1) Activated Partial Thromboplast Time 26.3 SECONDS (21.0-31.0) Partial Thromboplastin Ratio 1.0 Anion Gap 7.0 mmol/L (3-11) Est Creatinine Clear Calc Drug Dose 39.3 ml/min Estimated GFR () 48.6 Estimated GFR (Non- 41.9 BUN/Creatinine Ratio 14.3 (10-20) Calcium Level 9.5 mg/dl (8.5-10.1) Total Bilirubin 0.5 mg/dl (0.2-1) Direct Bilirubin 0.1 mg/dl (0-0.2) Aspartate Amino Transf (AST/SGOT) 21 U/L (15-37) Alanine Aminotransferase (ALT/SGPT) 32 U/L (12-78) Alkaline Phosphatase 154 U/L (45-117) Total Creatine Kinase 103 U/L (26-192) Creatine Kinase MB 3.2 ng/ml (0.5-3.6) Creatine Kinase MB Ratio 3.1 (0-3.0) Troponin I < 0.015 ng/ml (0-0.045) Total Protein 7.5 gm/dl (6.4-8.2) Albumin 3.4 gm/dl (3.4-5.0) Influenza Type A Antigen Neg for Influ A (NEG) Influenza Type B Antigen Neg for Influ B (NEG) Lactic Acid Level 1.1 mmol/L (0.4-2.0) Laboratory results as stated above per my review. Medications Administered Medications (Trade) Dose Ordered Sig/Edilberto Route Start Time Stop Time Status Last Admin Dose Admin Albuterol/ Ipratropium (Duoneb) 3 ml NOW STAT INH 01/14/18 06:55 01/14/18 06:58 DC 01/14/18 07:23 3 ML Piperacillin Sod/ Tazobactam Sod 4.5 gm/Dextrose 120 ml @ 200 mls/hr Q6 STAT IV 01/14/18 06:55 01/14/18 07:30 DC 01/14/18 07:32 200 MLS/HR Levofloxacin 750 mg/Prmx 150 ml @ 100 mls/hr Q24H STAT IV 01/14/18 06:55 01/14/18 08:24 DC 01/14/18 08:33 100 MLS/HR ECG Per My Interpretation Indication: SOB/dyspnea Rate (beats per minute): 80 Rhythm: normal sinus Findings: no ectopy, other (no ST elevation) ED Course 0644: Previous medical records were reviewed. The patient was evaluated in room B6. A complete history and physical examination was performed. 0655: Levofloxacin 750 mg/Prmx 150 ml @ 100 mls/hr IV, Piperacillin Sod/ Tazobactam Sod 4.5 gm/Dextrose 120 ml @ 200 mls/hr IV, DuoNeb 3 ml INH. 0820: Discussed the patient's case with Dr. Salud JOHNSTON [employer]. The patient will be evaluated for further treatment and disposition. 0823: On reevaluation, the patient is resting comfortably. I discussed the results and findings with her. She verbalized agreement of the treatment plan. The patient will be evaluated for further management and care. Medical Decision Differentials considered include acute myocardial infarction, acute coronary syndrome, myocarditis, pericarditis, pericardial effusions /tamponade, esophageal perforation, pulmonary embolism, pneumonia, pneumothorax, cardiomyopathy, congestive heart, anemia, and COPD/asthma exacerbation. This is a 82-year-old female who presents to the ED with a chief complaint of shortness of breath and a productive cough. The patient's symptoms started a couple of days ago. The patient reported it started about a week ago but the daughter states 2 or 3 days ago. She has had a cough with a productive yellow and green sputum. Overnight she has become increasingly short of breath. She has been wheezing. The patient was found to have a pulse ox of 80% on room air. She does not use home oxygen. The patient was given a DuoNeb treatment by EMS in route. The patient does have a history of insulin-dependent diabetes. Her exam reveals scattered wheezing in the bilateral lung marin. She also has some mild upper airway stridorous noises at times. Her vital signs here revealed a pulse ox of 86% on room air. She is currently not febrile. Chest x-ray reveals some mild central pulmonary congestion without overt pulmonary edema. There was atelectasis but no obvious infiltrate. CBC is normal and lactate was normal. Sodium was 123 and glucose is 248. Troponin was negative. The patient was treated with a DuoNeb treatment as well as some IV antibiotics including IV Levaquin and IV Zosyn. Because of the patient's hypoxia and requirement for oxygen here, the patient will be seen by the hospitalist service for further inpatient evaluation and care. Medication Reconcilliation Current Medication List: was personally reviewed by me Blood Pressure Screening Patient's blood pressure: Normal blood pressure Consults Time Called: [phone] Consulting Physician: Dr. Salud JOHNSTON [employer] Returned Call: [phone] Discussed the patient's case with Dr. Salud JOHNSTON [employer]. The patient will be evaluated for further treatment and disposition. Impression Primary Impression: Pneumonia Additional Impressions: Hypoxia Hyponatremia Generalized weakness Scribe Attestation The scribe's documentation has been prepared under my direction and personally reviewed by me in its entirety. I confirm that the note above accurately reflects all work, treatment, procedures, and medical decision making performed by me. Departure Information Dispostion Being Evaluated By Hospitalist Referrals Luis Siddiqui M.D. (PCP) Patient Instructions [facility] Problem Qualifiers Primary Impression: Pneumonia
[2018-01-14] MEDS: INSULIN ASPART 100 UNITS/ML 3 ML PEN SC SCH ×3 (12:48→21:39)
[2018-01-14] MEDS: METHYLPREDNISOLONE IV 80 MG in SYRINGE 0 ML IV SCH ×2 (13:11→21:42)
[2018-01-14] MEDS: HEPARIN SOD 5000 UNIT/0.5 ML CARP SQ SCH (13:14)
[2018-01-14] MEDS ORDERED: HYDROCORTISONE 2.5% CR 30 GM TUBE EXT PRN (13:15)
[2018-01-14] MEDS: ALBUT/IPRATROP 3MG/0.5MG NEB 3 ML VIAL INH SCH ×3 (13:56→19:18)
[2018-01-14 14:50] LABS: CALCIUM 9.1 mg/dl (8.5-10.1); CREATININE 1.39 mg/dl (0.60-1.20); POTASSIUM 4.6 mmol/L (3.5-5.1)
[2018-01-14] MEDS: GUAIFENESIN 600 MG TABCR PO SCH (19:47)
[2018-01-15] VITALS (14 sets, daily range): BP systolic 149–196; BP diastolic 69–93; PULSE 90–119; TEMP 36.8–37.3; O2SAT 93–98; BMI 44.0
[2018-01-15] MEDS: INSULIN GLARGINE SOLOSTAR 100 UNITS/ML 3 ML PEN SC SCH ×3 (03:58→21:33)
[2018-01-15] MEDS: HEPARIN SOD 5000 UNIT/0.5 ML CARP SQ SCH ×4 (03:59→21:35)
[2018-01-15] MEDS: METHYLPREDNISOLONE IV 80 MG in SYRINGE 0 ML IV SCH ×2 (05:48→16:59)
[2018-01-15] MEDS: ALBUT/IPRATROP 3MG/0.5MG NEB 3 ML VIAL INH SCH (06:59)
[2018-01-15] MEDS: GUAIFENESIN 600 MG TABCR PO SCH ×2 (07:27→21:29)
[2018-01-15 07:29] LABS: BASO % 0.1 %; BASO ABS # 0.01 K/uL (0-0.2); HEMATOCRIT 37.9 % (37-47); HEMOGLOBIN 13.1 g/dL (12.0-16.0); IG# 0.11 K/uL (0.00-0.02); LYMPH % 9.5 %; LYMPH ABS # 0.86 K/uL (1.2-3.4); MEAN CELL VOLUME 91.5 fL (80-100); MEAN CORPUSCULAR HEMOGLOBIN 31.6 pg (25-34); MEAN CORPUSCULAR HGB CONC 34.6 g/dl (32-36); MEAN PLATELET VOLUME 11.2 fL (7.4-10.4); MONO % 2.8 %; MONO ABS # 0.25 K/uL (0.11-0.59); NEUT % 86.4 %; NEUT ABS # 7.85 K/uL (1.4-6.5); NUCLEATED RED BLOOD CELL ABS 0.05 K/uL (0-0); PLATELET COUNT 132 K/uL (130-400); RED CELL DISTRIBUTION WIDTH CV 14.1 % (11.5-14.5); RED CELL DISTRIBUTION WIDTH SD 47.1 fL (36.4-46.3); WHITE BLOOD COUNT 9.08 K/uL (4.8-10.8)
[2018-01-15 07:47] LABS: CALCIUM 9.7 mg/dl (8.5-10.1); CREATININE 1.24 mg/dl (0.60-1.20); POTASSIUM 4.7 mmol/L (3.5-5.1)
[2018-01-15] MEDS: INSULIN ASPART 100 UNITS/ML 3 ML PEN SC SCH ×4 (07:53→21:34)
[2018-01-15 08:14] LABS: HEMOGLOBIN A1C 8.8 % (4.5-5.6)
--- NOTE | 2018-01-15 08:31 | Hospitalist Progress Note ---
Hospitalist Progress Note Date of Service January 15, 2018. (Brenda Cornell PA-C) Subjective Pt evaluation today including: conversation w/ patient, physical exam, chart review, lab review, review of studies Pain: none PO Intake: Good Voiding: webb catheter in place The patient was seen and examined this morning. Pt is mumbling random phrases/ words/talking to herself upon entry to the room - however per family upon admission this is her baseline with her known dx of dementia. She denies any acute complaints of pain and feels her breathing is slightly better today compared to baseline. She is still wearing 2L O2 and typically doesn't wear at home. Her cough has yellow-clear/white sputum production. She denies fever, chills or sweats. She denies shortness of breath at rest. She denies feeling any chest tightness or palpitation/flutter. Pt has no other acute complaints. Constitutional: No fever, No chills, No sweats, No fatigue Eyes: No discharge, No diplopia ENT: No sore throat, No trouble swallowing Respiratory: + cough, + sputum, + wheezing, No shortness of breath, No dyspnea at rest Cardiovascular: No chest pain, No edema, No palpitations Abdomen: No pain, No nausea, No vomiting, No diarrhea, No constipation Musculoskeletal: No joint pain, No muscle pain, No swelling, No calf pain Neurologic: No weakness, No numbness/tingling Psychiatric: + problem reported (dementia) Skin: No rash, No itch (Brenda Cornell PA-C) Objective Vital Signs Date Time Temp Pulse Resp B/P (MAP) Pulse Ox O2 Delivery O2 Flow Rate FiO2 01/15/18 07:02 114 20 96 Nasal Cannula 2.0 01/15/18 06:23 37.2 119 21 164/75 (104) 96 Nasal Cannula 2.0 01/15/18 04:46 94 Nasal Cannula 2.0 01/15/18 03:45 36.8 90 21 160/69 (99) 97 Nasal Cannula 2.0 01/15/18 00:00 94 Nasal Cannula 2.0 01/14/18 23:10 37.4 98 22 183/76 (111) 97 Nasal Cannula 2.0 01/14/18 20:00 94 Nasal Cannula 2.0 01/14/18 19:37 36.9 100 20 168/70 (102) 94 2.0 01/14/18 19:18 88 20 95 Nasal Cannula 2.0 01/14/18 16:00 Nasal Cannula 2.0 01/14/18 15:58 37.3 81 20 159/79 (105) 97 Nasal Cannula 2.0 01/14/18 14:36 61 20 100 Nasal Cannula 2.0 01/14/18 12:00 Nasal Cannula 2.0 01/14/18 12:00 36.4 82 24 163/77 (105) 93 Nasal Cannula 2.0 01/14/18 10:52 68 18 113/59 96 01/14/18 09:29 98 Nasal Cannula 2.0 01/14/18 09:00 76 19 122/61 98 Nasal Cannula 2.0 (Brenda Cornell PA-C) Physical Exam Notes: General Appearance: WD/WN, no apparent distress, + morbidly obese Head: normocephalic, atraumatic Eyes: PERRL, EOMI ENT: hearing grossly normal, pharynx normal, MMM Neck: supple, + pertinent finding (JVD difficult to assess due to body habitus) Respiratory/Chest: no accessory muscle use, + pertinent finding (on 2 L via NC , mild expiratory wheeze more on the L compared to R, faint crackles at bases, no dyspnea with minimal movement Cardiovascular: regular rate, rhythm, + systolic murmur (grade III/ at LSB) Abdomen/GI: normal bowel sounds, non tender, soft Back: normal inspection Extremities/Musculoskelatal: no calf tenderness, + pedal edema (trace pitting in ankles) Neurologic/Psych: alert, oriented to self and place, + dementia, + talking to self and mumbling phrases upon entry into pt room, follows commands, answers appropriately Skin: normal color, warm/dry (Brenda Cornell PA-C) Laboratory Results Last 24 Hours Test 01/14/18 10:03 01/14/18 11:34 01/14/18 14:04 01/14/18 16:18 Venous Blood pH 7.32 Venous Blood Partial Pressure CO2 72 mmHg Venous Blood Partial Pressure O2 33 mmHg Venous Blood HCO3 36 mmol/L Venous Blood Oxygen Saturation < 60.0 % Venous Blood Base Excess 8.1 mEq/L Bedside Glucose 287 mg/dl 195 mg/dl Sodium Level 124 mmol/L Potassium Level 4.6 mmol/L Chloride Level 83 mmol/L Carbon Dioxide Level 37 mmol/L Anion Gap 4.0 mmol/L Blood Urea Nitrogen 17 mg/dl Creatinine 1.39 mg/dl Est Creatinine Clear Calc Drug Dose 34.2 ml/min Estimated GFR () 41.1 Estimated GFR (Non- 35.5 BUN/Creatinine Ratio 12.4 Random Glucose 244 mg/dl Calcium Level 9.1 mg/dl Test 01/14/18 20:45 01/15/18 07:18 01/15/18 07:27 Bedside Glucose 317 mg/dl 330 mg/dl White Blood Count 9.08 K/uL Red Blood Count 4.14 M/uL Hemoglobin 13.1 g/dL Hematocrit 37.9 % Mean Corpuscular Volume 91.5 fL Mean Corpuscular Hemoglobin 31.6 pg Mean Corpuscular Hemoglobin Concent 34.6 g/dl Platelet Count 132 K/uL Mean Platelet Volume 11.2 fL Neutrophils (%) (Auto) 86.4 % Lymphocytes (%) (Auto) 9.5 % Monocytes (%) (Auto) 2.8 % Eosinophils (%) (Auto) 0.0 % Basophils (%) (Auto) 0.1 % Neutrophils # (Auto) 7.85 K/uL Lymphocytes # (Auto) 0.86 K/uL Monocytes # (Auto) 0.25 K/uL Eosinophils # (Auto) 0.00 K/uL Basophils # (Auto) 0.01 K/uL RDW Standard Deviation 47.1 fL RDW Coefficient of Variation 14.1 % Immature Granulocyte % (Auto) 1.2 % Immature Granulocyte # (Auto) 0.11 K/uL Nucleated RBC Absolute Count (auto) 0.05 K/uL Nucleated Red Blood Cells % 0.6 % Sodium Level 125 mmol/L Potassium Level 4.7 mmol/L Chloride Level 85 mmol/L Carbon Dioxide Level 34 mmol/L Anion Gap 7.0 mmol/L Blood Urea Nitrogen 17 mg/dl Creatinine 1.24 mg/dl Est Creatinine Clear Calc Drug Dose 38.3 ml/min Estimated GFR () 47.2 Estimated GFR (Non- 40.7 BUN/Creatinine Ratio 14.0 Random Glucose 312 mg/dl Estimated Average Glucose 206 mg/dl Hemoglobin A1c 8.8 % Calcium Level 9.7 mg/dl Beta-Hydroxybutyric Acid 9.93 mg/dL (Brenda Cornell, JEANETH) Assessment and Plan 82 y/o female with a history of HTN, HLD, DM II, hypothyroidism, hyponatremia, anxiety/depression, dementia, gout, KELI not on cpap, and GERD who presents with acute respiratory failure with hypoxia. Acute respiratory failure with hypoxia and hypercarbia - Possibly secondary to reactive airway disease and/or viral illness vs PNA - Flu swab neg - Decrease solu-Medrol 80 mg IV q12h, levaquin IV renally dosed (started 01/14) - Change duonebs to xopenex due to sinus tach on tele overnight - Cont o2 protocol (does not wear O2 at baseline but requiring 2 L here), mucinex, incentive spirometry, flutter, sputum culture in process - Continue formoterol BID, was given a Combivent inhaler prn SOB/wheezing at time of dc last time but per family pt not using this at home. - VBG showed hypercarbia - pt was not placed on bipap yesterday. - No WBC, VSS - Follow BCx x 2 - contaminated UA, UCx in process - CXR showing mild central pulmonary edema and bibasilar atelectasis but not specifically pneumonia - however we will treat as such with acute onset of sx. Sinus Tachycardia - Elevated HR into low 100s compared to baseline of 70-80s yesterday, possibly due to acute infection vs duoneb treatments - Will change to xopenex as above. - pt is asymptomatic - Obtain EKG if status changes or if trend not improving - follow on tele Hyponatremia - Appears to be acute on chronic - NA 125 today and slightly improved, Fluid restriction to 1500mL. consider 1x dose of Lasix 20 mg IV as she does appear slightly volume overloaded to see if this improved sodium. - Possibly SIADH with urine osm = 395, random urine sodium= 44 - Follow prp HTN HLD - ASA 81 mg, enalapril 10 mg PO qd, Lopressor 50 mg PO qam and 25 mg PO qpm, Lipitor 40 mg PO qd, amlodipine 10 mg daily DM II--HgbA1c 8.6 on 09/13/17 - Lantus 25 U BID at home- previous admissions show she has tolerated Lantus 25 U BID, will tighten to CF: 8 and carb ratio of 3 - wean solumedrol as above - ISS with accuchecks - Check BSGs q ac and qhs CKD stage III - Cr. 1.24, stable, baseline= 1.2-1.3 - follow prp daily Hypothyroidism - Continue Synthroid 175 mcg PO qd Anxiety, depression, dementia--stable -Continue Effexor 150 mg PO qd, Seroquel 100 mg PO hs, Aricept 10 mg PO hs, Namenda 10 mg PO daily, zyprexa 2.5 mg daily - Has caregivers 27/03 at home. Lives with daughter- granddaughter also there for additional care Gout -Continue allopurinol 100 mg PO qd KELI, morbid obesity w/ BMI 44.1 -Does not tolerate cpap and not wearing at home. DVT prophylaxis: heparin Q8H CODE: DNR, living will on chart, discussed with family. Disposition: From home, lives with daughterChapis. PT/OT to [facility] to assist with dc planning. (Brenda Cornell, JEANETH) PA Physician Supervision Note: I interviewed and examined the patient. Discussed with Brenda Cornell PAC and agree with findings and plan as documented in the note. Any exceptions or clarifications are listed here: None This patient is mildly confused but she says she feels better than yesterday or she still has fairly mild to moderate work of breathing she says she has been coughing white mucus but no other focal complaints Vital signs temperature 37 0 pulse is 110 respiration rate is 18 BP 149/79 Her cardiac exam is mildly tachycardic but appears regular her lungs have expiratory wheezes in all lung marin with poor air movement throughout her abdomen soft and nontender extremities with trace edema Patient is here with a acute respiratory failure with hypoxia likely exacerbation of reactive airway or COPD. She is being treated for bronchitis and her intravenous steroid use is made her diabetes more difficult to control where employing sliding scale coverage for that her oral metoprolol have been initially held this will be restarted and hopefully help her tachycardia which is also exacerbated by her inhaled medications Documented By: Javy French (Javy French M.D.)
[2018-01-15] MEDS ORDERED: LEVALBUTEROL 1.25MG/3ML NEB INH PRN (10:30)
[2018-01-15] MEDS: LEVALBUTEROL 1.25MG/3ML NEB INH SCH ×2 (14:03→19:39)
[2018-01-15] MEDS ORDERED: METOPROLOL TARTRATE 25 MG TAB PO ONE (14:15)
[2018-01-15] MEDS: FUROSEMIDE 20 MG TAB PO SCH (15:42)
[2018-01-15] MEDS: ONDANSETRON INJ 2 MG/ML 2 ML VIAL IV PRN ×2 (16:58→16:59)
[2018-01-15] MEDS: MEMANTINE 10 MG TAB PO SCH (21:28)
[2018-01-15] MEDS: DONEPEZIL HCL 10 MG TAB PO SCH (21:28)
[2018-01-15] MEDS: METOPROLOL TARTRATE 25 MG TAB PO SCH (21:29)
[2018-01-15] MEDS: QUETIAPINE FUMARATE 100 MG TAB PO SCH (21:29)
[2018-01-15] MEDS: OLANZAPINE 2.5 MG TAB PO SCH (21:29)
[2018-01-16] VITALS (15 sets, daily range): BP systolic 134–175; BP diastolic 70–81; PULSE 67–98; TEMP 36.4–37; O2SAT 92–100; Ht 152.4 cm; Wt 98.3 kg
[2018-01-16] MEDS: LEVALBUTEROL 1.25MG/3ML NEB INH SCH ×4 (02:11→19:08)
[2018-01-16] MEDS: METHYLPREDNISOLONE IV 80 MG in SYRINGE 0 ML IV SCH (05:40)
[2018-01-16] MEDS: HEPARIN SOD 5000 UNIT/0.5 ML CARP SQ SCH ×3 (05:41→20:57)
[2018-01-16] MEDS: LEVOTHYROXINE 175 MCG TAB PO SCH (05:42)
[2018-01-16] MEDS: INSULIN ASPART 100 UNITS/ML 3 ML PEN SC SCH ×4 (07:32→20:56)
[2018-01-16] MEDS: INSULIN GLARGINE SOLOSTAR 100 UNITS/ML 3 ML PEN SC SCH ×2 (07:33→20:57)
[2018-01-16] MEDS: ALLOPURINOL 100 MG TAB PO SCH (07:36)
[2018-01-16] MEDS: AMLODIPINE BESYLATE 5 MG TAB PO SCH (07:36)
[2018-01-16] MEDS: MEMANTINE 10 MG TAB PO SCH ×2 (07:37→20:52)
[2018-01-16] MEDS: ENALAPRIL MALEATE 10 MG TAB PO SCH (07:37)
[2018-01-16] MEDS: ASPIRIN 81 MG ECTAB PO SCH (07:37)
[2018-01-16] MEDS: METOPROLOL TARTRATE 50 MG TAB PO SCH (07:37)
[2018-01-16] MEDS: ATORVASTATIN 40 MG TAB PO SCH (07:37)
[2018-01-16] MEDS: LEVOFLOXACIN 750 MG TAB PO SCH (07:37)
[2018-01-16] MEDS: GUAIFENESIN 600 MG TABCR PO SCH ×2 (07:37→20:51)
[2018-01-16] MEDS: VENLAFAXINE HCL XR 75 MG CAPXR PO SCH (07:37)
[2018-01-16 07:47] LABS: HEMATOCRIT 35.1 % (37-47); HEMOGLOBIN 11.7 g/dL (12.0-16.0); MEAN CELL VOLUME 93.6 fL (80-100); MEAN CORPUSCULAR HEMOGLOBIN 31.2 pg (25-34); MEAN CORPUSCULAR HGB CONC 33.3 g/dl (32-36); NUCLEATED RED BLOOD CELL ABS 0.03 K/uL (0-0); RED CELL DISTRIBUTION WIDTH CV 14.7 % (11.5-14.5); RED CELL DISTRIBUTION WIDTH SD 49.8 fL (36.4-46.3); WHITE BLOOD COUNT 12.23 K/uL (4.8-10.8)
[2018-01-16] MEDS ORDERED: LEVOFLOXACIN / D5W 750 MG in PREMIXED IN D5W 150 ML IV SCH (08:00)
[2018-01-16] MEDS ORDERED: INSULIN GLARGINE SOLOSTAR 100 UNITS/ML 3 ML PEN SC ONE (08:00)
--- NOTE | 2018-01-16 08:20 | Hospitalist Progress Note ---
Hospitalist Progress Note Date of Service January 16, 2018. (Brenda Cornell PA-C) Subjective Pt evaluation today including: conversation w/ patient, physical exam, chart review, lab review, review of studies Pain: None PO Intake: Good Voiding: webb catheter in place The patient was seen and examined this morning. Pt reports doing well, she is asleep upon entry but wakes up. She feels her breathing has improved overall, minimal cough, less productive. She denies any chest pain, shortness of breath. She has not yet gotten up to walk with PT/OT. Constitutional: No fever, No chills, No sweats Eyes: No redness, No diplopia ENT: No nasal symptoms, No trouble swallowing Respiratory: + see HPI, + cough, + sputum, No shortness of breath, No dyspnea at rest Cardiovascular: No chest pain, No edema, No palpitations Abdomen: No pain, No nausea, No vomiting, No diarrhea, No constipation Musculoskeletal: No joint pain Skin: No rash, No itch (Brenda Cornell PA-C) Objective Vital Signs Date Time Temp Pulse Resp B/P (MAP) Pulse Ox O2 Delivery O2 Flow Rate FiO2 01/16/18 07:16 83 18 96 Nasal Cannula 2.0 01/16/18 06:47 36.8 77 19 175/79 (111) 100 Nasal Cannula 2.0 01/16/18 04:00 98 Nasal Cannula 2.0 01/16/18 03:15 37.0 86 21 145/79 (101) 98 Nasal Cannula 01/16/18 02:11 98 18 95 Nasal Cannula 2.0 01/16/18 00:01 95 Nasal Cannula 2.0 01/15/18 23:10 37.3 112 22 177/93 (121) 94 Nasal Cannula 2.0 01/15/18 20:00 95 Nasal Cannula 2.0 01/15/18 19:44 112 20 176/88 (117) 95 Nasal Cannula 2.0 01/15/18 16:10 94 Nasal Cannula 2.0 01/15/18 15:22 37.3 109 20 163/76 (105) 93 Nasal Cannula 2.0 01/15/18 14:03 112 20 98 Nasal Cannula 2.0 01/15/18 12:16 37.0 110 18 149/79 (102) 97 Room Air 01/15/18 12:10 94 Nasal Cannula 2.0 (Brenda Cornell PA-C) Physical Exam Notes: General Appearance: WD/WN, no apparent distress, + morbidly obese Head: normocephalic, atraumatic Eyes: PERRL, EOMI ENT: hearing grossly normal, pharynx normal, MMM Neck: supple, + pertinent finding (JVD difficult to assess due to body habitus) Respiratory/Chest: no accessory muscle use, + pertinent finding (on 2 L via NC , faint expiratory wheeze more on the L compared to R - improved overall, no crackles, no dyspnea with minimal movement Cardiovascular: regular rate, rhythm, + systolic murmur (grade III/ at LSB) Abdomen/GI: normal bowel sounds, non tender, soft, +webb cath in place draining clear yellow urine Back: normal inspection Extremities/Musculoskeletal: no calf tenderness, + pedal edema (trace pitting in ankles) Neurologic/Psych: alert, oriented to self and place, + dementia, follows commands, answers appropriately Skin: normal color, warm/dry (Brenda Cornell PA-C) Laboratory Results Last 24 Hours Test 01/15/18 11:24 01/15/18 16:18 01/15/18 19:45 01/16/18 06:37 Bedside Glucose 336 mg/dl 207 mg/dl 196 mg/dl White Blood Count 12.23 K/uL Red Blood Count 3.75 M/uL Hemoglobin 11.7 g/dL Hematocrit 35.1 % Mean Corpuscular Volume 93.6 fL Mean Corpuscular Hemoglobin 31.2 pg Mean Corpuscular Hemoglobin Concent 33.3 g/dl RDW Standard Deviation 49.8 fL RDW Coefficient of Variation 14.7 % Nucleated RBC Absolute Count (auto) 0.03 K/uL Nucleated Red Blood Cells % 0.3 % Test 01/16/18 07:22 Bedside Glucose 416 mg/dl (Brenda Cornell PA-C) Assessment and Plan 82 y/o female with a history of HTN, HLD, DM II, hypothyroidism, hyponatremia, anxiety/depression, dementia, gout, KELI not on cpap, and GERD who presents with acute respiratory failure with hypoxia. Acute respiratory failure with hypoxia and hypercarbia - Possibly secondary to reactive airway disease and/or viral illness vs PNA - Flu swab neg - Decrease solu-Medrol 40 mg IV q12h, levaquin switched to PO and renally dosed (started 01/14) - Change duonebs to xopenex - Cont o2 protocol (does not wear O2 at baseline but requiring 2 L here), mucinex, incentive spirometry, flutter, sputum culture with normal pharyngeal cayetano - Continue formoterol BID, was given a Combivent inhaler prn SOB/wheezing at time of dc last time but per family pt not using this at home. - VBG showed hypercarbia - pt did not require bipap - No WBC, VSS - Follow BCx x 2 - contaminated UA, UCx in process - CXR showing mild central pulmonary edema and bibasilar atelectasis but not specifically pneumonia - however we will treat as such with acute onset of sx. Sinus Tachycardia - resolved - Elevated HR worsened dt held BB initially and possibly due to acute infection vs duoneb treatments- xopenex as above. 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 Resume PO lasix 20 mg Q2D. - urine osm = 395, random urine sodium= 44 - Follow prp HTN HLD - ASA 81 mg, enalapril 10 mg PO qd, Lopressor 50 mg PO qam and 25 mg PO qpm, Lipitor 40 mg PO qd, amlodipine 10 mg daily DM II--HgbA1c 8.6 on 09/13/17 - Lantus 25 U BID at home- previous admissions show she has tolerated Lantus 25 U BID, will tighten to CF: 8 and carb ratio of 3 - wean solumedrol as above Given extra dose Lantus 10 U this morning, further tightened carb coverage - can give additional Lantus if needed today - ISS with accuchecks - Check BSGs q ac and qhs CKD stage III - Cr. 1.22, stable, baseline= 1.2-1.3 - follow prp daily Hypothyroidism - Continue Synthroid 175 mcg PO qd Anxiety, depression, dementia--stable -Continue Effexor 150 mg PO qd, Seroquel 100 mg PO hs, Aricept 10 mg PO hs, Namenda 10 mg PO daily, zyprexa 2.5 mg daily - Has caregivers 27/03 at home. Lives with daughter- granddaughter also there for additional care Gout -Continue allopurinol 100 mg PO qd KELI, morbid obesity w/ BMI 44.1 -Does not tolerate cpap and not wearing at home. DVT prophylaxis: heparin Q8H CODE: DNR, living will on chart, discussed with family. Disposition: From home, lives with daughterChapis. PT/OT to [facility] to assist with dc planning. (Brenda Cornell, JEANETH) PA Physician Supervision Note: I interviewed and examined the patient. Discussed with Brenda Cornell PAC and agree with findings and plan as documented in the note. Any exceptions or clarifications are listed here: None Patient is slightly more confused today her glucoses are more out of control however her breathing is improved subsequently we have tapered her steroids adjusted her sliding scale insulin giving an additional augmented dose of Lantus expecting her glucose to come down as we have reduced her steroids were maintaining treatment for suspected bronchitis present on admission which exacerbates her giving her acute on chronic respiratory failure with hypoxia and hypercarbia Vital signs are today stable 37, 77, 175/79 and O2 96 on supplemental oxygen. Her heart rate is better controlled after reinstituting her beta-kashif lungs have coarse breath sounds in all lung marin much less wheezing her cardiac exam is regular Continuing aggressive treatment of her acute on chronic respiratory failure with intravenous steroids nebulized medications controlling her glucose which is now been exacerbated to be out of control by the steroids Documented By: Javy French (Javy French M.D.)
[2018-01-16 08:21] LABS: CALCIUM 8.5 mg/dl (8.5-10.1); CREATININE 1.22 mg/dl (0.60-1.20)
[2018-01-16 08:22] LABS: BASO % 0.1 %; BASO ABS # 0.01 K/uL (0-0.2); LYMPH % 8.3 %; LYMPH ABS # 1.01 K/uL (1.2-3.4); MONO % 12.5 %; MONO ABS # 1.53 K/uL (0.11-0.59); NEUT % 78.3 %; NEUT ABS # 9.58 K/uL (1.4-6.5)
[2018-01-16] MEDS: MULTIVITAMIN TAB PO SCH (11:43)
[2018-01-16] MEDS: METHYLPREDNISOLONE IV 40 MG in SYRINGE 0 ML IV SCH (18:20)
[2018-01-16] MEDS: QUETIAPINE FUMARATE 100 MG TAB PO SCH (20:51)
[2018-01-16] MEDS: OLANZAPINE 2.5 MG TAB PO SCH (20:51)
[2018-01-16] MEDS: METOPROLOL TARTRATE 25 MG TAB PO SCH (20:52)
[2018-01-16] MEDS: DONEPEZIL HCL 10 MG TAB PO SCH (20:53)
[2018-01-17] VITALS (8 sets, daily range): BP systolic 111–149; BP diastolic 64–79; PULSE 68–79; TEMP 36.6–37; O2SAT 94–98
[2018-01-17] MEDS: LEVALBUTEROL 1.25MG/3ML NEB INH SCH ×4 (02:00→19:16)
[2018-01-17] MEDS: LEVOTHYROXINE 175 MCG TAB PO SCH (06:02)
[2018-01-17] MEDS: HEPARIN SOD 5000 UNIT/0.5 ML CARP SQ SCH ×3 (06:24→20:39)
[2018-01-17] MEDS: METHYLPREDNISOLONE IV 40 MG in SYRINGE 0 ML IV SCH ×2 (06:34→18:11)
[2018-01-17 07:38] LABS: BASO % 0.1 %; BASO ABS # 0.01 K/uL (0-0.2); HEMATOCRIT 39.2 % (37-47); HEMOGLOBIN 12.9 g/dL (12.0-16.0); IG# 0.13 K/uL (0.00-0.02); LYMPH % 11.8 %; LYMPH ABS # 1.62 K/uL (1.2-3.4); MEAN CELL VOLUME 95.8 fL (80-100); MEAN CORPUSCULAR HEMOGLOBIN 31.5 pg (25-34); MEAN CORPUSCULAR HGB CONC 32.9 g/dl (32-36); MEAN PLATELET VOLUME 9.4 fL (7.4-10.4); MONO % 10.8 %; MONO ABS # 1.48 K/uL (0.11-0.59); NEUT % 76.4 %; NEUT ABS # 10.46 K/uL (1.4-6.5); NUCLEATED RED BLOOD CELL ABS 0.02 K/uL (0-0); PLATELET COUNT 155 K/uL (130-400); RED CELL DISTRIBUTION WIDTH CV 14.8 % (11.5-14.5); RED CELL DISTRIBUTION WIDTH SD 51.1 fL (36.4-46.3)
[2018-01-17 08:07] LABS: CALCIUM 8.8 mg/dl (8.5-10.1); CREATININE 1.3 mg/dl (0.60-1.20); POTASSIUM 4.9 mmol/L (3.5-5.1)
[2018-01-17] MEDS: VENLAFAXINE HCL XR 75 MG CAPXR PO SCH (08:29)
[2018-01-17] MEDS: ASPIRIN 81 MG ECTAB PO SCH (08:29)
[2018-01-17] MEDS: ATORVASTATIN 40 MG TAB PO SCH (08:29)
[2018-01-17] MEDS: MEMANTINE 10 MG TAB PO SCH ×2 (08:29→20:23)
[2018-01-17] MEDS: METOPROLOL TARTRATE 50 MG TAB PO SCH (08:29)
[2018-01-17] MEDS: ALLOPURINOL 100 MG TAB PO SCH (08:30)
[2018-01-17] MEDS: FUROSEMIDE 20 MG TAB PO SCH (08:30)
[2018-01-17] MEDS: GUAIFENESIN 600 MG TABCR PO SCH ×2 (08:30→20:26)
[2018-01-17] MEDS: ENALAPRIL MALEATE 10 MG TAB PO SCH (08:30)
[2018-01-17] MEDS: AMLODIPINE BESYLATE 5 MG TAB PO SCH (08:30)
--- NOTE | 2018-01-17 08:40 | Hospitalist Progress Note ---
Hospitalist Progress Note Date of Service January 17, 2018. (Brenda Cornell PA-C) Subjective Pt evaluation today including: conversation w/ patient, physical exam, chart review, lab review, review of studies Pain: None PO Intake: Poor Voiding: webb catheter in place The patient was seen and examined this morning. Pt is asleep upon entry to the room but easily awakened. She answers questions appropriately, and is able to tell me who the president is, along with season, yet thought it was 1977. She states "Im in [facility]". She denies any acute complaints. Pt notes her breathing feels a little better at this point, minimal cough, white sputum production. She denies any shortness of breath at rest, but has not been up to ambulate much today. She ate minimal for breakfast, and sugars continue to be high with steroids on board. Additional Comments: Constitutional: No fever, No chills, No sweats Eyes: No redness, No diplopia ENT: No nasal symptoms, No trouble swallowing Respiratory: + see HPI, + cough, + sputum- white, No dyspnea at rest Cardiovascular: No chest pain, No edema, No palpitations Abdomen: No pain, No nausea, No vomiting, No diarrhea, No constipation Musculoskeletal: No joint pain Skin: No rash, No itch (Brenda Cornell PA-C) Objective Vital Signs Date Time Temp Pulse Resp B/P (MAP) Pulse Ox O2 Delivery O2 Flow Rate FiO2 01/17/18 07:12 73 14 98 Nasal Cannula 2.0 01/17/18 06:53 36.8 77 18 111/64 (80) 98 Nasal Cannula 2.0 01/17/18 02:02 77 18 95 Nasal Cannula 2.0 01/17/18 00:10 Nasal Cannula 2.0 01/16/18 23:12 36.8 83 18 134/74 (94) 92 Nasal Cannula 2.0 01/16/18 22:00 Nasal Cannula 2.0 01/16/18 19:08 81 20 95 Nasal Cannula 2.0 01/16/18 16:03 95 Nasal Cannula 2.0 01/16/18 15:05 36.4 73 18 135/81 (99) 95 2.0 01/16/18 14:17 68 18 98 Nasal Cannula 2.0 01/16/18 13:51 36.9 67 18 96 2.0 01/16/18 12:00 96 Nasal Cannula 2.0 01/16/18 11:30 36.9 67 18 153/70 (97) 100 Nasal Cannula 2.0 (Brenda Cornell PA-C) Physical Exam Notes: General Appearance: WD/WN, no apparent distress, + morbidly obese Head: normocephalic, atraumatic Eyes: PERRL, EOMI ENT: hearing grossly normal, pharynx normal, MMM Neck: supple, + pertinent finding (JVD difficult to assess due to body habitus) Respiratory/Chest: no accessory muscle use, + pertinent finding (on 2 L via NC , no exp wheeze, faintly diminshed throughout but overall clear.) Cardiovascular: regular rate, rhythm, + systolic murmur (grade III/ at LSB) Abdomen/GI: normal bowel sounds, non tender, soft, +webb cath in place draining clear yellow urine Back: normal inspection Extremities/Musculoskeletal: no calf tenderness, + pedal edema (trace pitting in ankles) Neurologic/Psych: alert, oriented to self and place, + dementia, follows commands, answers appropriately Skin: normal color, warm/dry (Brenda Cornell PA-C) Laboratory Results Last 24 Hours Test 01/16/18 08:54 01/16/18 10:29 01/16/18 11:36 01/16/18 13:57 Platelet Count, Citrate 179 10^3/uL Bedside Glucose 321 mg/dl 262 mg/dl 283 mg/dl Test 01/16/18 16:48 01/16/18 20:01 01/16/18 23:49 01/17/18 07:26 Bedside Glucose 238 mg/dl 316 mg/dl 210 mg/dl White Blood Count 13.70 K/uL Red Blood Count 4.09 M/uL Hemoglobin 12.9 g/dL Hematocrit 39.2 % Mean Corpuscular Volume 95.8 fL Mean Corpuscular Hemoglobin 31.5 pg Mean Corpuscular Hemoglobin Concent 32.9 g/dl Platelet Count 155 K/uL Mean Platelet Volume 9.4 fL Neutrophils (%) (Auto) 76.4 % Lymphocytes (%) (Auto) 11.8 % Monocytes (%) (Auto) 10.8 % Eosinophils (%) (Auto) 0.0 % Basophils (%) (Auto) 0.1 % Neutrophils # (Auto) 10.46 K/uL Lymphocytes # (Auto) 1.62 K/uL Monocytes # (Auto) 1.48 K/uL Eosinophils # (Auto) 0.00 K/uL Basophils # (Auto) 0.01 K/uL RDW Standard Deviation 51.1 fL RDW Coefficient of Variation 14.8 % Immature Granulocyte % (Auto) 0.9 % Immature Granulocyte # (Auto) 0.13 K/uL Nucleated RBC Absolute Count (auto) 0.02 K/uL Nucleated Red Blood Cells % 0.1 % Sodium Level 134 mmol/L Potassium Level 4.9 mmol/L Chloride Level 93 mmol/L Carbon Dioxide Level 40 mmol/L Anion Gap 1.0 mmol/L Blood Urea Nitrogen 36 mg/dl Creatinine 1.30 mg/dl Est Creatinine Clear Calc Drug Dose 35.7 ml/min Estimated GFR () 44.6 Estimated GFR (Non- 38.4 BUN/Creatinine Ratio 27.5 Random Glucose 232 mg/dl Calcium Level 8.8 mg/dl (Brenda Cornell, PAJavier) Assessment and Plan 82 y/o female with a history of HTN, HLD, DM II, hypothyroidism, hyponatremia, anxiety/depression, dementia, gout, KELI not on cpap, and GERD who presents with acute respiratory failure with hypoxia. Acute respiratory failure with hypoxia and hypercarbia - Possibly secondary to reactive airway disease and/or viral illness vs PNA - Flu swab neg - Wean off solu-Medrol 40 mg IV q12h and transition to Prednisone in AM - levaquin switched to PO and renally dosed (started 01/14) - Change duonebs to xopenex - Cont o2 protocol (does not wear O2 at baseline but requiring 2 L here), mucinex, incentive spirometry, flutter, sputum culture with normal pharyngeal cayetano - Continue formoterol BID, was given a Combivent inhaler prn SOB/wheezing at time of dc last time but per family pt not using this at home. - VBG showed hypercarbia - pt did not require bipap - No WBC, VSS - Follow BCx x 2 - contaminated UA, - checking UCx - CXR showing mild central pulmonary edema and bibasilar atelectasis but not specifically pneumonia - however we will treat as such with acute onset of sx. Sinus Tachycardia - resolved - Elevated HR worsened dt held BB initially and possibly due to acute infection vs duoneb treatments- xopenex as above. 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 Resume PO lasix 20 mg Q2D. - urine osm = 395, random urine sodium= 44 - Follow prp HTN HLD - ASA 81 mg, enalapril 10 mg PO qd, Lopressor 50 mg PO qam and 25 mg PO qpm, Lipitor 40 mg PO qd, amlodipine 10 mg daily DM II--HgbA1c 8.6 on 09/13/17 - Lantus 25 U BID at home- previous admissions show she has tolerated Lantus 25 U BID, will tighten to CF: 8 and carb ratio of 3 - wean solumedrol as above Has required extra dose of Lantus during day d/t elevated glucose. - Will improve as we wean off steroids. - ISS with accuchecks - Check BSGs q ac and qhs CKD stage III - Cr. 1.3, stable, baseline= 1.2-1.3 - follow prp daily Hypothyroidism - Continue Synthroid 175 mcg PO qd Anxiety, depression, dementia--stable - Continue Effexor 150 mg PO qd, Seroquel 100 mg PO hs, Aricept 10 mg PO hs, Namenda 10 mg PO daily, zyprexa 2.5 mg daily - Has caregivers 27/03 at home. Lives with daughter- granddaughter also there for additional care - PT/OT on board Gout -Continue allopurinol 100 mg PO qd KELI, morbid obesity w/ BMI 44.1 -Does not tolerate cpap and not wearing at home. DVT prophylaxis: heparin Q8H CODE: DNR, living will on chart, discussed with family. Disposition: From home, lives with daughterChapis. PT/OT to [facility] to assist with dc planning. (Brenda Cornell, JEANETH) ISRRA[place] Physician Supervision Note: I interviewed and examined the patient. Discussed with Brenda Cornell PAC and agree with findings and plan as documented in the note. Any exceptions or clarifications are listed here: None Patient remains pleasantly confused her breathing is also improved but she has taken show a short shallow breaths and she has had glucose intolerance due to her steroids which are tapering her hyponatremia is improved greatly with fluid restriction been making is consistent with SIADH Vitals are Her lungs have air movement in all lung marin but she is good coarse breath sounds no wheezes prolonged expiratory phase her heart is Acute on chronic respiratory failure with hypoxia improving with steroids and antibiotic treatment of bronchitis SIADH improving with fluid restriction anticipate the patient to return to an outpatient setting only if family can provide support for her dementia Documented By: Javy French (Javy French M.D.)
[2018-01-17] MEDS: INSULIN ASPART 100 UNITS/ML 3 ML PEN SC SCH ×4 (08:41→22:23)
[2018-01-17] MEDS: INSULIN GLARGINE SOLOSTAR 100 UNITS/ML 3 ML PEN SC SCH ×2 (08:41→20:38)
[2018-01-17] MEDS: MULTIVITAMIN TAB PO SCH (13:20)
[2018-01-17] MEDS ORDERED: INSULIN GLARGINE SOLOSTAR 100 UNITS/ML 3 ML PEN SC ONE (14:00)
[2018-01-17] MEDS: METOPROLOL TARTRATE 25 MG TAB PO SCH (20:26)
[2018-01-17] MEDS: QUETIAPINE FUMARATE 100 MG TAB PO SCH (20:27)
[2018-01-17] MEDS: OLANZAPINE 2.5 MG TAB PO SCH (20:28)
[2018-01-17] MEDS: DONEPEZIL HCL 10 MG TAB PO SCH (20:29)
[2018-01-18] VITALS (7 sets, daily range): BP systolic 124–156; BP diastolic 71–79; PULSE 77–91; TEMP 36.8; O2SAT 81–99
[2018-01-18] MEDS: LEVALBUTEROL 1.25MG/3ML NEB INH SCH ×3 (01:49→14:56)
[2018-01-18] MEDS: LEVOTHYROXINE 175 MCG TAB PO SCH (05:22)
[2018-01-18] MEDS: HEPARIN SOD 5000 UNIT/0.5 ML CARP SQ SCH ×2 (05:24→12:41)
[2018-01-18 07:21] LABS: HEMATOCRIT 38.2 % (37-47); HEMOGLOBIN 12.4 g/dL (12.0-16.0); MEAN CELL VOLUME 96.2 fL (80-100); MEAN CORPUSCULAR HEMOGLOBIN 31.2 pg (25-34); MEAN CORPUSCULAR HGB CONC 32.5 g/dl (32-36); MEAN PLATELET VOLUME 10.9 fL (7.4-10.4); PLATELET COUNT 105 K/uL (130-400); RED CELL DISTRIBUTION WIDTH CV 14.7 % (11.5-14.5); WHITE BLOOD COUNT 12.89 K/uL (4.8-10.8)
[2018-01-18 07:52] LABS: CALCIUM 8.7 mg/dl (8.5-10.1); CREATININE 1.22 mg/dl (0.60-1.20); POTASSIUM 4.9 mmol/L (3.5-5.1)
--- NOTE | 2018-01-18 08:14 | Hospitalist Progress Note ---
Hospitalist Progress Note Date of Service January 18, 2018. Objective Vital Signs Date Time Temp Pulse Resp B/P (MAP) Pulse Ox O2 Delivery O2 Flow Rate FiO2 01/18/18 07:12 36.8 79 18 124/71 (88) 96 Nasal Cannula 2.0 01/18/18 07:10 81 16 96 Nasal Cannula 2.0 01/18/18 01:49 86 16 99 Nasal Cannula 2.0 01/18/18 00:15 Nasal Cannula 2.0 01/17/18 23:08 37.0 68 18 124/72 (89) 95 Nasal Cannula 2.0 01/17/18 20:25 79 149/79 (102) 01/17/18 19:16 69 16 95 Nasal Cannula 2.0 01/17/18 19:02 Nasal Cannula 2.0 01/17/18 15:22 36.6 72 16 148/75 (99) 94 2.0 01/17/18 14:09 79 18 97 Nasal Cannula 2.0 Laboratory Results Last 24 Hours Test 01/17/18 11:55 01/17/18 17:02 01/17/18 20:10 01/18/18 06:55 Bedside Glucose 322 mg/dl 234 mg/dl 165 mg/dl White Blood Count 12.89 K/uL Red Blood Count 3.97 M/uL Hemoglobin 12.4 g/dL Hematocrit 38.2 % Mean Corpuscular Volume 96.2 fL Mean Corpuscular Hemoglobin 31.2 pg Mean Corpuscular Hemoglobin Concent 32.5 g/dl RDW Standard Deviation 52.0 fL RDW Coefficient of Variation 14.7 % Platelet Count 105 K/uL Mean Platelet Volume 10.9 fL Sodium Level 136 mmol/L Potassium Level 4.9 mmol/L Chloride Level 94 mmol/L Carbon Dioxide Level 40 mmol/L Anion Gap 2.0 mmol/L Blood Urea Nitrogen 32 mg/dl Creatinine 1.22 mg/dl Est Creatinine Clear Calc Drug Dose 38.0 ml/min Estimated GFR () 48.1 Estimated GFR (Non- 41.5 BUN/Creatinine Ratio 26.0 Random Glucose 179 mg/dl Calcium Level 8.7 mg/dl Test 01/18/18 07:35 Bedside Glucose 167 mg/dl Assessment and Plan 82 y/o female with a history of HTN, HLD, DM II, hypothyroidism, hyponatremia, anxiety/depression, dementia, gout, KELI not on cpap, and GERD who presents with acute respiratory failure with hypoxia. Acute respiratory failure with hypoxia and hypercarbia Likely secondary to reactive airway disease and/or viral illness vs PNA - Flu swab neg - Wean off solu-Medrol and now on Prednisone 60 mg Qam - levaquin switched to PO and renally dosed (started 01/14) - finish tomorrow - Change duonebs to xopenex - Cont o2 protocol (does not wear O2 at baseline but requiring 2 L here - wean today as tolerated), mucinex, incentive spirometry, flutter, sputum culture with normal pharyngeal cayetano - Continue formoterol BID, was given a Combivent inhaler prn SOB/wheezing at time of dc last time but per family pt not using this at home. - VBG showed hypercarbia - pt did not require bipap - No WBC, VSS - Follow BCx x 2 - contaminated UA, - checking UCx - CXR showing mild central pulmonary edema and bibasilar atelectasis but not specifically pneumonia - however we will treat as such with acute onset of sx. Sinus Tachycardia - resolved - Elevated HR worsened dt held BB initially and possibly due to acute infection vs duoneb treatments- xopenex as above. 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 Resume PO lasix 20 mg Q2D. - urine osm = 395, random urine sodium= 44 - Follow prp HTN HLD - ASA 81 mg, enalapril 10 mg PO qd, Lopressor 50 mg PO qam and 25 mg PO qpm, Lipitor 40 mg PO qd, amlodipine 10 mg daily DM II--HgbA1c 8.6 on 09/13/17 - Lantus 25 U BID at home- previous admissions show she has tolerated Lantus 25 U BID, will tighten to CF: 8 and carb ratio of 3 - wean solumedrol as above Has required extra dose of Lantus during day d/t elevated glucose. - Will improve as we wean off steroids. - ISS with accuchecks - Check BSGs q ac and qhs CKD stage III - Cr. 1.3, stable, baseline= 1.2-1.3 - follow prp daily Hypothyroidism - Continue Synthroid 175 mcg PO qd Anxiety, depression, dementia--stable - Continue Effexor 150 mg PO qd, Seroquel 100 mg PO hs, Aricept 10 mg PO hs, Namenda 10 mg PO daily, zyprexa 2.5 mg daily - Has caregivers 27/03 at home. Lives with daughter- granddaughter also there for additional care - PT/OT on board Gout -Continue allopurinol 100 mg PO qd KELI, morbid obesity w/ BMI 44.1 -Does not tolerate cpap and not wearing at home. DVT prophylaxis: heparin Q8H CODE: DNR, living will on chart, discussed with family. Disposition: From home, lives with daughterChapis. PT/OT to [facility] to assist with dc planning.
[2018-01-18] MEDS: VENLAFAXINE HCL XR 75 MG CAPXR PO SCH (08:29)
[2018-01-18] MEDS: LEVOFLOXACIN 750 MG TAB PO SCH (08:29)
[2018-01-18] MEDS: METOPROLOL TARTRATE 50 MG TAB PO SCH (08:29)
[2018-01-18] MEDS: AMLODIPINE BESYLATE 5 MG TAB PO SCH (08:30)
[2018-01-18] MEDS: ATORVASTATIN 40 MG TAB PO SCH (08:30)
[2018-01-18] MEDS: ENALAPRIL MALEATE 10 MG TAB PO SCH (08:30)
[2018-01-18] MEDS: ASPIRIN 81 MG ECTAB PO SCH (08:30)
[2018-01-18] MEDS: GUAIFENESIN 600 MG TABCR PO SCH (08:30)
[2018-01-18] MEDS: ALLOPURINOL 100 MG TAB PO SCH (08:30)
[2018-01-18] MEDS: MEMANTINE 10 MG TAB PO SCH (08:31)
[2018-01-18] MEDS: INSULIN ASPART 100 UNITS/ML 3 ML PEN SC SCH ×2 (08:40→12:54)
[2018-01-18] MEDS: INSULIN GLARGINE SOLOSTAR 100 UNITS/ML 3 ML PEN SC SCH (08:40)
[2018-01-18] MEDS ORDERED: XPNINS125 INH (11:04)
[2018-01-18] MEDS ORDERED: LVQ750 PO (11:04)
[2018-01-18] MEDS ORDERED: PRD20 PO (11:04)
--- NOTE | 2018-01-18 11:16 | Discharge Instructions ---
Discharge Instructions Date of Service January 18, 2018. Admission Reason for Admission: Acute Respiratory Failure W/Hypoxia, Hyponatremia Discharge Discharge Diagnosis / Problem: Acute Respiratory Failure, Bronchitis, Pneumonia , Hyponatremia Discharge Goals Goal(s): Decrease discomfort, Improve function, Increase independence, Improve disease control Activity Recommendations Activity Limitations: per Instructions/Follow-up section Lifting Limitations: no more than 10 pounds, gradually increase as tolerated Exercise/Sports Limitations: as tolerated, rest today Shower/Bathe: no limitations (with assistance) Driving or Machine Use: Do NOT drive . Instructions / Follow-Up Instructions / Follow-Up You were admitted to [facility] with dx with Acute Respiratory Failure W/Hypoxia, Hyponatremia and diagnosed with Acute Respiratory Failure with Hypoxia, bronchitis, pneumonia and hyponatremia (low sodium). During your stay here you were treated with intravenous steroids, antibiotics, oxygen was able to be weaned off, and were followed by physical and occupational therapy. Imaging studies which were completed include CXR, and were abnormal showing the above. Your symptoms improved and were stable for discharge. Medications: Continue taking your medications as prescribed. Take Levaquin 750 mg tablet on 01/20. Your dosing is being renally reduced. This will complete a 7 day course. Continue taking prednisone as directed: Take 60mg (3tab) x 1 day starting on 01/19 then 40mg (2tab) x 2days, then 20mg (1tab) x 2days, then 10mg (half tablet) x 2 days. Finish 01/25. Use xopenex nebulizer every 6 hours while awake until prednisone taper is complete, OR every 2 hours as needed for shortness of breath. Appointments: Follow up with PCP within 1-2 weeks. Current Hospital Diet Patient's current hospital diet: AHA Diet (Heart Healthy), Diabetes Type 2 Diet Discharge Diet Recommended Diet: Diabetes Type 2 Diet Fluid Restriction: 1500 ml (6 cups) Pending Studies Studies pending at discharge: yes List of pending studies: Urine culture - ask PCP to follow up at next appointment. Laboratory Results Hemoglobin A1c Test 01/15/18 07:18 Range/Units Estimated Average Glucose 206 mg/dl Hemoglobin A1c 8.8 H 4.5-5.6 % Medical Emergencies . Who to Call and When: Medical Emergencies: If at any time you feel your situation is an emergency, please call 911 immediately. . Non-Emergent Contact Non-Emergency issues call your: Primary Care Provider Call Non-Emergent contact if: you have a fever, temperature is above 100.5, your pain is not controlled, your pain is worsening, your pain is unusual for you, your pain is concerning you, you have any medication questions other concerns with your health. Call 911 or go directly to the Emergency Department if you experience any of the following: Chest pain, chest tightness, shortness of breath, abdominal pain , lightheadedness, dizziness, gastrointestinal bleeding, or have any other concerns regarding your health. . Past History Medical & Surgical History: (1) Hyponatremia (2) Bronchitis (3) Pneumonia (4) Acute respiratory failure with hypoxia (5) HYPERTENSION NOS (6) DIAB KAREEM WO COMPL, TYPE II OR UNSPEC TYPE, NOT UNCNTRLD (7) Esophageal reflux . "Provider Documentation" section prepared by Jeanette Cornell. . [place] Drug Monitoring Program Search Results: no issues identified
[2018-01-18] MEDS: MULTIVITAMIN TAB PO SCH (12:41)
--- NOTE | 2018-01-18 14:26 | Discharge Summary ---
Discharge Summary Date of Service January 18, 2018. Discharge Summary Admission Date: January 14, 2018 at 09:42 Discharge Date: January 18, 2018 Discharge Disposition: Home Principal Diagnosis: Acute hypoxic respiratory failure, bronchitis, pneumonia, hyponatremia Problems/Secondary Diagnoses: Medical Problems: (1) Acute respiratory failure with hypoxia (2) Bronchitis (3) Cellulitis (4) Cellulitis of right toe (5) Dementia (6) DIAB KAREEM WO COMPL, TYPE II OR UNSPEC TYPE, NOT UNCNTRLD (7) Diabetic infection of left foot (8) DIVERTICULOSIS COLON (W/O MENT OF HEMORRHAGE) (9) Diverticulosis of colon without hemorrhage (10) Esophageal reflux (11) GOUT NOS (12) HYPERTENSION NOS (13) Hyponatremia (14) HYPOTHYROIDISM NOS (15) Hypoxia (16) Mental status change (17) Osteomyelitis (18) Pneumonia (19) SIADH (syndrome of inappropriate ADH production) (20) Unspecified sleep apnea (21) URI (upper respiratory infection) Immunizations: Have You Had Influenza Vaccine: Yes Influenza Vaccine Date: May 05, 2017 History of Tetanus Vaccine?: Yes History of Pneumococcal: Yes History of Hepatitis B Vaccine: Unknown Procedures: CHEST ONE VIEW PORTABLE 01/14/18 IMPRESSION: 1. Mild central pulmonary vascular congestion without overt edema. 2. Bibasilar densities favor atelectasis. Consultations: None Medication Reconciliation New Medications: Levalbuterol (Levalbuterol HCl) 1.25 Mg/3 Ml Nebu 1.25 MG INH Q6R for 14 Days, #56 DOSE Levofloxacin (Levofloxacin) 750 Mg Tab 750 MG PO Q48H for 1 Day, #1 TAB Take on 01/20 to finish course. Prednisone (Prednisone) 20 Mg Tab 60 MG PO QAM for 7 Days, #10 TAB Take 60mg (3tab) x 1 day, then 40mg (2tab) x 2days, then 20mg (1tab) x 2days, then 10mg (half tablet) x 2 days. Finish 01/25. Continued Medications: Allopurinol (Zyloprim) 100 Mg Tab 100 MG PO QAM, 0 Refills Amlodipine Besylate (Norvasc) 10 Mg Tab 1 TAB PO DAILY for 30 Days, #30 TAB Aspirin (Aspirin Ec) 81 Mg Tab 81 MG PO QAM Atorvastatin (Lipitor) 40 Mg Tab 40 MG PO QAM Calcium Carbonate-Cholecalcife (Caltrate 600+D) 1 Tab Tab 1 TAB PO BID Donepezil Hydrochloride (Aricept) 10 Mg Tab 10 MG PO HS Enalapril (Vasotec) 10 Mg Tab 10 MG PO QAM, TAB Furosemide (Lasix) 20 Mg Tab 20 MG PO Q2D Insulin Aspart (Novolog) 100 Units/Ml Inj 5 UNITS SC TIDM PRN for Hyperglycemia Protocol 5 UNITS IF BSG IS GREATER THAN 200 Insulin Glargine (Lantus) 100 Unit/Ml Inj 25 UNITS SC BID, #10 Levothyroxine Sodium (Levothyroxine Sodium) 175 Mcg Tab 175 MCG PO DAILY, TAB Memantine (Namenda) 10 Mg Tab 10 MG PO BID, TAB Metoprolol Tartrate (Lopressor) (Lopressor) 50 Mg Tab 50 MG PO QAM, 0 Refills Metoprolol Tartrate (Lopressor) (Lopressor) 50 Mg Tab 25 MG PO QPM, 0 Refills TAKE 1/2 OF A 50MG TABLET IN THE PM Multiple Vitamin (Multivitamin) 1 Tab Tab 1 TAB PO DAILY@1200, TAB Nystatin (Topical) (Nystatin) 1 Pow Pow 1 APPLN TOP TID UNDER SKIN FOLDS Olanzapine (Zyprexa) 5 Mg Tab 2.5 MG PO HS, TAB Omeprazole (Prilosec) 20 Mg Capcr 20 MG PO DAILY@1200, 0 Refills Polyethylene Glycol 3350 (Miralax) 1 Pow Pow 17 GM PO 5XWK, GM MONDAY-MONDAY Quetiapine Fumarate (Seroquel) 200 Mg Tab 100 MG PO HS for 30 Days, #15 TAB Take 0.5 tablet at night Venlafaxine Hcl (Venlafaxine Extended Rel) 75 Mg Cap 75 MG PO DAILY, CAP Discharge Exam The patient was seen and examined this morning. Pt reports doing well today. She tells me her breathing feels back to almost normal today. She is coughing very little, and has minimal sputum production. She has not yet been up and out of bed, but has been ambulating to the bathroom with walker. She denies feeling short of breath at rest. Pt is hopeful for discharge to home today. As PT/OT walked with her correction around the modi she was satting 92% on RA. No needs for home O2. ROS: Constitutional: No fever, No chills, No sweats Eyes: No redness, No diplopia ENT: No nasal symptoms, No trouble swallowing Respiratory: + see HPI Cardiovascular: No chest pain, No edema, No palpitations Abdomen: No pain, No nausea, No vomiting, No diarrhea, No constipation Musculoskeletal: No joint pain Skin: No rash, No itch PE: General Appearance: WD/WN, no apparent distress, + morbidly obese Head: normocephalic, atraumatic Eyes: PERRL, EOMI ENT: hearing grossly normal, pharynx normal, MMM Neck: supple, + pertinent finding (JVD difficult to assess due to body habitus) Respiratory/Chest: no accessory muscle use, + pertinent finding (on 2 L via NC , no exp wheeze, slightly coarse breath sounds but improving, ) Cardiovascular: regular rate, rhythm, + systolic murmur (grade III/ at LSB) Abdomen/GI: normal bowel sounds, non tender, soft, +webb cath in place draining clear yellow urine Back: normal inspection Extremities/Musculoskeletal: no calf tenderness, + pedal edema (trace pitting in ankles) Neurologic/Psych: alert, oriented to self and place, + dementia, follows commands, answers appropriately, occasionally mumbling to self Skin: normal color, warm/dry Hospital Course 82 y/o female with a history of HTN, HLD, DM II, hypothyroidism, hyponatremia, anxiety/depression, dementia, gout, KELI not on cpap, and GERD who presents with acute respiratory failure with hypoxia. Acute respiratory failure with hypoxia and hypercarbia Likely secondary to reactive airway disease and/or viral illness vs PNA - Flu swab neg - Wean off solu-Medrol and now on Prednisone 60 mg Qam- Will continue taper as follows: Take 60mg (3tab) x 1 day starting on 01/19 then 40mg (2tab) x 2days, then 20mg (1tab) x 2days, then 10mg (half tablet) x 2 days. Finish 01/25. - Provided Rx for xopenex nebulizer tx every 6 hours while awake until prednisone taper is complete, OR every 2 hours as needed for shortness of breath. Has home neb machine. - levaquin switched to PO and renally dosed (started 01/14) - Take Levaquin 750 mg tablet on 01/20 to complete a 7 day course. - O2 able to be weaned - did not qualify for O2 with 2step. - supportive care with mucinex, incentive spirometry, flutter, sputum culture with normal pharyngeal cayetano - Continue formoterol BID, was given a Combivent inhaler prn SOB/wheezing at time of dc last time but per family pt not using this at home. - VBG showed hypercarbia - pt did not require bipap - No WBC, VSS - BCx NGTD - contaminated UA- UCx in process at time of dc - no urinary sx. - CXR showing mild central pulmonary edema and bibasilar atelectasis but not specifically pneumonia - however we will treat as such with acute onset of sx. Sinus Tachycardia - resolved - Elevated HR worsened dt held BB initially and possibly due to acute infection vs duoneb treatments- xopenex as above. - pt asymptomatic throughout stay Hyponatremia / SIADH - Appears to be acute on chronic - NA 136 upon discharge, Fluid restriction to 1500mL. Resume PO lasix 20 mg Q2D. - urine osm = 395, random urine sodium= 44 HTN HLD - ASA 81 mg, enalapril 10 mg PO qd, Lopressor 50 mg PO qam and 25 mg PO qpm, Lipitor 40 mg PO qd, amlodipine 10 mg daily DM II--HgbA1c 8.6 on 09/13/17 - Lantus 25 U BID at home- previous admissions show she has tolerated Lantus 25 U BID, will tighten to CF: 8 and carb ratio of 3 - weaned steroids as above. - ISS with accuchecks - Check BSGs q ac and qhs CKD stage III - Cr. 1.3, stable, baseline= 1.2-1.3 - follow prp daily Hypothyroidism - Continue Synthroid 175 mcg PO qd Anxiety, depression, dementia--stable - Continue Effexor 150 mg PO qd, Seroquel 100 mg PO hs, Aricept 10 mg PO hs, Namenda 10 mg PO daily, zyprexa 2.5 mg daily - Has caregivers 27/03 at home. Lives with daughter- granddaughter also there for additional care - PT/OT on board Gout -Continue allopurinol 100 mg PO qd KELI, morbid obesity w/ BMI 44.1 -Does not tolerate cpap and not wearing at home. DVT prophylaxis: heparin Q8H CODE: DNR, living will on chart, discussed with family. Disposition: From home, lives with daughter, Chapis. PT/OT to [facility] to assist with dc planning. Discharge to home today. Pt family decline home health services [place] Physician Supervision Note: I interviewed and examined the patient. Discussed with Brenda Cornell PAC and agree with findings and plan as documented in the note. Any exceptions or clarifications are listed here: None Patient was in her usual demented state her family is comfortable taking her home and she did pass through physical therapy and they stated that her physical strength is good but she needs supervision for her dementia. Her breathing has improved she does not require oxygen at home she will be on a both a steroid taper in the future days of antibiotics to treat her acute on chronic respiratory failure and bronchitis Temperature 36 8 pulse 79 respiration 18 BP 124/74 her lung exam is good air movement all lung marin tory wheezes and coarseness of breath sounds and prolonged expiratory phase she is oriented only to person and place not time Patient will be discharged with close follow-up the primary care physician in the care of her family Documented By: Javy French. Total Time Spent: Greater than 30 minutes This includes examination of the patient, discharge planning, medication reconciliation, and communication with other providers. Discharge Instructions Please refer to the electronic Patient Visit Report (Discharge Instructions) for additional information. Follow-Up Follow up with your Primary Care Provider within 1-2 weeks. Additional Copies To Luis Siddiqui M.D.
== END 2018-01-18 17:26 | disposition home or self-care (01) | DRG 193 ==
LOC: EDBD 06:35 → C.EDB 06:36 → CANRESERV 09:39 → ENRESERV 09:39 → C.2T 09:42 → CANBEDREQ 10:01 → ENRESERV 10:23 → C.MS4W 01-16 14:20
PROVIDERS: ADMIT Internal Medicine Sports Medicine; ATTEND Internal Medicine
DX: J18.9 Pneumonia, unspecified organism (principal); J96.01 Acute respiratory failure with hypoxia; Z68.41 Body mass index [BMI] 40.0-44.9, adult; E87.1 Hypo-osmolality and hyponatremia; F03.90 Unspecified dementia, unspecified severity, without behavioral disturbance, psychotic disturbance, mood disturbance, and anxiety; E11.9 Type 2 diabetes mellitus without complications; M10.9 Gout, unspecified; I12.9 Hypertensive chronic kidney disease with stage 1 through stage 4 chronic kidney disease, or unspecified chronic kidney disease; E03.9 Hypothyroidism, unspecified; F41.8 Other specified anxiety disorders; G47.33 Obstructive sleep apnea (adult) (pediatric); K21.9 Gastro-esophageal reflux disease without esophagitis; E78.5 Hyperlipidemia, unspecified; N18.3 Chronic kidney disease, stage 3 (moderate); E66.9 Obesity, unspecified

== ENCOUNTER 2018-04-22 15:15 | Inpatient (IN) | payer OTHER ==
[~2018-04-22] VITALS: Ht 160 cm; Wt 98.4 kg
[~2018-04-22 15:15] MED LIST changes: -CALC-354 PO; +CALCTAB7 PO; -LCTX PO; -LORA-741 PO; -LVQ750 PO; +MULTCHW PO; -MULTTAB58 PO; -OLAN-111 PO; +OXGN; -SRQ200 PO; +SRQSR200 PO; -VENL150T33 PO; +VENL75CA73 PO
[2018-04-22] MEDS ORDERED: FUROSEMIDE 40 MG/4 ML VIAL IV STA (15:48)
[2018-04-22 16:05] LABS: BASO % 0.2 %; BASO ABS # 0.02 K/uL (0-0.2); EOS % 0.9 %; EOS ABS # 0.09 K/uL (0-0.5); HEMATOCRIT 34.5 % (37-47); HEMOGLOBIN 11.3 g/dL (12.0-16.0); IG# 0.03 K/uL (0.00-0.02); LYMPH % 12.8 %; LYMPH ABS # 1.27 K/uL (1.2-3.4); MEAN CORPUSCULAR HEMOGLOBIN 30.5 pg (25-34); MEAN CORPUSCULAR HGB CONC 32.8 g/dl (32-36); MEAN PLATELET VOLUME 10.5 fL (7.4-10.4); MONO % 8.4 %; MONO ABS # 0.83 K/uL (0.11-0.59); NEUT % 77.4 %; NEUT ABS # 7.68 K/uL (1.4-6.5); PLATELET COUNT 160 K/uL (130-400); RED CELL DISTRIBUTION WIDTH CV 13.9 % (11.5-14.5); RED CELL DISTRIBUTION WIDTH SD 47.1 fL (36.4-46.3); WHITE BLOOD COUNT 9.92 K/uL (4.8-10.8)
[2018-04-22 16:15] LABS: PTT PATIENT 23.8 SECONDS (21.0-31.0)
[2018-04-22 16:23] LABS: ALBUMIN 3.7 gm/dl (3.4-5.0); CALCIUM 9.9 mg/dl (8.5-10.1); CREATININE 1.11 mg/dl (0.60-1.20); POTASSIUM 4.7 mmol/L (3.5-5.1); TOTAL PROTEIN 7.8 gm/dl (6.4-8.2)
--- NOTE | 2018-04-22 16:25 | DIAGNOSTIC IMAGING REPORT ---
CHEST ONE VIEW PORTABLE CLINICAL HISTORY: Chest pain. COMPARISON STUDY: Chest radiograph February 20, 2018. FINDINGS: Mild cardiomegaly is noted. Diffuse interstitial thickening has developed. There is mild left basilar opacity. There is no lobar consolidation. There are suspected trace bilateral pleural effusions. IMPRESSION: 1. Interval development of interstitial thickening suggestive of pulmonary edema. 2. Suspected trace bilateral pleural effusions. 3. Mild bibasilar opacities. Atelectasis is favored although consolidation could appear similar. Electronically signed by: Germán Guevara M.D. 04/22/2018 4:24 PM Dictated Date/Time: 04/22/2018 4:23 PM
[2018-04-22] MEDS ORDERED: OXGN (18:41)
[2018-04-22] MEDS ORDERED: ONDANSETRON INJ 2 MG/ML 2 ML VIAL IV PRN (19:00)
[2018-04-22] MEDS ORDERED: ACETAMINOPHEN 325 MG TAB PO PRN (19:00)
[2018-04-22] MEDS ORDERED: MAGNESIUM HYDROXIDE SUSP 30 ML UDC PO PRN (19:00)
[2018-04-22] MEDS ORDERED: ALUMINUM/MAGNESIUM/SIMETH (MAALOX MAX) 30 ML UDC PO PRN (19:00)
[2018-04-22] MEDS ORDERED: MoRPHine SULFATE 2 MG/ML CARP IV PRN (19:00)
[2018-04-22] MEDS ORDERED: POLYETHYLENE (MIRALAX) 17 GM PACK PO PRN (19:00)
[2018-04-22] MEDS ORDERED: NITROGLYCERIN 0.4 MG SL PER TAB CHARGE SL PRN (19:00)
--- NOTE | 2018-04-22 19:07 | History and Physical ---
History & Physical Date & Time of Service: Apr 22, 2018 at 18:54 Chief Complaint: Edema/Extremities, Gen Weakness Primary Care Physician: Luis Siddiqui M.D. History of Present Illness Source: hospital records, other 82 y/o F Hx diastolic CHF, HTN, HLD, DM II, hypothyroidism, hyponatremia, anxiety/depression, dementia, gout, KELI, GERD, morbidly obese. She presents with acute dyspnea, hypoxia and worsening confusion. The pt suffers from dementia and resides at home where she is looked after by family. They have not reported fevers, CP, nausea, vomiting or diarrhea. She does not have a productive cough. Initial CXR supports pulmonary edema. Labs demonstrate worsening hyponatremia and an ABG is notable for partially compensated respiratory acidosis and a CO2 of 90. The pt has been admitted to the hospital 4 times in as many months with respiratory failure. Past Medical/Surgical History 1) KELI - does not tolerate CPAP 2) Grade I diastolic CHF - preserved EF - echo 02/2018 3) HTN 4) HLD 5) Advanced dementia 6) DM II 7) Hypothyroidism 8) Hyponatremia 9) Gout 10) GERD Family History FH: heart disease Social History The pt is care-dependent due to dementia - no history of smoking or drinking Smoking Status: Never Smoker Drug Use: none Marital Status: Housing status: lives with family Occupational Status: retired Immunizations History of Influenza Vaccine: Yes Influenza Vaccine Date: May 05, 2017 History of Tetanus Vaccine?: Yes History of Pneumococcal: Yes History of Hepatitis B Vaccine: Unknown Allergies Coded Allergies: No Known Allergies (Unverified , 02/14/18) Home Medications Scheduled Allopurinol (Zyloprim), 100 MG PO QAM Amlodipine Besylate (Norvasc), 1 TAB PO DAILY Aspirin (Aspirin Ec), 81 MG PO QAM Atorvastatin (Lipitor), 40 MG PO QAM Calcium Carbonate-Vitamin D W/ (Caltrate 600 Plus), 1 TAB PO QPM Calcium Carbonate-Vitamin D W/ (Caltrate 600 Plus), 2 TAB PO with lunch Donepezil Hydrochloride (Aricept), 10 MG PO HS Enalapril (Vasotec), 10 MG PO QAM Home O2 Therapy (Oxygen), 2 LITERS NA CONTINOUS Insulin Glargine (Lantus), 25 UNITS SC BID Levothyroxine Sodium (Levothyroxine Sodium), 175 MCG PO DAILY Memantine (Namenda), 10 MG PO BID Metoprolol Tartrate (Lopressor) (Lopressor), 50 MG PO QAM Metoprolol Tartrate (Lopressor) (Lopressor), 25 MG PO QPM Multiple Vitamins W/ Minerals (Centrum Silver), 1 TAB PO DAILY Nystatin (Topical) (Nystatin), 1 APPLN TOP TID Omeprazole (Prilosec), 20 MG PO DAILY@1200 Polyethylene Glycol 3350 (Miralax), 17 GM PO 5XWK Quetiapine Fumarate (Seroquel Xr), 200 MG PO HS Venlafaxine Hcl (Venlafaxine Extended Rel), 75 MG PO DAILY Scheduled PRN Furosemide (Lasix), 20 MG PO DAILY PRN for swelling Insulin Aspart (Novolog), 5 UNITS SC TIDM PRN for Hyperglycemia Protocol Review of Systems Cannot obtain from this pt who was sent in for dyspnea/hypoxia Physical Exam Vital Signs Date Time Temp Pulse Resp B/P (MAP) Pulse Ox O2 Delivery O2 Flow Rate FiO2 04/22/18 17:47 70 16 147/90 96 Nasal Cannula 5.0 04/22/18 16:15 68 18 148/65 95 Nasal Cannula 04/22/18 15:38 100 Nasal Cannula 5.0 04/22/18 15:38 100 Nasal Cannula 5.0 04/22/18 15:35 68 04/22/18 15:20 36.5 64 16 156/62 86 Room Air General Appearance: WD/WN, no apparent distress, + pertinent finding ( Disoriented, morbidly obese, elderly female - appears comfottable on 2L 02) Head: normocephalic Eyes: normal inspection ENT: normal ENT inspection Neck: supple, + pertinent finding (cannot evaluate JVD) Respiratory/Chest: + pertinent finding (Poor air entry / effort - very limited exam) Cardiovascular: regular rate, rhythm, no edema, no gallop Abdomen/GI: normal bowel sounds, non tender, soft Back: normal inspection, no CVA tenderness Extremities/Musculoskelatal: no calf tenderness, normal capillary refill, + pedal edema Neurologic/Psych: no motor/sensory deficits, + disoriented Skin: normal color Diagnostics Laboratory Results Results Past 24 Hours Test 04/22/18 15:23 04/22/18 16:00 04/22/18 16:20 04/22/18 16:31 Range/Units White Blood Count 9.92 4.8-10.8 K/uL Red Blood Count 3.71 4.2-5.4 M/uL Hemoglobin 11.3 12.0-16.0 g/dL Hematocrit 34.5 37-47 % Mean Corpuscular Volume 93.0 80-100 fL Mean Corpuscular Hemoglobin 30.5 25-34 pg Mean Corpuscular Hemoglobin Concent 32.8 32-36 g/dl Platelet Count 160 130-400 K/uL Mean Platelet Volume 10.5 7.4-10.4 fL Neutrophils (%) (Auto) 77.4 % Lymphocytes (%) (Auto) 12.8 % Monocytes (%) (Auto) 8.4 % Eosinophils (%) (Auto) 0.9 % Basophils (%) (Auto) 0.2 % Neutrophils # (Auto) 7.68 1.4-6.5 K/uL Lymphocytes # (Auto) 1.27 1.2-3.4 K/uL Monocytes # (Auto) 0.83 0.11-0.59 K/uL Eosinophils # (Auto) 0.09 0-0.5 K/uL Basophils # (Auto) 0.02 0-0.2 K/uL RDW Standard Deviation 47.1 36.4-46.3 fL RDW Coefficient of Variation 13.9 11.5-14.5 % Immature Granulocyte % (Auto) 0.3 % Immature Granulocyte # (Auto) 0.03 0.00-0.02 K/uL Prothrombin Time 10.3 9.0-12.0 SECONDS Prothromb Time International Ratio 1.0 0.9-1.1 Activated Partial Thromboplast Time 23.8 21.0-31.0 SECONDS Partial Thromboplastin Ratio 0.9 Sodium Level 123 136-145 mmol/L Potassium Level 4.7 3.5-5.1 mmol/L Chloride Level 81 98-107 mmol/L Carbon Dioxide Level 40 21-32 mmol/L Anion Gap 2.0 3-11 mmol/L Blood Urea Nitrogen 17 7-18 mg/dl Creatinine 1.11 0.60-1.20 mg/dl Est Creatinine Clear Calc Drug Dose 42.0 ml/min Estimated GFR () 53.6 Estimated GFR (Non- 46.2 BUN/Creatinine Ratio 15.5 10-20 Random Glucose 218 70-99 mg/dl Calcium Level 9.9 8.5-10.1 mg/dl Total Bilirubin 0.5 0.2-1 mg/dl Direct Bilirubin 0.2 0-0.2 mg/dl Aspartate Amino Transf (AST/SGOT) 21 15-37 U/L Alanine Aminotransferase (ALT/SGPT) 31 12-78 U/L Alkaline Phosphatase 138 45-117 U/L Total Protein 7.8 6.4-8.2 gm/dl Albumin 3.7 3.4-5.0 gm/dl Lipase 193 73-393 U/L Bedside Troponin I < 0.030 0-0.045 ng/ml Urine Color YELLOW Urine Appearance CLEAR CLEAR Urine pH 5.5 4.5-7.5 Urine Specific [place] 1.011 1.000-1.030 Urine Protein TRACE NEG Urine Glucose (UA) NEG NEG Urine Ketones NEG NEG Urine Occult Blood NEG NEG Urine Nitrite NEG NEG Urine Bilirubin NEG NEG Urine Urobilinogen NEG NEG Urine Leukocyte Esterase NEG NEG Urine WBC (Auto) 0 0-5 /hpf Urine RBC (Auto) 0-4 0-4 /hpf Urine Hyaline Casts (Auto) 1-5 0-5 /lpf Urine Epithelial Cells (Auto) 5-10 0-5 /lpf Urine Bacteria (Auto) NEG NEG Arterial Blood pH 7.29 7.35-7.45 Arterial Blood Partial Pressure CO2 90 35-46 mmHg Arterial Blood Partial Pressure O2 80 80-95 mm/Hg Arterial Blood HCO3 42 19-24 mmol/L Arterial Blood Oxygen Saturation 93.8 90-95 % Arterial Blood Base Excess 12.5 -9-1.8 mEq/L Arterial Blood Gas Delivery 5L Ochoa Test POS POS Diagnostic Radiology CXR: 1. Interval development of interstitial thickening suggestive of pulmonary edema. 2. Suspected trace bilateral pleural effusions. 3. Mild bibasilar opacities. Atelectasis is favored although consolidation could appear similar. Impression Assessment and Plan 82 y/o F Hx diastolic CHF, HTN, HLD, DM II, hypothyroidism, hyponatremia, anxiety/depression, dementia, gout, KELI, GERD, morbidly obese. She presents with acute dyspnea, hypoxia and worsening confusion. The pt suffers from dementia and resides at home where she is looked after by family. They have not reported fevers, CP, nausea, vomiting or diarrhea. She does not have a productive cough. Initial CXR supports pulmonary edema. Labs demonstrate worsening hyponatremia and an ABG is notable for partially compensated respiratory acidosis and a CO2 of 90. The pt has been admitted to the hospital 4 times in as many months with respiratory failure. 1) Hypercapnic respiratory failure with hypoxia. She suffers from KELI and hypoventilation. She is unable to tolerate BiPAP and only wears PRN 02 via NC. As she will not tolerate necessary treatment, we have consulted palliative care. This was discussed with family. We will attempt BiPAP use while she is hospitalized. 2) CHF exacerbation - provided with additional diuresis. Cont Metoprolol. Daily weights, I/O. 3) Hyponatremia - recurrent. We will treat with fluid restriction presently. Treatment with sodium would not be practical for this pt due to her propensity for volume overload. If there is no improvement or worsening, treatment with Tolvaptan might be considered and a nephrology consult would be prudent. 4) DM II - placed on a SS 5) Hypothyroidism - cont Synthroid 6) Dementia - advanced - palliative consult as above 5) Gout - cont Allopurinol Full code - Heparin prophylaxis Total time for this admit including review of labs, meds, imaging, records - discussion with pt's family and ER attending - 40 min Resuscitation Status VTE Prophylaxis Will order VTE Prophylaxis: Yes
[2018-04-22] MEDS ORDERED: CARBOHYDRATES FOR HYPOGLYCEMIA PO PRN (20:00)
[2018-04-22] MEDS ORDERED: GLUCAGON FOR INJ 1 MG VIAL IM PRN (20:00)
[2018-04-22] MEDS ORDERED: GLUCOSE 40% GEL 15 GM TUBE PO PRN (20:00)
[2018-04-22] MEDS ORDERED: GLUCOSE 10 TABS/TUBE PO PRN (20:00)
[2018-04-22] MEDS ORDERED: DEXTROSE 50% 50 ML SYR IV PRN (20:00)
[2018-04-22 20:15] VITALS: BP 172/73; PULSE 74; TEMP 36.8; O2SAT 92; BMI 39.7
--- NOTE | 2018-04-22 22:07 | EMERGENCY ROOM VISIT NOTE ---
History Report prepared by Michael: Miguel Carrillo Under the Supervision of: Dr. Javy Junior M.D. First contact with patient: 15:38 Chief Complaint: ILLNESS Stated Complaint: EDEMA/EXTREMITIES, GEN WEAKNESS History of Present Illness The patient is a 83 year old female who presents to the Emergency Room with complaints of worsening shortness of breath that began 3 days ago and became worse today around 1300, per daughter. The patient's daughter states the patient also has worsening pedal edema in which she took 20mg of Lasix yesterday and today for and a nonproductive cough starting today. The daughter states that the patient is not on oxygen at home and was 85-89% oxygen on room air today. The patient was admitted in February with respiratory failure where she was diagnosed with CHF and wet lungs. The patient denies current fever, chest pain and abdominal pain but the patient's daughter does state the patient was complaining of chest pain and abdominal pain earlier today. HPI is limited secondary to dementia. Source of History: family History Limited By: AMS Onset: Today around 1300 Position: chest Timing: worsening Associated Symptoms: + SOB, No fevers Review of Systems Limited secondary to dementia. Past Medical & Surgical Medical Problems: (1) Acute exacerbation of CHF (congestive heart failure) (2) Acute respiratory failure with hypoxia (3) Acute respiratory failure with hypoxia and hypercarbia (4) Bronchitis (5) Cellulitis (6) Cellulitis of right toe (7) Dementia (8) DIAB KAREEM WO COMPL, TYPE II OR UNSPEC TYPE, NOT UNCNTRLD (9) Diabetic infection of left foot (10) DIVERTICULOSIS COLON (W/O MENT OF HEMORRHAGE) (11) Diverticulosis of colon without hemorrhage (12) Esophageal reflux (13) GOUT NOS (14) HYPERTENSION NOS (15) Hyponatremia (16) HYPOTHYROIDISM NOS (17) Hypoxia (18) Mental status change (19) Osteomyelitis (20) Pneumonia (21) SIADH (syndrome of inappropriate ADH production) (22) Unspecified sleep apnea (23) URI (upper respiratory infection) Family History FH: heart disease Social History Smoking Status: Never Smoker Alcohol Use: none Drug Use: none Marital Status: Housing Status: lives with family Occupation Status: retired Current/Historical Medications Scheduled Allopurinol (Zyloprim), 100 MG PO QAM Amlodipine Besylate (Norvasc), 1 TAB PO DAILY Aspirin (Aspirin Ec), 81 MG PO QAM Atorvastatin (Lipitor), 40 MG PO QAM Calcium Carbonate-Vitamin D W/ (Caltrate 600 Plus), 1 TAB PO QPM Calcium Carbonate-Vitamin D W/ (Caltrate 600 Plus), 2 TAB PO with lunch Donepezil Hydrochloride (Aricept), 10 MG PO HS Enalapril (Vasotec), 10 MG PO QAM Home O2 Therapy (Oxygen), 2 LITERS NA CONTINOUS Insulin Glargine (Lantus), 25 UNITS SC BID Levothyroxine Sodium (Levothyroxine Sodium), 175 MCG PO DAILY Memantine (Namenda), 10 MG PO BID Metoprolol Tartrate (Lopressor) (Lopressor), 50 MG PO QAM Metoprolol Tartrate (Lopressor) (Lopressor), 25 MG PO QPM Multiple Vitamins W/ Minerals (Centrum Silver), 1 TAB PO DAILY Nystatin (Topical) (Nystatin), 1 APPLN TOP TID Omeprazole (Prilosec), 20 MG PO DAILY@1200 Polyethylene Glycol 3350 (Miralax), 17 GM PO 5XWK Quetiapine Fumarate (Seroquel Xr), 200 MG PO HS Venlafaxine Hcl (Venlafaxine Extended Rel), 75 MG PO DAILY Scheduled PRN Furosemide (Lasix), 20 MG PO DAILY PRN for swelling Insulin Aspart (Novolog), 5 UNITS SC TIDM PRN for Hyperglycemia Protocol Allergies Coded Allergies: No Known Allergies (Unverified , 02/14/18) Physical Exam Vital Signs Date Time Temp Pulse Resp B/P (MAP) Pulse Ox O2 Delivery O2 Flow Rate FiO2 04/22/18 17:47 70 16 147/90 96 Nasal Cannula 5.0 04/22/18 16:15 68 18 148/65 95 Nasal Cannula 04/22/18 15:38 100 Nasal Cannula 5.0 04/22/18 15:38 100 Nasal Cannula 5.0 04/22/18 15:35 68 04/22/18 15:20 36.5 64 16 156/62 86 Room Air Physical Exam Constitutional: Vital signs reviewed. Eyes: Pupils are equal round reactive to light. Conjunctiva are noninjected. ENT: Pharynx is clear without erythema or exudate. Mucous membranes are moist. Neck supple without meningeal signs. Respiratory: Breath sounds are equal bilaterally. Bibasilar crackles, minimal scattered wheezing. Cardiovascular: Regular rate and rhythm. No rubs or gallops. GI: Soft, nondistended and nontender. Bowel sounds are present. Musculoskeletal: Bilateral pitting pedal edema. No lower extremity tenderness. Integumentary: No cyanosis. Neurological: The patient is awake and alert. No focal deficits. Psychiatric: Normal affect. Medical Decision & Procedures ER Provider Diagnostic Interpretation: Radiology results as stated below per my review and the radiologist's interpretation: CHEST ONE VIEW PORTABLE CLINICAL HISTORY: Chest pain. COMPARISON STUDY: Chest radiograph February 20, 2018. FINDINGS: Mild cardiomegaly is noted. Diffuse interstitial thickening has developed. There is mild left basilar opacity. There is no lobar consolidation. There are suspected trace bilateral pleural effusions. IMPRESSION: 1. Interval development of interstitial thickening suggestive of pulmonary edema. 2. Suspected trace bilateral pleural effusions. 3. Mild bibasilar opacities. Atelectasis is favored although consolidation could appear similar. Electronically signed by: Germán Guevara M.D. 04/22/2018 4:24 PM Dictated Date/Time: 04/22/2018 4:23 PM Laboratory Results 04/22/18 15:23 Red Blood Count 3.71, Mean Corpuscular Volume 93.0, Mean Corpuscular Hemoglobin 30.5, Mean Corpuscular Hemoglobin Concent 32.8, Mean Platelet Volume 10.5, Neutrophils (%) (Auto) 77.4, Lymphocytes (%) (Auto) 12.8, Monocytes (%) (Auto) 8.4, Eosinophils (%) (Auto) 0.9, Basophils (%) (Auto) 0.2, Neutrophils # (Auto) 7.68, Lymphocytes # (Auto) 1.27, Monocytes # (Auto) 0.83, Eosinophils # (Auto) 0.09, Basophils # (Auto) 0.02 04/22/18 15:23 Test 04/22/18 15:23 04/22/18 16:00 04/22/18 16:20 White Blood Count 9.92 K/uL (4.8-10.8) Red Blood Count 3.71 M/uL (4.2-5.4) Hemoglobin 11.3 g/dL (12.0-16.0) Hematocrit 34.5 % (37-47) Mean Corpuscular Volume 93.0 fL (80-100) Mean Corpuscular Hemoglobin 30.5 pg (25-34) Mean Corpuscular Hemoglobin Concent 32.8 g/dl (32-36) Platelet Count 160 K/uL (130-400) Mean Platelet Volume 10.5 fL (7.4-10.4) Neutrophils (%) (Auto) 77.4 % Lymphocytes (%) (Auto) 12.8 % Monocytes (%) (Auto) 8.4 % Eosinophils (%) (Auto) 0.9 % Basophils (%) (Auto) 0.2 % Neutrophils # (Auto) 7.68 K/uL (1.4-6.5) Lymphocytes # (Auto) 1.27 K/uL (1.2-3.4) Monocytes # (Auto) 0.83 K/uL (0.11-0.59) Eosinophils # (Auto) 0.09 K/uL (0-0.5) Basophils # (Auto) 0.02 K/uL (0-0.2) RDW Standard Deviation 47.1 fL (36.4-46.3) RDW Coefficient of Variation 13.9 % (11.5-14.5) Immature Granulocyte % (Auto) 0.3 % Immature Granulocyte # (Auto) 0.03 K/uL (0.00-0.02) Prothrombin Time 10.3 SECONDS (9.0-12.0) Prothromb Time International Ratio 1.0 (0.9-1.1) Activated Partial Thromboplast Time 23.8 SECONDS (21.0-31.0) Partial Thromboplastin Ratio 0.9 Anion Gap 2.0 mmol/L (3-11) Est Creatinine Clear Calc Drug Dose 42.0 ml/min Estimated GFR () 53.6 Estimated GFR (Non- 46.2 BUN/Creatinine Ratio 15.5 (10-20) Calcium Level 9.9 mg/dl (8.5-10.1) Total Bilirubin 0.5 mg/dl (0.2-1) Direct Bilirubin 0.2 mg/dl (0-0.2) Aspartate Amino Transf (AST/SGOT) 21 U/L (15-37) Alanine Aminotransferase (ALT/SGPT) 31 U/L (12-78) Alkaline Phosphatase 138 U/L (45-117) Total Protein 7.8 gm/dl (6.4-8.2) Albumin 3.7 gm/dl (3.4-5.0) Lipase 193 U/L (73-393) Bedside Troponin I < 0.030 ng/ml (0-0.045) Urine Color YELLOW Urine Appearance CLEAR (CLEAR) Urine pH 5.5 (4.5-7.5) Urine Specific [place] 1.011 (1.000-1.030) Urine Protein TRACE (NEG) Urine Glucose (UA) NEG (NEG) Urine Ketones NEG (NEG) Urine Occult Blood NEG (NEG) Urine Nitrite NEG (NEG) Urine Bilirubin NEG (NEG) Urine Urobilinogen NEG (NEG) Urine Leukocyte Esterase NEG (NEG) Urine WBC (Auto) 0 /hpf (0-5) Urine RBC (Auto) 0-4 /hpf (0-4) Urine Hyaline Casts (Auto) 1-5 /lpf (0-5) Urine Epithelial Cells (Auto) 5-10 /lpf (0-5) Urine Bacteria (Auto) NEG (NEG) Laboratory results as reviewed by me. Medications Administered Medications (Trade) Dose Ordered Sig/Edilberto Route Start Time Stop Time Status Last Admin Dose Admin Furosemide (Lasix Inj) 40 mg NOW STAT IV 04/22/18 15:48 04/22/18 15:50 DC 04/22/18 16:18 40 MG ECG Per My Interpretation Indication: SOB/dyspnea Rate (beats per minute): 70 Rhythm: normal sinus Findings: other (No ST elevation, No PVC) ED Course 1541: The patient was evaluated in room C5. A complete history and physical exam was performed. 1548: Lasix 40mg IV 1636: The patient is maintaining 100% oxygen saturation on 4L. I discussed the test results with her daughter. 165:I informed Dr. Rodriguez [facility] Hospitalist of hospitalization, but he cannot get to it at this time. I informed the patient's daughter about the delay. 170: I reviewed old records and Dr. Steward - Pulmonology who noted the patient cannot withstand Cpap or Bipap. 183: I spoke with Dr. Rodriguez [facility] Hospitalist who will be accepting the patient. 1921: Patient was placed on Bipap by Dr. Jennifer Mckinnon [facility] Hospitalist Medical Decision This is an 83-year-old female presents with shortness of breath. Differential diagnosis includes CHF exacerbation, pulmonary edema, pleural effusion, pneumonia, bronchitis, anemia. I did perform a limited focused review of portions of the patient's old chart on the electronic medical record. The patient has had one prior visit to this hospital in February 2018 where she was admitted for respiratory failure. I did evaluate the patient as noted above. Patient is presenting with shortness of breath. She has a prior history of hypercarbic and hypoxic respiratory failure. It was noted on her previous admission that she could not tolerate BiPAP or CPAP. IV access was established. The patient was placed on a continuous court recording monitor. The patient has low O2 saturations here in the 80s. She was given supplemental oxygen and her O2 saturation was. I did order and personally review the patient's 12-lead EKG and chest x-ray as described above. Chest x-ray demonstrates pulmonary edema. There was some question of infiltrate versus atelectasis at the bases. The patient has had no fevers. I did talk to the daughter about this. We decided to hold off on antibiotics and see how she does after treatment of her CHF. I did treat her with Lasix 40 mg IV. A Ferrell catheter was placed. Urinalysis was obtained as noted above. I did order and review the patient's blood work as noted in the electronic medical record. She has hypercapnia. She is hyponatremic. She has chronic anemia. Troponin is negative. I did discuss the test results with the patient and her daughter. The patient will be hospitalized for further care and evaluation. I did discuss the case with the hospitalist and rn case management. The patient was placed on BiPAP. Medication Reconcilliation Current Medication List: was personally reviewed by me Blood Pressure Screening Patient's blood pressure: Elevated blood pressure Blood pressure disposition: Referred to PCP Consults Time Called: 1831 Consulting Physician: Dr. Rodriguez - [facility] Hospitalist Returned Call: [phone] Rodriguez of [facility] Hospitalist. We discussed the patient and their lab and test results. The patient will be further evaluated by Dr. Rodriguez. Impression Primary Impression: Respiratory failure with hypoxia Additional Impressions: Anemia Hypercapnemia Hyponatremia Acute chest pain Pulmonary edema Critical Care I have personally spent 35 minutes of critical care time in the direct management of this patient. This includes bedside care, interpretation of diagnostic studies and testing, discussion with consultants and patient, and other required patient management activities. This time is in excess of all separately billable procedures. Scribe Attestation The scribe's documentation has been prepared under my direct and personally reviewed by me in its entirety. I confirm that the note above accurately reflects all work, treatment, procedures, and medical decision making performed by me. Departure Information Dispostion Being Evaluated By Hospitalist Referrals Luis Siddiqui M.D. (PCP) Forms HOME CARE DOCUMENTATION FORM, IMPORTANT VISIT INFORMATION, WORK / SCHOOL INSTRUCTIONS Patient Instructions My [facility] Problem Qualifiers Primary Impression: Respiratory failure with hypoxia Chronicity: acute on chronic Qualified Codes: J96.21 - Acute and chronic respiratory failure with hypoxia Additional Impressions: Anemia Anemia type: unspecified type Qualified Codes: D64.9 - Anemia, unspecified Pulmonary edema Chronicity: acute Qualified Codes: J81.0 - Acute pulmonary edema
[2018-04-22] MEDS: NYSTATIN POWDER 15GM BTL EXT SCH (22:12)
[2018-04-22] MEDS: FUROSEMIDE INJ 20 MG in SYRINGE 0 ML IV SCH (22:12)
[2018-04-22] MEDS: QUETIAPINE FUMARATE 200 MG TABCR PO SCH (22:13)
[2018-04-22] MEDS: DONEPEZIL HCL 10 MG TAB PO SCH (22:13)
[2018-04-22] MEDS: MEMANTINE 10 MG TAB PO SCH (22:13)
[2018-04-22] MEDS: METOPROLOL TARTRATE 25 MG TAB PO SCH (22:13)
[2018-04-22] MEDS: INSULIN GLARGINE SOLOSTAR 100 UNITS/ML 3 ML PEN SC SCH (22:14)
[2018-04-22] MEDS: HEPARIN SOD 5000 UNIT/0.5 ML CARP SQ SCH (22:14)
[2018-04-23] VITALS (9 sets, daily range): BP systolic 124–151; BP diastolic 48–86; PULSE 61–71; TEMP 36.6–37; O2SAT 92–97
[2018-04-23] MEDS: LEVOTHYROXINE 175 MCG TAB PO SCH (05:42)
[2018-04-23] MEDS: HEPARIN SOD 5000 UNIT/0.5 ML CARP SQ SCH ×3 (05:45→21:29)
[2018-04-23 06:06] LABS: HEMATOCRIT 30.4 % (37-47); MEAN CORPUSCULAR HEMOGLOBIN 30.6 pg (25-34); MEAN CORPUSCULAR HGB CONC 32.9 g/dl (32-36); MEAN PLATELET VOLUME 8.9 fL (7.4-10.4); PLATELET COUNT 120 K/uL (130-400); RED CELL DISTRIBUTION WIDTH CV 13.9 % (11.5-14.5); RED CELL DISTRIBUTION WIDTH SD 47.2 fL (36.4-46.3); WHITE BLOOD COUNT 7.06 K/uL (4.8-10.8)
[2018-04-23 06:51] LABS: CREATININE 1.09 mg/dl (0.60-1.20); POTASSIUM 3.5 mmol/L (3.5-5.1)
[2018-04-23] MEDS ORDERED: MAGNESIUM SULFATE 1GM / D5W 100 ML IV STA (08:18)
--- NOTE | 2018-04-23 08:19 | Progress Note ---
Subjective Date of Service: Apr 23, 2018. Subjective pt remains more alert than described, she is confused at times, she speaks of a woman named gena. she has no focal complaints but is not aware she is in the hospital Problem List Medical Problems: (1) Acute chest pain Status: Acute (2) Altered mental status Status: Acute (3) Anemia Status: Acute (4) Cellulitis of right foot Status: Acute (5) Closed head injury Status: Acute (6) Hypercapnemia Status: Acute (7) Hyperglycemia Status: Acute (8) Hyponatremia Status: Acute (9) Hypoxia Status: Acute (10) Multiple contusions Status: Acute (11) Pneumonia Status: Acute (12) Pulmonary edema Status: Acute (13) Respiratory failure with hypoxia Status: Acute (14) Respiratory failure with hypoxia Status: Acute (15) Shortness of breath Status: Acute (16) Wheezing Status: Acute Review of Systems Constitutional: + weakness, + fatigue, No fever, No chills Respiratory: + dyspnea on exertion, No cough, No shortness of breath Cardiac: + edema (trace), No chest pain, No PND Musculoskeletal: No joint pain, No muscle pain Neurologic: + memory loss, + weakness Psychiatric: + anxiety, No depression symptoms, No anhedonism Objective Vital Signs Date Time Temp Pulse Resp B/P (MAP) Pulse Ox O2 Delivery O2 Flow Rate FiO2 04/23/18 08:00 36.8 61 16 127/68 (87) 95 Nasal Cannula 2.0 04/23/18 04:07 36.8 62 18 150/48 (82) 96 Nasal Cannula 2.0 04/23/18 00:02 37.0 63 24 151/72 (98) 94 Nasal Cannula 2.0 04/23/18 00:00 97 Nasal Cannula 2.0 04/22/18 20:15 36.8 74 21 172/73 92 Nasal Cannula 4.5 04/22/18 19:36 76 18 168/72 97 04/22/18 18:55 72 18 153/78 97 Nasal Cannula 5.0 04/22/18 17:47 70 16 147/90 96 Nasal Cannula 5.0 04/22/18 16:15 68 18 148/65 95 Nasal Cannula 04/22/18 15:38 100 Nasal Cannula 5.0 04/22/18 15:38 100 Nasal Cannula 5.0 04/22/18 15:35 68 04/22/18 15:20 36.5 64 16 156/62 86 Room Air Physical Exam General Appearance: WD/WN, + mild distress Eyes: normal inspection, PERRL, EOMI, sclerae normal ENT: hearing grossly normal, pharynx normal Respiratory/Chest: chest non-tender, lungs clear, normal breath sounds Cardiovascular: regular rate, rhythm, + systolic murmur Abdomen: normal bowel sounds, non tender, soft Extremities: no calf tenderness, + pedal edema (trace) Neurologic/Psychiatric: alert, + disoriented Laboratory Results Last 24 Hours Test 04/22/18 15:23 04/22/18 16:00 04/22/18 16:20 04/22/18 16:31 White Blood Count 9.92 K/uL Red Blood Count 3.71 M/uL Hemoglobin 11.3 g/dL Hematocrit 34.5 % Mean Corpuscular Volume 93.0 fL Mean Corpuscular Hemoglobin 30.5 pg Mean Corpuscular Hemoglobin Concent 32.8 g/dl Platelet Count 160 K/uL Mean Platelet Volume 10.5 fL Neutrophils (%) (Auto) 77.4 % Lymphocytes (%) (Auto) 12.8 % Monocytes (%) (Auto) 8.4 % Eosinophils (%) (Auto) 0.9 % Basophils (%) (Auto) 0.2 % Neutrophils # (Auto) 7.68 K/uL Lymphocytes # (Auto) 1.27 K/uL Monocytes # (Auto) 0.83 K/uL Eosinophils # (Auto) 0.09 K/uL Basophils # (Auto) 0.02 K/uL RDW Standard Deviation 47.1 fL RDW Coefficient of Variation 13.9 % Immature Granulocyte % (Auto) 0.3 % Immature Granulocyte # (Auto) 0.03 K/uL Prothrombin Time 10.3 SECONDS Prothromb Time International Ratio 1.0 Activated Partial Thromboplast Time 23.8 SECONDS Partial Thromboplastin Ratio 0.9 Sodium Level 123 mmol/L Potassium Level 4.7 mmol/L Chloride Level 81 mmol/L Carbon Dioxide Level 40 mmol/L Anion Gap 2.0 mmol/L Blood Urea Nitrogen 17 mg/dl Creatinine 1.11 mg/dl Est Creatinine Clear Calc Drug Dose 42.0 ml/min Estimated GFR () 53.6 Estimated GFR (Non- 46.2 BUN/Creatinine Ratio 15.5 Random Glucose 218 mg/dl Calcium Level 9.9 mg/dl Total Bilirubin 0.5 mg/dl Direct Bilirubin 0.2 mg/dl Aspartate Amino Transf (AST/SGOT) 21 U/L Alanine Aminotransferase (ALT/SGPT) 31 U/L Alkaline Phosphatase 138 U/L Total Protein 7.8 gm/dl Albumin 3.7 gm/dl Lipase 193 U/L Bedside Troponin I < 0.030 ng/ml Urine Color YELLOW Urine Appearance CLEAR Urine pH 5.5 Urine Specific [place] 1.011 Urine Protein TRACE Urine Glucose (UA) NEG Urine Ketones NEG Urine Occult Blood NEG Urine Nitrite NEG Urine Bilirubin NEG Urine Urobilinogen NEG Urine Leukocyte Esterase NEG Urine WBC (Auto) 0 /hpf Urine RBC (Auto) 0-4 /hpf Urine Hyaline Casts (Auto) 1-5 /lpf Urine Epithelial Cells (Auto) 5-10 /lpf Urine Bacteria (Auto) NEG Arterial Blood pH 7.29 Arterial Blood Partial Pressure CO2 90 mmHg Arterial Blood Partial Pressure O2 80 mm/Hg Arterial Blood HCO3 42 mmol/L Arterial Blood Oxygen Saturation 93.8 % Arterial Blood Base Excess 12.5 mEq/L Arterial Blood Gas Delivery 5L [place]cho[place] Test POS Test 04/22/18 20:11 04/22/18 21:49 04/23/18 04:15 04/23/18 05:57 Bedside Glucose 157 mg/dl 84 mg/dl Arterial Blood pH 7.32 Arterial Blood Partial Pressure CO2 89 mmHg Arterial Blood Partial Pressure O2 105 mm/Hg Arterial Blood HCO3 45 mmol/L Arterial Blood Oxygen Saturation 97.1 % Arterial Blood Base Excess 16.1 mEq/L Arterial Blood Gas Delivery 4.5L [place]a Test POS White Blood Count 7.06 K/uL Red Blood Count 3.27 M/uL Hemoglobin 10.0 g/dL Hematocrit 30.4 % Mean Corpuscular Volume 93.0 fL Mean Corpuscular Hemoglobin 30.6 pg Mean Corpuscular Hemoglobin Concent 32.9 g/dl RDW Standard Deviation 47.2 fL RDW Coefficient of Variation 13.9 % Platelet Count 120 K/uL Mean Platelet Volume 8.9 fL Sodium Level 127 mmol/L Potassium Level 3.5 mmol/L Chloride Level 80 mmol/L Carbon Dioxide Level 43 mmol/L Anion Gap 4.0 mmol/L Blood Urea Nitrogen 17 mg/dl Creatinine 1.09 mg/dl Est Creatinine Clear Calc Drug Dose 45.3 ml/min Estimated GFR () 54.7 Estimated GFR (Non- 47.2 BUN/Creatinine Ratio 15.5 Random Glucose 90 mg/dl Calcium Level 9.0 mg/dl Magnesium Level 1.6 mg/dl Test 04/23/18 07:24 Bedside Glucose 82 mg/dl Assessment and Plan 82 y/o F with acute respiratory failure and hypercarbia secondary to acute diastolic HF, she also has a history of HTN, HLD, DM II, hypothyroidism, hyponatremia, anxiety/depression, dementia, gout, KELI, GERD, ans is morbidly obese. The pt has been admitted to the hospital 4 times in as many months with respiratory failure. Acute respiratory failure with hypercarbia and hypoxia. She suffers from KELI and hypoventilation. She is unable to tolerate BiPAP and only wears PRN 02 via NC. As she will not tolerate necessary treatment, the admitting team discussed palliative care with family and placed a consult, continue to try to use Bipap while here Acute diastolic heart failure, additional diuresis. Cont Metoprolol. Daily weights, I/O. metabolic Encephalopathy secondary to hypercarbia and possible hyponatremia Hyponatremia - recurrent. fluid restriction presently. Treatment with sodium would not be practical for this pt due to her propensity for volume overload. If there is no improvement or worsening, treatment with Tolvaptan might be considered and a nephrology consult would be prudent. DM II - placed on a SS Hypothyroidism - cont Synthroid Dementia - advanced - palliative consult as above Gout - cont Allopurinol Full code - Heparin prophylaxis
[2018-04-23] MEDS: VENLAFAXINE HCL XR 75 MG CAPXR PO SCH (09:17)
[2018-04-23] MEDS: METOPROLOL TARTRATE 50 MG TAB PO SCH (09:17)
[2018-04-23] MEDS: FUROSEMIDE INJ 20 MG in SYRINGE 0 ML IV SCH ×3 (09:17→20:27)
[2018-04-23] MEDS: POTASSIUM CHLORIDE 10 MEQ TABCR PO SCH ×3 (09:18→20:27)
[2018-04-23] MEDS: ASPIRIN 81 MG ECTAB PO SCH (09:18)
[2018-04-23] MEDS: ATORVASTATIN 40 MG TAB PO SCH (09:18)
[2018-04-23] MEDS: AMLODIPINE BESYLATE 5 MG TAB PO SCH (09:19)
[2018-04-23] MEDS: ALLOPURINOL 100 MG TAB PO SCH (09:20)
[2018-04-23] MEDS: ENALAPRIL MALEATE 10 MG TAB PO SCH (09:20)
[2018-04-23] MEDS: NYSTATIN POWDER 15GM BTL EXT SCH ×3 (09:20→20:27)
[2018-04-23] MEDS: INSULIN GLARGINE SOLOSTAR 100 UNITS/ML 3 ML PEN SC SCH ×2 (09:21→21:28)
[2018-04-23] MEDS: MEMANTINE 10 MG TAB PO SCH ×2 (09:22→20:26)
[2018-04-23] MEDS: PANTOprazole SOD 40 MG TAB PO SCH (14:16)
--- NOTE | 2018-04-23 16:01 | Palliative Care Consultation ---
Consultation Date of Consultation: Apr 23, 2018. Requesting Physician: Dr. Rodriguez Attending Physician: Dr. French Reason for Consultation: Goals of care History of Present Illness This 83 year old female patient with PMH obesity, dementia, CHF, KELI not tolerant of CPAP, and others listed below, presented to the hospital with increasing weakness, edema, confusion. CXR showed pulmonary edema, CO2 was 90. This is her fourth admission to the hospital in as many months with respiratory failure. She lives at home with family normally. Given her advanced age, comorbidities and code status, palliative care consulted to discuss with family. Patient is awake and alert, is able to answer some questions appropriately, but is also disoriented. Was talking to herself and thought her son and daughter were in room with her. She was not able to answer questions about code status or goals of care. I called patient son Javy Buckley Jr. He stated he is bringing a copy of her living will/advanced directive into the hospital. Family is considering placement info [facility]. He thinks patient would probably want to be a DNR, but he wants his sister Chapis to make that decision. Past Medical/Surgical History Medical History: 1) KELI - does not tolerate CPAP 2) Grade I diastolic CHF - preserved EF - echo 02/2018 3) HTN 4) HLD 5) Advanced dementia 6) DM II 7) Hypothyroidism 8) Hyponatremia 9) Gout 10) GERD Social History Smoking Status: Never Smoker History of Alcohol Use: No Drug Use: none Marital Status: Housing Status: lives with family Occupation Status: retired Review of Systems Constitutional: + weakness ENT: No trouble swallowing Respiratory: No shortness of breath, No dyspnea on exertion Cardiac: No chest pain, No edema Abdomen: No pain, No nausea, No vomiting Female : No problem reported Psychiatric: No depression symptoms, No anxiety Allergies Coded Allergies: No Known Allergies (Unverified , 02/14/18) Medications Current Inpatient Medications Medications (Trade) Dose Ordered Sig/Edilberto Route Start Time Stop Time Status Last Admin Dose Admin Heparin Sodium (Porcine) (Heparin Sq 5000 Unit/0.5ml) 5,000 unit Q8 SQ 04/22/18 22:00 05/22/18 21:59 04/23/18 14:20 5,000 UNIT Acetaminophen (Tylenol Tab) 650 mg Q4H PRN PO 04/22/18 19:00 05/22/18 18:59 04/22/18 20:36 650 MG Al Hydrox/Mg Hydrox/Simethicone (Maalox Max Susp) 15 ml Q4H PRN PO 04/22/18 19:00 05/22/18 18:59 Magnesium Hydroxide (Milk Of Magnesia Susp) 30 ml Q12H PRN PO 04/22/18 19:00 05/22/18 18:59 Ondansetron HCl (Zofran Inj) 4 mg Q6H PRN IV 04/22/18 19:00 05/22/18 18:59 Nitroglycerin (Nitrostat Tab) 0.4 mg UD PRN SL 04/22/18 19:00 05/22/18 18:59 Morphine Sulfate (MoRPHine SULFATE INJ) 2 mg Q30M PRN IV 04/22/18 19:00 05/06/18 18:59 Polyethylene (Miralax Powder Packet) 17 gm DAILY PRN PO 04/22/18 19:00 05/22/18 18:59 Allopurinol (Zyloprim Tab) 100 mg QAM PO 04/23/18 09:00 05/23/18 08:59 04/23/18 09:20 100 MG Amlodipine Besylate (Norvasc Tab) 10 mg DAILY PO 04/23/18 09:00 05/23/18 08:59 04/23/18 09:19 10 MG Aspirin (Ecotrin Tab) 81 mg QAM PO 04/23/18 09:00 05/23/18 08:59 04/23/18 09:18 81 MG Atorvastatin Calcium (Lipitor Tab) 40 mg QAM PO 04/23/18 09:00 05/23/18 08:59 04/23/18 09:18 40 MG Donepezil HCl (Aricept Tab) 10 mg HS PO 04/22/18 21:00 05/22/18 20:59 04/22/18 22:13 10 MG Enalapril Maleate (Vasotec Tab) 10 mg QAM PO 04/23/18 09:00 05/23/18 08:59 04/23/18 09:20 10 MG Insulin Glargine (Lantus Solostar Pen) 25 units BID SC 04/22/18 21:00 05/22/18 20:59 04/23/18 09:21 25 UNITS Levothyroxine Sodium (Synthroid Tab) 175 mcg DAILYBB PO 04/23/18 06:00 05/23/18 05:59 04/23/18 05:42 175 MCG Memantine (Namenda Tab) 10 mg BID PO 04/22/18 21:00 05/22/18 20:59 04/23/18 09:22 10 MG Metoprolol Tartrate (Lopressor Tab) 25 mg QPM PO 04/22/18 21:00 05/22/18 20:59 04/22/18 22:13 25 MG Metoprolol Tartrate (Lopressor Tab) 50 mg QAM PO 04/23/18 09:00 05/23/18 08:59 04/23/18 09:17 50 MG Quetiapine Fumarate (seroQUEL XR TAB) 200 mg HS PO 04/22/18 21:00 05/22/18 20:59 04/22/18 22:13 200 MG Venlafaxine HCl (effeXOR EXTENDED REL CAP) 75 mg DAILY PO 04/23/18 09:00 05/23/18 08:59 04/23/18 09:17 75 MG Nystatin (Mycostatin Powder) 1 appln TID EXT 04/22/18 21:00 05/22/18 20:59 04/23/18 09:20 1 APPLN Pantoprazole Sodium (Protonix Tab) 40 mg DAILY@1200 PO 04/23/18 12:00 05/23/18 11:59 04/23/18 14:16 40 MG Glucose (Glucose 40% Gel) 15-30 GRAMS 15 GRAMS... UD PRN PO 04/22/18 20:00 05/22/18 19:59 Glucose (Glucose Chew Tab) 4-8 Tablets 4 Tabl... UD PRN PO 04/22/18 20:00 05/22/18 19:59 Dextrose (Dextrose 50% 50ML Syringe) 25-50ML 25ML FOR ... UD PRN IV 04/22/18 20:00 05/22/18 19:59 Glucagon (Glucagon Inj) 1 mg UD PRN IM 04/22/18 20:00 05/22/18 19:59 Carbohydrates (Carbohydrates For Hypoglycemia) 15-30 GRAMS 15 grams if BSG 54-69... UD PRN PO 04/22/18 20:00 05/22/18 19:59 Furosemide 20 mg/ Syringe 2 ml @ 4 mls/min TID IV 04/22/18 21:00 05/22/18 20:59 04/23/18 14:16 4 MLS/MIN Potassium Chloride (Klor-Con M10) 10 meq BID PO 04/23/18 08:00 05/23/18 07:59 04/23/18 09:27 10 MEQ Physical Exam Date Time Temp Pulse Resp B/P (MAP) Pulse Ox O2 Delivery O2 Flow Rate FiO2 04/23/18 15:28 36.7 61 17 141/69 (93) 94 Nasal Cannula 2.0 04/23/18 11:50 36.9 71 19 151/79 (103) 97 Nasal Cannula 2.0 04/23/18 08:00 Nasal Cannula 2.0 04/23/18 08:00 36.8 61 16 127/68 (87) 95 Nasal Cannula 2.0 04/23/18 04:07 36.8 62 18 150/48 (82) 96 Nasal Cannula 2.0 04/23/18 00:02 37.0 63 24 151/72 (98) 94 Nasal Cannula 2.0 04/23/18 00:00 97 Nasal Cannula 2.0 04/22/18 20:15 36.8 74 21 172/73 92 Nasal Cannula 4.5 04/22/18 19:36 76 18 168/72 97 04/22/18 18:55 72 18 153/78 97 Nasal Cannula 5.0 04/22/18 17:47 70 16 147/90 96 Nasal Cannula 5.0 04/22/18 16:15 68 18 148/65 95 Nasal Cannula General Appearance: no apparent distress, + obese ENT: hearing grossly normal Neck: supple, no JVD Respiratory: no respiratory distress, no accessory muscle use, + decreased breath sounds Cardiovascular: regular rate, rhythm, no edema, + normal peripheral pulses Abdomen: normal bowel sounds, non tender, soft Neurologic/Psychiatric: normal mood/affect, + disoriented Skin: normal color Laboratory Results Last 24 Hours Test 04/22/18 16:00 04/22/18 16:20 04/22/18 16:31 04/22/18 20:11 Bedside Troponin I < 0.030 ng/ml Urine Color YELLOW Urine Appearance CLEAR Urine pH 5.5 Urine Specific [place] 1.011 Urine Protein TRACE Urine Glucose (UA) NEG Urine Ketones NEG Urine Occult Blood NEG Urine Nitrite NEG Urine Bilirubin NEG Urine Urobilinogen NEG Urine Leukocyte Esterase NEG Urine WBC (Auto) 0 /hpf Urine RBC (Auto) 0-4 /hpf Urine Hyaline Casts (Auto) 1-5 /lpf Urine Epithelial Cells (Auto) 5-10 /lpf Urine Bacteria (Auto) NEG Arterial Blood pH 7.29 Arterial Blood Partial Pressure CO2 90 mmHg Arterial Blood Partial Pressure O2 80 mm/Hg Arterial Blood HCO3 42 mmol/L Arterial Blood Oxygen Saturation 93.8 % Arterial Blood Base Excess 12.5 mEq/L Arterial Blood Gas Delivery 5L Ochoa Test POS Bedside Glucose 157 mg/dl Test 04/22/18 21:49 04/23/18 04:15 04/23/18 05:57 04/23/18 07:24 Arterial Blood pH 7.32 Arterial Blood Partial Pressure CO2 89 mmHg Arterial Blood Partial Pressure O2 105 mm/Hg Arterial Blood HCO3 45 mmol/L Arterial Blood Oxygen Saturation 97.1 % Arterial Blood Base Excess 16.1 mEq/L Arterial Blood Gas Delivery 4.5L Ochoa Test POS Bedside Glucose 84 mg/dl 82 mg/dl White Blood Count 7.06 K/uL Red Blood Count 3.27 M/uL Hemoglobin 10.0 g/dL Hematocrit 30.4 % Mean Corpuscular Volume 93.0 fL Mean Corpuscular Hemoglobin 30.6 pg Mean Corpuscular Hemoglobin Concent 32.9 g/dl RDW Standard Deviation 47.2 fL RDW Coefficient of Variation 13.9 % Platelet Count 120 K/uL Mean Platelet Volume 8.9 fL Sodium Level 127 mmol/L Potassium Level 3.5 mmol/L Chloride Level 80 mmol/L Carbon Dioxide Level 43 mmol/L Anion Gap 4.0 mmol/L Blood Urea Nitrogen 17 mg/dl Creatinine 1.09 mg/dl Est Creatinine Clear Calc Drug Dose 45.3 ml/min Estimated GFR () 54.7 Estimated GFR (Non- 47.2 BUN/Creatinine Ratio 15.5 Random Glucose 90 mg/dl Calcium Level 9.0 mg/dl Magnesium Level 1.6 mg/dl Test 04/23/18 11:15 Bedside Glucose 128 mg/dl Assessment & Plan Palliative Performance Scale: 40 % Problem list: Weakness Respiratory failure, hypoxic Chronic diastolic CHF with preserved EF Goals of care Palliative care recs: -Discussed with patient and her son/POA, Cortes Buckley Jr. Patient unable to fully comprehend due to dementia and acute alteration of mental status. Given patient' s advanced age and comorbidities including KELI with Bipap/CPAP intolerance, hypercarbic/hypoxic respiratory failure, chronic diastolic CHF, obesity, and frequent readmissions recently, I do think it's reasonable to say that she could pass away in the next 6 months if her illnesses went untreated. Her son is in agreement and verbalized understanding. He stated that he believes at this point that his mother would want to be DNR, but wants his sister to make that final decision as she is the medical decision maker. I called and left a message for patient's daughter, Chapis Herrera. -Will speak with Chapis Herrera about goals of care and whether or not they would like patient to continue to return to hospital for treatment in the future. Alternatively, patient could be transitioned to hospice once out of hospital. -Need to discuss disposition. Family is thinking about transferring patient to SNF after hospitalization, possibly [facility]. -POLST form would be helpful at this point. -Will continue to discuss with patient and family. Thank you kindly for this consult. Total time spent 70 minutes with >50% of time spent at bedside with patient and on nursing unit discussing on phone with family as well as reviewing chart and collaborating with case management to coordinate care.
[2018-04-23] MEDS: METOPROLOL TARTRATE 25 MG TAB PO SCH (20:26)
[2018-04-23] MEDS: DONEPEZIL HCL 10 MG TAB PO SCH (20:27)
[2018-04-23] MEDS: QUETIAPINE FUMARATE 200 MG TABCR PO SCH (20:27)
[2018-04-24] VITALS (7 sets, daily range): BP systolic 147–153; BP diastolic 66–83; PULSE 67–74; TEMP 36.4–37; O2SAT 93–95
[2018-04-24] MEDS: LEVOTHYROXINE 175 MCG TAB PO SCH (06:34)
[2018-04-24] MEDS: HEPARIN SOD 5000 UNIT/0.5 ML CARP SQ SCH ×3 (06:37→22:01)
[2018-04-24] MEDS: AMLODIPINE BESYLATE 5 MG TAB PO SCH (08:45)
[2018-04-24] MEDS: ASPIRIN 81 MG ECTAB PO SCH (08:45)
[2018-04-24] MEDS: ALLOPURINOL 100 MG TAB PO SCH (08:45)
[2018-04-24] MEDS: VENLAFAXINE HCL XR 75 MG CAPXR PO SCH (08:45)
[2018-04-24] MEDS: ATORVASTATIN 40 MG TAB PO SCH (08:46)
[2018-04-24] MEDS: POTASSIUM CHLORIDE 10 MEQ TABCR PO SCH ×2 (08:46→21:57)
[2018-04-24] MEDS: ENALAPRIL MALEATE 10 MG TAB PO SCH (08:46)
[2018-04-24] MEDS: MEMANTINE 10 MG TAB PO SCH ×2 (08:47→21:57)
[2018-04-24] MEDS: NYSTATIN POWDER 15GM BTL EXT SCH ×3 (08:47→21:47)
[2018-04-24] MEDS: METOPROLOL TARTRATE 50 MG TAB PO SCH ×2 (08:47→21:56)
[2018-04-24] MEDS: FUROSEMIDE INJ 20 MG in SYRINGE 0 ML IV SCH (08:47)
[2018-04-24] MEDS: INSULIN GLARGINE SOLOSTAR 100 UNITS/ML 3 ML PEN SC SCH ×2 (08:48→22:01)
[2018-04-24 09:30] LABS: CALCIUM 9.1 mg/dl (8.5-10.1); CREATININE 1.12 mg/dl (0.60-1.20); POTASSIUM 3.8 mmol/L (3.5-5.1)
--- NOTE | 2018-04-24 10:22 | Palliative Care Progress Note ---
Palliative Care Progress Note Date of Service Apr 24, 2018. Subjective Pt evaluation today including: conversation w/ patient, conversation w/ family (daughter/POA, Chapis Perez), physical exam, chart review Pain: none PO Intake: tolerating diet Voiding: webb catheter in place Patient is pleasantly confused today. Still talking to people who are not in room. Unable to make any medical decisions or participate in meaningful goals of care conversation. Spoke at length with patient's daughter/POA Chapis Perez on the phone while on nursing unit. Patient lives with Chapis. Patient has a caregiver (her niece, Juany), paid through [employer] during the day while Chapis is at work. Chapis states that it is becoming increasingly difficult for her to care for patient at home due to immobility and periods of confusion and paranoia. Chapis was tearful during conversation, but states that at this point she really wants to focus on comfort and quality of life. She would like some time to discuss with her two brothers about going home with hospice vs. SNF with transition to hospice. She confirmed patient is to be DNR. Review of Systems Constitutional: + weakness ENT: No trouble swallowing Respiratory: No cough, No shortness of breath Cardiac: No chest pain, No edema Abdomen: No pain, No nausea, No diarrhea Female : No problem reported Psychiatric: No anxiety Objective Vital Signs Date Time Temp Pulse Resp B/P (MAP) Pulse Ox O2 Delivery O2 Flow Rate FiO2 04/24/18 07:43 Nasal Cannula 2.0 04/24/18 07:00 36.4 72 18 150/72 (98) 95 Nasal Cannula 2.0 04/24/18 03:10 36.7 69 20 148/66 (93) 93 Nasal Cannula 2.0 04/23/18 23:25 36.6 63 20 124/55 (78) 93 Nasal Cannula 2.0 04/23/18 20:00 92 Nasal Cannula 2.0 04/23/18 19:37 37.0 70 15 131/86 (101) 92 Nasal Cannula 2.0 04/23/18 15:28 36.7 61 17 141/69 (93) 94 Nasal Cannula 2.0 04/23/18 11:50 36.9 71 19 151/79 (103) 97 Nasal Cannula 2.0 Physical Exam General Appearance: no apparent distress, + obese ENT: hearing grossly normal Neck: supple, no JVD Respiratory/Chest: no respiratory distress, no accessory muscle use, + decreased breath sounds Cardiovascular: regular rate, rhythm, no edema, + normal peripheral pulses Abdomen: normal bowel sounds, non tender, + pertinent finding (obese abdomen) Neurologic/Psychiatric: alert, + disoriented Skin: normal color Laboratory Results Last 24 Hours Test 04/23/18 11:15 04/23/18 16:13 04/23/18 20:41 04/24/18 06:33 Bedside Glucose 128 mg/dl 159 mg/dl 238 mg/dl 72 mg/dl Test 04/24/18 07:23 04/24/18 08:50 Bedside Glucose 105 mg/dl Sodium Level 129 mmol/L Potassium Level 3.8 mmol/L Chloride Level 81 mmol/L Blood Urea Nitrogen 18 mg/dl Creatinine 1.12 mg/dl Est Creatinine Clear Calc Drug Dose 43.9 ml/min Estimated GFR () 53.0 Estimated GFR (Non- 45.7 BUN/Creatinine Ratio 16.0 Random Glucose 170 mg/dl Calcium Level 9.1 mg/dl Assessment and Plan Problem list: Palliative care recs: -Patient is now DNR per her living will. -Spoke at length with patient's daughter/POA Chapis Perez on the phone while on nursing unit. Patient lives with Chapis. Patient has a caregiver (her niece, Juany), paid through [employer] during the day while Chapis is at work. Chapis states that it is becoming increasingly difficult for her to care for patient at home due to immobility and periods of confusion and paranoia. Chapis was tearful during conversation, but states that at this point she really wants to focus on comfort and quality of life. She would like some time to discuss with her two brothers about going home with hospice vs. SNF with transition to hospice. She confirmed patient is to be DNR. -Consider transferring out of telemetry. -Continue Namenda and Seroquel. -No pain or discomfort at this time. -Still on IV Lasix daily. Total time spent 40 minutes with >50% of time spent at bedside and on nursing unit reviewing chart, collaborating with nursing staff and on phone with patient 's daughter/POIsabella Nation discussing goals of care and hospice. Palliative Performance Scale: 40 % Discharge planning: uncertain
[2018-04-24] MEDS: PANTOprazole SOD 40 MG TAB PO SCH (13:56)
--- NOTE | 2018-04-24 16:29 | Progress Note ---
Subjective Date of Service: Apr 24, 2018. Subjective pt is pleasantly confused and family at bedside states that she has been declining at home recently,, discussion between family and case management regarding disposition is underway Problem List Medical Problems: (1) Acute chest pain Status: Acute (2) Altered mental status Status: Acute (3) Anemia Status: Acute (4) Cellulitis of right foot Status: Acute (5) Closed head injury Status: Acute (6) Hypercapnemia Status: Acute (7) Hyperglycemia Status: Acute (8) Hyponatremia Status: Acute (9) Hypoxia Status: Acute (10) Multiple contusions Status: Acute (11) Pneumonia Status: Acute (12) Pulmonary edema Status: Acute (13) Respiratory failure with hypoxia Status: Acute (14) Respiratory failure with hypoxia Status: Acute (15) Shortness of breath Status: Acute (16) Wheezing Status: Acute Review of Systems Constitutional: + weakness, + fatigue, No fever, No chills Respiratory: + shortness of breath, + dyspnea on exertion Cardiac: No chest pain, No edema Abdomen: No pain, No nausea, No vomiting, No diarrhea Neurologic: + memory loss, + weakness Psychiatric: + depression symptoms, + anxiety Objective Vital Signs Date Time Temp Pulse Resp B/P (MAP) Pulse Ox O2 Delivery O2 Flow Rate FiO2 04/24/18 07:43 Nasal Cannula 2.0 04/24/18 07:00 36.4 72 18 150/72 (98) 95 Nasal Cannula 2.0 04/24/18 03:10 36.7 69 20 148/66 (93) 93 Nasal Cannula 2.0 04/23/18 23:25 36.6 63 20 124/55 (78) 93 Nasal Cannula 2.0 04/23/18 20:00 92 Nasal Cannula 2.0 04/23/18 19:37 37.0 70 15 131/86 (101) 92 Nasal Cannula 2.0 04/23/18 15:28 36.7 61 17 141/69 (93) 94 Nasal Cannula 2.0 04/23/18 11:50 36.9 71 19 151/79 (103) 97 Nasal Cannula 2.0 Physical Exam General Appearance: WD/WN, + mild distress Eyes: normal inspection, sclerae normal Respiratory/Chest: + respiratory distress, + decreased breath sounds, + accessory muscle use Cardiovascular: regular rate, rhythm, no murmur Abdomen: normal bowel sounds, non tender, soft Extremities: no pedal edema, no calf tenderness Neurologic/Psychiatric: alert, + disoriented Laboratory Results Last 24 Hours Test 04/23/18 11:15 04/23/18 16:13 04/23/18 20:41 04/24/18 06:33 Bedside Glucose 128 mg/dl 159 mg/dl 238 mg/dl 72 mg/dl Test 04/24/18 07:23 Bedside Glucose 105 mg/dl Assessment and Plan 82 y/o F with acute respiratory failure and hypercarbia secondary to acute diastolic HF, she also has a history of HTN, HLD, DM II, hypothyroidism, hyponatremia, anxiety/depression, dementia, gout, KELI, GERD, ans is morbidly obese. The pt has been admitted to the hospital 4 times in as many months with respiratory failure. Acute respiratory failure with hypercarbia and hypoxia. She suffers from KELI and hypoventilation. She is unable to tolerate BiPAP and only wears PRN 02 via NC. As she will not tolerate necessary treatment, the admitting team discussed palliative care with family and placed a consult, pt continues to improve with diuresis but not with significant weight loss Acute diastolic heart failure, additional diuresis. Cont Metoprolol increase dose. Daily weights, I/O. metabolic Encephalopathy secondary to hypercarbia and possible hyponatremia, superimposed on baseline of dementia Hyponatremia - recurrent. stable DM II - placed on a control is reasonable Hypothyroidism - cont Synthroid Dementia - advanced - palliative consult as above Gout - cont Allopurinol Full code - Heparin prophylaxis
[2018-04-24] MEDS: QUETIAPINE FUMARATE 200 MG TABCR PO SCH (21:57)
[2018-04-24] MEDS: DONEPEZIL HCL 10 MG TAB PO SCH (22:03)
[2018-04-24] MEDS: FUROSEMIDE INJ 40 MG in SYRINGE 0 ML IV SCH (22:27)
[2018-04-25] MEDS: LEVOTHYROXINE 175 MCG TAB PO SCH (05:35)
[2018-04-25] MEDS: HEPARIN SOD 5000 UNIT/0.5 ML CARP SQ SCH ×3 (05:45→20:53)
[2018-04-25 07:13] VITALS: BP 170/77; PULSE 108; TEMP 36.4; O2SAT 98
[2018-04-25 08:00] VITALS: O2SAT 98
[2018-04-25 08:07] LABS: CALCIUM 8.9 mg/dl (8.5-10.1); CREATININE 1.07 mg/dl (0.60-1.20); POTASSIUM 3.6 mmol/L (3.5-5.1)
[2018-04-25] MEDS: FUROSEMIDE INJ 40 MG in SYRINGE 0 ML IV SCH ×2 (08:31→20:32)
[2018-04-25] MEDS: MEMANTINE 10 MG TAB PO SCH ×2 (08:31→20:31)
[2018-04-25] MEDS: ALLOPURINOL 100 MG TAB PO SCH (08:32)
[2018-04-25] MEDS: POTASSIUM CHLORIDE 10 MEQ TABCR PO SCH ×2 (08:32→20:31)
[2018-04-25] MEDS: NYSTATIN POWDER 15GM BTL EXT SCH ×3 (08:32→20:54)
[2018-04-25] MEDS: METOPROLOL TARTRATE 50 MG TAB PO SCH ×2 (08:32→20:31)
[2018-04-25] MEDS: ASPIRIN 81 MG ECTAB PO SCH (08:32)
[2018-04-25] MEDS: VENLAFAXINE HCL XR 75 MG CAPXR PO SCH (08:33)
[2018-04-25] MEDS: AMLODIPINE BESYLATE 5 MG TAB PO SCH (08:33)
[2018-04-25] MEDS: ATORVASTATIN 40 MG TAB PO SCH (08:33)
[2018-04-25] MEDS: ENALAPRIL MALEATE 10 MG TAB PO SCH (08:33)
[2018-04-25] MEDS: INSULIN GLARGINE SOLOSTAR 100 UNITS/ML 3 ML PEN SC SCH (09:01)
[2018-04-25] MEDS: PANTOprazole SOD 40 MG TAB PO SCH (12:35)
[2018-04-25 12:52] VITALS: Ht 160 cm; Wt 98.4 kg
[2018-04-25 15:35] VITALS: BP 115/52; PULSE 55; TEMP 36.8; O2SAT 95
--- NOTE | 2018-04-25 16:32 | Progress Note ---
Subjective Date of Service: Apr 25, 2018. Subjective pt was very sleepy today and this maybe from her higher dose of hs meds, will reduce and follow Problem List Medical Problems: (1) Acute chest pain Status: Acute (2) Altered mental status Status: Acute (3) Anemia Status: Acute (4) Cellulitis of right foot Status: Acute (5) Closed head injury Status: Acute (6) Hypercapnemia Status: Acute (7) Hyperglycemia Status: Acute (8) Hyponatremia Status: Acute (9) Hypoxia Status: Acute (10) Multiple contusions Status: Acute (11) Pneumonia Status: Acute (12) Pulmonary edema Status: Acute (13) Respiratory failure with hypoxia Status: Acute (14) Respiratory failure with hypoxia Status: Acute (15) Shortness of breath Status: Acute (16) Wheezing Status: Acute Review of Systems Constitutional: + weakness, + fatigue, No fever, No chills Respiratory: + shortness of breath, + dyspnea on exertion, No cough Cardiac: + edema, No chest pain Abdomen: No pain, No nausea, No vomiting Musculoskeletal: No joint pain, No muscle pain Female : No dysuria, No hematuria Neurologic: + memory loss, + weakness Psychiatric: + depression symptoms Objective Vital Signs Date Time Temp Pulse Resp B/P (MAP) Pulse Ox O2 Delivery O2 Flow Rate FiO2 04/25/18 07:13 36.4 108 22 170/77 (108) 98 Nasal Cannula 2.0 04/25/18 00:00 Nasal Cannula 2.0 04/24/18 23:08 36.9 67 26 149/83 (105) 93 Nasal Cannula 2.0 04/24/18 16:00 93 Nasal Cannula 2.0 04/24/18 15:49 37.0 67 18 153/69 (97) 94 Nasal Cannula 2.0 04/24/18 11:25 36.5 74 18 147/76 (99) 93 Room Air 04/24/18 10:49 36.4 72 18 95 2.0 Physical Exam General Appearance: WD/WN, + mild distress, + obese Eyes: normal inspection, sclerae normal Neck: supple, no JVD Respiratory/Chest: chest non-tender, + respiratory distress, + decreased breath sounds Cardiovascular: regular rate, rhythm, + systolic murmur Abdomen: normal bowel sounds, non tender, soft Neurologic/Psychiatric: alert, oriented x 3 Laboratory Results Last 24 Hours Test 04/24/18 08:50 04/24/18 16:16 04/24/18 19:46 04/25/18 05:46 Sodium Level 129 mmol/L Potassium Level 3.8 mmol/L Chloride Level 81 mmol/L Carbon Dioxide Level 46 mmol/L Anion Gap 2.0 mmol/L Blood Urea Nitrogen 18 mg/dl Creatinine 1.12 mg/dl Est Creatinine Clear Calc Drug Dose 43.9 ml/min Estimated GFR () 53.0 Estimated GFR (Non- 45.7 BUN/Creatinine Ratio 16.0 Random Glucose 170 mg/dl Calcium Level 9.1 mg/dl Bedside Glucose 189 mg/dl 145 mg/dl 68 mg/dl Test 04/25/18 06:07 04/25/18 06:19 04/25/18 07:01 Bedside Glucose 96 mg/dl 100 mg/dl Sodium Level 129 mmol/L Potassium Level 3.6 mmol/L Chloride Level 81 mmol/L Carbon Dioxide Level 40 mmol/L Anion Gap 6.0 mmol/L Blood Urea Nitrogen 16 mg/dl Creatinine 1.07 mg/dl Est Creatinine Clear Calc Drug Dose 45.3 ml/min Estimated GFR () 56.0 Estimated GFR (Non- 48.3 BUN/Creatinine Ratio 15.0 Random Glucose 87 mg/dl Calcium Level 8.9 mg/dl Assessment and Plan 82 y/o F with acute respiratory failure and hypercarbia secondary to acute diastolic HF, she also has a history of HTN, HLD, DM II, hypothyroidism, hyponatremia, anxiety/depression, dementia, gout, KELI, GERD, ans is morbidly obese. The pt has been admitted to the hospital 4 times in as many months with respiratory failure. Acute respiratory failure with hypercarbia and hypoxia. She suffers from KELI and hypoventilation. She is unable to tolerate BiPAP and only wears PRN 02 via NC. As she will not tolerate necessary treatment, the admitting team discussed palliative care with family and placed a consult, pt continues to improve with diuresis but not with significant weight loss, family is discussing if pt should go home on hospice vs go to a care facility Acute diastolic heart failure, additional diuresis. Cont Metoprolol increase dose. Daily weights, I/O. metabolic Encephalopathy secondary to hypercarbia and possible hyponatremia, superimposed on baseline of dementia Hyponatremia - recurrent. stable, improved from admission DM II - placed on ssi a control is reasonable Hypothyroidism - cont Synthroid Dementia - advanced - continue aricept and namenda, palliative consult as above Gout - cont Allopurinol Full code - Heparin prophylaxis Discharge planning: uncertain
[2018-04-25] MEDS: DONEPEZIL HCL 10 MG TAB PO SCH (20:30)
[2018-04-25] MEDS: QUETIAPINE FUMARATE 50 MG TABCR PO SCH (20:52)
[2018-04-25 20:55] VITALS: BP 125/60; PULSE 64
[2018-04-25 23:29] VITALS: BP 108/69; PULSE 66; TEMP 36.8; O2SAT 96
[2018-04-26] MEDS: LEVOTHYROXINE 175 MCG TAB PO SCH (06:06)
[2018-04-26] MEDS: HEPARIN SOD 5000 UNIT/0.5 ML CARP SQ SCH ×3 (06:09→22:13)
[2018-04-26 07:32] VITALS: BP 132/72; PULSE 60; TEMP 36.7; O2SAT 97
[2018-04-26] MEDS: METOPROLOL TARTRATE 50 MG TAB PO SCH ×2 (08:09→22:07)
[2018-04-26] MEDS: ALLOPURINOL 100 MG TAB PO SCH (08:10)
[2018-04-26] MEDS: MEMANTINE 10 MG TAB PO SCH ×2 (08:10→22:07)
[2018-04-26] MEDS: VENLAFAXINE HCL XR 75 MG CAPXR PO SCH (08:10)
[2018-04-26] MEDS: ASPIRIN 81 MG ECTAB PO SCH (08:10)
[2018-04-26] MEDS: AMLODIPINE BESYLATE 5 MG TAB PO SCH (08:10)
[2018-04-26] MEDS: ATORVASTATIN 40 MG TAB PO SCH (08:10)
[2018-04-26] MEDS: POTASSIUM CHLORIDE 10 MEQ TABCR PO SCH ×2 (08:10→22:07)
[2018-04-26] MEDS: ENALAPRIL MALEATE 10 MG TAB PO SCH (08:11)
[2018-04-26] MEDS: FUROSEMIDE INJ 40 MG in SYRINGE 0 ML IV SCH ×2 (08:11→22:25)
[2018-04-26] MEDS: NYSTATIN POWDER 15GM BTL EXT SCH ×3 (08:11→22:06)
[2018-04-26 08:17] LABS: CREATININE 1.31 mg/dl (0.60-1.20)
[2018-04-26] MEDS: INSULIN GLARGINE SOLOSTAR 100 UNITS/ML 3 ML PEN SC SCH (08:19)
[2018-04-26] MEDS: PANTOprazole SOD 40 MG TAB PO SCH (11:35)
--- NOTE | 2018-04-26 13:42 | Palliative Care Progress Note ---
Palliative Care Progress Note Date of Service Apr 26, 2018. Subjective Pt evaluation today including: conversation w/ patient, conversation w/ family , physical exam, chart review, conversation w/ solutions consultant Patient is drowsy, confused, difficult to understand. Review of Systems Unable to obtain ROS due to confusion Objective Vital Signs Date Time Temp Pulse Resp B/P (MAP) Pulse Ox O2 Delivery O2 Flow Rate FiO2 04/26/18 08:00 Nasal Cannula 2.0 04/26/18 07:32 36.7 60 20 132/72 (92) 97 Nasal Cannula 2.0 04/26/18 00:00 Nasal Cannula 2.0 04/25/18 23:29 36.8 66 18 108/69 (82) 96 Nasal Cannula 2.0 04/25/18 20:55 64 125/60 (81) 04/25/18 16:30 Nasal Cannula 2.0 04/25/18 15:35 36.8 55 20 115/52 (73) 95 Nasal Cannula 2.0 Physical Exam General Appearance: no apparent distress ENT: hearing grossly normal Neck: supple, no JVD Respiratory/Chest: no respiratory distress, no accessory muscle use, + decreased breath sounds Cardiovascular: regular rate, rhythm, + systolic murmur, + normal peripheral pulses Abdomen: normal bowel sounds, non tender, soft Neurologic/Psychiatric: + disoriented Skin: normal color Laboratory Results Last 24 Hours Test 04/25/18 16:37 04/25/18 20:11 04/25/18 23:32 04/26/18 07:21 Bedside Glucose 106 mg/dl 211 mg/dl 241 mg/dl Sodium Level 134 mmol/L Potassium Level 4.0 mmol/L Chloride Level 87 mmol/L Carbon Dioxide Level 45 mmol/L Anion Gap 3.0 mmol/L Blood Urea Nitrogen 20 mg/dl Creatinine 1.31 mg/dl Est Creatinine Clear Calc Drug Dose 37.0 ml/min Estimated GFR () 43.8 Estimated GFR (Non- 37.8 BUN/Creatinine Ratio 15.0 Random Glucose 124 mg/dl Calcium Level 9.0 mg/dl Test 04/26/18 07:49 04/26/18 11:38 Bedside Glucose 122 mg/dl 250 mg/dl Assessment and Plan Problem list: Palliative care recs: -Patient is now DNR per her living will. -Spoke with patient's daughter/POA Chapis Perez on the phone while on nursing unit. Plan is for home with hospice and private caregiver. Referral to [facility]. -Continue Namenda and Seroquel. -No pain or discomfort at this time. -Still on IV Lasix daily. -Discharge to home when medically stable. Family can consider placement into SNF later if care becomes too much at home. Total time spent 25 minutes with >50% of time spent at bedside and on nursing unit reviewing chart, collaborating with nursing staff and on phone with patient 's daughter/MAYNOR Nation discussing goals of care and hospice. Palliative Performance Scale: 30 % Discharge planning: uncertain
--- NOTE | 2018-04-26 14:54 | Progress Note ---
Subjective Date of Service: Apr 26, 2018. Subjective pt is much more awake and alert this am, family is deciding on direction of her care for the future, pt herself has no complaints Problem List Medical Problems: (1) Acute chest pain Status: Acute (2) Altered mental status Status: Acute (3) Anemia Status: Acute (4) Cellulitis of right foot Status: Acute (5) Closed head injury Status: Acute (6) Hypercapnemia Status: Acute (7) Hyperglycemia Status: Acute (8) Hyponatremia Status: Acute (9) Hypoxia Status: Acute (10) Multiple contusions Status: Acute (11) Pneumonia Status: Acute (12) Pulmonary edema Status: Acute (13) Respiratory failure with hypoxia Status: Acute (14) Respiratory failure with hypoxia Status: Acute (15) Shortness of breath Status: Acute (16) Wheezing Status: Acute Review of Systems Constitutional: No fever, No chills Respiratory: + shortness of breath, + dyspnea on exertion, No cough Cardiac: No chest pain, No orthopnea, No PND Abdomen: No pain, No vomiting Female : No dysuria, No hematuria Neurologic: + memory loss, + weakness Psychiatric: + depression symptoms, + anxiety Objective Vital Signs Date Time Temp Pulse Resp B/P (MAP) Pulse Ox O2 Delivery O2 Flow Rate FiO2 04/26/18 08:00 Nasal Cannula 2.0 04/26/18 07:32 36.7 60 20 132/72 (92) 97 Nasal Cannula 2.0 04/26/18 00:00 Nasal Cannula 2.0 04/25/18 23:29 36.8 66 18 108/69 (82) 96 Nasal Cannula 2.0 04/25/18 20:55 64 125/60 (81) 04/25/18 16:30 Nasal Cannula 2.0 04/25/18 15:35 36.8 55 20 115/52 (73) 95 Nasal Cannula 2.0 Physical Exam General Appearance: WD/WN, + mild distress Eyes: normal inspection, sclerae normal Neck: supple, trachea midline Respiratory/Chest: no respiratory distress, + decreased breath sounds Cardiovascular: regular rate, rhythm, + systolic murmur Abdomen: normal bowel sounds, non tender, soft Extremities: no calf tenderness, + pedal edema (trace) Neurologic/Psychiatric: alert, + disoriented Laboratory Results Last 24 Hours Test 04/25/18 16:37 04/25/18 20:11 04/25/18 23:32 04/26/18 07:21 Bedside Glucose 106 mg/dl 211 mg/dl 241 mg/dl Sodium Level 134 mmol/L Potassium Level 4.0 mmol/L Chloride Level 87 mmol/L Carbon Dioxide Level 45 mmol/L Anion Gap 3.0 mmol/L Blood Urea Nitrogen 20 mg/dl Creatinine 1.31 mg/dl Est Creatinine Clear Calc Drug Dose 37.0 ml/min Estimated GFR () 43.8 Estimated GFR (Non- 37.8 BUN/Creatinine Ratio 15.0 Random Glucose 124 mg/dl Calcium Level 9.0 mg/dl Test 04/26/18 07:49 04/26/18 11:38 Bedside Glucose 122 mg/dl 250 mg/dl Assessment and Plan 82 y/o F with acute respiratory failure and hypercarbia secondary to acute diastolic HF, she also has a history of HTN, HLD, DM II, hypothyroidism, hyponatremia, anxiety/depression, dementia, gout, KELI, GERD, ans is morbidly obese. The pt has been admitted to the hospital 4 times in as many months with respiratory failure. Acute respiratory failure with hypercarbia and hypoxia. She suffers from KELI and hypoventilation. She is unable to tolerate BiPAP and only wears PRN 02 via NC. As she will not tolerate necessary treatment, the admitting team discussed palliative care with family and placed a consult. PTs symptoms have improved with diuresis but not with significant weight loss, family is discussing if pt should go home on hospice vs go to a care facility Acute diastolic heart failure, additional diuresis will transition to po lasix 04/27. Cont Metoprolol at increase dose. Daily weights, I/O. Metabolic Encephalopathy secondary to hypercarbia and possible hyponatremia, superimposed on baseline of dementia, has improved with treatment of these issues and reduction in hs seroquel Hyponatremia - recurrent. stable, improved from admission DM II - placed on ssi a control remains reasonable Hypothyroidism - cont Synthroid Dementia - advanced - continue aricept and namenda, palliative consult as above Gout - cont Allopurinol Full code - Heparin prophylaxis Discharge planning: uncertain
[2018-04-26 15:22] VITALS: BP 116/56; PULSE 65; TEMP 37.5; O2SAT 91
[2018-04-26 16:00] VITALS: O2SAT 91
[2018-04-26] MEDS: QUETIAPINE FUMARATE 50 MG TABCR PO SCH (22:07)
[2018-04-26] MEDS: DONEPEZIL HCL 10 MG TAB PO SCH (22:08)
[2018-04-26 23:27] VITALS: BP 140/73; PULSE 69; TEMP 36.9; O2SAT 93
[2018-04-27] MEDS: LEVOTHYROXINE 175 MCG TAB PO SCH (06:17)
[2018-04-27] MEDS: HEPARIN SOD 5000 UNIT/0.5 ML CARP SQ SCH ×2 (06:20→14:21)
[2018-04-27 07:15] VITALS: BP 131/78; PULSE 60; TEMP 37; O2SAT 96
[2018-04-27] MEDS: ATORVASTATIN 40 MG TAB PO SCH (07:56)
[2018-04-27] MEDS: VENLAFAXINE HCL XR 75 MG CAPXR PO SCH (07:56)
[2018-04-27] MEDS: POTASSIUM CHLORIDE 10 MEQ TABCR PO SCH (07:56)
[2018-04-27] MEDS: ASPIRIN 81 MG ECTAB PO SCH (07:56)
[2018-04-27] MEDS: METOPROLOL TARTRATE 50 MG TAB PO SCH (07:56)
[2018-04-27] MEDS: ALLOPURINOL 100 MG TAB PO SCH (07:56)
[2018-04-27] MEDS: MEMANTINE 10 MG TAB PO SCH (07:56)
[2018-04-27] MEDS: ENALAPRIL MALEATE 10 MG TAB PO SCH (07:56)
[2018-04-27] MEDS: AMLODIPINE BESYLATE 5 MG TAB PO SCH (07:57)
[2018-04-27 08:00] VITALS: O2SAT 96
[2018-04-27] MEDS: NYSTATIN POWDER 15GM BTL EXT SCH ×2 (08:07→14:21)
[2018-04-27] MEDS: INSULIN GLARGINE SOLOSTAR 100 UNITS/ML 3 ML PEN SC SCH (08:10)
[2018-04-27 08:50] LABS: CALCIUM 9.2 mg/dl (8.5-10.1); CREATININE 1.26 mg/dl (0.60-1.20); POTASSIUM 3.9 mmol/L (3.5-5.1)
[2018-04-27] MEDS ORDERED: FUROSEMIDE 40 MG TAB PO SCH (09:00)
--- NOTE | 2018-04-27 11:18 | Palliative Care Progress Note ---
Palliative Care Progress Note Date of Service Apr 27, 2018. Subjective Pt evaluation today including: conversation w/ patient, physical exam, chart review Patient more awake today, remains confused. Stated, "Okay, honey," when asked how she is doing today. Speech difficult to understand. She offers no complaints. Review of Systems unable to obtain due to confusion Objective Vital Signs Date Time Temp Pulse Resp B/P (MAP) Pulse Ox O2 Delivery O2 Flow Rate FiO2 04/27/18 08:00 96 Nasal Cannula 2.0 04/27/18 07:15 37.0 60 18 131/78 (95) 96 Nasal Cannula 2.0 04/27/18 00:00 Nasal Cannula 2.0 04/26/18 23:27 36.9 69 20 140/73 (95) 93 Nasal Cannula 2.0 04/26/18 16:00 91 Nasal Cannula 1.0 04/26/18 15:22 37.5 65 18 116/56 (76) 91 Nasal Cannula 1.0 Physical Exam General Appearance: no apparent distress, + obese ENT: hearing grossly normal Neck: supple, no JVD Respiratory/Chest: no respiratory distress, no accessory muscle use, + decreased breath sounds Cardiovascular: regular rate, rhythm, no edema, + systolic murmur, + normal peripheral pulses Abdomen: normal bowel sounds, non tender, soft Neurologic/Psychiatric: alert, + disoriented Skin: normal color Laboratory Results Last 24 Hours Test 04/26/18 11:38 04/26/18 16:17 04/26/18 19:47 04/27/18 07:20 Bedside Glucose 250 mg/dl 217 mg/dl 253 mg/dl Sodium Level 134 mmol/L Potassium Level 3.9 mmol/L Chloride Level 88 mmol/L Carbon Dioxide Level 41 mmol/L Anion Gap 5.0 mmol/L Blood Urea Nitrogen 19 mg/dl Creatinine 1.26 mg/dl Est Creatinine Clear Calc Drug Dose 38.5 ml/min Estimated GFR () 45.9 Estimated GFR (Non- 39.6 BUN/Creatinine Ratio 15.2 Random Glucose 164 mg/dl Calcium Level 9.2 mg/dl Test 04/27/18 07:43 Bedside Glucose 181 mg/dl Assessment and Plan Problem list: Palliative care recs: -Patient is now DNR per her living will. -Planning for home with hospice. [facility] management made referral to [facility]. -Continue Namenda and Seroquel. -No pain or discomfort at this time. -Still on IV Lasix daily. -Discharge to home when medically stable. Family can consider placement into SNF later if care becomes too much at home. Total time spent 25 minutes with >50% of time spent at bedside and on nursing unit reviewing chart, collaborating with nursing staff and case management to coordinate care. Palliative Performance Scale: 30 % Discharge planning: home with Hospice
[2018-04-27] MEDS: PANTOprazole SOD 40 MG TAB PO SCH (11:54)
[2018-04-27 14:31] VITALS: BP 120/65; PULSE 63; TEMP 37; O2SAT 90
[2018-04-27] MEDS ORDERED: LSX40 PO (14:37)
[2018-04-27] MEDS ORDERED: SRQSR50 PO (14:37)
[2018-04-27] MEDS ORDERED: POTA10CA28 PO (14:37)
--- NOTE | 2018-04-27 14:37 | Discharge Instructions ---
Discharge Instructions Date of Service Apr 27, 2018. Admission Reason for Admission: Acute Exacerbation Of Chf(Congestive Heart Failure Discharge Discharge Diagnosis / Problem: heart failure Discharge Goals Goal(s): Diagnostic testing, Therapeutic intervention Activity Recommendations Activity Limitations: as noted below Lifting Limitations: gradually increase as tolerated . Instructions / Follow-Up Instructions / Follow-Up Call your Primary Care doctor if any of the following symptoms or problems start or get worse: * Shortness of breath or difficulty breathing * Wake up at night short of breath * Chest pain * Cough * Swelling of your hands, feet, or legs * More fatigued or tired with your normal activity * Palpitations - sudden fast heart beats WEIGHT * Weigh yourself every morning after using the bathroom. * Use the same scale. * Wear the same amount of clothing. * Write your weight down on a chart. * Call your Primary Care doctor if you gain more than 2-3 pounds in 1-2 days. MEDICATIONS * Use this discharge instruction sheet for medication instructions. * Take your medications at the time your doctor ordered. * Do not skip a dose of your medicines. * If you miss a dose of medicine, take it as soon as possible, but DO NOT DOUBLE A DOSE. * Read your medicine information when you get home. * Know all of the side effects of your medicine. If in doubt, ask your pharmacist * Call your Primary Care doctor's office if you have any side effects. * Be sure all of your doctors know what medicine and herbs you take (including cold, flu, and herbal medicine). Take the following with you to your follow-up doctor appointments: * Weight Chart * Medication List * List of questions Do not drink excessive alcohol, beer or wine. Current Hospital Diet Patient's current hospital diet: AHA Diet (Heart Healthy), Diabetes Type 2 Diet Discharge Diet Recommended Diet: Low Sodium Diet (2gm Na), Diabetes Type 2 Diet Pending Studies Studies pending at discharge: no Medical Emergencies . Who to Call and When: Call 911 or go to the Emergency Room if: * If at any time you feel your situation is an emergency * You have tightness or pain in your chest that does not go away with rest or Nitroglycerin * You are very short of breath even with rest . Non-Emergent Contact Non-Emergency issues call your: Primary Care Provider Call Non-Emergent contact if: temperature is above 101, your pain is not controlled . . "Provider Documentation" section prepared by Javy French. .
[2018-04-27 14:41] VITALS: BP 120/65; PULSE 63; TEMP 37; O2SAT 90
--- NOTE | 2018-04-27 14:41 | Discharge Summary ---
Discharge Summary Date of Service Apr 27, 2018. Discharge Summary Admission Date: Apr 22, 2018 at 18:53 Discharge Date: Apr 27, 2018 Discharge Disposition: Home with services Principal Diagnosis: acute on chronic diastolic heart failure Immunizations: Have You Had Influenza Vaccine: Yes Influenza Vaccine Date: May 05, 2017 History of Tetanus Vaccine?: Yes History of Pneumococcal: Yes History of Hepatitis B Vaccine: Unknown Medication Reconciliation New Medications: Furosemide (Furosemide) 40 Mg Tab 40 MG PO BID17, #60 TAB 6 Refills Potassium Chloride (Micro-K Ext Rel) 10 Meq Capcr 10 MEQ PO BID, #60 DOSE 5 Refills Quetiapine Fumarate (Seroquel Xr) 50 Mg Tabcr 50 MG PO HS, #30 TABS 5 Refills Continued Medications: Allopurinol (Zyloprim) 100 Mg Tab 100 MG PO QAM, 0 Refills Amlodipine Besylate (Norvasc) 10 Mg Tab 1 TAB PO DAILY for 30 Days, #30 TAB Aspirin (Aspirin Ec) 81 Mg Tab 81 MG PO QAM Donepezil Hydrochloride (Aricept) 10 Mg Tab 10 MG PO HS Enalapril (Vasotec) 10 Mg Tab 10 MG PO QAM, TAB Home O2 Therapy (Oxygen) Gas 2 LITERS NA CONTINOUS, BTL Insulin Aspart (Novolog) 100 Units/Ml Inj 5 UNITS SC TIDM PRN for Hyperglycemia Protocol 5 UNITS IF BSG IS GREATER THAN 200 Insulin Glargine (Lantus) 100 Unit/Ml Inj 25 UNITS SC BID, #10 Levothyroxine Sodium (Levothyroxine Sodium) 175 Mcg Tab 175 MCG PO DAILY, TAB Memantine (Namenda) 10 Mg Tab 10 MG PO BID, TAB Metoprolol Tartrate (Lopressor) (Lopressor) 50 Mg Tab 50 MG PO BID, 0 Refills Multiple Vitamins W/ Minerals (Centrum Silver) 1 Chw Chw 1 TAB PO DAILY Nystatin (Topical) (Nystatin) 1 Pow Pow 1 APPLN TOP TID UNDER SKIN FOLDS Omeprazole (Prilosec) 20 Mg Capcr 20 MG PO DAILY@1200, 0 Refills Polyethylene Glycol 3350 (Miralax) 1 Pow Pow 17 GM PO 5XWK, GM MONDAY-MONDAY Venlafaxine Hcl (Venlafaxine Extended Rel) 75 Mg Cap 75 MG PO DAILY, CAP Discontinued Medications: Atorvastatin (Lipitor) 40 Mg Tab 40 MG PO QAM Calcium Carbonate-Vitamin D W/ (Caltrate 600 Plus) 1 Tab Tab 1 TAB PO QPM, TAB Calcium Carbonate-Vitamin D W/ (Caltrate 600 Plus) 1 Tab Tab 2 TAB PO with lunch, TAB Furosemide (Lasix) 20 Mg Tab 20 MG PO DAILY PRN for swelling Metoprolol Tartrate (Lopressor) (Lopressor) 50 Mg Tab 25 MG PO QPM, 0 Refills TAKE 1/2 OF A 50MG TABLET IN THE PM Quetiapine Fumarate (Seroquel Xr) 200 Mg Tabcr 200 MG PO HS for 30 Days, #30 TABS 3 Refills Discharge Exam Review of Systems: Constitutional: + weakness, + fatigue, No fever, No chills Respiratory: + dyspnea on exertion, No cough, No shortness of breath Cardiovascular: No chest pain, No orthopnea, No edema Neurologic: + memory loss Psychiatric: + depression symptoms Physical Exam: General Appearance: + mild distress, + obese Eyes: normal inspection, sclerae normal Respiratory/Chest: chest non-tender, + decreased breath sounds Cardiovascular: regular rate, rhythm, + systolic murmur Abdomen / GI: normal bowel sounds, non tender, soft Hospital Course 82 y/o F with acute respiratory failure and hypercarbia secondary to acute diastolic HF, she also has a history of HTN, HLD, DM II, hypothyroidism, hyponatremia, anxiety/depression, dementia, gout, KELI, GERD, ans is morbidly obese. The pt has been admitted to the hospital 4 times in as many months with respiratory failure. Acute respiratory failure with hypercarbia and hypoxia. She suffers from KELI and hypoventilation. She is unable to tolerate BiPAP and only wears PRN 02 via NC. As she will not tolerate necessary treatment, the admitting team discussed palliative care with family and placed a consult. pt will be discharged home on hospice care Acute diastolic heart failure, additional diuresis will transition to po lasix 04/27. Cont Metoprolol at increase dose. Daily weights, I/O. Metabolic Encephalopathy secondary to hypercarbia and possible hyponatremia, superimposed on baseline of dementia, has improved with treatment of these issues and reduction in hs seroquel to 50 mg at time of discharge Hyponatremia - recurrent. stable, improved from admission DM II basal bolus insulin Hypothyroidism - cont Synthroid Dementia - advanced - continue aricept and namenda, palliative consult will follow as outpt Gout - cont Allopurinol dnr Total Time Spent: Greater than 30 minutes This includes examination of the patient, discharge planning, medication reconciliation, and communication with other providers. Discharge Instructions Please refer to the electronic Patient Visit Report (Discharge Instructions) for additional information.
--- NOTE | 2018-04-30 13:33 | Palliative Care Progress Note ---
Palliative Care Progress Note Date of Service Apr 25, 2018. Subjective Pt evaluation today including: conversation w/ patient, conversation w/ family (daughter, Chapis Perez), physical exam, chart review, conversation w/ quality assurance consultant Late entry from 04/25/18: Spoke with patient today in room 263-2. She is awake, but drowsy and disoriented. She stated "Hello, Honey," but quickly fell asleep. She was unable to offer any ROS. No obvious signs of pain. Spoke with patient's daughter Chapis Perez on phone while on nursing unit. She stated that she and her brothers met last evening to discuss home hospice vs. SNF. She still had many questions about what hospice offers, still concerned that patient's care is becoming increasingly difficult at home. We also talked about SNF option. Chapis is going to talk with her brothers again today, she is leaning more towards home with hospice. Review of Systems unable to obtain due to patient condition Objective Physical Exam General Appearance: no apparent distress, + obese ENT: hearing grossly normal, + pertinent finding (upper dentures in mouth, loose) Neck: supple, no JVD Respiratory/Chest: no respiratory distress, no accessory muscle use, + decreased breath sounds (due to body habitus, patient unable to take deep breaths) Cardiovascular: regular rate, rhythm, + normal peripheral pulses Abdomen: normal bowel sounds, non tender, soft Neurologic/Psychiatric: + disoriented, + pertinent finding (drowsy) Skin: normal color Assessment and Plan Problem list: Palliative care recs: -Patient is now DNR per her living will. -Patient's daughter, Chapis Perez, is medical POA. She and her brothers make decisions together regarding patient's care. They are still discussing whether patient will go home with hospice vs. SNF. -Chapis is concerned that patient's care is becoming increasingly difficult. Patient does have paid caregiver during day M-F while Chapis is at work. Chapis will call [facility] to inquire about having this care increased. -Continue Namenda and Seroquel. -No pain or discomfort at this time. Can use Roxanol if pain or SOB develops. -Still on IV Lasix daily. -Family can consider placement into SNF later if care becomes too much at home if they decide to go home with hospice initially. Total time spent 35 minutes with >50% of time spent at bedside and on nursing unit reviewing chart, collaborating with nursing staff and case management to coordinate care, and speaking with daughter Chapis on phone while on unit. Palliative Performance Scale: 30 % Discharge planning: uncertain
== END 2018-04-27 18:43 | disposition hospice, home (50) | DRG 291 ==
LOC: EDBD 15:15 → C.EDC 15:17 → C.2E 18:53 → ENRESERV 19:25 → C.MS2W 04-24 11:01
PROVIDERS: ADMIT Internal Medicine; ATTEND Internal Medicine
DX: I11.0 Hypertensive heart disease with heart failure (principal); J96.01 Acute respiratory failure with hypoxia; J96.02 Acute respiratory failure with hypercapnia; E87.1 Hypo-osmolality and hyponatremia; G93.41 Metabolic encephalopathy; I50.33 Acute on chronic diastolic (congestive) heart failure; E11.9 Type 2 diabetes mellitus without complications; K57.30 Diverticulosis of large intestine without perforation or abscess without bleeding; E03.9 Hypothyroidism, unspecified; G47.33 Obstructive sleep apnea (adult) (pediatric); F03.90 Unspecified dementia, unspecified severity, without behavioral disturbance, psychotic disturbance, mood disturbance, and anxiety; M10.9 Gout, unspecified; Z79.4 Long term (current) use of insulin; K21.9 Gastro-esophageal reflux disease without esophagitis; E66.01 Morbid (severe) obesity due to excess calories; Z68.38 Body mass index [BMI] 38.0-38.9, adult

== ENCOUNTER 2018-12-10 02:28 | Inpatient (IN) ==
[2018-12-10 03:30] LABS: Basophils # (auto) 0.02 K/uL (0-0.2); Basophils % (auto) 0.2 %; Eosinophils # (auto) 0.06 K/uL (0-0.5); Eosinophils % (auto) 0.5 %; Hematocrit (blood only) 31.9 % (37-47); Hemoglobin 10.1 g/dL (12.0-16.0); Immature Granulocytes # (auto) 0.04 K/uL (0.00-0.02); Immature Granulocytes % (auto) 0.3 %; Lymphocytes # (auto) 0.98 K/uL (1.2-3.4); Lymphocytes % (auto) 8.2 %; Mean Corpuscular Hgb Conc 31.7 g/dL (32-36); Mean Corpuscular Volume 95.5 fL (80-100); Mean Platelet Volume 9.5 fL (7.4-10.4); Monocytes # (auto) 0.65 K/uL (0.11-0.59); Monocytes % (auto) 5.5 %; Neutrophils # (auto) 10.15 K/uL (1.4-6.5); Neutrophils % (auto) 85.3 %; Platelet Count 210 K/uL (130-400); RDW Coefficient of Variation 14.5 % (11.5-14.5); RDW Standard Deviation 50.1 fL (36.4-46.3); Red Blood Count 3.34 M/uL (4.2-5.4)
[2018-12-10 03:44] LABS: Alanine Aminotransferase 24 U/L (12-78); Aspartate Aminotransferase 18 U/L (15-37); BUN Creatinine Ratio 22.6 (10-20); Bilirubin Direct < 0.1 mg/dl (0-0.2); Blood Urea Nitrogen 40 mg/dl (7-18); Carbon Dioxide 40 mmol/L (21-32); Chloride 87 mmol/L (98-107); Est GFR (African American) 30.9; Est GFR (Non-African American) 26.7; Glucose 219 mg/dl (70-99); Potassium 5.6 mmol/L (3.5-5.1); Sodium 131 mmol/L (136-145)
[2018-12-10 03:47] LABS: Alkaline Phosphatase 112 U/L (45-117); Bilirubin,Total 0.2 mg/dl (0.2-1); Total Protein 7.4 gm/dl (6.4-8.2)
[2018-12-10 05:29] LABS: Appearance Urine Turbid (Clear); Bilirubin Urine Negative (Negative); Blood Urine 1+ (Negative); Color Urine Yellow; Glucose Urine UA Negative (Negative); Ketones Urine Negative (Negative); Leukocyte Esterase Urine 3+ (Negative); Nitrite Urine Negative (Negative); Protein Urine Negative (Negative); Specific Gravity Urine 1.014 (1.000-1.030); Urobilinogen Urine Negative (Negative)
[2018-12-10] MEDS ORDERED: LORazepam 0.25 MG/0.5 ML VIAL IV STA (05:36)
[2018-12-10 05:43] LABS: Bacteria Urine Automated 3+ (Negative); RBC Urine Automated 0-4 /hpf (0-4); WBC Urine Automated >30 /hpf (0-5)
[2018-12-10] MEDS ORDERED: PROCHLORPERAZINE 10 MG in SYRINGE 8 ML IV PRN (05:47)
[2018-12-10] MEDS ORDERED: ONDANSETRON INJ 2 MG/ML 2 ML VIAL IV PRN (05:47)
[2018-12-10] MEDS ORDERED: MoRPHine SULFATE 10 MG/0.5 ML UDP PO PRN (05:47)
[2018-12-10] MEDS: LORazepam 1 MG/2 ML VIAL IV PRN (05:53)
[2018-12-10] MEDS ORDERED: ACETAMINOPHEN 1,000 MG/100 ML VIAL IV PRN (06:05)
[2018-12-10] MEDS ORDERED: ATROPINE SULFATE 1% OP SOLN 5 ML BTL SL PRN (06:09)
--- NOTE | 2018-12-10 06:10 | History & Physical Report ---
Date of Service December 10, 2018 Assessment & Plan (1) Mental status change: Patient presents with altered mental status, agitation, not responsiveness. Imaging studies reveal a grossly distended stomach that is fluid-filled, with no definite source of gastric outlet obstruction. The patient likely has a concurrent aspiration pneumonia as well. The patient had been home on hospice, and had been brought in due to intractable nausea and vomiting. It was discussed with the family that the best way to make her comfortable at this point would be to put an NG tube into low intermittent suction. Hospice will reassess their participation with the patient later on in the morning. Zofran 4 mg IV every 6 hours as needed. Compazine 10 mg IV every 6 hours as needed. Famotidine 20 mg IV every 12 hours. Roxanol 10 mg on the tongue q. one hour as needed. Acetaminophen thousand milligrams IV every 8 hours as needed mild pain or temperature. Lorazepam 1 mg IV every hour as needed. Transderm scopolamine patch 1.5 mg changing every 3 days. Atropine sulfate 2 drops sublingually every 2 hours as needed secretions. Present on Admission?: Yes (2) Gastric outlet obstruction: As noted above, placing NG tube to low intermittent suction. Present on Admission?: Yes (3) Aspiration pneumonia due to gastric secretions: Patient is showing some hypoxia, likely due to aspiration pneumonia, but in keeping with what may be end-of-life care, antibiotics would not be prescribed. Patient will be continued on nasal cannula oxygen, which can be titrated to mask, to keep patient comfortable. Present on Admission?: Yes (4) Gastric distention: As above. Present on Admission?: Yes History of Present Illness Chief Complaint: The patient has been at home on hospice, however, today, the patient developed significant nausea and vomiting that was uncontrolled, and was brought to the emergency department for assessment. Primary Care Provider: Luis Siddiqui MD History of present illness is limited to what family members can provide, due to the patient's altered mental state. The patient had been sent home with hospice care, however, the patient developed severe nausea and vomiting that was not controllable, and the patient brought into the emergency department for assessment. Emergency department has been in contact with [employer] who agreed to allow the patient to be initially treated today can see the patient later on in the day today. Allergies Allergy/AdvReac Type Severity Reaction Status Date / Time No Known Allergies Allergy Unverified 12/10/18 04:45 Home Medications Home Medications Medication Instructions Recorded Confirmed Type Ditropan XL 0 mg PO DAILY 12/10/18 12/10/18 History allopurinol 100 mg PO DAILY 12/10/18 12/10/18 History amlodipine 10 mg PO DAILY 12/10/18 12/10/18 History aspirin [Aspir-Low] 81 mg PO DAILY 12/10/18 12/10/18 History enalapril maleate 10 mg PO DAILY 12/10/18 12/10/18 History furosemide 40 mg PO AMPM 12/10/18 12/10/18 History gabapentin 100 mg PO BID 12/10/18 12/10/18 History guaifenesin [Mucinex] 600 mg PO Q12H 12/10/18 12/10/18 History haloperidol 1 tab PO Q4 PRN 12/10/18 12/10/18 History insulin aspart U-100 [Novolog 5 unit SUBCUT BID PRN 12/10/18 12/10/18 History Flexpen U-100 Insulin] insulin detemir U-100 [Levemir 25 unit SUBCUT AMPM 12/10/18 12/10/18 History U-100 Insulin] levothyroxine 175 mcg PO DAILY 12/10/18 12/10/18 History lorazepam 0.5 mg PO Q4 PRN 12/10/18 12/10/18 History memantine 10 mg PO QPM 12/10/18 12/10/18 History metoprolol tartrate 50 mg PO BID 12/10/18 12/10/18 History morphine concentrate 0 mg PO UD PRN 12/10/18 12/10/18 History nystatin 1 applic TOPICAL UD 12/10/18 12/10/18 History nystatin 1 applic TOPICAL UD 12/10/18 12/10/18 History omeprazole 20 mg PO BID 12/10/18 12/10/18 History ondansetron HCl [Zofran] 4 mg PO TID PRN 12/10/18 12/10/18 History oxybutynin chloride 5 mg PO BID 12/10/18 12/10/18 History polyethylene glycol 3350 [Miralax] 17 g PO 5XWK 12/10/18 12/10/18 History potassium chloride 10 meq PO BID 12/10/18 12/10/18 History quetiapine 100 mg PO DAILY PRN 12/10/18 12/10/18 History quetiapine 200 mg PO QPM 12/10/18 12/10/18 History venlafaxine 150 mg PO DAILY 12/10/18 12/10/18 History Past Med/Surg History Medical History Hyponatremia (Resolved 01/22/12) Unspecified sleep apnea (Chronic) Esophageal reflux (Chronic) Diverticulosis of colon without hemorrhage (Chronic) Diabetic infection of left foot Cellulitis SIADH (syndrome of inappropriate ADH production) Osteomyelitis (Resolved) Hypomagnesemia (Acute) Acute respiratory failure with hypoxia Acute exacerbation of CHF (congestive heart failure) Acute respiratory failure with hypoxia and hypercarbia Family History Other Family history non-contributory Social History marital status: / Current Living Situation: Family current occupational status: retired Smoking Status: Unknown if ever smoked Review of Systems Review of the systems is limited as noted above. Physical Exam Vital Signs (Past 24 Hours): Last Vital Signs Temp 36.5 C 12/10/18 02:47 Pulse 85 12/10/18 05:05 Resp 18 12/10/18 05:05 BP 124/61 12/10/18 05:05 Pulse Ox 90 12/10/18 05:05 Physical Exam: The patient is mildly agitated, nonresponsive, lying in bed and in moderate acute distress. HEENT--PERRL, EOMI, mucous membranes and oropharynx dry. Neck--supple. No JVD. No bruits. Thyroid normal, trachea midline, no adenopathy. Heart--normal S1 and S2. No murmurs rubs or gallops Lungs--few coarse breath sounds bilaterally, overall diminished. Abdomen--no bowel sounds, firm and distended. Extremities--no edema. Dermatologic--normal skin turgor, normal color. No rash Neurologic--cranial nerves II through XII grossly intact. Rheumatologic--deferred Psychiatric--agitated and nonresponsive. Results & Data Laboratory Results Laboratory Results WBC 11.90 K/uL (4.8-10.8) H 04/08/19 03:19 RBC 3.34 M/uL (4.2-5.4) L 12/10/18 03:19 Hgb 10.1 g/dL (12.0-16.0) L 12/10/18 03:19 Hct 31.9 % (37-47) L 12/10/18 03:19 MCV 95.5 fL (80-100) 12/10/18 03:19 MCH 30.2 pg (25-34) 12/10/18 03:19 MCHC 31.7 g/dL (32-36) L 12/10/18 03:19 RDW Std Deviation 50.1 fL (36.4-46.3) H 12/10/18 03:19 RDW Coeff of Lia 14.5 % (11.5-14.5) 12/10/18 03: Plt Count 210 K/uL (130-400) 12/10/18 03:19 MPV 9.5 fL (7.4-10.4) 12/10/18 03:19 Immature Gran % (Auto) 0.3 % 12/10/18 03:19 Neut % (Auto) 85.3 % 12/10/18 03:19 Lymph % (Auto) 8.2 % 12/10/18 03:19 Hawkins % (Auto) 5.5 % 12/10/18 03:19 Eos % (Auto) 0.5 % 12/10/18 03:19 Baso % (Auto) 0.2 % 12/10/18 03:19 Immature Gran # (Auto) 0.04 K/uL (0.00-0.02) H 12/10/18 03:19 Neut # (Auto) 10.15 K/uL (1.4-6.5) H 12/10/18 03:19 Lymph # (Auto) 0.98 K/uL (1.2-3.4) L 12/10/18 03:19 Hawkins # (Auto) 0.65 K/uL (0.11-0.59) H 12/10/18 03:19 Eos # (Auto) 0.06 K/uL (0-0.5) 12/10/18 03:19 Baso # (Auto) 0.02 K/uL (0-0.2) 12/10/18 03:19 Sodium 131 mmol/L (136-145) L 12/10/18 03:19 Potassium 5.6 mmol/L (3.5-5.1) H 12/10/18 03:19 Chloride 87 mmol/L (98-107) L 12/10/18 03:19 Carbon Dioxide 40 mmol/L (21-32) H 12/10/18 03:19 Anion Gap 4.0 (3-11) 12/10/18 03:19 BUN 40 mg/dl (7-18) H 12/10/18 03:19 Creatinine 1.75 mg/dl (0.6-1.2) H 12/10/18 03:19 Est Cr Clr Drug Dosing Not Reportable 12/10/18 03:19 Est GFR ( Amer) 30.9 12/10/18 03:19 Est GFR (Non-Af Amer) 26.7 12/10/18 03:19 BUN/Creatinine Ratio 22.6 (10-20) H 12/10/18 03:19 Glucose 219 mg/dl (70-99) H 12/10/18 03:19 Calcium 10.0 mg/dl (8.5-10.1) 12/10/18 03:19 Total Bilirubin 0.2 mg/dl (0.2-1) 12/10/18 03:19 Direct Bilirubin < 0.1 mg/dl (0-0.2) 12/10/18 03:19 AST 18 U/L (15-37) 12/10/18 03:19 ALT 24 U/L (12-78) 12/10/18 03:19 Alkaline Phosphatase 112 U/L (45-117) 12/10/18 03:19 Ammonia < 10.0 umol/L (11-32) L 12/10/18 03:19 Total Protein 7.4 gm/dl (6.4-8.2) 12/10/18 03:19 Albumin 3.0 gm/dl (3.4-5.0) L 12/10/18 03:19 Lipase 286 U/L (73-393) 12/10/18 03:19 Urine Color Yellow 12/10/18 05:05 Urine Appearance Turbid (Clear) H 12/10/18 05:05 Urine pH 6.0 (4.5-7.5) 12/10/18 05:05 Ur Specific Luana 1.014 (1.000-1.030) 12/10/18 05:05 Urine Protein Negative (Negative) 12/10/18 05:05 Urine Glucose (UA) Negative (Negative) 12/10/18 05:05 Urine Ketones Negative (Negative) 12/10/18 05:05 Urine Blood 1+ (Negative) H 12/10/18 05:05 Urine Nitrite Negative (Negative) 12/10/18 05:05 Urine Bilirubin Negative (Negative) 12/10/18 05:05 Urine Urobilinogen Negative (Negative) 12/10/18 05:05 Ur Leukocyte Esterase 3+ (Negative) H 12/10/18 05:05 Urine WBC (Auto) >30 /hpf (0-5) H 12/10/18 05:05 Urine RBC (Auto) 0-4 /hpf (0-4) 12/10/18 05:05 U Epithel Cells (Auto) 5-10 /lpf (0-5) H 12/10/18 05:05 Urine Bacteria (Auto) 3+ (Negative) H 12/10/18 05:05 Code Status & VTE Plan Code Status DO NOT RESUSCITATE. VTE Prophylaxis Plan VTE Prophylaxis will be ordered: Yes
--- NOTE | 2018-12-10 06:27 | Emergency Department Note ---
Entered by Carla Driscoll acting as a scribe for ED Provider Note Name: Guerita Buckley Age: 83 Arrives Via: EMS Informant: EMS CC: Abdominal Pain HPI: The patient is an 83 year old female who presents to the Emergency Room with complaints of worsening abdominal pain starting a few days ago. Per EMS, the patient is on hospice. They state that they are unsure why, but they believe it is for heart failure. They report that the family called EMS because hospice was an hour away. They state that the patient has not been eating and has been vomiting foul smelling emesis. They note that she has had one episode of diarrhea and her abdomen has been bloated. They states that family has tried Zo batsheva and Morphine, but it hasnt helped. They note that the family requested that nothing be done. ROS: Pt obtunded and unable to given ROS. Past Medical History: Diabetes, Esophageal Reflux, Diverticulosis, Cellulitis, SIADH, Osteomyelitis, Respiratory Failure, CHF Past Surgical History: None Family History: Non-contributory Social History: The patient is and lives with family on hospice. She is retired. Home Medications: See Below Allergies No known allergies Physical: Vitals: Temperature: 36.5, Temperature Source: Oral, Pulse Rate: 85, Respiratory Rate: 20, Blood Pressure: 118/69, Blood Pressure Mean: 85, O2 Saturation: 95% on 4L Nasall Cannula Exam: GENERAL: Patient is obtunded and has periodic tremors. EYES: No scleral icterus, unremarkable pupils. ENT: Mucous membranes moist, no nasal congestion. NECK: No masses appreciated, no meningismus, trachea is midline. RESPIRATORY: No dyspnea. Clear to auscultation and equal bilaterally. No wheeze, no rhonchi. CARDIOVASCULAR: Regular rate and rhythm. No murmurs, rubs, gallops appreciated. GASTROINTESTINAL: Abdomen is distended with normal active bowel sounds. Non-tender, no peritonitis. No masses appreciated. BACK: No midline tenderness, no CVA tenderness EXTREMITIES: Normal motion all extremities, no cyanosis, no edema. NEUROLOGIC: Obtunded. Periodically shaking legs and arms. SKIN: No rash, no jaundice, no diaphoresis. ED Course: Prior Medical Record, Triage/Nursing Notes, Medications, Allergies reviewed by Me Vital Signs: reviewed and remarkable for mild hypotension Labs: Reviewed and remarkable for hyperkalemia, elevated BUN Interventions: NG Tube, Ativan .25mg IV Imaging: [facility] Radiologist interpretation reviewed by me: "CT ABDOMEN & PELVIS Without Contrast: The stomach is distended with fluid. No visualized lesion to account for distention. No evidence of bowel obstruction or colitis. The appendix is unremarkable. No free fluid or free air. Bibasilar atelectasis. Cholelithiasis. Bilateral renal cystic lesions measuring up to 13.7 mm on the left and a 9.5 mm on the left. Left adrenal 2.1 cm mass. Pancreas and spleen are unremarkable for a non-infused exam. Radiologist: Michael Soliz M.D." Consults: 0519: I reviewed the patient's case with Dr. Robles Hospitalist. He will evaluate the patient for further management. We believe that the patient would benefit from the comfort of an NG tube. We feel that that is not an attempt to prolong her life and that she would be agreeable if she were not obtunded. Reassessments/Times: 0231: The patient was evaluated in room B6, and a complete history and physical examination were performed. 0246: The patient had a large bowel movement. 0254: I reevaluated the patient and her daughter is at bedside. I had a long discussion with her. She requests that we check some labs and obtain a CT of the abdomen. She does not want any medications or fluids at this time as her brother is not here to discuss the best course of action. The daughter states that she has been altered. 0428: I reevaluated the patient and had a long discussion with the patient's family. They state that they are incapable of caring for the patient and are uncomfortable taking her home. They don't want interventions other than comfort. We are trying to get in touch with [facility]. 0459: The patient can be admitted as long as no intervention takes place and stay on hospice. They will send someone out today to evaluate the patient. 0519: I reviewed the patient's case with Dr. Robles Hospitalist. He will evaluate the patient for further management. We believe that the patient wo uld benefit from the comfort of an NG tube. We feel that that is not an attempt to prolong her life and that she would be agreeable if she were not obtunded. 0532: Per nursing staff, the NG tube is placed. Copious amounts of outs are noted. The patient is pulling at the line so soft restraints were applied. 0537: I reevaluated the patient and she is mildly agitated with the NG tube. The family notes that they give her Ativan regularly. I will order IV Ativan. 0601: I reevaluated the patient and she is calm. She is sleeping and breathing comfortably. I discussed urinalysis findings with the family. They are in agreement on withholding antibiotics at this time. Blood pressure: Normal. No Referral necessary Disposition: Hospitalization Differentials: Etiologies such as gastroenteritis, food borne illness, i nfections, obstruction, pancreatitis, appendicitis, diverticulitis, inflammatory bowel disease, GI bleed, biliary pathology, toxicologic, as well as others were entertained. Medical Decision Makin yr old female on hospice for variety of reasons arrives after vomiting over last 2 days, altered mental status this evening and getting to point where family unable to care for her despite services from hospice. She has distended abdomen on arrival though obtunded and appears in minimal distress. After family arrived we discussed work-up which they agreed with. CT reveals large fluid filled stomach consistent with gastric outlet obstruction. Labs with elevated bun and hyperK. Family agreeable to NG tube for comfort. They prefer to avoid IV fluids, antibiotics due to patient's previous wishes and are aware possible outcome of not treating with these. NG tube with significant outs. UA concerning for UTI though per family wishes will hold on abx. Small dose ativan given for agitation which they agree with. Patient comfortable. Due to inability to care for her at home, the fact she has NG tube, and her obtundation I consulted hospitalist with Hospice team agreeable to this. Impression: Gastric Outlet Obstruction Obtundation Acute Hyperkalemia Acute Dehydration Admission for Hospice Care Akash Duggan MD The scribe's documentation has been prepared under my direction and personally reviewed by me in its entirety. I confirm that the note above accurately reflects all work, treatment, procedures, and medical decision making performed by me. Impression & Plan Gastric outlet obstruction, Obtundation, Acute hyperkalemia, Acute dehydration, Admission for hospice care Past Med/Surg History Medical History Hyponatremia (Resolved 01/22/12) Unspecified sleep apnea (Chronic) Esophageal reflux (Chronic) Diverticulosis of colon without hemorrhage (Chronic) Diabetic infection of left foot Cellulitis SIADH (syndrome of inappropriate ADH production) Osteomyelitis (Resolved) Hypomagnesemia (Acute) Acute respiratory failure with hypoxia Acute exacerbation of CHF (congestive heart failure) Acute respiratory failure with hypoxia and hypercarbia Family History Other Family history non-contributory Social History marital status: / Current Living Situation: Family current occupational status: retired Smoking Status: Unknown if ever smoked Results & Data Vital Signs Vital Signs - 24 hr 12/10/18 02:47 12/10/18 04:02 12/10/18 05:05 Temperature 36.5 C Temperature Source Oral Sepsis Recent Fever Within 48 Hours No Sepsis New/Unexplained Change in Mental Status No Sepsis Action Taken by Nursing No Action Required Pulse Rate 85 Pulse Rate [Right Finger] 83 85 Respiratory Rate 20 18 18 Respiratory Effort / Characteristics Non-Labored Spontaneous Non-Labored Spontaneous Non-Labored Spontaneous Respiratory Depth Normal Normal Normal Respiratory Pattern Regular Regular Regular Blood Pressure 118/69 Blood Pressure [Right Arm] 118/74 124/61 Blood Pressure Mean 85 Blood Pressure Mean [Right Arm] 88 82 Blood Pressure Position Semi-fowlers Blood Pressure Position [Right Arm] Semi-fowlers Semi-fowlers Pulse Oximetry 95 97 90 Oxygen Delivery Method Nasal Cannula Room Air Nasal Cannula Oxygen Flow Rate 4 4 12/10/18 05:58 Temperature Temperature Source Sepsis Recent Fever Within 48 Hours Sepsis New/Unexplained Change in Mental Status Sepsis Action Taken by Nursing Pulse Rate Pulse Rate [Right Finger] 88 Respiratory Rate 16 Respiratory Effort / Characteristics Non-Labored Spontaneous Respiratory Depth Normal Respiratory Pattern Regular Blood Pressure Blood Pressure [Right Arm] 96/68 L Blood Pressure Mean Blood Pressure Mean [Right Arm] 77 Blood Pressure Position Blood Pressure Position [Right Arm] Semi-fowlers Pulse Oximetry 98 Oxygen Delivery Method Room Air Oxygen Flow Rate Home Medications Current Medication List: was personally reviewed by me Laboratory Data Attestation: I reviewed the patient's lab results. Result diagrams: 12/10/18 03:19 12/10/18 03:19 Lab Results 04/08/19 04/08/19 04/08/19 Range/Units 03:19 03:19 03:19 WBC 11.90 H (4.8-10.8) K/uL RBC 3.34 L (4.2-5.4) M/uL Hgb 10.1 L (12.0-16.0) g/dL Hct 31.9 L (37-47) % MCV 95.5 (80-100) fL MCH 30.2 (25-34) pg MCHC 31.7 L (32-36) g/dL RDW Std Deviation 50.1 H (36.4-46.3) fL RDW Coeff of Lia 14.5 (11.5-14.5) % Plt Count 210 (130-400) K/uL MPV 9.5 (7.4-10.4) fL Immature Gran % (Auto) 0.3 % Neut % (Auto) 85.3 % Lymph % (Auto) 8.2 % Barron % (Auto) 5.5 % Eos % (Auto) 0.5 % Baso % (Auto) 0.2 % Immature Gran # (Auto) 0.04 H (0.00-0.02) K/uL Neut # (Auto) 10.15 H (1.4-6.5) K/uL Lymph # (Auto) 0.98 L (1.2-3.4) K/uL Barron # (Auto) 0.65 H (0.11-0.59) K/uL Eos # (Auto) 0.06 (0-0.5) K/uL Baso # (Auto) 0.02 (0-0.2) K/uL Sodium 131 L (136-145) mmol/L Potassium 5.6 H (3.5-5.1) mmol/L Chloride 87 L (98-107) mmol/L Carbon Dioxide 40 H (21-32) mmol/L Anion Gap 4.0 (3-11) BUN 40 H (7-18) mg/dl Creatinine 1.75 H (0.6-1.2) mg/dl Est Cr Clr Drug Dosing Not Reportable Est GFR ( Amer) 30.9 Est GFR (Non-Af Amer) 26.7 BUN/Creatinine Ratio 22.6 H (10-20) Glucose 219 H (70-99) mg/dl Calcium 10.0 (8.5-10.1) mg/dl Total Bilirubin 0.2 (0.2-1) mg/dl Direct Bilirubin < 0.1 (0-0.2) mg/dl AST 18 (15-37) U/L ALT 24 (12-78) U/L Alkaline Phosphatase 112 (45-117) U/L Ammonia < 10.0 L (11-32) umol/L Total Protein 7.4 (6.4-8.2) gm/dl Albumin 3.0 L (3.4-5.0) gm/dl Lipase 286 (73-393) U/L Urine Color Urine Appearance (Clear) Urine pH (4.5-7.5) Ur Specific [place] (1.000-1.030) Urine Protein (Negative) Urine Glucose (UA) (Negative) Urine Ketones (Negative) Urine Blood (Negative) Urine Nitrite (Negative) Urine Bilirubin (Negative) Urine Urobilinogen (Negative) Ur Leukocyte Esterase (Negative) Urine WBC (Auto) (0-5) /hpf Urine RBC (Auto) (0-4) /hpf U Epithel Cells (Auto) (0-5) /lpf Urine Bacteria (Auto) (Negative) 12/10/18 Range/Units 05:05 WBC (4.8-10.8) K/uL RBC (4.2-5.4) M/uL Hgb (12.0-16.0) g/dL Hct (37-47) % MCV (80-100) fL MCH (25-34) pg MCHC (32-36) g/dL RDW Std Deviation (36.4-46.3) fL RDW Coeff of Lia (11.5-14.5) % Plt Count (130-400) K/uL MPV (7.4-10.4) fL Immature Gran % (Auto) % Neut % (Auto) % Lymph % (Auto) % Barron % (Auto) % Eos % (Auto) % Baso % (Auto) % Immature Gran # (Auto) (0.00-0.02) K/uL Neut # (Auto) (1.4-6.5) K/uL Lymph # (Auto) (1.2-3.4) K/uL Barron # (Auto) (0.11-0.59) K/uL Eos # (Auto) (0-0.5) K/uL Baso # (Auto) (0-0.2) K/uL Sodium (136-145) mmol/L Potassium (3.5-5.1) mmol/L Chloride (98-107) mmol/L Carbon Dioxide (21-32) mmol/L Anion Gap (3-11) BUN (7-18) mg/dl Creatinine (0.6-1.2) mg/dl Est Cr Clr Drug Dosing Est GFR ( Amer) Est GFR (Non-Af Amer) BUN/Creatinine Ratio (10-20) Glucose (70-99) mg/dl Calcium (8.5-10.1) mg/dl Total Bilirubin (0.2-1) mg/dl Direct Bilirubin (0-0.2) mg/dl AST (15-37) U/L ALT (12-78) U/L Alkaline Phosphatase (45-117) U/L Ammonia (11-32) umol/L Total Protein (6.4-8.2) gm/dl Albumin (3.4-5.0) gm/dl Lipase (73-393) U/L Urine Color Yellow Urine Appearance Turbid H (Clear) Urine pH 6.0 (4.5-7.5) Ur Specific [place] 1.014 (1.000-1.030) Urine Protein Negative (Negative) Urine Glucose (UA) Negative (Negative) Urine Ketones Negative (Negative) Urine Blood 1+ H (Negative) Urine Nitrite Negative (Negative) Urine Bilirubin Negative (Negative) Urine Urobilinogen Negative (Negative) Ur Leukocyte Esterase 3+ H (Negative) Urine WBC (Auto) >30 H (0-5) /hpf Urine RBC (Auto) 0-4 (0-4) /hpf U Epithel Cells (Auto) 5-10 H (0-5) /lpf Urine Bacteria (Auto) 3+ H (Negative) Administered Medications Lorazepam (Ativan) 1 mg in 2 mls @ 2 mls/min IV Q1H PRN PRN Reason: Anxiety Stop: 01/09/19 05:44 Last Admin: 12/10/18 05:53 Dose: 2 mls/min Documented by: [id number] Discontinued Medications Lorazepam (Ativan) 0.25 mg in 0.5 mls @ 0.5 mls/min IV NOW STA Stop: 12/10/18 05:37 Last Admin: 12/10/18 05:54 Dose: Not Given Documented by: [id number] Blood Pressure Blood Pressure Findings: Normal blood pressure Blood Pressure Disposition: did not require urgent referral Discharge Plan Visit Data Chief Complaint: Abdominal Pain ED Provider: Akash Duggan Discharge Problem: Gastric outlet obstruction, Obtundation, Acute hyperkalemia, Acute dehydration, Admission for hospice care Patient Disposition: Being Evaluated by Hospitalist Forms Stand Alone Forms: My [facility] Prescriptions Prescriptions: No Action allopurinol 100 mg tablet 100 mg PO DAILY RF: 0 amlodipine 10 mg tablet 10 mg PO DAILY RF: 0 furosemide 40 mg Tablet 40 mg PO AMPM RF: 0 levothyroxine 175 mcg Tablet 175 mcg PO DAILY RF: 0 enalapril maleate 10 mg Tablet 10 mg PO DAILY RF: 0 venlafaxine 150 mg Capsule,Extended Release 24hr 150 mg PO DAILY RF: 0 metoprolol tartrate 50 mg Tablet 50 mg PO BID RF: 0 quetiapine 200 mg Tablet 200 mg PO QPM RF: 0 quetiapine 200 mg Tablet 100 mg PO DAILY PRN (Reason: Unknown) RF: 0 aspirin [Aspir-Low] 81 mg Tablet,Delayed Release (Dr/Ec) 81 mg PO DAILY RF: 0 polyethylene glycol 3350 [Miralax] 17 gram/dose Powder 17 g PO 5XWK RF: 0 memantine 10 mg Tablet 10 mg PO QPM RF: 0 Levemir U-100 Insulin 100 unit/mL Solution 25 unit SUBCUT AMPM RF: 0 omeprazole 20 mg Tablet,Delayed Release (Dr/Ec) 20 mg PO BID RF: 0 gabapentin 100 mg Capsule 100 mg PO BID RF: 0 oxybutynin chloride 5 mg Tablet 5 mg PO BID RF: 0 morphine concentrate 100 mg/5 mL (20 mg/mL) solution PO UD PRN (Reason: severe pain/SOB) RF: 0 ondansetron HCl [Zofran] 4 mg Tablet 4 mg PO TID PRN (Reason: Nausea) RF: 0 lorazepam 0.5 mg Tablet 0.5 mg PO Q4 PRN (Reason: Anxiety) RF: 0 nystatin 100,000 unit/gram Cream 1 applic TOPICAL UD RF: 0 nystatin 100,000 unit/gram Powder 1 applic TOPICAL UD RF: 0 Novolog Flexpen U-100 Insulin 100 unit/mL (3 mL) Insulin Pen 5 unit SUBCUT BID PRN (Reason: if bsg is 200+) RF: 0 guaifenesin [Mucinex] 600 mg Tablet Extended Release 12hr 600 mg PO Q12H RF: 0 haloperidol 1 tab PO Q4 PRN (Reason: Unknown) RF: 0 potassium chloride 10 mEq Tablet Extended Release 10 meq PO BID RF: 0 Ditropan XL PO DAILY RF: 0 Referrals Referrals: Luis Siddiqui III, MD [Primary Care Provider] - The scribe's documentation has been prepared under my direction and personally reviewed by me in its entirety. I confirm that the note above accurately reflects all work, treatment, procedures, and medical decision making performed by me.
--- NOTE | 2018-12-10 06:56 | CT Scan Report ---
CT SCAN OF THE ABDOMEN AND PELVIS WITHOUT CONTRAST CLINICAL HISTORY: vomiting feculent material COMPARISON STUDY: October 20, 2017 TECHNIQUE: CT scan of the abdomen and pelvis was performed from the lung bases to the proximal femurs . Images are reviewed in the axial, sagittal, and coronal planes. IV contrast was not administered fo r this examination. A dose lowering technique was utilized adhering to the principles of ALARA. CT DOSE: 1420.97 mGy.cm FINDINGS: Lower chest: There are lower lobe atelectatic changes more pronounced on the left. Liver: The unenhanced liver is normal in size, contour, and attenuation. There is no intrahepatic zandra iary ductal dilatation. Gallbladder: Multiple gallstones are visualized. Spleen: Normal in size and attenuation. Pancreas: Unremarkable. Adrenal glands: There are persistent relatively low density bilateral adrenal masses likely represent ing adenomas. Kidneys: There are bilateral hypodense renal lesions, likely representing cysts although accurate georgina racterization is difficult without intravenous contrast. There is no hydronephrosis. No ureteral or b ladder calculi are visualized. Bowel: There is a distended fluid-filled stomach with gastric antral/duodenal wall thickening. There is no evidence of acute appendicitis. There is no evidence of acute diverticulitis. Scattered colonic diverticula are visualized. Peritoneum: There is no intraperitoneal free air or abdominal ascites. Vasculature: The abdominal aorta is normal in course and caliber. Adenopathy: None. Pelvic viscera: There is indwelling Ferrell catheter. Skeletal structures: No destructive osseous lesions are seen. IMPRESSION: 1. Distended fluid-filled stomach with borderline gastric antral/duodenal bulb wall thickening 2. Cholelithiasis 3. Persistent bilateral adrenal masses, possibly representing adenomas 4. Bilateral renal masses likely representing cysts 5. No evidence of acute appendicitis. No evidence of acute diverticulitis. Electronically signed by: Grant Sewell M.D. 12/10/2018 6:55 AM
--- NOTE | 2018-12-10 07:40 | Family Medicine Progress Note ---
Date of Service December 10, 2018 Subjective Pt seen by hospice today with family at bedside. NG tube in nose draining dark brown fluid. Laying in bed eyes closed. Awaiting hospice recs. Physical Exam Vital Signs (Past 24 Hours): Last Vital Signs Temp 36.5 C 12/10/18 02:47 Pulse 88 12/10/18 06:22 Resp 16 12/10/18 06:22 BP 96/68 L 12/10/18 06:22 Pulse Ox 98 12/10/18 06:22 Resident Activity Tracking Resident Involvement: Resident Care Provided Care Provided: Adult Hospital Medicine
[2018-12-10] MEDS: SCOPOLAMINE 1.5 MG TDSY TD SCH (09:04)
[2018-12-10] MEDS: CHECK SCOPOLAMINE PATCH PLACEMENT SCH ×2 (09:05→17:06)
[2018-12-10] MEDS: FAMOTIDINE 20 MG in SYRINGE 3 ML IV SCH ×2 (09:05→20:59)
[2018-12-10] MEDS ORDERED: MICONAZOLE NITRATE POWDER 43 GM EXT PRN (09:14)
[2018-12-10] MEDS ORDERED: MICONAZOLE NITRATE POWDER 43 GM ONE (09:15)
[2018-12-11] MEDS: CHECK SCOPOLAMINE PATCH PLACEMENT SCH ×4 (00:04→23:43)
[2018-12-11] MEDS: FAMOTIDINE 20 MG in SYRINGE 3 ML IV SCH ×2 (07:57→22:08)
--- NOTE | 2018-12-11 09:27 | Family Medicine Progress Note ---
Date of Service December 11, 2018 Assessment & Plan (1) Gastric outlet obstruction: Pt is an 83yo Hospice pt who presented with N/V and was treated with NG tube placement. Nausea/vomiting with possible aspiration secondary to ileus -F/U with hospice recs -Remove NG tube today -PPI -advance diet -Zofran PRN -cont scopolamine patch Metabolic encephalopathy -Mentation clear -supportive care Aspiration -hypoxic on admission - now saturating well. -supportive care -follow for signs of aspiration. CODE STATUS: DNR DVT Proph: SCDs Dispo: Pending hospice recs Supervising Physician Co-Signing Physician Notes Resident Physician Supervision Note: I independently interviewed and examined the patient and verified the boyer history and physical, reviewed labs and image studies, discussed the case with the resident Dr. Jimenez and agree with the findings and care plan. Subjective Ms Buckley was awake and verbal in the room today with the NG tube in place. Has drained in total approximately 50ml dark brown fluid. Review of Systems Unobtainable due to cognitive status Physical Exam Vital Signs (Past 24 Hours): Last Vital Signs Temp 37.1 C 12/11/18 07:44 Pulse 109 H 12/11/18 07:44 Resp 20 12/11/18 07:44 BP 138/79 12/11/18 07:44 Pulse Ox 99 12/11/18 07:44 General: Alert, awake in bed, obese. HEENT: NC/AT, NG tube in place in nare. Chest: Nontender to palpation. CV: RRR Resp: Breath sounds clear bilaterally on front Abdomen: Soft, nontender. No guarding. No organomegaly appreciated. Extremities: some edema in lower extremities. Resident Activity Tracking Resident Involvement: Resident Care Provided Care Provided: Adult Hospital Medicine
[2018-12-11] MEDS ORDERED: ONDANSETRON 4 MG OD TAB PO PRN (19:25)
[2018-12-11] MEDS ORDERED: QUETIAPINE FUMARATE 100 MG TABLET PO PRN (19:28)
[2018-12-11] MEDS ORDERED: INSULIN DETEMIR FLEXPEN/FLEX TOUCH 100 UNITS/ML 3ML SC ONE (20:00)
[2018-12-11] MEDS ORDERED: CARBOHYDRATES FOR HYPOGLYCEMIA PO PRN (21:30)
[2018-12-11] MEDS ORDERED: DEXTROSE 50% 50 ML SYRINGE IV PRN (21:30)
[2018-12-11] MEDS ORDERED: GLUCOSE 40% GEL 15 GM TUBE PO PRN (21:30)
[2018-12-11] MEDS ORDERED: GLUCAGON FOR INJ 1 MG VIAL IM PRN (21:30)
[2018-12-11] MEDS ORDERED: GLUCOSE 10 TABS/TUBE PO PRN (21:30)
[2018-12-11] MEDS: AMLODIPINE BESYLATE 5 MG TAB PO SCH (21:59)
[2018-12-11] MEDS: guaiFENesin 600 MG TABCR PO SCH (22:00)
[2018-12-11] MEDS: MEMANTINE HCL 10 MG TAB PO SCH (22:00)
[2018-12-11] MEDS: OXYBUTYNIN CHLORIDE 5 MG TAB PO SCH (22:00)
[2018-12-11] MEDS: ENALAPRIL MALEATE 10 MG TAB PO SCH (22:01)
[2018-12-11] MEDS: FUROSEMIDE 40 MG TAB PO SCH (22:01)
[2018-12-11] MEDS: GABAPENTIN 100 MG CAP PO SCH (22:02)
[2018-12-11] MEDS: QUETIAPINE FUMARATE 200 MG TAB PO SCH (22:02)
[2018-12-11] MEDS: METOPROLOL TARTRATE 50 MG TAB PO SCH (22:02)
[2018-12-11] MEDS: INSULIN ASPART 100 UNITS/ML 3 ML PEN SC SCH (22:03)
[2018-12-11] MEDS: PANTOprazole 40 MG TAB PO SCH (22:03)
[2018-12-11] MEDS: LORazepam 0.5 MG TAB PO PRN (22:05)
[2018-12-12] MEDS: LEVOTHYROXINE SODIUM 175 MCG TABLET PO SCH (06:20)
[2018-12-12] MEDS ORDERED: INSULIN ASPART 100 UNITS/ML 3 ML PEN SC SCH (07:30)
[2018-12-12] MEDS: AMLODIPINE BESYLATE 5 MG TAB PO SCH (08:28)
[2018-12-12] MEDS: guaiFENesin 600 MG TABCR PO SCH ×2 (08:28→22:07)
[2018-12-12] MEDS: ALLOPURINOL 100 MG TAB PO SCH (08:28)
[2018-12-12] MEDS: FUROSEMIDE 40 MG TAB PO SCH ×2 (08:29→16:17)
[2018-12-12] MEDS: ENALAPRIL MALEATE 10 MG TAB PO SCH (08:29)
[2018-12-12] MEDS: OXYBUTYNIN CHLORIDE 5 MG TAB PO SCH ×2 (08:29→22:06)
[2018-12-12] MEDS: ASPIRIN 81 MG ECTAB PO SCH (08:29)
[2018-12-12] MEDS: VENLAFAXINE HCL XR 150 MG CAPXR PO SCH (08:30)
[2018-12-12] MEDS: METOPROLOL TARTRATE 50 MG TAB PO SCH ×2 (08:30→22:28)
[2018-12-12] MEDS: POLYETHYLENE (MIRALAX) 17 GM PACK PO SCH (08:31)
[2018-12-12] MEDS: CHECK SCOPOLAMINE PATCH PLACEMENT SCH ×3 (08:31→23:33)
[2018-12-12] MEDS: GABAPENTIN 100 MG CAP PO SCH ×2 (08:31→22:08)
[2018-12-12] MEDS: PANTOprazole 40 MG TAB PO SCH ×2 (08:31→22:09)
[2018-12-12] MEDS: FAMOTIDINE 20 MG in SYRINGE 3 ML IV SCH (08:36)
[2018-12-12] MEDS: INSULIN ASPART 100 UNITS/ML 3 ML PEN SC SCH ×4 (08:38→22:10)
--- NOTE | 2018-12-12 12:16 | Family Medicine Progress Note ---
Date of Service December 12, 2018 Assessment & Plan (1) Gastric outlet obstruction: Pt is an 83yo Hospice pt who presented with N/V and was treated with NG tube placement. NG tube NO LONGER IN PLACE. Nausea/vomiting with possible aspiration secondary to ileus -F/U with hospice recs -NG tube removed yesterday. -PPI -advance diet -Zofran PRN -cont scopolamine patch Metabolic encephalopathy -Mentation clear -supportive care Aspiration -hypoxic on admission - now saturating well. -supportive care -follow for signs of aspiration. DISCHARGE PLANNING -family meeting today at 3pm -f/u hospice recs, abx management. CODE STATUS: DNR DVT Proph: SCDs Dispo: Pending hospice recs Supervising Physician Co-Signing Physician Notes Resident Physician Supervision Note: I independently interviewed and examined the patient and verified the boyer history and physical, reviewed labs and image studies, discussed the case with the resident Dr. Jimenez and agree with the findings and care plan. Subjective Pt awake and verbal. States she has some abdominal pain. Denies N/V. Review of Systems Unobtainable due to cognitive status Physical Exam Vital Signs (Past 24 Hours): Last Vital Signs Temp 36.9 C 12/12/18 07:47 Pulse 91 H 12/12/18 07:47 Resp 18 12/12/18 07:47 BP 122/77 12/12/18 07:47 Pulse Ox 98 12/12/18 07:47 General: Alert, awake in bed upon entering, obese. HEENT: NC/AT. nasal cannula in nares Chest: Nontender to palpation. CV: RRR Resp: Breath sounds clear bilaterally on front Abdomen: Soft, nontender. No guarding. No organomegaly appreciated. Extremities: SCDs on lower extremities. Results & Data Laboratory Results Laboratory Results - last 24 hr 12/11/18 12/11/18 12/12/18 17:40 20:52 03:12 POC Glucose 281 H 325 H 186 H 12/12/18 12/12/18 07:37 11:37 POC Glucose 152 H 168 H Medications Administered Home Medications Ditropan XL 0 mg PO DAILY 12/10/18 [History Confirmed 12/10/18] allopurinol 100 mg PO DAILY 12/10/18 [History Confirmed 12/10/18] amlodipine 10 mg PO DAILY 12/10/18 [History Confirmed 12/10/18] aspirin [Aspir-Low] 81 mg PO DAILY 12/10/18 [History Confirmed 12/10/18] enalapril maleate 10 mg PO DAILY 12/10/18 [History Confirmed 12/10/18] furosemide 40 mg PO AMPM 12/10/18 [History Confirmed 12/10/18] gabapentin 100 mg PO BID 12/10/18 [History Confirmed 12/10/18] guaifenesin [Mucinex] 600 mg PO Q12H 12/10/18 [History Confirmed 12/10/18] haloperidol 1 tab PO Q4 PRN 12/10/18 [History Confirmed 12/10/18] insulin aspart U-100 [Novolog Flexpen U-100 Insulin] 5 unit SUBCUT BID PRN 12/10/18 [History Confirmed 12/10/18] insulin detemir U-100 [Levemir U-100 Insulin] 25 unit SUBCUT AMPM 12/10/18 [History Confirmed 12/10/18] levothyroxine 175 mcg PO DAILY 12/10/18 [History Confirmed 12/10/18] lorazepam 0.5 mg PO Q4 PRN 12/10/18 [History Confirmed 12/10/18] memantine 10 mg PO QPM 12/10/18 [History Confirmed 12/10/18] metoprolol tartrate 50 mg PO BID 12/10/18 [History Confirmed 12/10/18] morphine concentrate 0 mg PO UD PRN 12/10/18 [History Confirmed 12/10/18] nystatin 1 applic TOPICAL UD 12/10/18 [History Confirmed 12/10/18] nystatin 1 applic TOPICAL UD 12/10/18 [History Confirmed 12/10/18] omeprazole 20 mg PO BID 12/10/18 [History Confirmed 12/10/18] ondansetron HCl [Zofran] 4 mg PO TID PRN 12/10/18 [History Confirmed 12/10/18] oxybutynin chloride 5 mg PO BID 12/10/18 [History Confirmed 12/10/18] polyethylene glycol 3350 [Miralax] 17 g PO 5XWK 12/10/18 [History Confirmed 12/10/18] potassium chloride 10 meq PO BID 12/10/18 [History Confirmed 12/10/18] quetiapine 100 mg PO DAILY PRN 12/10/18 [History Confirmed 12/10/18] quetiapine 200 mg PO QPM 12/10/18 [History Confirmed 12/10/18] venlafaxine 150 mg PO DAILY 12/10/18 [History Confirmed 12/10/18] Active Medications Allopurinol (Zyloprim) 100 mg PO DAILY [facility] Stop: 01/11/19 08:59 Last Admin: 12/12/18 08:28 Dose: 100 mg Documented by: Amlodipine Besylate (Norvasc) 10 mg PO QAM [facility] Stop: 01/10/19 19:14 Last Admin: 12/12/18 08:28 Dose: 10 mg Documented by: Aspirin (Ecotrin Ectab) 81 mg PO QAM [facility] Stop: 01/11/19 08:59 Last Admin: 12/12/18 08:29 Dose: 81 mg Documented by: Atropine Sulfate (Atropine Sulfate 1% Oph) 2 drops SL Q2H PRN PRN Reason: secretions Stop: 01/09/19 06:14 Dextrose (Dextrose 50%) 25 - 50 ml IV UD PRN; Protocol PRN Reason: Hypoglycemia Protocol Stop: 01/10/19 21:29 Enalapril Maleate (Vasotec) 10 mg PO QAM [facility] Stop: 01/10/19 19:29 Last Admin: 12/12/18 08:29 Dose: 10 mg Documented by: Furosemide (Lasix) 40 mg PO BID17 [facility] Stop: 01/10/19 19:59 Last Admin: 12/12/18 08:29 Dose: 40 mg Documented by: Gabapentin (Neurontin) 100 mg PO BID [facility] Stop: 01/10/19 20:59 Last Admin: 12/12/18 08:31 Dose: 100 mg Documented by: Glucagon (Glucagen) 1 mg IM UD PRN; Protocol PRN Reason: Hypoglycemia Protocol Stop: 01/10/19 21:29 Glucose (Glucose 40%) 15 - 30 gm PO UD PRN; Protocol PRN Reason: Hypoglycemia Protocol Stop: 01/10/19 21:29 Glucose (Dex4 Glucose) 4 - 8 tabs PO UD PRN; Protocol PRN Reason: Hypoglycemia Protocol Stop: 01/10/19 21:29 Guaifenesin (Mucinex) 600 mg PO Q12 [facility] Stop: 01/10/19 20:59 Last Admin: 12/12/18 08:28 Dose: 600 mg Documented by: Lorazepam (Ativan) 1 mg in 2 mls @ 2 mls/min IV Q1H PRN PRN Reason: Anxiety Stop: 01/09/19 05:44 Last Admin: 12/10/18 05:53 Dose: 2 mls/min Documented by: Prochlorperazine 10 mg/ (Syringe) 10 mls @ 5 mls/min IV Q6H PRN PRN Reason: Nausea And Vomiting Stop: 01/09/19 05:46 Acetaminophen (Ofirmev) 1,000 mg in 100 mls @ 400 mls/hr IV Q8H PRN PRN Reason: Pain or Fever Stop: 01/09/19 06:04 Insulin Aspart (Novolog Flexpen) 0 units SC ACHS [facility] Stop: 01/10/19 21:44 Last Admin: 12/12/18 08:38 Dose: Not Given Documented by: Levothyroxine Sodium (Synthroid) 175 mcg PO DAILYBB [facility] Stop: 01/11/19 06:29 Last Admin: 12/12/18 06:20 Dose: 175 mcg Documented by: Lorazepam (Ativan) 0.5 mg PO Q4 PRN PRN Reason: Anxiety Stop: 01/10/19 19:21 Last Admin: 12/11/18 22:05 Dose: 0.5 mg Documented by: Memantine (Namenda) 10 mg PO HS [facility] Stop: 01/10/19 20:59 Last Admin: 12/11/18 22:00 Dose: 10 mg Documented by: Metoprolol Tartrate (Lopressor) 50 mg PO BID [facility] Stop: 01/10/19 20:59 Last Admin: 12/12/18 08:30 Dose: 50 mg Documented by: Miconazole Nitrate (Desenex) 1 appln EXT BID PRN PRN Reason: Affected Skin Folds Stop: 01/09/19 09:13 Miscellaneous (Check Scopolamine Patch Placement) 1 ea N/A QS [facility] Stop: 01/09/19 07:59 Last Admin: 12/12/18 08:31 Dose: 1 ea Documented by: Miscellaneous (Remove Transderm-Scop Patch) 1 ea N/A Q72H [facility] Stop: 01/12/19 06:59 Miscellaneous (Carbohydrates For Hypoglycemia) 15 - 30 gm PO UD PRN PRN Reason: Hypoglycemia Treatment Stop: 01/10/19 21:29 Morphine Sulfate (Roxanol) 10 mg PO Q1H PRN PRN Reason: Pain Stop: 12/24/18 05:46 Ondansetron HCl (Zofran) 4 mg IV Q6H PRN PRN Reason: Nausea Stop: 01/09/19 06:57 Ondansetron HCl (Zofran Odt) 4 mg PO Q8H PRN PRN Reason: Nausea Stop: 01/10/19 19:24 Oxybutynin Chloride (Ditropan) 5 mg PO BID [facility] Stop: 01/10/19 20:59 Last Admin: 12/12/18 08:29 Dose: 5 mg Documented by: Pantoprazole Sodium (Protonix) 40 mg PO BID [facility] Stop: 01/10/19 20:59 Last Admin: 12/12/18 08:31 Dose: 40 mg Documented by: Polyethylene Glycol (Miralax Powder Packet) 17 gm PO DAILY [facility] Stop: 01/11/19 08:59 Last Admin: 12/12/18 08:31 Dose: 17 gm Documented by: Quetiapine Fumarate (Seroquel) 200 mg PO HS [facility] Stop: 01/10/19 20:59 Last Admin: 12/11/18 22:02 Dose: 200 mg Documented by: Quetiapine Fumarate (Seroquel) 100 mg PO DAILY PRN PRN Reason: Anxiety Stop: 01/11/19 08:59 Scopolamine (Transderm-Scop) 1.5 mg TD Q72H [facility] Stop: 01/09/19 06:59 Last Admin: 12/10/18 09:04 Dose: 1.5 mg Documented by: Venlafaxine HCl (Effexor Extended Release) 150 mg PO QAM [facility] Stop: 01/11/19 08:59 Last Admin: 12/12/18 08:30 Dose: 150 mg Documented by:
[2018-12-12] MEDS: MEMANTINE HCL 10 MG TAB PO SCH (22:07)
[2018-12-12] MEDS: QUETIAPINE FUMARATE 200 MG TAB PO SCH (22:08)
[2018-12-13] MEDS: SCOPOLAMINE 1.5 MG TDSY TD SCH (05:51)
[2018-12-13] MEDS: LEVOTHYROXINE SODIUM 175 MCG TABLET PO SCH (05:51)
[2018-12-13] MEDS: FUROSEMIDE 40 MG TAB PO SCH ×2 (07:34→18:08)
[2018-12-13] MEDS: guaiFENesin 600 MG TABCR PO SCH ×2 (07:34→21:27)
[2018-12-13] MEDS: AMLODIPINE BESYLATE 5 MG TAB PO SCH (07:34)
[2018-12-13] MEDS: POLYETHYLENE (MIRALAX) 17 GM PACK PO SCH (07:35)
[2018-12-13] MEDS: VENLAFAXINE HCL XR 150 MG CAPXR PO SCH (07:35)
[2018-12-13] MEDS: OXYBUTYNIN CHLORIDE 5 MG TAB PO SCH ×2 (07:35→21:27)
[2018-12-13] MEDS: PANTOprazole 40 MG TAB PO SCH ×2 (07:35→21:27)
[2018-12-13] MEDS: ENALAPRIL MALEATE 10 MG TAB PO SCH (07:35)
[2018-12-13] MEDS: ALLOPURINOL 100 MG TAB PO SCH (07:36)
[2018-12-13] MEDS: ASPIRIN 81 MG ECTAB PO SCH (07:36)
[2018-12-13] MEDS: CHECK SCOPOLAMINE PATCH PLACEMENT SCH ×2 (07:36→15:46)
[2018-12-13] MEDS: GABAPENTIN 100 MG CAP PO SCH ×2 (07:36→21:27)
[2018-12-13] MEDS: METOPROLOL TARTRATE 50 MG TAB PO SCH ×2 (08:53→21:29)
[2018-12-13] MEDS: INSULIN ASPART 100 UNITS/ML 3 ML PEN SC SCH ×4 (08:54→21:27)
--- NOTE | 2018-12-13 14:49 | Family Medicine Progress Note ---
Date of Service December 13, 2018 Assessment & Plan (1) Gastric outlet obstruction: Pt is an 83yo Hospice pt who presented with N/V and was treated with NG tube placement for possible gastric outlet obstruction/ileus. Improved significantly. Awaiting placement at [facility] for hospice. Nausea/vomiting with possible aspiration secondary to ileus continue: -PPI -advanced diet - tolerating -Zofran PRN -cont scopolamine patch Metabolic encephalopathy -Mentation clear, though appearing to wax and wane today. -supportive care Aspiration -hypoxic on admission - now saturating well. -supportive care -follow for signs of aspiration. DISCHARGE PLANNING Family looking at [facility]-touring before making final decision. CODE STATUS: DNR DVT Proph: SCDs Dispo: Pending hospice recs Supervising Physician Co-Signing Physician Notes Resident Physician Supervision Note: I independently interviewed and examined the patient and verified the boyer history and physical, reviewed labs and image studies, discussed the case with the resident Dr. Jimenez and agree with the findings and care plan. Subjective Pt resting comfortably in bed sleeping. No family at bedside currently. Review of Systems Unobtainable due to cognitive status Physical Exam Vital Signs (Past 24 Hours): Last Vital Signs Temp 36.8 C 12/13/18 07:15 Pulse 82 12/13/18 07:15 Resp 22 12/13/18 07:15 BP 98/65 L 12/13/18 07:15 Pulse Ox 95 12/13/18 07:15 General: Sleeping in elevated bed. HEENT: NC/AT. nasal cannula in nares Chest: Nontender to palpation. CV: RRR Resp: Breath sounds clear bilaterally on front Abdomen: Soft, nontender. No guarding. No organomegaly appreciated. Extremities: SCDs on lower extremities. Results & Data Laboratory Results Laboratory Results - last 24 hr 12/12/18 12/12/18 12/13/18 16:47 20:16 07:35 POC Glucose 157 H 197 H 200 H 12/13/18 11:29 POC Glucose 205 H Medications Administered Home Medications Ditropan XL 0 mg PO DAILY 12/10/18 [History Confirmed 12/10/18] allopurinol 100 mg PO DAILY 12/10/18 [History Confirmed 12/10/18] amlodipine 10 mg PO DAILY 12/10/18 [History Confirmed 12/10/18] aspirin [Aspir-Low] 81 mg PO DAILY 12/10/18 [History Confirmed 12/10/18] enalapril maleate 10 mg PO DAILY 12/10/18 [History Confirmed 12/10/18] furosemide 40 mg PO AMPM 12/10/18 [History Confirmed 12/10/18] gabapentin 100 mg PO BID 12/10/18 [History Confirmed 12/10/18] guaifenesin [Mucinex] 600 mg PO Q12H 12/10/18 [History Confirmed 12/10/18] haloperidol 1 tab PO Q4 PRN 12/10/18 [History Confirmed 12/10/18] insulin aspart U-100 [Novolog Flexpen U-100 Insulin] 5 unit SUBCUT BID PRN 04/22 [History Confirmed 12/10/18] insulin detemir U-100 [Levemir U-100 Insulin] 25 unit SUBCUT AMPM 12/10/18 [History Confirmed 12/10/18] levothyroxine 175 mcg PO DAILY 12/10/18 [History Confirmed 12/10/18] lorazepam 0.5 mg PO Q4 PRN 12/10/18 [History Confirmed 12/10/18] memantine 10 mg PO QPM 12/10/18 [History Confirmed 12/10/18] metoprolol tartrate 50 mg PO BID 12/10/18 [History Confirmed 12/10/18] morphine concentrate 0 mg PO UD PRN 12/10/18 [History Confirmed 12/10/18] nystatin 1 applic TOPICAL UD 12/10/18 [History Confirmed 12/10/18] nystatin 1 applic TOPICAL UD 12/10/18 [History Confirmed 12/10/18] omeprazole 20 mg PO BID 12/10/18 [History Confirmed 12/10/18] ondansetron HCl [Zofran] 4 mg PO TID PRN 12/10/18 [History Confirmed 12/10/18] oxybutynin chloride 5 mg PO BID 12/10/18 [History Confirmed 12/10/18] polyethylene glycol 3350 [Miralax] 17 g PO 5XWK 12/10/18 [History Confirmed 12/10/18] potassium chloride 10 meq PO BID 12/10/18 [History Confirmed 12/10/18] quetiapine 100 mg PO DAILY PRN 12/10/18 [History Confirmed 12/10/18] quetiapine 200 mg PO QPM 12/10/18 [History Confirmed 12/10/18] venlafaxine 150 mg PO DAILY 12/10/18 [History Confirmed 12/10/18] Active Medications Allopurinol (Zyloprim) 100 mg PO DAILY [facility] Stop: 01/11/19 08:59 Last Admin: 12/13/18 07:36 Dose: 100 mg Documented by: Amlodipine Besylate (Norvasc) 10 mg PO QAM [facility] Stop: 01/10/19 19:14 Last Admin: 12/13/18 07:34 Dose: 10 mg Documented by: Aspirin (Ecotrin Ectab) 81 mg PO QAM [facility] Stop: 01/11/19 08:59 Last Admin: 12/13/18 07:36 Dose: 81 mg Documented by: Atropine Sulfate (Atropine Sulfate 1% Oph) 2 drops SL Q2H PRN PRN Reason: secretions Stop: 01/09/19 06:14 Dextrose (Dextrose 50%) 25 - 50 ml IV UD PRN; Protocol PRN Reason: Hypoglycemia Protocol Stop: 01/10/19 21:29 Enalapril Maleate (Vasotec) 10 mg PO QAM [facility] Stop: 01/10/19 19:29 Last Admin: 12/13/18 07:35 Dose: 10 mg Documented by: Furosemide (Lasix) 40 mg PO BID17 [facility] Stop: 01/10/19 19:59 Last Admin: 12/13/18 07:34 Dose: 40 mg Documented by: Gabapentin (Neurontin) 100 mg PO BID [facility] Stop: 01/10/19 20:59 Last Admin: 12/13/18 07:36 Dose: 100 mg Documented by: Glucagon (Glucagen) 1 mg IM UD PRN; Protocol PRN Reason: Hypoglycemia Protocol Stop: 01/10/19 21:29 Glucose (Glucose 40%) 15 - 30 gm PO UD PRN; Protocol PRN Reason: Hypoglycemia Protocol Stop: 01/10/19 21:29 Glucose (Dex4 Glucose) 4 - 8 tabs PO UD PRN; Protocol PRN Reason: Hypoglycemia Protocol Stop: 01/10/19 21:29 Guaifenesin (Mucinex) 600 mg PO Q12 [facility] Stop: 01/10/19 20:59 Last Admin: 12/13/18 07:34 Dose: 600 mg Documented by: Lorazepam (Ativan) 1 mg in 2 mls @ 2 mls/min IV Q1H PRN PRN Reason: Anxiety Stop: 01/09/19 05:44 Last Admin: 12/10/18 05:53 Dose: 2 mls/min Documented by: Prochlorperazine 10 mg/ (Syringe) 10 mls @ 5 mls/min IV Q6H PRN PRN Reason: Nausea And Vomiting Stop: 01/09/19 05:46 Acetaminophen (Ofirmev) 1,000 mg in 100 mls @ 400 mls/hr IV Q8H PRN PRN Reason: Pain or Fever Stop: 01/09/19 06:04 Insulin Aspart (Novolog Flexpen) 0 units SC ACHS [facility] Stop: 01/10/19 21:44 Last Admin: 12/13/18 12:38 Dose: 3 units Documented by: Levothyroxine Sodium (Synthroid) 175 mcg PO DAILYBB [facility] Stop: 01/11/19 06:29 Last Admin: 12/13/18 05:51 Dose: 175 mcg Documented by: Lorazepam (Ativan) 0.5 mg PO Q4 PRN PRN Reason: Anxiety Stop: 01/10/19 19:21 Last Admin: 12/11/18 22:05 Dose: 0.5 mg Documented by: Memantine (Namenda) 10 mg PO HS [facility] Stop: 01/10/19 20:59 Last Admin: 12/12/18 22:07 Dose: 10 mg Documented by: Metoprolol Tartrate (Lopressor) 50 mg PO BID [facility] Stop: 01/10/19 20:59 Last Admin: 12/13/18 08:53 Dose: Not Given Documented by: Miconazole Nitrate (Desenex) 1 appln EXT BID PRN PRN Reason: Affected Skin Folds Stop: 01/09/19 09:13 Miscellaneous (Check Scopolamine Patch Placement) 1 ea N/A QS [facility] Stop: 01/09/19 07:59 Last Admin: 12/13/18 07:36 Dose: 1 ea Documented by: Miscellaneous (Remove Transderm-Scop Patch) 1 ea N/A Q72H [facility] Stop: 01/12/19 06:59 Last Admin: 12/13/18 05:52 Dose: 1 ea Documented by: Miscellaneous (Carbohydrates For Hypoglycemia) 15 - 30 gm PO UD PRN PRN Reason: Hypoglycemia Treatment Stop: 01/10/19 21:29 Morphine Sulfate (Roxanol) 10 mg PO Q1H PRN PRN Reason: Pain Stop: 12/24/18 05:46 Ondansetron HCl (Zofran) 4 mg IV Q6H PRN PRN Reason: Nausea Stop: 01/09/19 06:57 Ondansetron HCl (Zofran Odt) 4 mg PO Q8H PRN PRN Reason: Nausea Stop: 01/10/19 19:24 Oxybutynin Chloride (Ditropan) 5 mg PO BID [facility] Stop: 01/10/19 20:59 Last Admin: 12/13/18 07:35 Dose: 5 mg Documented by: Pantoprazole Sodium (Protonix) 40 mg PO BID [facility] Stop: 01/10/19 20:59 Last Admin: 12/13/18 07:35 Dose: 40 mg Documented by: Polyethylene Glycol (Miralax Powder Packet) 17 gm PO DAILY [facility] Stop: 01/11/19 08:59 Last Admin: 12/13/18 07:35 Dose: 17 gm Documented by: Quetiapine Fumarate (Seroquel) 200 mg PO HS [facility] Stop: 01/10/19 20:59 Last Admin: 12/12/18 22:08 Dose: 200 mg Documented by: Quetiapine Fumarate (Seroquel) 100 mg PO DAILY PRN PRN Reason: Anxiety Stop: 01/11/19 08:59 Scopolamine (Transderm-Scop) 1.5 mg TD Q72H [facility] Stop: 01/09/19 06:59 Last Admin: 12/13/18 05:51 Dose: 1.5 mg Documented by: Venlafaxine HCl (Effexor Extended Release) 150 mg PO QAM [facility] Stop: 01/11/19 08:59 Last Admin: 12/13/18 07:35 Dose: 150 mg Documented by:
[2018-12-13] MEDS: QUETIAPINE FUMARATE 200 MG TAB PO SCH (21:27)
[2018-12-13] MEDS: MEMANTINE HCL 10 MG TAB PO SCH (21:27)
[2018-12-14] MEDS: CHECK SCOPOLAMINE PATCH PLACEMENT SCH ×4 (00:02→23:50)
[2018-12-14] MEDS: LEVOTHYROXINE SODIUM 175 MCG TABLET PO SCH (05:50)
[2018-12-14] MEDS: PANTOprazole 40 MG TAB PO SCH ×2 (07:46→21:15)
[2018-12-14] MEDS: guaiFENesin 600 MG TABCR PO SCH ×2 (07:46→21:04)
[2018-12-14] MEDS: VENLAFAXINE HCL XR 150 MG CAPXR PO SCH (07:46)
[2018-12-14] MEDS: ASPIRIN 81 MG ECTAB PO SCH (07:47)
[2018-12-14] MEDS: ALLOPURINOL 100 MG TAB PO SCH (07:47)
[2018-12-14] MEDS: AMLODIPINE BESYLATE 5 MG TAB PO SCH (07:48)
[2018-12-14] MEDS: ENALAPRIL MALEATE 10 MG TAB PO SCH (07:48)
[2018-12-14] MEDS: OXYBUTYNIN CHLORIDE 5 MG TAB PO SCH ×2 (07:49→21:05)
[2018-12-14] MEDS: GABAPENTIN 100 MG CAP PO SCH ×2 (07:50→21:04)
[2018-12-14] MEDS: POLYETHYLENE (MIRALAX) 17 GM PACK PO SCH (07:50)
[2018-12-14] MEDS: METOPROLOL TARTRATE 50 MG TAB PO SCH ×2 (07:55→21:07)
[2018-12-14] MEDS: FUROSEMIDE 40 MG TAB PO SCH ×2 (07:56→17:44)
[2018-12-14] MEDS: INSULIN ASPART 100 UNITS/ML 3 ML PEN SC SCH ×4 (09:03→21:08)
[2018-12-14] MEDS: MEMANTINE HCL 10 MG TAB PO SCH (15:27)
--- NOTE | 2018-12-14 15:40 | Family Medicine Progress Note ---
Date of Service December 14, 2018 Assessment & Plan (1) Obtundation: Pt is an 83yo Hospice pt who presented with N/V and was treated with NG tube placement for possible gastric outlet obstruction/ileus. Improved significantly. Awaiting placement at facility with hospice. [facility] with no beds. Nausea/vomiting with possible aspiration secondary to ileus continue: -PPI -advanced diet - tolerating -Zofran PRN -cont scopolamine patch Metabolic encephalopathy -Mentation clear with periods of waxing and waning. -supportive care Aspiration -hypoxic on admission - now saturating well. -supportive care -follow for signs of aspiration. DISCHARGE PLANNING [facility] with no beds Awaiting family decision. CODE STATUS: DNR DVT Proph: SCDs Dispo: Pending facility/hospice placement Supervising Physician Co-Signing Physician Notes Resident Physician Supervision Note: I independently interviewed and examined the patient and verified the boyer history and physical, reviewed labs and image studies, discussed the case with the resident Dr. Jimenez and agree with the findings and care plan. Subjective Pt resting in bed, at bedside. States that they would like pt moved to [facility] but no beds currently available. St Review of Systems Unobtainable due to cognitive status Physical Exam Vital Signs (Past 24 Hours): Last Vital Signs Temp 36.9 C 12/14/18 07:32 Pulse 70 12/14/18 07:56 Resp 16 12/14/18 07:32 BP 95/61 L 12/14/18 07:56 Pulse Ox 99 12/14/18 07:32 General: Sleeping in bed. HEENT: NC/AT. Chest: Nontender to palpation. CV: RRR Resp: Breath sounds clear bilaterally on front Abdomen: Soft, nontender. No organomegaly appreciated. Extremities: Lower extremities with some fluid. Results & Data Laboratory Results Laboratory Results - last 24 hr 12/13/18 12/13/18 12/14/18 16:38 21:03 07:44 POC Glucose 180 H 211 H 235 H 12/14/18 11:28 POC Glucose 289 H Medications Administered Home Medications Ditropan XL 0 mg PO DAILY 12/10/18 [History Confirmed 12/10/18] allopurinol 100 mg PO DAILY 12/10/18 [History Confirmed 12/10/18] amlodipine 10 mg PO DAILY 12/10/18 [History Confirmed 12/10/18] aspirin [Aspir-Low] 81 mg PO DAILY 12/10/18 [History Confirmed 12/10/18] enalapril maleate 10 mg PO DAILY 12/10/18 [History Confirmed 12/10/18] furosemide 40 mg PO AMPM 12/10/18 [History Confirmed 12/10/18] gabapentin 100 mg PO BID 12/10/18 [History Confirmed 12/10/18] guaifenesin [Mucinex] 600 mg PO Q12H 12/10/18 [History Confirmed 12/10/18] haloperidol 1 tab PO Q4 PRN 12/10/18 [History Confirmed 12/10/18] insulin aspart U-100 [Novolog Flexpen U-100 Insulin] 5 unit SUBCUT BID PRN 12/10/18 [History Confirmed 12/10/18] insulin detemir U-100 [Levemir U-100 Insulin] 25 unit SUBCUT AMPM 12/10/18 [History Confirmed 12/10/18] levothyroxine 175 mcg PO DAILY 12/10/18 [History Confirmed 12/10/18] lorazepam 0.5 mg PO Q4 PRN 12/10/18 [History Confirmed 12/10/18] memantine 10 mg PO QPM 12/10/18 [History Confirmed 12/10/18] metoprolol tartrate 50 mg PO BID 12/10/18 [History Confirmed 12/10/18] morphine concentrate 0 mg PO UD PRN 12/10/18 [History Confirmed 12/10/18] nystatin 1 applic TOPICAL UD 12/10/18 [History Confirmed 12/10/18] nystatin 1 applic TOPICAL UD 12/10/18 [History Confirmed 12/10/18] omeprazole 20 mg PO BID 12/10/18 [History Confirmed 12/10/18] ondansetron HCl [Zofran] 4 mg PO TID PRN 12/10/18 [History Confirmed 12/10/18] oxybutynin chloride 5 mg PO BID 12/10/18 [History Confirmed 12/10/18] polyethylene glycol 3350 [Miralax] 17 g PO 5XWK 12/10/18 [History Confirmed 12/10/18] potassium chloride 10 meq PO BID 12/10/18 [History Confirmed 12/10/18] quetiapine 100 mg PO DAILY PRN 12/10/18 [History Confirmed 12/10/18] quetiapine 200 mg PO QPM 12/10/18 [History Confirmed 12/10/18] venlafaxine 150 mg PO DAILY 12/10/18 [History Confirmed 12/10/18] Active Medications Allopurinol (Zyloprim) 100 mg PO DAILY YENNI Stop: 01/11/19 08:59 Last Admin: 12/14/18 07:47 Dose: 100 mg Documented by: Amlodipine Besylate (Norvasc) 10 mg PO QAM YENNI Stop: 01/10/19 19:14 Last Admin: 12/14/18 07:48 Dose: 10 mg Documented by: Aspirin (Ecotrin Ectab) 81 mg PO QAM [facility] Stop: 01/11/19 08:59 Last Admin: 12/14/18 07:47 Dose: 81 mg Documented by: Atropine Sulfate (Atropine Sulfate 1% Oph) 2 drops SL Q2H PRN PRN Reason: secretions Stop: 01/09/19 06:14 Dextrose (Dextrose 50%) 25 - 50 ml IV UD PRN; Protocol PRN Reason: Hypoglycemia Protocol Stop: 01/10/19 21:29 Enalapril Maleate (Vasotec) 10 mg PO QAM [facility] Stop: 01/10/19 19:29 Last Admin: 12/14/18 07:48 Dose: 10 mg Documented by: Furosemide (Lasix) 40 mg PO BID17 [facility] Stop: 01/10/19 19:59 Last Admin: 12/14/18 07:56 Dose: 40 mg Documented by: Gabapentin (Neurontin) 100 mg PO BID [facility] Stop: 01/10/19 20:59 Last Admin: 12/14/18 07:50 Dose: 100 mg Documented by: Glucagon (Glucagen) 1 mg IM UD PRN; Protocol PRN Reason: Hypoglycemia Protocol Stop: 01/10/19 21:29 Glucose (Glucose 40%) 15 - 30 gm PO UD PRN; Protocol PRN Reason: Hypoglycemia Protocol Stop: 01/10/19 21:29 Glucose (Dex4 Glucose) 4 - 8 tabs PO UD PRN; Protocol PRN Reason: Hypoglycemia Protocol Stop: 01/10/19 21:29 Guaifenesin (Mucinex) 600 mg PO Q12 [facility] Stop: 01/10/19 20:59 Last Admin: 12/14/18 07:46 Dose: 600 mg Documented by: Lorazepam (Ativan) 1 mg in 2 mls @ 2 mls/min IV Q1H PRN PRN Reason: Anxiety Stop: 01/09/19 05:44 Last Admin: 12/10/18 05:53 Dose: 2 mls/min Documented by: Prochlorperazine 10 mg/ (Syringe) 10 mls @ 5 mls/min IV Q6H PRN PRN Reason: Nausea And Vomiting Stop: 01/09/19 05:46 Acetaminophen (Ofirmev) 1,000 mg in 100 mls @ 400 mls/hr IV Q8H PRN PRN Reason: Pain or Fever Stop: 01/09/19 06:04 Insulin Aspart (Novolog Flexpen) 0 units SC ACHS [facility] Stop: 01/10/19 21:44 Last Admin: 12/14/18 13:17 Dose: 7 units Documented by: Levothyroxine Sodium (Synthroid) 175 mcg PO DAILYBB [facility] Stop: 01/11/19 06:29 Last Admin: 12/14/18 05:50 Dose: 175 mcg Documented by: Lorazepam (Ativan) 0.5 mg PO Q4 PRN PRN Reason: Anxiety Stop: 01/10/19 19:21 Last Admin: 12/11/18 22:05 Dose: 0.5 mg Documented by: Memantine (Namenda) 10 mg PO HS [facility] Stop: 01/10/19 20:59 Last Admin: 12/14/18 15:27 Dose: Not Given Documented by: Metoprolol Tartrate (Lopressor) 50 mg PO BID [facility] Stop: 01/10/19 20:59 Last Admin: 12/14/18 07:55 Dose: Not Given Documented by: Miconazole Nitrate (Desenex) 1 appln EXT BID PRN PRN Reason: Affected Skin Folds Stop: 01/09/19 09:13 Miscellaneous (Check Scopolamine Patch Placement) 1 ea N/A QS [facility] Stop: 01/09/19 07:59 Last Admin: 12/14/18 15:10 Dose: 1 ea Documented by: Miscellaneous (Remove Transderm-Scop Patch) 1 ea N/A Q72H [facility] Stop: 01/12/19 06:59 Last Admin: 12/13/18 05:52 Dose: 1 ea Documented by: Miscellaneous (Carbohydrates For Hypoglycemia) 15 - 30 gm PO UD PRN PRN Reason: Hypoglycemia Treatment Stop: 01/10/19 21:29 Morphine Sulfate (Roxanol) 10 mg PO Q1H PRN PRN Reason: Pain Stop: 12/24/18 05:46 Ondansetron HCl (Zofran) 4 mg IV Q6H PRN PRN Reason: Nausea Stop: 01/09/19 06:57 Ondansetron HCl (Zofran Odt) 4 mg PO Q8H PRN PRN Reason: Nausea Stop: 01/10/19 19:24 Oxybutynin Chloride (Ditropan) 5 mg PO BID [facility]NI Stop: 01/10/19 20:59 Last Admin: 12/14/18 07:49 Dose: 5 mg Documented by: Pantoprazole Sodium (Protonix) 40 mg PO BID [facility] Stop: 01/10/19 20:59 Last Admin: 12/14/18 07:46 Dose: 40 mg Documented by: Polyethylene Glycol (Miralax Powder Packet) 17 gm PO DAILY [facility] Stop: 01/11/19 08:59 Last Admin: 12/14/18 07:50 Dose: 17 gm Documented by: Quetiapine Fumarate (Seroquel) 200 mg PO HS [facility] Stop: 01/10/19 20:59 Last Admin: 12/13/18 21:27 Dose: 200 mg Documented by: Quetiapine Fumarate (Seroquel) 100 mg PO DAILY PRN PRN Reason: Anxiety Stop: 01/11/19 08:59 Scopolamine (Transderm-Scop) 1.5 mg TD Q72H [facility] Stop: 01/09/19 06:59 Last Admin: 12/13/18 05:51 Dose: 1.5 mg Documented by: Venlafaxine HCl (Effexor Extended Release) 150 mg PO QAM [facility] Stop: 01/11/19 08:59 Last Admin: 12/14/18 07:46 Dose: 150 mg Documented by:
[2018-12-14] MEDS: QUETIAPINE FUMARATE 200 MG TAB PO SCH (21:16)
[2018-12-15] MEDS: LEVOTHYROXINE SODIUM 175 MCG TABLET PO SCH (06:16)
[2018-12-15] MEDS: CHECK SCOPOLAMINE PATCH PLACEMENT SCH ×3 (08:52→23:17)
[2018-12-15] MEDS: POLYETHYLENE (MIRALAX) 17 GM PACK PO SCH (08:54)
[2018-12-15] MEDS: INSULIN ASPART 100 UNITS/ML 3 ML PEN SC SCH ×4 (09:17→22:00)
[2018-12-15] MEDS: OXYBUTYNIN CHLORIDE 5 MG TAB PO SCH ×2 (09:19→22:01)
[2018-12-15] MEDS: ASPIRIN 81 MG ECTAB PO SCH (09:19)
[2018-12-15] MEDS: VENLAFAXINE HCL XR 150 MG CAPXR PO SCH (09:19)
[2018-12-15] MEDS: METOPROLOL TARTRATE 50 MG TAB PO SCH ×2 (09:20→22:01)
[2018-12-15] MEDS: FUROSEMIDE 40 MG TAB PO SCH ×2 (09:20→18:10)
[2018-12-15] MEDS: AMLODIPINE BESYLATE 5 MG TAB PO SCH (09:21)
[2018-12-15] MEDS: GABAPENTIN 100 MG CAP PO SCH ×2 (09:21→22:02)
[2018-12-15] MEDS: guaiFENesin 600 MG TABCR PO SCH ×2 (09:21→22:01)
[2018-12-15] MEDS: ENALAPRIL MALEATE 10 MG TAB PO SCH (09:22)
[2018-12-15] MEDS: PANTOprazole 40 MG TAB PO SCH ×2 (09:22→22:02)
[2018-12-15] MEDS: ALLOPURINOL 100 MG TAB PO SCH (09:23)
--- NOTE | 2018-12-15 10:55 | Family Medicine Progress Note ---
Date of Service December 15, 2018 Assessment & Plan (1) Acute hyperkalemia: Pt is an 83yo Hospice pt who presented with N/V and was treated with NG tube placement for possible gastric outlet obstruction/ileus. Improved significantly. Awaiting placement at facility with hospice. [facility] with no beds. Episodic Jerky movements - Likely extrapyrimidal secondary to patient's medication - Holding seroquel and compazine for now - Will continue to monitor Nausea/vomiting with possible aspiration secondary to ileus continue: -PPI -advanced diet - tolerating -Zofran PRN -cont scopolamine patch Metabolic encephalopathy -Mentation waxes and wanes. - Continuing Memantine -supportive care Aspiration -hypoxic on admission - On 2 L of O2 currently -supportive care -follow for signs of aspiration. DISCHARGE PLANNING [facility] with no beds Awaiting family decision. CODE STATUS: DNR DVT Proph: SCDs Dispo: Pending facility/hospice placement (2) Obtundation: (3) Gastric outlet obstruction: Supervising Physician Co-Signing Physician Notes Resident Physician Supervision Note: I independently interviewed and examined the patient and verified the boyer history and physical, reviewed labs and image studies, discussed the case with the resident Dr. Bradley and agree with the findings and care plan. Dariel Buckley is eating breakfast this morning resting. No family at bedside but nurse tells me that she has developed a "jerking movement" overnight. Asking the patient she says she has no discomfort but she says that she has had this before but could not provide me any more information. Review of Systems Unobtainable due to cognitive status Physical Exam Vital Signs (Past 24 Hours): Last Vital Signs Temp 36.7 C 12/15/18 07:22 Pulse 91 H 12/15/18 07:22 Resp 20 12/15/18 07:22 BP 126/71 12/15/18 07:22 Pulse Ox 92 12/15/18 07:22 Constitutional: + frail appearing, cooperative and comfortable; no acute distress and not in distress Eyes: PERRL, conjunctivae normal, anicteric sclerae Respiratory: normal respiratory effort; no respiratory distress and no labored breathing Somewhat coarse breath sounds globally Cardiovascular: RRR, no murmur, no edema Gastrointestinal (Abdomen): Percussion/Palpation: abdomen soft; abdomen nontender Neurologic: normal touch/pain/proprioception, moves all extremities, awake and + confused Speech / Cognition: no expressive aphasia Motor/Sensory: + abnormal movement Cranial Nerves: PERRL and EOM intact bilaterally Resident Activity Tracking Resident Involvement: Resident Care Provided Care Provided: Adult Hospital Medicine
[2018-12-15] MEDS: LORazepam 1 MG/2 ML VIAL IV PRN (18:17)
[2018-12-15] MEDS: MEMANTINE HCL 10 MG TAB PO SCH (22:02)
[2018-12-16] MEDS: LEVOTHYROXINE SODIUM 175 MCG TABLET PO SCH (06:44)
[2018-12-16] MEDS: SCOPOLAMINE 1.5 MG TDSY TD SCH (06:48)
[2018-12-16] MEDS: CHECK SCOPOLAMINE PATCH PLACEMENT SCH ×2 (08:48→17:10)
[2018-12-16] MEDS: ALLOPURINOL 100 MG TAB PO SCH (08:49)
[2018-12-16] MEDS: AMLODIPINE BESYLATE 5 MG TAB PO SCH (08:49)
[2018-12-16] MEDS: OXYBUTYNIN CHLORIDE 5 MG TAB PO SCH ×2 (08:50→20:51)
[2018-12-16] MEDS: guaiFENesin 600 MG TABCR PO SCH ×2 (08:50→20:51)
[2018-12-16] MEDS: PANTOprazole 40 MG TAB PO SCH ×2 (08:50→20:51)
[2018-12-16] MEDS: VENLAFAXINE HCL XR 150 MG CAPXR PO SCH (08:50)
[2018-12-16] MEDS: ENALAPRIL MALEATE 10 MG TAB PO SCH (08:51)
[2018-12-16] MEDS: FUROSEMIDE 40 MG TAB PO SCH ×2 (08:52→18:02)
[2018-12-16] MEDS: ASPIRIN 81 MG ECTAB PO SCH (08:52)
[2018-12-16] MEDS: GABAPENTIN 100 MG CAP PO SCH ×2 (08:52→20:51)
[2018-12-16] MEDS: METOPROLOL TARTRATE 50 MG TAB PO SCH ×2 (08:53→20:52)
[2018-12-16] MEDS: POLYETHYLENE (MIRALAX) 17 GM PACK PO SCH (09:06)
[2018-12-16] MEDS: INSULIN ASPART 100 UNITS/ML 3 ML PEN SC SCH ×4 (09:08→20:53)
--- NOTE | 2018-12-16 10:55 | Family Medicine Progress Note ---
Date of Service December 16, 2018 Assessment & Plan (1) Acute hyperkalemia: (1) Acute hyperkalemia: Pt is an 83yo Hospice pt who presented with N/V and was treated with NG tube placement for possible gastric outlet obstruction/ileus. Improved significantly. Awaiting placement at facility with hospice. [facility] with no beds. Episodic Jerky movements - Likely extrapyrimidal secondary to patient's medication - Holding seroquel and compazine for now. to resume one at a time in 24-48hrs. - Will continue to monitor - not acute as family member states present for several months Nausea/vomiting with possible aspiration secondary to ileus continue: -PPI -advanced diet - tolerating -Zofran PRN -cont scopolamine patch Metabolic encephalopathy -Mentation waxes and wanes. - Continuing Memantine -supportive care Aspiration -hypoxic on admission - On 2 L of O2 currently -supportive care -follow for signs of aspiration. Seizure like activity - one episode, lasting 20 seconds of tonic clonic activity yesterday early evening. No other reports of episodes overnight. - was treated with Ativan 1mg IV x1 dose - patient with numerous medications/polypharmacy, consideration for review on discharge/or as outpatient. DISCHARGE PLANNING [facility] with no beds Awaiting family decision. CODE STATUS: DNR DVT Proph: SCDs Dispo: Pending facility/hospice placement (2) Obtundation: (3) Gastric outlet obstruction: (2) Obtundation: (3) Gastric outlet obstruction: (4) Seizure-like activity: Supervising Physician Co-Signing Physician Notes Resident Physician Supervision Note: I independently interviewed and examined the patient and verified the boyer history and physical, reviewed labs and image studies, discussed the case with the resident Dr. Osborne and agree with the findings and care plan. Subjective Caveat: History Limited by Confusion. Guerita was able to tolerate her breakfast this morning per family member without complications. Family member notes she is at her current neuro baseline. He notes that episodes of extremity jerking has been present for several months. There was no seziure like activity noted overnight. Guerita does not complain of pain when asked or difficulty with breathing. Physical Exam Vital Signs (Past 24 Hours): Last Vital Signs Temp 37.1 C 12/16/18 08:00 Pulse 76 12/16/18 08:00 Resp 20 12/16/18 08:00 BP 133/67 12/16/18 08:00 Pulse Ox 98 12/16/18 08:00 Constitutional: WD/WN, vitals as above cooperative and comfortable Eyes: + anicteric sclerae Neck: trachea midline Respiratory: normal respiratory effort, lungs clear to auscultation Cardiovascular: Rate/Rhythm: regular rate and regular rhythm Gastrointestinal (Abdomen): Inspection/Auscultation: normal bowel sounds Percussion/Palpation: abdomen nontender Musculoskeletal: pill rolling tremor noted in RU extremity Skin: no rashes, warm and dry Neurologic: moves all extremities and awake Psychiatric: Orientation: alert, oriented to person and cooperative; + not oriented to place (cannot provide answer) and + not oriented to time (1970s) Results & Data Laboratory Results Laboratory Results - last 24 hr 12/15/18 12/15/18 12/15/18 12:09 17:13 20:06 POC Glucose 326 H 279 H 257 H 12/16/18 08:17 POC Glucose 234 H Medications Administered Allopurinol (Zyloprim) 100 mg PO DAILY [facility] Stop: 01/11/19 08:59 Last Admin: 12/16/18 08:49 Dose: 100 mg Documented by: [id number] Admin: 12/15/18 09:23 Dose: 100 mg Documented by: [id number] Admin: 12/14/18 07:47 Dose: 100 mg Documented by: [id number] Admin: 12/13/18 07:36 Dose: 100 mg Documented by: [id number] Admin: 12/12/18 08:28 Dose: 100 mg Documented by: [id number] Amlodipine Besylate (Norvasc) 10 mg PO [facility] Stop: 01/10/19 19:14 Last Admin: 12/16/18 08:49 Dose: 10 mg Documented by: [id number] Admin: 12/15/18 09:21 Dose: 10 mg Documented by: [id number] Admin: 12/14/18 07:48 Dose: 10 mg Documented by: [id number] Admin: 12/13/18 07:34 Dose: 10 mg Documented by: [id number] Admin: 12/12/18 08:28 Dose: 10 mg Documented by: [id number] Admin: 12/11/18 21:59 Dose: 10 mg Documented by: [id number] Aspirin (Ecotrin Ectab) 81 mg PO [facility] Stop: 01/11/19 08:59 Last Admin: 12/16/18 08:52 Dose: 81 mg Documented by: [id number] Admin: 12/15/18 09:19 Dose: 81 mg Documented by: [id number] Admin: 12/14/18 07:47 Dose: 81 mg Documented by: [id number] Admin: 12/13/18 07:36 Dose: 81 mg Documented by: [id number] Admin: 12/12/18 08:29 Dose: 81 mg Documented by: [id number] Enalapril Maleate (Vasotec) 10 mg PO QAM [facility] Stop: 01/10/19 19:29 Last Admin: 12/16/18 08:51 Dose: 10 mg Documented by: [id number] Admin: 12/15/18 09:22 Dose: 10 mg Documented by: [id number] Admin: 12/14/18 07:48 Dose: 10 mg Documented by: [id number] Admin: 12/13/18 07:35 Dose: 10 mg Documented by: [id number] Admin: 12/12/18 08:29 Dose: 10 mg Documented by: [id number] Admin: 12/11/18 22:01 Dose: 10 mg Documented by: [id number] Furosemide (Lasix) 40 mg PO BID17 [facility] Stop: 01/10/19 19:59 Last Admin: 12/16/18 08:52 Dose: 40 mg Documented by: [id number] Admin: 12/15/18 18:10 Dose: 40 mg Documented by: [id number] Admin: 12/15/18 09:20 Dose: 40 mg Documented by: [id number] Admin: 12/14/18 17:44 Dose: 40 mg Documented by: [id number] Admin: 12/14/18 07:56 Dose: 40 mg Documented by: [id number] Admin: 12/13/18 18:08 Dose: 40 mg Documented by: [id number] Admin: 12/13/18 07:34 Dose: 40 mg Documented by: [id number] Admin: 12/12/18 16:17 Dose: 40 mg Documented by: [id number] Admin: 12/12/18 08:29 Dose: 40 mg Documented by: [id number] Admin: 12/11/18 22:01 Dose: 40 mg Documented by: [id number] Gabapentin (Neurontin) 100 mg PO BID [facility] Stop: 01/10/19 20:59 Last Admin: 12/16/18 08:52 Dose: 100 mg Documented by: [id number] Admin: 12/15/18 22:02 Dose: Not Given Documented by: [id number] Admin: 12/15/18 09:21 Dose: 100 mg Documented by: [id number] Admin: 12/14/18 21:04 Dose: 100 mg Documented by: [id number] Admin: 12/14/18 07:50 Dose: 100 mg Documented by: [id number] Admin: 12/13/18 21:27 Dose: 100 mg Documented by: [id number] Admin: 12/13/18 07:36 Dose: 100 mg Documented by: [id number] Admin: 12/12/18 22:08 Dose: 100 mg Documented by: [id number] Admin: 12/12/18 08:31 Dose: 100 mg Documented by: [id number] Admin: 12/11/18 22:02 Dose: 100 mg Documented by: [id number] Guaifenesin (Mucinex) 600 mg PO Q12 [facility] Stop: 01/10/19 20:59 Last Admin: 12/16/18 08:50 Dose: 600 mg Documented by: [id number] Admin: 12/15/18 22:01 Dose: Not Given Documented by: [id number] Admin: 12/15/18 09:21 Dose: 600 mg Documented by: [id number] Admin: 12/14/18 21:04 Dose: 600 mg Documented by: [id number] Admin: 12/14/18 07:46 Dose: 600 mg Documented by: [id number] Admin: 12/13/18 21:27 Dose: 600 mg Documented by: [id number] Admin: 12/13/18 07:34 Dose: 600 mg Documented by: [id number] Admin: 12/12/18 22:07 Dose: 600 mg Documented by: [id number] Admin: 12/12/18 08:28 Dose: 600 mg Documented by: [id number] Admin: 12/11/18 22:00 Dose: 600 mg Documented by: [id number] Lorazepam (Ativan) 1 mg in 2 mls @ 2 mls/min IV Q1H PRN PRN Reason: Anxiety Stop: 01/09/19 05:44 Last Admin: 12/15/18 18:17 Dose: 2 mls/min Documented by: [id number] Admin: 12/10/18 05:53 Dose: 2 mls/min Documented by: [id number] Insulin Aspart (Novolog Flexpen) 0 units SC ACHS [facility] Stop: 01/10/19 21:44 Last Admin: 12/16/18 09:08 Dose: 5 units Documented by: [id number] Cosigned by: [id number] Admin: 12/15/18 22:00 Dose: 3 units Documented by: [id number] Cosigned by: [id number] Admin: 12/15/18 18:46 Dose: 3 units Documented by: [id number] Cosigned by: [id number] Admin: 12/15/18 13:14 Dose: 7 units Documented by: [id number] Cosigned by: [id number] Admin: 12/15/18 09:17 Dose: 8 units Documented by: [id number] Cosigned by: [id number] Admin: 12/14/18 21:08 Dose: 5 units Documented by: [id number] Cosigned by: [id number] Admin: 12/14/18 17:42 Dose: 2 units Documented by: [id number] Cosigned by: [id number] Admin: 12/14/18 13:17 Dose: 7 units Documented by: [id number] Cosigned by: [id number] Admin: 12/14/18 09:03 Dose: 5 units Documented by: [id number] Cosigned by: [id number] Admin: 12/13/18 21:27 Dose: 1 units Documented by: [id number] Cosigned by: [id number] Admin: 12/13/18 18:07 Dose: Not Given Documented by: [id number] Cosigned by: [id number] Admin: 12/13/18 12:38 Dose: 3 units Documented by: [id number] Cosigned by: [id number] Admin: 12/13/18 08:54 Dose: 2 units Documented by: [id number] Cosigned by: [id number] Admin: 12/12/18 22:10 Dose: 2 units Documented by: [id number] Cosigned by: [id number] Admin: 12/12/18 17:49 Dose: 2 units Documented by: [id number] Cosigned by: [id number] Admin: 12/12/18 12:57 Dose: Not Given Documented by: [id number] Cosigned by: [id number] Admin: 12/12/18 08:38 Dose: Not Given Documented by: [id number] Cosigned by: [id number] Admin: 12/11/18 22:03 Dose: 5 units Documented by: [id number] Cosigned by: [id number] Levothyroxine Sodium (Synthroid) 175 mcg PO DAILYBB [facility] Stop: 01/11/19 06:29 Last Admin: 12/16/18 06:44 Dose: Not Given Documented by: [id number] Admin: 12/15/18 06:16 Dose: 175 mcg Documented by: [id number] Admin: 12/14/18 05:50 Dose: 175 mcg Documented by: [id number] Admin: 12/13/18 05:51 Dose: 175 mcg Documented by: [id number] Admin: 12/12/18 06:20 Dose: 175 mcg Documented by: [id number] Lorazepam (Ativan) 0.5 mg PO Q4 PRN PRN Reason: Anxiety Stop: 01/10/19 19:21 Last Admin: 12/11/18 22:05 Dose: 0.5 mg Documented by: [id number] Memantine (Namenda) 10 mg PO HS [facility] Stop: 01/10/19 20:59 Last Admin: 12/15/18 22:02 Dose: Not Given Documented by: [id number] Admin: 12/14/18 15:27 Dose: Not Given Documented by: [id number] Admin: 12/13/18 21:27 Dose: 10 mg Documented by: [id number] Admin: 12/12/18 22:07 Dose: 10 mg Documented by: [id number] Admin: 12/11/18 22:00 Dose: 10 mg Documented by: [id number] Metoprolol Tartrate (Lopressor) 50 mg PO BID [facility] Stop: 01/10/19 20:59 Last Admin: 12/16/18 08:53 Dose: 50 mg Documented by: [id number] Admin: 12/15/18 22:01 Dose: Not Given Documented by: [id number] Admin: 12/15/18 09:20 Dose: 50 mg Documented by: [id number] Admin: 12/14/18 21:07 Dose: Not Given Documented by: [id number] Admin: 12/14/18 07:55 Dose: Not Given Documented by: [id number] Admin: 12/13/18 21:29 Dose: 50 mg Documented by: [id number] Admin: 12/13/18 08:53 Dose: Not Given Documented by: [id number] Admin: 12/12/18 22:28 Dose: 50 mg Documented by: [id number] Admin: 12/12/18 08:30 Dose: 50 mg Documented by: [id number] Admin: 12/11/18 22:02 Dose: 50 mg Documented by: [id number] Miconazole Nitrate (Desenex) 1 appln EXT BID PRN PRN Reason: Affected Skin Folds Stop: 01/09/19 09:13 Last Admin: 12/15/18 13:17 Dose: 1 appln Documented by: [id number] Miscellaneous (Check Scopolamine Patch Placement) 1 ea N/A QS [facility] Stop: 01/09/19 07:59 Last Admin: 12/16/18 08:48 Dose: 1 ea Documented by: [id number] Admin: 12/15/18 23:17 Dose: 1 ea Documented by: [id number] Admin: 12/15/18 18:08 Dose: 1 ea Documented by: [id number] Admin: 12/15/18 08:52 Dose: 1 ea Documented by: [id number] Admin: 12/14/18 23:50 Dose: 1 ea Documented by: [id number] Admin: 12/14/18 15:10 Dose: 1 ea Documented by: [id number] Admin: 12/14/18 07:52 Dose: 1 ea Documented by: [id number] Admin: 12/14/18 00:02 Dose: 1 ea Documented by: [id number] Admin: 12/13/18 15:46 Dose: 1 ea Documented by: [id number] Admin: 12/13/18 07:36 Dose: 1 ea Documented by: [id number] Admin: 12/12/18 23:33 Dose: 1 ea Documented by: [id number] Admin: 12/12/18 16:18 Dose: 1 ea Documented by: [id number] Admin: 12/12/18 08:31 Dose: 1 ea Documented by: [id number] Admin: 12/11/18 23:43 Dose: 1 ea Documented by: [id number] Admin: 12/11/18 15:58 Dose: 1 ea Documented by: [id number] Admin: 12/11/18 07:52 Dose: 1 ea Documented by: [id number] Admin: 12/11/18 00:04 Dose: 1 ea Documented by: [id number] Admin: 12/10/18 17:06 Dose: 1 ea Documented by: [id number] Admin: 12/10/18 09:05 Dose: Not Given Documented by: [id number] Miscellaneous (Remove Transderm-Scop Patch) 1 ea N/A Q72H [facility] Stop: 01/12/19 06:59 Last Admin: 12/16/18 06:47 Dose: 1 ea Documented by: [id number] Admin: 12/13/18 05:52 Dose: 1 ea Documented by: [id number] Oxybutynin Chloride (Ditropan) 5 mg PO BID [facility] Stop: 01/10/19 20:59 Last Admin: 12/16/18 08:50 Dose: 5 mg Documented by: [id number] Admin: 12/15/18 22:01 Dose: Not Given Documented by: [id number] Admin: 12/15/18 09:19 Dose: 5 mg Documented by: [id number] Admin: 12/14/18 21:05 Dose: 5 mg Documented by: [id number] Admin: 12/14/18 07:49 Dose: 5 mg Documented by: [id number] Admin: 12/13/18 21:27 Dose: 5 mg Documented by: [id number] Admin: 12/13/18 07:35 Dose: 5 mg Documented by: [id number] Admin: 12/12/18 22:06 Dose: 5 mg Documented by: [id number] Admin: 12/12/18 08:29 Dose: 5 mg Documented by: [id number] Admin: 12/11/18 22:00 Dose: 5 mg Documented by: [id number] Pantoprazole Sodium (Protonix) 40 mg PO BID [facility] Stop: 01/10/19 20:59 Last Admin: 12/16/18 08:50 Dose: 40 mg Documented by: [id number] Admin: 12/15/18 22:02 Dose: Not Given Documented by: [id number] Admin: 12/15/18 09:22 Dose: 40 mg Documented by: [id number] Admin: 12/14/18 21:15 Dose: 40 mg Documented by: [id number] Admin: 12/14/18 07:46 Dose: 40 mg Documented by: [id number] Admin: 12/13/18 21:27 Dose: 40 mg Documented by: [id number] Admin: 12/13/18 07:35 Dose: 40 mg Documented by: [id number] Admin: 12/12/18 22:09 Dose: 40 mg Documented by: [id number] Admin: 12/12/18 08:31 Dose: 40 mg Documented by: [id number] Admin: 12/11/18 22:03 Dose: 40 mg Documented by: [id number] Polyethylene Glycol (Miralax Powder Packet) 17 gm PO DAILY [facility] Stop: 01/11/19 08:59 Last Admin: 12/16/18 09:06 Dose: 17 gm Documented by: [id number] Admin: 12/15/18 08:54 Dose: 17 gm Documented by: [id number] Admin: 12/14/18 07:50 Dose: 17 gm Documented by: [id number] Admin: 12/13/18 07:35 Dose: 17 gm Documented by: [id number] Admin: 12/12/18 08:31 Dose: 17 gm Documented by: [id number] Quetiapine Fumarate (Seroquel) 200 mg PO HS [facility] Stop: 01/10/19 20:59 Last Admin: 12/14/18 21:16 Dose: 200 mg Documented by: [id number] Admin: 12/13/18 21:27 Dose: 200 mg Documented by: [id number] Admin: 12/12/18 22:08 Dose: 200 mg Documented by: [id number] Admin: 12/11/18 22:02 Dose: 200 mg Documented by: [id number] Scopolamine (Transderm-Scop) 1.5 mg TD Q72H [facility] Stop: 01/09/19 06:59 Last Admin: 12/16/18 06:48 Dose: 1.5 mg Documented by: [id number] Admin: 12/13/18 05:51 Dose: 1.5 mg Documented by: [id number] Admin: 12/10/18 09:04 Dose: 1.5 mg Documented by: [id number] Venlafaxine HCl (Effexor Extended Release) 150 mg PO QAM [facility] Stop: 01/11/19 08:59 Last Admin: 12/16/18 08:50 Dose: 150 mg Documented by: [id number] Admin: 12/15/18 09:19 Dose: 150 mg Documented by: [id number] Admin: 12/14/18 07:46 Dose: 150 mg Documented by: [id number] Admin: 12/13/18 07:35 Dose: 150 mg Documented by: [id number] Admin: 12/12/18 08:30 Dose: 150 mg Documented by: [id number] Resident Activity Tracking Resident Involvement: Resident Care Provided Care Provided: Adult Hospital Medicine
[2018-12-16] MEDS: ONDANSETRON INJ 2 MG/ML 2 ML VIAL IV PRN (19:23)
[2018-12-16] MEDS: LORazepam 0.5 MG TAB PO PRN (20:52)
[2018-12-16] MEDS: MEMANTINE HCL 10 MG TAB PO SCH (20:52)
[2018-12-17] MEDS: CHECK SCOPOLAMINE PATCH PLACEMENT SCH ×3 (00:12→16:51)
[2018-12-17] MEDS: LORazepam 1 MG/2 ML VIAL IV PRN (04:11)
[2018-12-17] MEDS: LEVOTHYROXINE SODIUM 175 MCG TABLET PO SCH (05:42)
--- NOTE | 2018-12-17 08:11 | Family Medicine Progress Note ---
Date of Service December 17, 2018 Assessment & Plan (1) Obtundation: Pt is an 83yo Hospice pt who presented with N/V and was treated with NG tube placement for possible gastric outlet obstruction/ileus. Improved significantly. Awaiting placement at facility with hospice. Currently considering [facility] Episodic Jerky movements -Continue to hold seroquel and compazine - Likely extrapyrimidal secondary to patient's medication - Will continue to monitor - not acute as family member states present for several months Nausea/vomiting with possible aspiration secondary to ileus continue: -PPI -advanced diet - tolerating -Zofran PRN -cont scopolamine patch Metabolic encephalopathy -Mentation waxes and wanes. - Continuing Memantine -supportive care Aspiration -hypoxic on admission - On 2 L of O2 currently -supportive care -follow for signs of aspiration. Seizure like activity - one episode, lasting 20 seconds of tonic clonic activity yesterday early evening. No other reports of episodes overnight. - was treated with Ativan 1mg IV x1 dose - patient with numerous medications/polypharmacy, consideration for review on discharge/or as outpatient. DISCHARGE PLANNING [facility] with no beds Awaiting family decision--considering [facility] currently Supervising Physician Co-Signing Physician Notes I personally examined the patient and verified all boyer points of history and exam, discussed case, and agree with decision making with Dr Jimenez. No significant meaningful HPI or review of systems obtainable. Dr. Jimenez discussed/updated family. Nursing notes no new problems. Vitals noted, in general she is awake and pleasant no distress. HEENT normocep halic atraumatic mucous membranes moist. Breathing unlabored no accessory muscle use good effort. Skin shows no rashes no pallor or icterus. Encephalopathy/intractable nausea vomitingappears overall to be improving. Stable for SNF, and discussions with family previously the goal is hospice care. Continue to work with case management. Otherwise as above. Subjective Pt was resting comfortably in bed. Spoke to daughter about seroquel discontinuation due to seizure and effect on pt's mental status. Pt put out 150ml of urine overnight per nursing and has a poor appetite. Review of Systems All systems reviewed & are unremarkable except as noted in HPI & below Physical Exam Vital Signs (Past 24 Hours): Last Vital Signs Temp 36.8 C 12/17/18 07:34 Pulse 85 12/17/18 07:34 Resp 18 12/17/18 07:34 BP 117/78 12/17/18 07:34 Pulse Ox 92 12/17/18 07:34 General: Resting in bed comfortably. HEENT: NC/AT Chest: Nontender to palpation. CV: RRR, Normal s1, s2. Resp: Breath sounds clear bilaterally on front. Abdomen: Protuberant, nontender. No guarding. Extremities: No edema. Results & Data Laboratory Results Laboratory Results - last 24 hr 12/16/18 12/17/18 12/17/18 19:56 07:45 11:56 POC Glucose 210 H 200 H 234 H 12/17/18 16:39 POC Glucose 238 H Medications Administered Home Medications Ditropan XL 0 mg PO DAILY 12/10/18 [History Confirmed 12/10/18] allopurinol 100 mg PO DAILY 12/10/18 [History Confirmed 12/10/18] amlodipine 10 mg PO DAILY 12/10/18 [History Confirmed 12/10/18] aspirin [Aspir-Low] 81 mg PO DAILY 12/10/18 [History Confirmed 12/10/18] enalapril maleate 10 mg PO DAILY 12/10/18 [History Confirmed 12/10/18] furosemide 40 mg PO AMPM 12/10/18 [History Confirmed 12/10/18] gabapentin 100 mg PO BID 12/10/18 [History Confirmed 12/10/18] guaifenesin [Mucinex] 600 mg PO Q12H 12/10/18 [History Confirmed 12/10/18] haloperidol 1 tab PO Q4 PRN 12/10/18 [History Confirmed 12/10/18] insulin aspart U-100 [Novolog Flexpen U-100 Insulin] 5 unit SUBCUT BID PRN 12/10/18 [History Confirmed 12/10/18] insulin detemir U-100 [Levemir U-100 Insulin] 25 unit SUBCUT AMPM 12/10/18 [History Confirmed 12/10/18] levothyroxine 175 mcg PO DAILY 12/10/18 [History Confirmed 12/10/18] lorazepam 0.5 mg PO Q4 PRN 12/10/18 [History Confirmed 12/10/18] memantine 10 mg PO QPM 12/10/18 [History Confirmed 12/10/18] metoprolol tartrate 50 mg PO BID 12/10/18 [History Confirmed 12/10/18] morphine concentrate 0 mg PO UD PRN 12/10/18 [History Confirmed 12/10/18] nystatin 1 applic TOPICAL UD 12/10/18 [History Confirmed 12/10/18] nystatin 1 applic TOPICAL UD 12/10/18 [History Confirmed 12/10/18] omeprazole 20 mg PO BID 12/10/18 [History Confirmed 12/10/18] ondansetron HCl [Zofran] 4 mg PO TID PRN 12/10/18 [History Confirmed 12/10/18] oxybutynin chloride 5 mg PO BID 12/10/18 [History Confirmed 12/10/18] polyethylene glycol 3350 [Miralax] 17 g PO 5XWK 12/10/18 [History Confirmed 12/10/18] potassium chloride 10 meq PO BID 12/10/18 [History Confirmed 12/10/18] quetiapine 100 mg PO DAILY PRN 12/10/18 [History Confirmed 12/10/18] quetiapine 200 mg PO QPM 12/10/18 [History Confirmed 12/10/18] venlafaxine 150 mg PO DAILY 12/10/18 [History Confirmed 12/10/18] Active Medications Allopurinol (Zyloprim) 100 mg PO DAILY [facility] Stop: 01/11/19 08:59 Last Admin: 12/17/18 08:14 Dose: 100 mg Documented by: Amlodipine Besylate (Norvasc) 10 mg PO [facility] Stop: 01/10/19 19:14 Last Admin: 12/17/18 08:14 Dose: 10 mg Documented by: Aspirin ([facility]rin Ectab) [facility] Stop: 01/11/19 08:59 Last Admin: 12/17/18 08:12 Dose: 81 mg Documented by: Atropine Sulfate (Atropine Sulfate 1% Oph) 2 drops SL Q2H PRN PRN Reason: secretions Stop: 01/09/19 06:14 Dextrose (Dextrose 50%) 25 - 50 ml IV UD PRN; Protocol PRN Reason: Hypoglycemia Protocol Stop: 01/10/19 21:29 Enalapril Maleate (Vasotec) 10 mg PO [facility] Stop: 01/10/19 19:29 Last Admin: 12/17/18 08:14 Dose: 10 mg Documented by: Furosemide (Lasix) 40 mg PO BID17 [facility] Stop: 01/10/19 19:59 Last Admin: 12/17/18 16:51 Dose: 40 mg Documented by: Gabapentin (Neurontin) 100 mg PO BID [facility] Stop: 01/10/19 20:59 Last Admin: 12/17/18 08:14 Dose: 100 mg Documented by: Glucagon (Glucagen) 1 mg IM UD PRN; Protocol PRN Reason: Hypoglycemia Protocol Stop: 01/10/19 21:29 Glucose (Glucose 40%) 15 - 30 gm PO UD PRN; Protocol PRN Reason: Hypoglycemia Protocol Stop: 01/10/19 21:29 Glucose (Dex4 Glucose) 4 - 8 tabs PO UD PRN; Protocol PRN Reason: Hypoglycemia Protocol Stop: 01/10/19 21:29 Guaifenesin (Mucinex) 600 mg PO Q12 [facility] Stop: 01/10/19 20:59 Last Admin: 12/17/18 08:13 Dose: 600 mg Documented by: Lorazepam (Ativan) 1 mg in 2 mls @ 2 mls/min IV Q1H PRN PRN Reason: Anxiety Stop: 01/09/19 05:44 Last Admin: 12/17/18 04:11 Dose: 2 mls/min Documented by: Prochlorperazine 10 mg/ (Syringe) 10 mls @ 5 mls/min IV Q6H PRN PRN Reason: Nausea And Vomiting Stop: 01/09/19 05:46 Acetaminophen (Ofirmev) 1,000 mg in 100 mls @ 400 mls/hr IV Q8H PRN PRN Reason: Pain or Fever Stop: 01/09/19 06:04 Insulin Aspart (Novolog Flexpen) 0 units SC ACHS [facility] Stop: 01/10/19 21:44 Last Admin: 12/17/18 12:56 Dose: 2 units Documented by: Insulin Detemir (Levemir Flextouch) 15 units SC DAILY [facility] Stop: 01/16/19 11:59 Last Admin: 12/17/18 12:57 Dose: 15 units Documented by: Levothyroxine Sodium (Synthroid) 175 mcg PO DAILYBB [facility] Stop: 01/11/19 06:29 Last Admin: 12/17/18 05:42 Dose: 175 mcg Documented by: Lorazepam (Ativan) 0.5 mg PO Q4 PRN PRN Reason: Anxiety Stop: 01/10/19 19:21 Last Admin: 12/16/18 20:52 Dose: 0.5 mg Documented by: Magnesium Hydroxide (Milk Of Magnesia) 30 ml PO Q6H PRN PRN Reason: Constipation Stop: 01/16/19 14:16 Last Admin: 12/17/18 16:50 Dose: 30 ml Documented by: Memantine (Namenda) 10 mg PO HS [facility] Stop: 01/10/19 20:59 Last Admin: 12/16/18 20:52 Dose: 10 mg Documented by: Metoprolol Tartrate (Lopressor) 50 mg PO BID [facility] Stop: 01/10/19 20:59 Last Admin: 12/17/18 08:13 Dose: 50 mg Documented by: Miconazole Nitrate (Desenex) 1 appln EXT BID PRN PRN Reason: Affected Skin Folds Stop: 01/09/19 09:13 Last Admin: 12/15/18 13:17 Dose: 1 appln Documented by: Miscellaneous (Check Scopolamine Patch Placement) 1 ea N/A QS [facility] Stop: 01/09/19 07:59 Last Admin: 12/17/18 16:51 Dose: 1 ea Documented by: Miscellaneous (Remove Transderm-Scop Patch) 1 ea N/A Q72H [facility] Stop: 01/12/19 06:59 Last Admin: 12/16/18 06:47 Dose: 1 ea Documented by: Miscellaneous (Carbohydrates For Hypoglycemia) 15 - 30 gm PO UD PRN PRN Reason: Hypoglycemia Treatment Stop: 01/10/19 21:29 Morphine Sulfate (Roxanol) 10 mg PO Q1H PRN PRN Reason: Pain Stop: 12/24/18 05:46 Last Admin: 12/16/18 20:54 Dose: 10 mg Documented by: Ondansetron HCl (Zofran) 4 mg IV Q6H PRN PRN Reason: Nausea Stop: 01/09/19 06:57 Last Admin: 12/17/18 17:00 Dose: 4 mg Documented by: Ondansetron HCl (Zofran Odt) 4 mg PO Q8H PRN PRN Reason: Nausea Stop: 01/10/19 19:24 Oxybutynin Chloride (Ditropan) 5 mg PO BID [facility] Stop: 01/10/19 20:59 Last Admin: 12/17/18 08:12 Dose: 5 mg Documented by: Pantoprazole Sodium (Protonix) 40 mg PO BID [facility] Stop: 01/10/19 20:59 Last Admin: 12/17/18 08:13 Dose: 40 mg Documented by: Polyethylene Glycol (Miralax Powder Packet) 17 gm PO DAILY [facility] Stop: 01/11/19 08:59 Last Admin: 12/17/18 08:14 Dose: 17 gm Documented by: Quetiapine Fumarate (Seroquel) 200 mg PO HS [facility] Stop: 01/10/19 20:59 Last Admin: 12/14/18 21:16 Dose: 200 mg Documented by: Quetiapine Fumarate (Seroquel) 100 mg PO DAILY PRN PRN Reason: Anxiety Stop: 01/11/19 08:59 Scopolamine (Transderm-Scop) 1.5 mg TD Q72H [facility] Stop: 01/09/19 06:59 Last Admin: 12/16/18 06:48 Dose: 1.5 mg Documented by: Venlafaxine HCl (Effexor Extended Release) 150 mg PO QAM [facility] Stop: 01/11/19 08:59 Last Admin: 12/17/18 08:13 Dose: 150 mg Documented by:
[2018-12-17] MEDS: OXYBUTYNIN CHLORIDE 5 MG TAB PO SCH ×2 (08:12→22:10)
[2018-12-17] MEDS: ASPIRIN 81 MG ECTAB PO SCH (08:12)
[2018-12-17] MEDS: FUROSEMIDE 40 MG TAB PO SCH ×2 (08:12→16:51)
[2018-12-17] MEDS: guaiFENesin 600 MG TABCR PO SCH ×2 (08:13→22:10)
[2018-12-17] MEDS: VENLAFAXINE HCL XR 150 MG CAPXR PO SCH (08:13)
[2018-12-17] MEDS: PANTOprazole 40 MG TAB PO SCH ×2 (08:13→22:11)
[2018-12-17] MEDS: METOPROLOL TARTRATE 50 MG TAB PO SCH ×3 (08:13→22:10)
[2018-12-17] MEDS: AMLODIPINE BESYLATE 5 MG TAB PO SCH (08:14)
[2018-12-17] MEDS: ALLOPURINOL 100 MG TAB PO SCH (08:14)
[2018-12-17] MEDS: GABAPENTIN 100 MG CAP PO SCH ×2 (08:14→22:11)
[2018-12-17] MEDS: ENALAPRIL MALEATE 10 MG TAB PO SCH (08:14)
[2018-12-17] MEDS: POLYETHYLENE (MIRALAX) 17 GM PACK PO SCH (08:14)
[2018-12-17] MEDS: INSULIN ASPART 100 UNITS/ML 3 ML PEN SC SCH ×4 (08:19→20:59)
[2018-12-17] MEDS: INSULIN DETEMIR FLEXPEN/FLEX TOUCH 100 UNITS/ML 3ML SC SCH (12:57)
[2018-12-17] MEDS: MAGNESIUM HYDROXIDE SUSP 30 ML UDC PO PRN (16:50)
[2018-12-17] MEDS: ONDANSETRON INJ 2 MG/ML 2 ML VIAL IV PRN (17:00)
[2018-12-17] MEDS ORDERED: SOD PHOSPHATE/SOD BIPHOSPHATE ENEMA 132 ML BTL PR PRN (18:37)
[2018-12-17] MEDS: MEMANTINE HCL 10 MG TAB PO SCH (20:54)
[2018-12-18] MEDS: CHECK SCOPOLAMINE PATCH PLACEMENT SCH ×4 (00:32→23:48)
[2018-12-18] MEDS: LEVOTHYROXINE SODIUM 175 MCG TABLET PO SCH (06:10)
[2018-12-18] MEDS: INSULIN ASPART 100 UNITS/ML 3 ML PEN SC SCH ×4 (08:31→21:18)
[2018-12-18] MEDS: ASPIRIN 81 MG ECTAB PO SCH (10:00)
[2018-12-18] MEDS: OXYBUTYNIN CHLORIDE 5 MG TAB PO SCH ×2 (10:00→21:07)
[2018-12-18] MEDS: VENLAFAXINE HCL XR 150 MG CAPXR PO SCH (10:01)
[2018-12-18] MEDS: FUROSEMIDE 40 MG TAB PO SCH ×2 (10:01→16:21)
[2018-12-18] MEDS: AMLODIPINE BESYLATE 5 MG TAB PO SCH (10:02)
[2018-12-18] MEDS: guaiFENesin 600 MG TABCR PO SCH ×2 (10:02→21:18)
[2018-12-18] MEDS: POLYETHYLENE (MIRALAX) 17 GM PACK PO SCH (10:02)
[2018-12-18] MEDS: METOPROLOL TARTRATE 50 MG TAB PO SCH ×2 (10:02→21:13)
[2018-12-18] MEDS: GABAPENTIN 100 MG CAP PO SCH ×2 (10:02→21:10)
[2018-12-18] MEDS: PANTOprazole 40 MG TAB PO SCH ×2 (10:03→21:17)
[2018-12-18] MEDS: ALLOPURINOL 100 MG TAB PO SCH (10:03)
[2018-12-18] MEDS: ENALAPRIL MALEATE 10 MG TAB PO SCH (10:03)
[2018-12-18] MEDS: INSULIN DETEMIR FLEXPEN/FLEX TOUCH 100 UNITS/ML 3ML SC SCH (10:14)
--- NOTE | 2018-12-18 17:09 | Family Medicine Progress Note ---
Date of Service December 18, 2018 Assessment & Plan (1) Obtundation: Pt is an 83yo Hospice pt who presented with N/V and was treated with NG tube placement for possible gastric outlet obstruction/ileus. Improved significantly. Awaiting placement at facility with hospice. Currently considering [facility] or [facility]. Nausea/vomiting with possible aspiration secondary to ileus continue: -PPI -advanced diet - tolerating -Zofran PRN -cont scopolamine patch Metabolic encephalopathy -Mentation waxes and wanes. - Continuing Memantine -supportive care Aspiration -hypoxic on admission - On 2 L of O2 currently -supportive care -follow for signs of aspiration. Episodic Jerky movements-RESOLVED -Continue to hold seroquel and compazine - Likely extrapyrimidal secondary to patient's medication - Will continue to monitor - not acute as family member states present for several months Seizure like activity-RESOLVED - one episode, lasting 20 seconds of tonic clonic activity yesterday early evening. No other reports of episodes overnight. - was treated with Ativan 1mg IV x1 dose - patient with numerous medications/polypharmacy, consideration for review on discharge/or as outpatient. DISCHARGE PLANNING Possibly [facility] or [facility] Supervising Physician Co-Signing Physician Notes I personally examined the patient and verified all boyer points of history and exam, discussed case, and agree with decision making with Dr Jimenez. No significant meaningful HPI or review of systems obtainable. Family updated. Questions asked about ongoing management of gastric outlet obstruction, after discussion of what a surgical evaluation etc. would entail, family notes that he certainly would not want her to go through that Vitals noted, in general she is awake and pleasant no distress. HEENT normocephalic atraumatic mucous membranes moist. Breathing unlabored no accessory muscle use good effort. Skin shows no rashes no pallor or icterus. Abdomen mildly distended slightly firm but no notable tenderness no guarding/rebound/rigidity. Encephalopathy/intractable nausea vomitinggastric outlet obstructioncontinue supportive care, extensive discussion with family in regards to what would be entailed further workup with this, and given her overall hospice status and overall fairly steep decline they note that they would not want further evaluation, we discussed the possibility of re-placing an NG tube if needed, versus escalating comfort care, they will continue to discuss. In regards to her gastric outlet obstruction certainly mechanical causes of concern, but it also could have been motility side effect from some of her medications (Seroquel currently being held) Otherwise as above Subjective Pt verbal in room this AM. Son at bedside states they're still awaiting word from [facility]. Review of Systems Unobtainable due to cognitive status Physical Exam Vital Signs (Past 24 Hours): Last Vital Signs Temp 36.8 C 12/18/18 15:22 Pulse 70 12/18/18 15:22 Resp 18 12/18/18 15:22 BP 105/74 12/18/18 15:22 Pulse Ox 91 12/18/18 15:22 General: Resting in bed comfortably. HEENT: NC/AT Chest: Nontender to palpation. CV: RRR, Normal s1, s2. Resp: Breath sounds clear bilaterally on front. Abdomen: Protuberant, nontender. No guarding. Extremities: No edema. Results & Data Laboratory Results Laboratory Results - last 24 hr 12/17/18 12/18/18 12/18/18 20:00 07:29 11:34 POC Glucose 244 H 198 H 183 H 12/18/18 16:08 POC Glucose 193 H Medications Administered Home Medications Ditropan XL 0 mg PO DAILY 12/10/18 [History Confirmed 12/10/18] allopurinol 100 mg PO DAILY 12/10/18 [History Confirmed 12/10/18] amlodipine 10 mg PO DAILY 12/10/18 [History Confirmed 12/10/18] aspirin [Aspir-Low] 81 mg PO DAILY 12/10/18 [History Confirmed 12/10/18] enalapril maleate 10 mg PO DAILY 12/10/18 [History Confirmed 12/10/18] furosemide 40 mg PO AMPM 12/10/18 [History Confirmed 12/10/18] gabapentin 100 mg PO BID 12/10/18 [History Confirmed 12/10/18] guaifenesin [Mucinex] 600 mg PO Q12H 12/10/18 [History Confirmed 12/10/18] haloperidol 1 tab PO Q4 PRN 12/10/18 [History Confirmed 12/10/18] insulin aspart U-100 [Novolog Flexpen U-100 Insulin] 5 unit SUBCUT BID PRN 12/10/18 [History Confirmed 12/10/18] insulin detemir U-100 [Levemir U-100 Insulin] 25 unit SUBCUT AMPM 12/10/18 [History Confirmed 12/10/18] levothyroxine 175 mcg PO DAILY 12/10/18 [History Confirmed 12/10/18] lorazepam 0.5 mg PO Q4 PRN 12/10/18 [History Confirmed 12/10/18] memantine 10 mg PO QPM 12/10/18 [History Confirmed 12/10/18] metoprolol tartrate 50 mg PO BID 12/10/18 [History Confirmed 12/10/18] morphine concentrate 0 mg PO UD PRN 12/10/18 [History Confirmed 12/10/18] nystatin 1 applic TOPICAL UD 12/10/18 [History Confirmed 12/10/18] nystatin 1 applic TOPICAL UD 12/10/18 [History Confirmed 12/10/18] omeprazole 20 mg PO BID 12/10/18 [History Confirmed 12/10/18] ondansetron HCl [Zofran] 4 mg PO TID PRN 12/10/18 [History Confirmed 12/10/18] oxybutynin chloride 5 mg PO BID 12/10/18 [History Confirmed 12/10/18] polyethylene glycol 3350 [Miralax] 17 g PO 5XWK 12/10/18 [History Confirmed 12/10/18] potassium chloride 10 meq PO BID 12/10/18 [History Confirmed 12/10/18] quetiapine 100 mg PO DAILY PRN 12/10/18 [History Confirmed 12/10/18] quetiapine 200 mg PO QPM 12/10/18 [History Confirmed 12/10/18] venlafaxine 150 mg PO DAILY 12/10/18 [History Confirmed 12/10/18] Active Medications Allopurinol (Zyloprim) 100 mg PO DAILY [facility] Stop: 01/11/19 08:59 Last Admin: 12/18/18 10:03 Dose: Not Given Documented by: Amlodipine Besylate (Norvasc) 10 mg PO QAM [facility] Stop: 01/10/19 19:14 Last Admin: 12/18/18 10:02 Dose: Not Given Documented by: Aspirin (Ecotrin Ectab) 81 mg PO QAM [facility] Stop: 01/11/19 08:59 Last Admin: 12/18/18 10:00 Dose: Not Given Documented by: Atropine Sulfate (Atropine Sulfate 1% Oph) 2 drops SL Q2H PRN PRN Reason: secretions Stop: 01/09/19 06:14 Dextrose (Dextrose 50%) 25 - 50 ml IV UD PRN; Protocol PRN Reason: Hypoglycemia Protocol Stop: 01/10/19 21:29 Enalapril Maleate (Vasotec) 10 mg PO QAM [facility] Stop: 01/10/19 19:29 Last Admin: 12/18/18 10:03 Dose: Not Given Documented by: Furosemide (Lasix) 40 mg PO BID17 [facility] Stop: 01/10/19 19:59 Last Admin: 12/18/18 16:21 Dose: 40 mg Documented by: Gabapentin (Neurontin) 100 mg PO BID [facility] Stop: 01/10/19 20:59 Last Admin: 12/18/18 10:02 Dose: Not Given Documented by: Glucagon (Glucagen) 1 mg IM UD PRN; Protocol PRN Reason: Hypoglycemia Protocol Stop: 01/10/19 21:29 Glucose (Glucose 40%) 15 - 30 gm PO UD PRN; Protocol PRN Reason: Hypoglycemia Protocol Stop: 01/10/19 21:29 Glucose (Dex4 Glucose) 4 - 8 tabs PO UD PRN; Protocol PRN Reason: Hypoglycemia Protocol Stop: 01/10/19 21:29 Guaifenesin (Mucinex) 600 mg PO Q12 [facility] Stop: 01/10/19 20:59 Last Admin: 12/18/18 10:02 Dose: Not Given Documented by: Lorazepam (Ativan) 1 mg in 2 mls @ 2 mls/min IV Q1H PRN PRN Reason: Anxiety Stop: 01/09/19 05:44 Last Admin: 12/17/18 04:11 Dose: 2 mls/min Documented by: Prochlorperazine 10 mg/ (Syringe) 10 mls @ 5 mls/min IV Q6H PRN PRN Reason: Nausea And Vomiting Stop: 01/09/19 05:46 Acetaminophen (Ofirmev) 1,000 mg in 100 mls @ 400 mls/hr IV Q8H PRN PRN Reason: Pain or Fever Stop: 01/09/19 06:04 Insulin Aspart (Novolog Flexpen) 0 units SC ACHS [facility] Stop: 01/10/19 21:44 Last Admin: 12/18/18 13:04 Dose: 1 units Documented by: Insulin Detemir (Levemir Flextouch) 15 units SC DAILY [facility] Stop: 01/16/19 11:59 Last Admin: 12/18/18 10:14 Dose: 15 units Documented by: Levothyroxine Sodium (Synthroid) 175 mcg PO DAILYBB [facility] Stop: 01/11/19 06:29 Last Admin: 12/18/18 06:10 Dose: Not Given Documented by: Lorazepam (Ativan) 0.5 mg PO Q4 PRN PRN Reason: Anxiety Stop: 01/10/19 19:21 Last Admin: 12/16/18 20:52 Dose: 0.5 mg Documented by: Magnesium Hydroxide (Milk Of Magnesia) 30 ml PO Q6H PRN PRN Reason: Constipation Stop: 01/16/19 14:16 Last Admin: 12/17/18 16:50 Dose: 30 ml Documented by: Memantine (Namenda) 10 mg PO HS [facility] Stop: 01/10/19 20:59 Last Admin: 12/17/18 20:54 Dose: Not Given Documented by: Metoprolol Tartrate (Lopressor) 50 mg PO BID [facility] Stop: 01/10/19 20:59 Last Admin: 12/18/18 10:02 Dose: Not Given Documented by: Miconazole Nitrate (Desenex) 1 appln EXT BID PRN PRN Reason: Affected Skin Folds Stop: 01/09/19 09:13 Last Admin: 12/15/18 13:17 Dose: 1 appln Documented by: Miscellaneous (Check Scopolamine Patch Placement) 1 ea N/A QS [facility] Stop: 01/09/19 07:59 Last Admin: 12/18/18 16:19 Dose: 1 ea Documented by: Miscellaneous (Remove Transderm-Scop Patch) 1 ea N/A Q72H [facility] Stop: 01/12/19 06:59 Last Admin: 12/16/18 06:47 Dose: 1 ea Documented by: Miscellaneous (Carbohydrates For Hypoglycemia) 15 - 30 gm PO UD PRN PRN Reason: Hypoglycemia Treatment Stop: 01/10/19 21:29 Morphine Sulfate (Roxanol) 10 mg PO Q1H PRN PRN Reason: Pain Stop: 12/24/18 05:46 Last Admin: 12/16/18 20:54 Dose: 10 mg Documented by: Ondansetron HCl (Zofran) 4 mg IV Q6H PRN PRN Reason: Nausea Stop: 01/09/19 06:57 Last Admin: 12/17/18 17:00 Dose: 4 mg Documented by: Ondansetron HCl (Zofran Odt) 4 mg PO Q8H PRN PRN Reason: Nausea Stop: 01/10/19 19:24 Oxybutynin Chloride (Ditropan) 5 mg PO BID [facility] Stop: 01/10/19 20:59 Last Admin: 12/18/18 10:00 Dose: Not Given Documented by: Pantoprazole Sodium (Protonix) 40 mg PO BID [facility] Stop: 01/10/19 20:59 Last Admin: 12/18/18 10:03 Dose: Not Given Documented by: Polyethylene Glycol (Miralax Powder Packet) 17 gm PO DAILY [facility] Stop: 01/11/19 08:59 Last Admin: 12/18/18 10:02 Dose: Not Given Documented by: Quetiapine Fumarate (Seroquel) 200 mg PO HS [facility] Stop: 01/10/19 20:59 Last Admin: 12/14/18 21:16 Dose: 200 mg Documented by: Quetiapine Fumarate (Seroquel) 100 mg PO DAILY PRN PRN Reason: Anxiety Stop: 01/11/19 08:59 Scopolamine (Transderm-Scop) 1.5 mg TD Q72H [facility] Stop: 01/09/19 06:59 Last Admin: 12/16/18 06:48 Dose: 1.5 mg Documented by: Sodium Biphosphate/Sodium Phosphate (Fleet Enema) 132 ml MT DAILY PRN PRN Reason: Constipation Stop: 01/16/19 18:36 Venlafaxine HCl (Effexor Extended Release) 150 mg PO QAM [facility] Stop: 01/11/19 08:59 Last Admin: 12/18/18 10:01 Dose: Not Given Documented by:
[2018-12-18] MEDS: MAGNESIUM HYDROXIDE SUSP 30 ML UDC PO PRN (19:40)
[2018-12-18] MEDS: MEMANTINE HCL 10 MG TAB PO SCH (21:17)
[2018-12-19] MEDS: LEVOTHYROXINE SODIUM 175 MCG TABLET PO SCH (06:21)
[2018-12-19] MEDS: SCOPOLAMINE 1.5 MG TDSY TD SCH (06:25)
[2018-12-19] MEDS: CHECK SCOPOLAMINE PATCH PLACEMENT SCH ×2 (08:53→17:15)
[2018-12-19] MEDS: METOPROLOL TARTRATE 50 MG TAB PO SCH ×2 (08:55→17:16)
[2018-12-19] MEDS: ALLOPURINOL 100 MG TAB PO SCH (08:55)
[2018-12-19] MEDS: ENALAPRIL MALEATE 10 MG TAB PO SCH (08:55)
[2018-12-19] MEDS: MEMANTINE HCL 10 MG TAB PO SCH (08:55)
[2018-12-19] MEDS: AMLODIPINE BESYLATE 5 MG TAB PO SCH (08:55)
[2018-12-19] MEDS: GABAPENTIN 100 MG CAP PO SCH ×2 (08:56→20:52)
[2018-12-19] MEDS: guaiFENesin 600 MG TABCR PO SCH ×2 (08:56→20:51)
[2018-12-19] MEDS: FUROSEMIDE 40 MG TAB PO SCH ×2 (08:56→18:03)
[2018-12-19] MEDS: OXYBUTYNIN CHLORIDE 5 MG TAB PO SCH ×2 (08:56→20:51)
[2018-12-19] MEDS: PANTOprazole 40 MG TAB PO SCH ×2 (08:56→20:51)
[2018-12-19] MEDS: VENLAFAXINE HCL XR 150 MG CAPXR PO SCH (08:56)
[2018-12-19] MEDS: ASPIRIN 81 MG ECTAB PO SCH (09:01)
[2018-12-19] MEDS: INSULIN ASPART 100 UNITS/ML 3 ML PEN SC SCH ×4 (09:05→20:57)
[2018-12-19] MEDS: INSULIN DETEMIR FLEXPEN/FLEX TOUCH 100 UNITS/ML 3ML SC SCH (09:06)
--- NOTE | 2018-12-19 09:07 | Family Medicine Progress Note ---
Date of Service December 19, 2018 Assessment & Plan (1) Obtundation: Pt is an 83yo Hospice pt who presented with N/V and was treated with NG tube placement for possible gastric outlet obstruction/ileus. Improved significantly in that respect. Awaiting placement at facility with hospice. Currently family considering [facility] or [facility]. Nausea/vomiting with possible aspiration secondary to ileus continue: -PPI -advanced diet - tolerating -Zofran PRN -cont scopolamine patch Metabolic encephalopathy -Mentation waxes and wanes. - Continuing Memantine -supportive care Aspiration -hypoxic on admission - On 2 L of O2 currently -supportive care -follow for signs of aspiration. Episodic Jerky movements-RESOLVED -Continue to hold seroquel and compazine - Likely extrapyrimidal secondary to patient's medication - Will continue to monitor - not acute as family member states present for several months Seizure like activity-RESOLVED - one episode, lasting 20 seconds of tonic clonic activity yesterday early evening. No other reports of episodes overnight. - was treated with Ativan 1mg IV x1 dose - patient with numerous medications/polypharmacy, consideration for review on discharge/or as outpatient. DISCHARGE PLANNING Possibly [facility] or [facility] Supervising Physician Co-Signing Physician Notes I personally examined the patient and verified all boyer points of history and exam, discussed case, and agree with decision making with Dr Jimenez. conversational today! notes no belly pain no nausea/no vomiting. Vitals noted, in general she is awake and pleasant no distress. HEENT normocephalic atraumatic mucous membranes moist. Breathing unlabored no accessory muscle use good effort. Skin shows no rashes no pallor or icterus. Abdomen mildly distended slightly firm but no notable tenderness no guarding/rebound/rigidity (almost identical to yesterday, maybe slightly softer). Encephalopathy/intractable nausea vomitinggastric outlet obstructioncontinue supportive care, awaiting SNF/hospice placement. In regards to her gastric outlet obstruction certainly mechanical causes of concern, but it also could have been motility side effect from some of her medications (Seroquel currently being held which seems most likely culprit medication if this was the cause) Otherwise as above Subjective Review of Systems Unobtainable due to cognitive status Pt resting in bed comfortably. No family at bedside yet. Physical Exam Vital Signs (Past 24 Hours): Last Vital Signs Temp 36.3 C L 12/19/18 07:18 Pulse 70 12/19/18 07:18 Resp 20 12/19/18 07:18 BP 109/64 12/19/18 07:18 Pulse Ox 93 12/19/18 07:18 General: Resting in bed comfortably. HEENT: NC/AT Chest: Nontender to palpation. CV: RRR, Normal s1, s2. Resp: Breath sounds clear bilaterally on front. Abdomen: Protuberant, firm, distended. Extremities: No edema. Results & Data Laboratory Results Laboratory Results - last 24 hr 12/18/18 12/18/18 12/18/18 11:34 16:08 19:51 POC Glucose 183 H 193 H 184 H 12/19/18 07:34 POC Glucose 176 H Medications Administered Home Medications Ditropan XL 0 mg PO DAILY 12/10/18 [History Confirmed 12/10/18] allopurinol 100 mg PO DAILY 12/10/18 [History Confirmed 12/10/18] amlodipine 10 mg PO DAILY 12/10/18 [History Confirmed 12/10/18] aspirin [Aspir-Low] 81 mg PO DAILY 12/10/18 [History Confirmed 12/10/18] enalapril maleate 10 mg PO DAILY 12/10/18 [History Confirmed 12/10/18] furosemide 40 mg PO AMPM 12/10/18 [History Confirmed 12/10/18] gabapentin 100 mg PO BID 12/10/18 [History Confirmed 12/10/18] guaifenesin [Mucinex] 600 mg PO Q12H 12/10/18 [History Confirmed 12/10/18] haloperidol 1 tab PO Q4 PRN 12/10/18 [History Confirmed 12/10/18] insulin aspart U-100 [Novolog Flexpen U-100 Insulin] 5 unit SUBCUT BID PRN 12/10/18 [History Confirmed 12/10/18] insulin detemir U-100 [Levemir U-100 Insulin] 25 unit SUBCUT AMPM 12/10/18 [History Confirmed 12/10/18] levothyroxine 175 mcg PO DAILY 12/10/18 [History Confirmed 12/10/18] lorazepam 0.5 mg PO Q4 PRN 12/10/18 [History Confirmed 12/10/18] memantine 10 mg PO QPM 12/10/18 [History Confirmed 12/10/18] metoprolol tartrate 50 mg PO BID 12/10/18 [History Confirmed 12/10/18] morphine concentrate 0 mg PO UD PRN 12/10/18 [History Confirmed 12/10/18] nystatin 1 applic TOPICAL UD 12/10/18 [History Confirmed 12/10/18] nystatin 1 applic TOPICAL UD 12/10/18 [History Confirmed 12/10/18] omeprazole 20 mg PO BID 12/10/18 [History Confirmed 12/10/18] ondansetron HCl [Zofran] 4 mg PO TID PRN 12/10/18 [History Confirmed 12/10/18] oxybutynin chloride 5 mg PO BID 12/10/18 [History Confirmed 12/10/18] polyethylene glycol 3350 [Miralax] 17 g PO 5XWK 12/10/18 [History Confirmed 12/10/18] potassium chloride 10 meq PO BID 12/10/18 [History Confirmed 12/10/18] quetiapine 100 mg PO DAILY PRN 12/10/18 [History Confirmed 12/10/18] quetiapine 200 mg PO QPM 12/10/18 [History Confirmed 12/10/18] venlafaxine 150 mg PO DAILY 12/10/18 [History Confirmed 12/10/18] Active Medications Allopurinol (Zyloprim) 100 mg PO DAILY [facility] Stop: 01/11/19 08:59 Last Admin: 12/19/18 08:55 Dose: 100 mg Documented by: [facility]od[facility] ([facility]) [facility] [place]: 01/10/19 19:14 Last Admin: 12/19/18 08:55 Dose: 10 mg Documented by: Aspirin (Ecotrin Ectab) 81 mg PO QAM [facility] Stop: 01/11/19 08:59 Last Admin: 12/19/18 09:01 Dose: 81 mg Documented by: Atropine Sulfate (Atropine Sulfate 1% Oph) 2 drops SL Q2H PRN PRN Reason: secretions Stop: 01/09/19 06:14 Dextrose (Dextrose 50%) 25 - 50 ml IV UD PRN; Protocol PRN Reason: Hypoglycemia Protocol Stop: 01/10/19 21:29 Enalapril Maleate (Vasotec) 10 mg PO QAM [facility] Stop: 01/10/19 19:29 Last Admin: 12/19/18 08:55 Dose: 10 mg Documented by: Furosemide (Lasix) 40 mg PO BID17 [facility] Stop: 01/10/19 19:59 Last Admin: 12/19/18 08:56 Dose: 40 mg Documented by: Gabapentin (Neurontin) 100 mg PO BID [facility] Stop: 01/10/19 20:59 Last Admin: 12/19/18 08:56 Dose: 100 mg Documented by: Glucagon (Glucagen) 1 mg IM UD PRN; Protocol PRN Reason: Hypoglycemia Protocol Stop: 01/10/19 21:29 Glucose (Glucose 40%) 15 - 30 gm PO UD PRN; Protocol PRN Reason: Hypoglycemia Protocol Stop: 01/10/19 21:29 Glucose (Dex4 Glucose) 4 - 8 tabs PO UD PRN; Protocol PRN Reason: Hypoglycemia Protocol Stop: 01/10/19 21:29 Guaifenesin (Mucinex) 600 mg PO Q12 [facility] Stop: 01/10/19 20:59 Last Admin: 12/19/18 08:56 Dose: 600 mg Documented by: Lorazepam (Ativan) 1 mg in 2 mls @ 2 mls/min IV Q1H PRN PRN Reason: Anxiety Stop: 01/09/19 05:44 Last Admin: 12/17/18 04:11 Dose: 2 mls/min Documented by: Prochlorperazine 10 mg/ (Syringe) 10 mls @ 5 mls/min IV Q6H PRN PRN Reason: Nausea And Vomiting Stop: 01/09/19 05:46 Acetaminophen (Ofirmev) 1,000 mg in 100 mls @ 400 mls/hr IV Q8H PRN PRN Reason: Pain or Fever Stop: 01/09/19 06:04 Insulin Aspart (Novolog Flexpen) 0 units SC ACHS [facility] Stop: 01/10/19 21:44 Last Admin: 12/19/18 09:05 Dose: Not Given Documented by: Insulin Detemir (Levemir Flextouch) 15 units SC DAILY [facility] Stop: 01/16/19 11:59 Last Admin: 12/19/18 09:06 Dose: 15 units Documented by: Levothyroxine Sodium (Synthroid) 175 mcg PO DAILYBB [facility] Stop: 01/11/19 06:29 Last Admin: 12/19/18 06:21 Dose: 175 mcg Documented by: Lorazepam (Ativan) 0.5 mg PO Q4 PRN PRN Reason: Anxiety Stop: 01/10/19 19:21 Last Admin: 12/16/18 20:52 Dose: 0.5 mg Documented by: Magnesium Hydroxide (Milk Of Magnesia) 30 ml PO Q6H PRN PRN Reason: Constipation Stop: 01/16/19 14:16 Last Admin: 12/18/18 19:40 Dose: 30 ml Documented by: Memantine (Namenda) 10 mg PO HS [facility] Stop: 01/10/19 20:59 Last Admin: 12/19/18 08:55 Dose: 10 mg Documented by: Metoprolol Tartrate (Lopressor) 50 mg PO BID [facility] Stop: 01/10/19 20:59 Last Admin: 12/19/18 08:55 Dose: 50 mg Documented by: Miconazole Nitrate (Desenex) 1 appln EXT BID PRN PRN Reason: Affected Skin Folds Stop: 01/09/19 09:13 Last Admin: 12/15/18 13:17 Dose: 1 appln Documented by: Miscellaneous (Check Scopolamine Patch Placement) 1 ea N/A QS [facility] Stop: 01/09/19 07:59 Last Admin: 12/19/18 08:53 Dose: 1 ea Documented by: Miscellaneous (Remove Transderm-Scop Patch) 1 ea N/A Q72H [facility] Stop: 01/12/19 06:59 Last Admin: 12/19/18 06:21 Dose: 1 ea Documented by: Miscellaneous (Carbohydrates For Hypoglycemia) 15 - 30 gm PO UD PRN PRN Reason: Hypoglycemia Treatment Stop: 01/10/19 21:29 Morphine Sulfate (Roxanol) 10 mg PO Q1H PRN PRN Reason: Pain Stop: 12/24/18 05:46 Last Admin: 12/16/18 20:54 Dose: 10 mg Documented by: Ondansetron HCl (Zofran) 4 mg IV Q6H PRN PRN Reason: Nausea Stop: 01/09/19 06:57 Last Admin: 12/17/18 17:00 Dose: 4 mg Documented by: Ondansetron HCl (Zofran Odt) 4 mg PO Q8H PRN PRN Reason: Nausea Stop: 01/10/19 19:24 Oxybutynin Chloride (Ditropan) 5 mg PO BID [facility] Stop: 01/10/19 20:59 Last Admin: 12/19/18 08:56 Dose: 5 mg Documented by: Pantoprazole Sodium (Protonix) 40 mg PO BID [facility] Stop: 01/10/19 20:59 Last Admin: 12/19/18 08:56 Dose: 40 mg Documented by: Polyethylene Glycol (Miralax Powder Packet) 17 gm PO DAILY [facility] Stop: 01/11/19 08:59 Last Admin: 12/18/18 10:02 Dose: Not Given Documented by: Quetiapine Fumarate (Seroquel) 200 mg PO HS [facility] Stop: 01/10/19 20:59 Last Admin: 12/14/18 21:16 Dose: 200 mg Documented by: Quetiapine Fumarate (Seroquel) 100 mg PO DAILY PRN PRN Reason: Anxiety Stop: 01/11/19 08:59 Scopolamine (Transderm-Scop) 1.5 mg TD Q72H [facility] Stop: 01/09/19 06:59 Last Admin: 12/19/18 06:25 Dose: 1.5 mg Documented by: Sodium Biphosphate/Sodium Phosphate (Fleet Enema) 132 ml [place] DAILY PRN PRN Reason: Constipation Stop: 01/16/19 18:36 Venlafaxine HCl (Effexor Extended Release) 150 mg PO QAM [facility] Stop: 01/11/19 08:59 Last Admin: 12/19/18 08:56 Dose: 150 mg Documented by:
[2018-12-19] MEDS: POLYETHYLENE (MIRALAX) 17 GM PACK PO SCH (12:43)
[2018-12-20] MEDS: CHECK SCOPOLAMINE PATCH PLACEMENT SCH ×3 (00:28→15:37)
[2018-12-20] MEDS: LEVOTHYROXINE SODIUM 175 MCG TABLET PO SCH (06:47)
--- NOTE | 2018-12-20 08:01 | Family Medicine Progress Note ---
Date of Service December 20, 2018 Assessment & Plan (1) Obtundation: Pt is an 83yo Hospice pt who presented with N/V and was treated with NG tube placement for possible gastric outlet obstruction/ileus. Pt currently being transferred to inpt hospice. Nausea/vomiting with possible aspiration secondary to ileus continue: -PPI -advanced diet - tolerating -Zofran PRN -cont scopolamine patch Metabolic encephalopathy -Mentation waxes and wanes. - Continuing Memantine -supportive care Aspiration -hypoxic on admission - On 2 L of O2 currently -supportive care -follow for signs of aspiration. Episodic Jerky movements-RESOLVED -Continue to hold seroquel and compazine - Likely extrapyrimidal secondary to patient's medication - Will continue to monitor - not acute as family member states present for several months Seizure like activity-RESOLVED - one episode, lasting 20 seconds of tonic clonic activity yesterday early evening. No other reports of episodes overnight. - was treated with Ativan 1mg IV x1 dose - patient with numerous medications/polypharmacy, consideration for review on discharge/or as outpatient. DISCHARGE PLANNING In hospice at [facility] Supervising Physician Co-Signing Physician Notes I personally examined the patient and verified all boyer points of history and exam, discussed case, and agree with decision making with Dr Jimenez. Family opting for inpatient hospice, given the patient's overall decline, and appearance of fairly precipitously declining status overall, this appears quite reasonable. Further since they were taking her from home to SNF, and seem to be struggling with SNF placement certainly it seems reasonable to do hospital level of hospice. Lastly given that her gastric outlet obstruction, should it flareup again, may require NG tube or fairly intensive medical management for symptom control, would be something that would not be very easily done outside of the hospital setting. Vitals noted, in general she is currently in no distress. Family at the bedside discussed extensively. Breathing is unlabored no pallor or icterus. Generalized decline related to CHF/gastric outlet obstruction/weaknessmoved to inpatient hospice. Subjective Pt seen this morning and resting comfortably. Family in agreement for inpatient hospice here at [facility]. Review of Systems Review of Systems: Unobtainable due to cognitive status Physical Exam Physical Exam: General: Resting in bed comfortably. HEENT: NC/AT Chest: Nontender to palpation. CV: RRR, Normal s1, s2. Resp: Breath sounds clear bilaterally on front. Abdomen: Protuberant, firm, distended. Extremities: No edema. Results & Data Vital Signs (Past 12 Hours) Vital Signs Temp Pulse Resp BP Pulse Ox 12/20/18 07:00 36.8 C 63 20 83/47 L 90 12/19/18 23:06 36.5 C 58 L 18 95/59 L 97 Laboratory Results Laboratory Results - last 24 hr 12/19/18 12/19/18 12/20/18 16:26 20:12 07:46 POC Glucose 195 H 184 H 188 H 12/20/18 12/20/18 11:38 16:35 POC Glucose 182 H 171 H Medications Administered Home Medications Ditropan XL 0 mg PO DAILY 12/10/18 [History Confirmed 12/10/18] Levemir U-100 Insulin 25 unit SUBCUT AMPM 12/10/18 [History Confirmed 12/10/18] Novolog Flexpen U-100 Insulin 5 unit SUBCUT BID PRN 12/10/18 [History Confirmed 12/10/18] allopurinol 100 mg PO DAILY 12/10/18 [History Confirmed 12/10/18] amlodipine 10 mg PO DAILY 12/10/18 [History Confirmed 12/10/18] aspirin [Aspir-Low] 81 mg PO DAILY 12/10/18 [History Confirmed 12/10/18] enalapril maleate 10 mg PO DAILY 12/10/18 [History Confirmed 12/10/18] furosemide 40 mg PO AMPM 12/10/18 [History Confirmed 12/10/18] gabapentin 100 mg PO BID 12/10/18 [History Confirmed 12/10/18] guaifenesin [Mucinex] 600 mg PO Q12H 12/10/18 [History Confirmed 12/10/18] haloperidol 1 tab PO Q4 PRN 12/10/18 [History Confirmed 12/10/18] levothyroxine 175 mcg PO DAILY 12/10/18 [History Confirmed 12/10/18] lorazepam 0.5 mg PO Q4 PRN 12/10/18 [History Confirmed 12/10/18] memantine 10 mg PO QPM 12/10/18 [History Confirmed 12/10/18] metoprolol tartrate 50 mg PO BID 12/10/18 [History Confirmed 12/10/18] morphine concentrate 0 mg PO UD PRN 12/10/18 [History Confirmed 12/10/18] nystatin 1 applic TOPICAL UD 12/10/18 [History Confirmed 12/10/18] nystatin 1 applic TOPICAL UD 12/10/18 [History Confirmed 12/10/18] omeprazole 20 mg PO BID 12/10/18 [History Confirmed 12/10/18] ondansetron HCl [Zofran] 4 mg PO TID PRN 12/10/18 [History Confirmed 12/10/18] oxybutynin chloride 5 mg PO BID 12/10/18 [History Confirmed 12/10/18] polyethylene glycol 3350 [Miralax] 17 g PO 5XWK 12/10/18 [History Confirmed 12/10/18] potassium chloride 10 meq PO BID 12/10/18 [History Confirmed 12/10/18] quetiapine 100 mg PO DAILY PRN 12/10/18 [History Confirmed 12/10/18] quetiapine 200 mg PO QPM 12/10/18 [History Confirmed 12/10/18] venlafaxine 150 mg PO DAILY 12/10/18 [History Confirmed 12/10/18]
[2018-12-20] MEDS: guaiFENesin 600 MG TABCR PO SCH (08:19)
[2018-12-20] MEDS: ASPIRIN 81 MG ECTAB PO SCH (08:19)
[2018-12-20] MEDS: ALLOPURINOL 100 MG TAB PO SCH (08:19)
[2018-12-20] MEDS: OXYBUTYNIN CHLORIDE 5 MG TAB PO SCH (08:20)
[2018-12-20] MEDS: PANTOprazole 40 MG TAB PO SCH (08:20)
[2018-12-20] MEDS: VENLAFAXINE HCL XR 150 MG CAPXR PO SCH (08:20)
[2018-12-20] MEDS: INSULIN DETEMIR FLEXPEN/FLEX TOUCH 100 UNITS/ML 3ML SC SCH (09:04)
[2018-12-20] MEDS: INSULIN ASPART 100 UNITS/ML 3 ML PEN SC SCH ×2 (09:04→12:49)
[2018-12-20] MEDS: FUROSEMIDE 40 MG TAB PO SCH (09:05)
[2018-12-20] MEDS: POLYETHYLENE (MIRALAX) 17 GM PACK PO SCH (09:06)
[2018-12-20] MEDS: ENALAPRIL MALEATE 10 MG TAB PO SCH (09:06)
[2018-12-20] MEDS: AMLODIPINE BESYLATE 5 MG TAB PO SCH (09:06)
[2018-12-20] MEDS: METOPROLOL TARTRATE 50 MG TAB PO SCH (09:06)
[2018-12-20] MEDS: GABAPENTIN 100 MG CAP PO SCH (09:06)
[2018-12-20] MEDS ORDERED: MICONAZOLE NITRATE POWDER 43 GM EXT PRN (16:15)
--- NOTE | 2018-12-21 18:46 | Discharge Summary ---
Date of Service December 20, 2018 Admission HPI Per Admitting Provider History of present illness is limited to what family members can provide, due to the patient's altered mental state. The patient had been sent home with hospice care, however, the patient developed severe nausea and vomiting that was not controllable, and the patient brought into the emergency department for assessment. Emergency department has been in contact with hospice company, who agreed to allow the patient to be initially treated today can see the patient later on in the day today. Admission Exam Per Admitting Provider The patient is mildly agitated, nonresponsive, lying in bed and in moderate acute distress. HEENT--PERRL, EOMI, mucous membranes and oropharynx dry. Neck--supple. No JVD. No bruits. Thyroid normal, trachea midline, no adenopathy. Heart--normal S1 and S2. No murmurs rubs or gallops Lungs--few coarse breath sounds bilaterally, overall diminished. Abdomen--no bowel sounds, firm and distended. Extremities--no edema. Dermatologic--normal skin turgor, normal color. No rash Neurologic--cranial nerves II through XII grossly intact. Rheumatologic--deferred Psychiatric--agitated and nonresponsive. Principal Diagnosis Small Bowel Obstruction Discharge Exam General: Resting in bed comfortably. HEENT: NC/AT Chest: Nontender to palpation. CV: RRR, Normal s1, s2. Resp: Breath sounds clear bilaterally on front. Abdomen: Protuberant, firm, distended. Extremities: No edema. Discharge Data Allergies Allergy/AdvReac Type Severity Reaction Status Date / Time No Known Allergies Allergy Unverified 12/10/18 04:45 Consultations 12/10/18 05:20 ED Decision to Admit Stat 12/10/18 06:58 Consult Case Management - Discharge Planning Routine Ordered Studies 12/10/18 03:08 CT abd pelvis wo con Urgent Hospital Course (1) Obtundation: Pt is an 83yo Hospice pt who presented with N/V and was treated with NG tube placement for possible gastric outlet obstruction/ileus. Pt currently being transferred to in hospice. Nausea/vomiting with possible aspiration secondary to ileus continue: -PPI -advanced diet - tolerating -Zofran PRN -cont scopolamine patch Metabolic encephalopathy -Mentation waxes and wanes. - Continuing Memantine -supportive care Aspiration -hypoxic on admission - On 2 L of O2 currently -supportive care -follow for signs of aspiration. Episodic Jerky movements-RESOLVED -Continue to hold seroquel and compazine - Likely extrapyrimidal secondary to patient's medication - Will continue to monitor - not acute as family member states present for several months Seizure like activity-RESOLVED - one episode, lasting 20 seconds of tonic clonic activity yesterday early evening. No other reports of episodes overnight. - was treated with Ativan 1mg IV x1 dose - patient with numerous medications/polypharmacy, consideration for review on discharge/or as outpatient. DISCHARGE PLANNING In hospice at [facility] Total Time Total Time Spent Total Time Spent (In Minutes): >30 Discharge Plan Discharge Items Patient Disposition: Hospice - Medical Facility Reason For Visit: INTRACTABLE NAUSEA AND VOMITING Discharge Diagnosis: SBO Discharge Goals: Decrease discomfort Activity: Per 'Additional Instructions' section Non-emergency contact: Primary Care Provider Call non-emergency contact if: your symptoms worsen Follow-up/Referrals: Luis Siddiqui III, MD [Primary Care Provider] - Diet: Regular Addtl Provider Instructions: Pt being discharged and readmitted to in hospice. Prescriptions: Continued allopurinol 100 mg tablet 100 mg PO DAILY RF: 0 amlodipine 10 mg tablet 10 mg PO DAILY RF: 0 furosemide 40 mg Tablet 40 mg PO AMPM RF: 0 levothyroxine 175 mcg Tablet 175 mcg PO DAILY RF: 0 enalapril maleate 10 mg Tablet 10 mg PO DAILY RF: 0 venlafaxine 150 mg Capsule,Extended Release 24hr 150 mg PO DAILY RF: 0 metoprolol tartrate 50 mg Tablet 50 mg PO BID RF: 0 quetiapine 200 mg Tablet 200 mg PO QPM RF: 0 quetiapine 200 mg Tablet 100 mg PO DAILY PRN (Reason: Unknown) RF: 0 aspirin [Aspir-Low] 81 mg Tablet,Delayed Release (Dr/Ec) 81 mg PO DAILY RF: 0 polyethylene glycol 3350 [Miralax] 17 gram/dose Powder 17 g PO 5XWK RF: 0 memantine 10 mg Tablet 10 mg PO QPM RF: 0 Levemir U-100 Insulin 100 unit/mL Solution 25 unit SUBCUT AMPM RF: 0 omeprazole 20 mg Tablet,Delayed Release (Dr/Ec) 20 mg PO BID RF: 0 gabapentin 100 mg Capsule 100 mg PO BID RF: 0 oxybutynin chloride 5 mg Tablet 5 mg PO BID RF: 0 morphine concentrate 100 mg/5 mL (20 mg/mL) solution PO UD PRN (Reason: severe pain/SOB) RF: 0 ondansetron HCl [Zofran] 4 mg Tablet 4 mg PO TID PRN (Reason: Nausea) RF: 0 lorazepam 0.5 mg Tablet 0.5 mg PO Q4 PRN (Reason: Anxiety) RF: 0 nystatin 100,000 unit/gram Cream 1 applic TOPICAL UD RF: 0 nystatin 100,000 unit/gram Powder 1 applic TOPICAL UD RF: 0 Novolog Flexpen U-100 Insulin 100 unit/mL (3 mL) Insulin Pen 5 unit SUBCUT BID PRN (Reason: if bsg is 200+) RF: 0 guaifenesin [Mucinex] 600 mg Tablet Extended Release 12hr 600 mg PO Q12H RF: 0 haloperidol 1 tab PO Q4 PRN (Reason: Unknown) RF: 0 potassium chloride 10 mEq Tablet Extended Release 10 meq PO BID RF: 0 Ditropan XL PO DAILY RF: 0 Stand-Alone Forms: [facility] Discharge Orders: Discharge Order (Routine); Ordered 12/20/18 Ordered By: Gisel Jimenez Admission Data Admit Date/Time: 12/10/18 05:44 Attending Provider: Kb Benavides Admit Provider: Hammad Marmolejo Primary Care Provider: Luis Siddiqui III Other Providers: Hammad Marmolejo ; Trisha Martinez Service: Medical Other Interventions: Discharge Summary Assessment (RN) Last Done: 12/20/18 16:44 DC Date/Time DO NOT enter until pt leaves facility: 12/20/18 16:45 Supervising Physician Co-Signing Physician Notes I personally examined the patient and verified all boyer points of history and exam, discussed case, and agree with decision making with Dr Jimenez date of discharge and readmission to in hospice 12/20 see progress note
--- NOTE | 2018-12-22 06:32 | History & Physical Report ---
Date of Service unable to edit below - date of service is 12/20/18, NOT 12/22/18 December 22, 2018 Assessment & Plan (1) Admission for hospice care: Ms. Buckley is an 83yo female currently admitted for inpatient hospice care. Urine output minimal and abdomen firm and distended. -Comfort measures only -Tylenol scheduled for pain -Morphine PRN for severe pain -Zofran PRN for nausea/vomitting -Scoplomine patch -Ativan prn for agitation History of Present Illness Chief Complaint: inpatient hospice Primary Care Provider: Luis Siddiqui MD Pt transferred to in hospice Allergies Allergy/AdvReac Type Severity Reaction Status Date / Time No Known Allergies Allergy Unverified 12/10/18 04:45 Home Medications Home Medications Medication Instructions Recorded Confirmed Type Ditropan XL 0 mg PO DAILY 12/10/18 12/10/18 History Levemir U-100 Insulin 25 unit SUBCUT AMPM 12/10/18 12/10/18 History Novolog Flexpen U-100 Insulin 5 unit SUBCUT BID PRN 12/10/18 12/10/18 History allopurinol 100 mg PO DAILY 12/10/18 12/10/18 History amlodipine 10 mg PO DAILY 12/10/18 12/10/18 History aspirin [Aspir-Low] 81 mg PO DAILY 12/10/18 12/10/18 History enalapril maleate 10 mg PO DAILY 12/10/18 12/10/18 History furosemide 40 mg PO AMPM 12/10/18 12/10/18 History gabapentin 100 mg PO BID 12/10/18 12/10/18 History guaifenesin [Mucinex] 600 mg PO Q12H 12/10/18 12/10/18 History haloperidol 1 tab PO Q4 PRN 12/10/18 12/10/18 History levothyroxine 175 mcg PO DAILY 12/10/18 12/10/18 History lorazepam 0.5 mg PO Q4 PRN 12/10/18 12/10/18 History memantine 10 mg PO QPM 12/10/18 12/10/18 History metoprolol tartrate 50 mg PO BID 12/10/18 12/10/18 History morphine concentrate 0 mg PO UD PRN 12/10/18 12/10/18 History nystatin 1 applic TOPICAL UD 12/10/18 12/10/18 History nystatin 1 applic TOPICAL UD 12/10/18 12/10/18 History omeprazole 20 mg PO BID 12/10/18 12/10/18 History ondansetron HCl [Zofran] 4 mg PO TID PRN 12/10/18 12/10/18 History oxybutynin chloride 5 mg PO BID 12/10/18 12/10/18 History polyethylene glycol 3350 [Miralax] 17 g PO 5XWK 12/10/18 12/10/18 History potassium chloride 10 meq PO BID 12/10/18 12/10/18 History quetiapine 100 mg PO DAILY PRN 12/10/18 12/10/18 History quetiapine 200 mg PO QPM 12/10/18 12/10/18 History venlafaxine 150 mg PO DAILY 12/10/18 12/10/18 History Past Med/Surg History Medical History Hyponatremia (Resolved 01/22/12) Unspecified sleep apnea (Chronic) Esophageal reflux (Chronic) Diverticulosis of colon without hemorrhage (Chronic) Diabetic infection of left foot Cellulitis SIADH (syndrome of inappropriate ADH production) Osteomyelitis (Resolved) Hypomagnesemia (Acute) Acute respiratory failure with hypoxia Acute exacerbation of CHF (congestive heart failure) Acute respiratory failure with hypoxia and hypercarbia Family History Other Family history non-contributory Social History Preferred Language: Somali Communication Ability: Impaired Communication Ability Comment: Inpatient Hospice; Unable to communicate. Licensed Physical Therapist Required: No Beliefs That Will Affect Care: None marital status: / Current Living Situation: Family current occupational status: retired Other Information That Helps Us Care for You: No Feels Safe at Home: Declines to Answer Smoking Status: Never smoker Second Hand Exposure: No Hx Alcohol Use: No (Per Medical Record.) Hx Substance Use: No (Per Medical Record.) Review of Systems Review of Systems: Unobtainable due to cognitive status Physical Exam Physical Exam: General: Resting in bed comfortably. HEENT: NC/AT Chest: Nontender to palpation. CV: RRR, Normal s1, s2. Resp: Breath sounds clear bilaterally on front. Abdomen: Protuberant, firm, distended. Extremities: No edema. Code Status & VTE Plan VTE Prophylaxis Plan VTE Prophylaxis will be ordered: Yes Supervising Physician Co-Signing Physician Notes I personally examined the patient and verified all boyer points of history and exam, discussed case, and agree with decision making with Dr Barbara dick. see notes same date. vitals noted nad breathing unlabored no pallor or icterus. appearing comfortable general decline, CHF, gastric outlet obstruction - admit to inpt hospice, comfort measures. family supportive.
--- NOTE | 2018-12-22 18:42 | Discharge Summary ---
Date of Service December 20, 2018 Admission HPI Per Admitting Provider Pt transferred to inpt hospice History of present illness is limited to what family members can provide, due to the patient's altered mental state. The patient had been sent home with hospice care, however, the patient developed severe nausea and vomiting that was not controllable, and the patient brought into the emergency department for assessment. Emergency department has been in contact with hospice company, who agreed to allow the patient to be initially treated today can see the patient later on in the day today. Admission Exam Per Admitting Provider The patient is mildly agitated, nonresponsive, lying in bed and in moderate acute distress. HEENT--PERRL, EOMI, mucous membranes and oropharynx dry. Neck--supple. No JVD. No bruits. Thyroid normal, trachea midline, no adenopathy. Heart--normal S1 and S2. No murmurs rubs or gallops Lungs--few coarse breath sounds bilaterally, overall diminished. Abdomen--no bowel sounds, firm and distended. Extremities--no edema. Dermatologic--normal skin turgor, normal color. No rash Neurologic--cranial nerves II through XII grossly intact. Rheumatologic--deferred Psychiatric--agitated and nonresponsive. Principal Diagnosis SBO Discharge Exam General: Resting in bed comfortably. HEENT: NC/AT Chest: Nontender to palpation. CV: RRR, Normal s1, s2. Resp: Breath sounds clear bilaterally on front. Abdomen: Protuberant, firm, distended. Extremities: No edema. Discharge Data Allergies Allergy/AdvReac Type Severity Reaction Status Date / Time No Known Allergies Allergy Unverified 12/10/18 04:45 Consultations 12/10/18 05:20 ED Decision to Admit Stat 12/10/18 06:58 Consult Case Management - Discharge Planning Routine Ordered Studies 12/10/18 03:08 CT abd pelvis wo con Urgent Hospital Course (1) Admission for hospice care: Ms. Buckley is an 83yo female discharged and currently admitted for inpatient hospice care. Urine output minimal and abdomen firm and distended. -Comfort measures only -Tylenol scheduled for pain -Morphine PRN for severe pain -Zofran PRN for nausea/vomitting -Scoplomine patch -Ativan prn for agitation Total Time Total Time Spent Total Time Spent (In Minutes): >30 Discharge Plan Discharge Items Patient Disposition: Hospice - Medical Facility Reason For Visit: INTRACTABLE NAUSEA AND VOMITING Discharge Diagnosis: SBO Discharge Goals: Decrease discomfort Activity: Per 'Additional Instructions' section Non-emergency contact: Primary Care Provider Call non-emergency contact if: your symptoms worsen Follow-up/Referrals: Luis Siddiqui III, MD [Primary Care Provider] - Diet: Regular Addtl Provider Instructions: Pt being discharged and readmitted to in hospice. Prescriptions: Continued allopurinol 100 mg tablet 100 mg PO DAILY RF: 0 amlodipine 10 mg tablet 10 mg PO DAILY RF: 0 furosemide 40 mg Tablet 40 mg PO AMPM RF: 0 levothyroxine 175 mcg Tablet 175 mcg PO DAILY RF: 0 enalapril maleate 10 mg Tablet 10 mg PO DAILY RF: 0 venlafaxine 150 mg Capsule,Extended Release 24hr 150 mg PO DAILY RF: 0 metoprolol tartrate 50 mg Tablet 50 mg PO BID RF: 0 quetiapine 200 mg Tablet 200 mg PO QPM RF: 0 quetiapine 200 mg Tablet 100 mg PO DAILY PRN (Reason: Unknown) RF: 0 aspirin [Aspir-Low] 81 mg Tablet,Delayed Release (Dr/Ec) 81 mg PO DAILY RF: 0 polyethylene glycol 3350 [Miralax] 17 gram/dose Powder 17 g PO 5XWK RF: 0 memantine 10 mg Tablet 10 mg PO QPM RF: 0 Levemir U-100 Insulin 100 unit/mL Solution 25 unit SUBCUT AMPM RF: 0 omeprazole 20 mg Tablet,Delayed Release (Dr/Ec) 20 mg PO BID RF: 0 gabapentin 100 mg Capsule 100 mg PO BID RF: 0 oxybutynin chloride 5 mg Tablet 5 mg PO BID RF: 0 morphine concentrate 100 mg/5 mL (20 mg/mL) solution PO UD PRN (Reason: severe pain/SOB) RF: 0 ondansetron HCl [Zofran] 4 mg Tablet 4 mg PO TID PRN (Reason: Nausea) RF: 0 lorazepam 0.5 mg Tablet 0.5 mg PO Q4 PRN (Reason: Anxiety) RF: 0 nystatin 100,000 unit/gram Cream 1 applic TOPICAL UD RF: 0 nystatin 100,000 unit/gram Powder 1 applic TOPICAL UD RF: 0 Novolog Flexpen U-100 Insulin 100 unit/mL (3 mL) Insulin Pen 5 unit SUBCUT BID PRN (Reason: if bsg is 200+) RF: 0 guaifenesin [Mucinex] 600 mg Tablet Extended Release 12hr 600 mg PO Q12H RF: 0 haloperidol 1 tab PO Q4 PRN (Reason: Unknown) RF: 0 potassium chloride 10 mEq Tablet Extended Release 10 meq PO BID RF: 0 Ditropan XL PO DAILY RF: 0 Stand-Alone Forms: [facility] Discharge Orders: Discharge Order (Routine); Ordered 12/20/18 Ordered By: Gisel Jimenez Admission Data Admit Date/Time: 12/10/18 05:44 Attending Provider: Kb Benavides Admit Provider: Hammad Marmolejo Primary Care Provider: Luis Siddiqui III Other Providers: Hammad Marmolejo ; Trisha Martinez Service: Medical Other Interventions: Discharge Summary Assessment (RN) Last Done: 12/20/18 16:44 DC Date/Time DO NOT enter until pt leaves facility: 12/20/18 16:45 Supervising Physician Co-Signing Physician Notes I personally examined the patient and verified all boyer points of history and exam, discussed case, and agree with decision making with Dr Jimenez duplicate note see other dc summary
== END 2018-12-20 16:45 | disposition hospice, inpatient (51) | DRG 388 ==
LOC: ED 02:28 → 4E 05:44 → SUATTDRO 05:44 → 4E 06:22

== ENCOUNTER 2018-12-20 16:47 | Inpatient (IN) ==
[2018-12-20] MEDS ORDERED: ACETAMINOPHEN 325 MG TAB PO PRN (16:54)
[2018-12-20] MEDS ORDERED: LORazepam 0.25 MG/0.5 ML VIAL IV PRN (18:50)
[2018-12-20] MEDS: ACETAMINOPHEN 1,000 MG/100 ML VIAL IV PRN (18:58)
[2018-12-21] MEDS: ACETAMINOPHEN 1,000 MG/100 ML VIAL IV PRN (09:45)
[2018-12-21] MEDS: ACETAMINOPHEN 1,000 MG/100 ML VIAL IV SCH ×2 (15:41→23:41)
[2018-12-21] MEDS: SCOPOLAMINE 1.5 MG TDSY TD SCH (16:34)
--- NOTE | 2018-12-21 17:35 | Family Medicine Progress Note ---
Date of Service December 21, 2018 Assessment & Plan (1) Admission for hospice care: Ms. Buckley is an 83yo female currently admitted for inpatient hospice care. Urine output minimal and abdomen firm and distended. -Comfort measures only -Tylenol scheduled for pain -Morphine PRN for severe pain -Zofran PRN for nausea/vomitting -Scoplomine patch -Ativan prn for agitation Supervising Physician Co-Signing Physician Notes I personally examined the patient and verified all boyer points of history and exam, discussed case, and agree with decision making with Dr Jimenez. Patient appearing comfortable, she is not offering any complaints right now and is not awake. Family notes that she was awake a little bit earlier and did eat a little bit. Numerous family members are present I update them on everything that we are seeing, they are pleased with her current comfort care. All questions answered to the best my ability and to their satisfaction. General she is sleeping peacefully no distress. HEENT normocephalic atraumatic breathing unlabored no accessory muscle use. She appears comfortable. Skin shows no pallor. Comfort care/severe congestive heart failure/generalized decline/gastric outlet obstructioncontinue current care. She appears comfortable. Family pleased with care. Continue inpatient hospice. Subjective Ms. Buckley was alert this morning. Asked how long she would be in the hospital and stated she would like to go home. Her urine output is significantly decreased and abdomen is firm and distended. Family wishes comfort measures only and are seeking inpt hospice services here. Review of Systems Review of Systems: Unobtainable due to cognitive status Physical Exam Physical Exam: General: Resting in bed comfortably. HEENT: NC/AT Chest: Nontender to palpation. CV: RRR, Normal s1, s2. Resp: Breath sounds clear bilaterally on front. Abdomen: Protuberant, firm, distended. Extremities: No edema.
[2018-12-21] MEDS: CHECK SCOPOLAMINE PATCH PLACEMENT SCH (23:46)
[2018-12-22] MEDS: CHECK SCOPOLAMINE PATCH PLACEMENT SCH ×2 (08:01→16:05)
[2018-12-22] MEDS: ACETAMINOPHEN 1,000 MG/100 ML VIAL IV SCH (08:04)
--- NOTE | 2018-12-22 09:35 | Family Medicine Progress Note ---
Date of Service December 22, 2018 Assessment & Plan (1) Admission for hospice care: Ms. Buckley is an 83yo female currently admitted for inpatient hospice care. Urine output minimal and abdomen firm and distended. -Comfort measures only -Tylenol scheduled for pain -Morphine PRN for severe pain -Zofran PRN for nausea/vomitting -Scoplomine patch -Ativan prn for agitation -Miralax added today per family request Supervising Physician Co-Signing Physician Notes I personally examined the patient and verified all boyer points of history and exam, discussed case, and agree with decision making with Dr Ojevwe. Palafox present at the bedside. He notes that earlier today she talked to the hospice nurse about feeling a little bit constipated. Otherwise she appears comfortable and is not had any complaints. She ate just a little bit earlier today but not much. Otherwise she has been peaceful and comfortable. Vitals noted, in general she is sleeping comfortably no distress. HEENT normal cephalic atraumatic. Breathing is unlabored no accessory muscle use. Skin shows no rashes no pallor or icterus. Her abdomen is visibly more distended than it was at the beginning the week but not really much more than the last s everal days. Comfort careinpatient hospice related to congestive heart failure/gastric outlet obstruction/General declinecontinue supportive care, she appears to be comfortable right now. Given that she was complaining a little bit of constipation earlier we can give MiraLAX and follow to make sure it does not cause any new gastric symptoms abdominal cramping etc. Otherwise if it helps her move her bowels it may help her to be more comfortable. Otherwise continue supportive/comfort care. Subjective Ms. Buckley was resting comfortably this morning. Family at bedside, requesting some laxative be given for comfort. States pt stated last night she needed to move her bowels. Review of Systems Review of Systems: Unobtainable due to cognitive status Physical Exam Physical Exam: General: Resting in bed comfortably. HEENT: NC/AT Chest: Nontender to palpation. CV: RRR, Normal s1, s2. Resp: Breath sounds clear bilaterally on front. Abdomen: Protuberant, firm, distended. Extremities: No edema.
[2018-12-22] MEDS: POLYETHYLENE (MIRALAX) 17 GM PACK PO PRN (13:26)
[2018-12-22] MEDS: ACETAMINOPHEN 1,000 MG/100 ML VIAL IV PRN (17:52)
[2018-12-23] MEDS: ONDANSETRON INJ 2 MG/ML 2 ML VIAL IV PRN ×4 (00:18→21:31)
[2018-12-23] MEDS: CHECK SCOPOLAMINE PATCH PLACEMENT SCH ×4 (01:26→23:26)
[2018-12-23] MEDS: POLYETHYLENE (MIRALAX) 17 GM PACK PO PRN (07:50)
[2018-12-23] MEDS: ACETAMINOPHEN 1,000 MG/100 ML VIAL IV PRN ×2 (08:00→15:37)
--- NOTE | 2018-12-23 09:12 | Family Medicine Progress Note ---
Date of Service December 23, 2018 Assessment & Plan (1) Admission for hospice care: Ms. Buckley is an 83yo female currently admitted for inpatient hospice care. Urine output minimal and abdomen firm and distended. Family requesting enema today. Episodes of brown emesis overnight -Likely secondary to another small bowel obstruction and backing up of stools -would also explain abd distention and firmness. -after discussions with family, no further intervention desired for this. -Ensure pt comfortable. -Give zofran to help with nausea Inpatient Hospice -Comfort measures only -Tylenol scheduled for pain -Morphine PRN for severe pain -Zofran PRN for nausea/vomitting -Scoplomine patch -Ativan prn for agitation -Miralax prn, enema ordered today Supervising Physician Co-Signing Physician Notes I personally examined the patient and verified all boyer points of history and exam, discussed case, and agree with decision making with Dr Jimenez. Patient appearing comfortable, she is not offering any complaints right now and is not awake. Nursing notes that they feel they have adequate measures to keep her pain and nausea under control. Family continues to ask questions about her gastric distention. In the way the questioning is asked that always gives me pause as to whether or not they truly have an understanding of hospice/comfort care. Every time I then answered their questions as well as assess their overall plan for her, they do end up expressing his desire to just for comfort care. It seems that in their emotional struggles with her passing, they tend to focus on more of the minor and medical type details. However whenever we talk about plans and why working to keep her comfortable as the goal not evaluating and treating the disease process, they all express agreement with this, and there are today probably the better part of 10 family members in the room. Cortes and I do the bulk of the actual discussion, but there are other family members nodding in agreement expressing understanding and denying any further questions. General she is sleeping peacefully no distress. HEENT normocephalic atraumatic breathing unlabored no accessory muscle use. She appears comfortable. Abdomen actually slightly less distended than the last I palpated, it is not tense and it does not appear tender, it is still moderately distended overall. Skin shows no pallor. Comfort care/severe congestive heart failure/generalized decline/gastric outlet obstructioncontinue current care. She appears comfortable. Extensive discussions with family as above noted, overall goal is comfort. Continue inpatient hospice. Can escalate medications of pain or nausea worsen, but in discussion with nursing right now they believe they have adequate measures to keep her comfortable. Subjective 2 episodes of brown fecal-like emesis overnight. Made comfortable with Zofran. Review of Systems Review of Systems: Unobtainable due to cognitive status Physical Exam Physical Exam: General: Resting in bed comfortably. HEENT: NC/AT Chest: Nontender to palpation. CV: RRR, Normal s1, s2. Resp: Breath sounds clear bilaterally on front. Abdomen: Protuberant, firm, distended. Extremities: No edema.
[2018-12-23] MEDS ORDERED: SOD PHOSPHATE/SOD BIPHOSPHATE ENEMA 132 ML BTL PR PRN (12:42)
[2018-12-23] MEDS ORDERED: Nursing to Pharmacy Communication ONE (18:28)
[2018-12-23] MEDS: PROMETHAZINE HCL 12.5 MG in SODIUM CHLORIDE 0.9% 50 ML IV PRN ×2 (19:09→23:55)
[2018-12-23] MEDS: MoRPHine SULFATE 2 MG/ML CARP IV PRN (19:09)
[2018-12-24] MEDS: MoRPHine SULFATE 2 MG/ML CARP IV PRN (05:20)
[2018-12-24] MEDS: CHECK SCOPOLAMINE PATCH PLACEMENT SCH ×2 (08:06→15:40)
[2018-12-24] MEDS: ONDANSETRON INJ 2 MG/ML 2 ML VIAL IV PRN (08:08)
--- NOTE | 2018-12-24 08:29 | Family Medicine Progress Note ---
Date of Service December 24, 2018 Assessment & Plan (1) Admission for hospice care: Ms. Buckley is an 83yo female currently admitted for inpatient hospice care.Urine output minimal and abdomen firm and distended. Patient stated she did not want a nasogastric tube today/ Episodes of brown emesis overnight -Last episode was over the weekend per nursing and a small formed bowel movement yesterday -Likely secondary to another small bowel obstruction and backing up of stools -Patient and family do not wish an NG tube to be placed for palliation at this point, will reassess tomorrow -Zofran as needed for nausea Inpatient Hospice -Comfort measures only -Tylenol scheduled for pain -Morphine PRN for severe pain -Zofran PRN for nausea/vomitting -Scoplomine patch -Ativan prn for agitation -Miralax prn Supervising Physician Co-Signing Physician Notes Patient seen and examined with Dr. Warren. Agree with history, exam, assessment and plan of care as outlined. Daughter at the bedside this morning. Ms. Buckley is an 83yo female currently admitted for inpatient hospice care. Urine output minimal and abdomen firm and distended secondary to obstruction. Enemas yesterday. No further episodes of fecal emesis overnight. When patient was asked whether or not she wants an NGT for comfort she stated not yet. 1. Admission for hospice care. Continue comfort care. Discussed case with hospice nurse. Call in to speak with hospice medical technician assistant regarding whether or not NGT would be appropriate at any time. Daughter understands risks/benefits of NGT and admits that family is struggling at this point. Provided emotional support today. 2. SBO. Zofran for nausea. Hold off NGTpatient does not want it. 3. Hospice care, CERTIFIED CODING SPECIALIST only. Dispo: daughter seeing what facility hospice options are available. I think at some point we may need to consider a hospice bed at a SNF or other facility if there are no indications for inpatient hospice care. Will work with family, hosp ice providers and care managers to coordinate this if necessary. Subjective Episodes of brown emesis have resolved. Lengthily discussion with the patient's daughter regarding goals of care and prognosis. Patient may benefit from nasogastric tube placement for palliation. Patient's daughter states the patient would like to be DNR however this would require a family discussion discussion, furthermore she is concerned that placement of a nasogastric tube would invalidate patient's hospice status. We curb sided the hospice nurse will be checking with her foundry supervisor. The patient was able to become lucid for a period of time during her interview today at which point she clearly verbalized at this time she did not want a nasogastric tube. We will plan to continue with inpatient hospice however as the patient's prognosis is uncertain would recommend considering [facility] facility placement Physical Exam 2 Physical Exam: General: Resting in bed in no acute distress Eyes: Deferred Neck: Normal to visual inspection Chest: Clear to auscultation Cardiac: Regular rate and rhythm GI: Distended tender to palpation, hypoactive bowel sounds MSK: Deferred Skin: Deferred Neuro: Consciousness waxes and wanes Psych: As above Resident Activity Tracking Resident Involvement: Resident Care Provided Care Provided: Adult Hospital Medicine
[2018-12-24] MEDS: SCOPOLAMINE 1.5 MG TDSY TD SCH (15:41)
[2018-12-25] MEDS: CHECK SCOPOLAMINE PATCH PLACEMENT SCH ×3 (01:42→18:11)
--- NOTE | 2018-12-25 07:53 | Family Medicine Progress Note ---
Date of Service December 25, 2018 Assessment & Plan (1) Admission for hospice care: Ms. Buckley is an 83yo female currently admitted for inpatient hospice care. Urine output minimal and abdomen firm and distended. S/P NG Tube Placement -See above -Per nursing drained approximately 500 mL of what appeared to be liquid stool by color and smell -Tube can remain in as long as patient tolerates, will evaluate further need on a daily basis, do not use restraints Episodes of brown emesis over last weekend -Last episode was over the weekend 12/21-12/22 per nursing and a small formed bowel movement yesterday 12/23 -Likely secondary to another small bowel obstruction and backing up of stools -Zofran as needed for nausea Inpatient Hospice -Comfort measures only, palliative consult placed appreciate recommendations -Tylenol scheduled for pain -Morphine PRN for severe pain -Zofran PRN for nausea/vomitting -Scoplomine patch -Ativan prn for agitation -Miralax prn Supervising Physician Co-Signing Physician Notes Patient seen and examined with Dr. Warren. Agree with history, exam, assessment and plan of care as outlined. Daughter at the bedside this morning. Ms. Buckley is an 83yo female currently admitted for inpatient hospice care. Urine output minimal and abdomen firm and distended secondary to obstruction. No further episodes of fecal emesis. Discussed with daughter (on the phone) and granddaughter risks/benefits of NGT. Patient agreeable for NGT for comfort. 1. Admission for hospice care. Continue comfort care. Discussed case with kaylan walsh nurse. 2. SBO. Zofran for nausea. NGT to low intermittent suction. 3. Hospice care, TECHNICAL MARKETING ENGINEER only. Dispo: Family meeting tomorrow at 10am. Subjective Patient resting comfortably in bed this morning in no acute distress. Granddaughter was at her bedside. We were alerted by the hospice nurse that the family wishes to have an NG tube placed in restraints on the patient for palliation of abdominal distention. While in the patient's room with the granddaughter present we contacted the patient's daughter and had a lengthy conversation regarding goals of care. We explained to the family that well of NG tube was appropriate for palliative purposes restraints were not appropriate and if the patient pulled out her NG tube it was likely causing her more discomfort than the abdominal pain. The family was agreeable we also asked the patient if she would like the NG tube, the patient responded yes. The family relayed their frustration to the primary team with conflicting messages we explained that as the patient's status changes so does her prognosis and corresponding management options. All questions were answered, no concerns at p resent, reassured the family that we are available if they require assistance. A family meeting is scheduled for tomorrow to discuss goals of care. Physical Exam Physical Exam: General: Resting in bed in no acute distress Eyes: Deferred Neck: Normal to visual inspection Chest: Clear to auscultation Cardiac: Regular rate and rhythm GI: Distended tender to palpation, hypoactive bowel sounds MSK: Deferred Skin: Deferred Neuro: Consciousness waxes and wanes Psych: As above Resident Activity Tracking Resident Involvement: Resident Care Provided Care Provided: Adult Hospital Medicine
--- NOTE | 2018-12-25 12:03 | XRay Report ---
XR chest 1V portable HISTORY: confirm NG placement COMPARISON: Chest 04/22/2018. FINDINGS: There are low lung volumes. No pneumothorax. No pleural effusions. The heart remains border line enlarged. There is mild central pulmonary vascular congestion without overt edema. This has impr danita. Bibasilar linear densities favor subsegmental atelectasis. Nasogastric tube terminates below th e diaphragm. The tip terminates in the distal stomach. Partially visualized dilated loops of bowel ar e again noted. IMPRESSION: Nasogastric tube terminates in the distal stomach. Electronically signed by: Les Ibarra M.D. 12/25/2018 12:02 PM
[2018-12-25] MEDS: MoRPHine SULFATE 2 MG/ML CARP IV PRN (20:36)
[2018-12-26] MEDS: CHECK SCOPOLAMINE PATCH PLACEMENT SCH ×5 (00:58→23:35)
--- NOTE | 2018-12-26 08:28 | Family Medicine Progress Note ---
Date of Service December 26, 2018 Assessment & Plan (1) Admission for hospice care: Ms. Buckley is an 83yo female currently admitted for inpatient hospice care. Urine output minimal and abdomen firm and distended. Inpatient Hospice -Family will be taking a tour of [facility] tomorrow, given that the patient's prognosis fluctuates on almost a daily basis, we will update the plan daily. For now the plan will be to transfer to a assisted facility over the next day or 2. -Comfort measures only -Tylenol scheduled for pain -Morphine PRN for severe pain -Zofran PRN for nausea/vomitting -Scoplomine patch -Ativan prn for agitation -Miralax prn S/P NG Tube Placement -See above -Per nursing drained approximately 500 mL of what appeared to be liquid stool by color and smell, overnight an additional 400 ml -Plan to keep tube in overnight and potentially DC tomorrow depending upon disposition. Episodes of brown emesis over last weekend -Last episode was over the weekend 12/21-12/22 per nursing and a small formed bowel movement yesterday 12/23 -Likely secondary to another small bowel obstruction and backing up of stools -Zofran as needed for nausea Supervising Physician Co-Signing Physician Notes Patient seen and examined with Dr. Warren. Agree with history, exam, assessment and plan of care as outlined. Ms. Buckley is an 83yo female currently admitted for inpatient hospice care. Urine output minimal and abdomen firm and distended secondary to obstruction, but softer than yesterday. No further episodes of fecal emesis. 1. Admission for hospice care. Continue comfort care. Discussed case with hospice nurse. 2. SBO. Zofran for nausea. NGT to low intermittent suction. 300cc output from 11-7a. If output is not significant tomorrow and not getting much comfort from tube, then will plan to remove. 3. Hospice care, ICT QUALITY ASSURANCE ENGINEER only. Subjective Goals of care meeting this morning with palliative team, case management, and primary team. The patient's family is frustrated as they feel her prognosis keeps changing and that changes whether she will could require in-hospital care or a assisted facility. We explained to the family today that is not possible to know when or how a person will pass and then in the situations we take it on the day by day basis. Family was agreeable and will be arranging a tour of [facility] tomorrow. Patient reports she has marginal improvement in pain today, likely indicating that NG tube is providing some comfort. Patient's consciousness continues to wax and wane no acute complaints at present all questions answered. Physical Exam Physical Exam: General: Resting in bed in no acute distress Eyes: Deferred Neck: Normal to visual inspection Chest: Clear to auscultation Cardiac: Regular rate and rhythm GI: less distended, not as tender to palpation, hypoactive bowel sounds MSK: Deferred Skin: Deferred Neuro: Consciousness waxes and wanes Psych: As above Resident Activity Tracking Resident Involvement: Resident Care Provided Care Provided: Adult Hospital Medicine
[2018-12-26] MEDS: ACETAMINOPHEN 1,000 MG/100 ML VIAL IV PRN (09:58)
--- NOTE | 2018-12-26 12:58 | Palliative Care Consultation ---
Date of Consultation December 26, 2018 Assessment & Plan (1) Palliative care encounter: -83 year old female patient with PMH obesity, dementia, CHF, KELI not tolerant of CPAP, and others, who was on home hospice for end-stage heart failure since April 2018 presented to the hospital with acute onset of vomiting. She was found to have gastric outlet obstruction, NGT was placed for decompression. NGT was then removed. Patient was not doing well, had some aspiration pneumonia, was placed on inpatient hospice and was initially expected to pass away in the hospital. Since then, her mental status has waxed and waned. Abdomen apparently was becoming more distended. She was given an enema, had one small bowel movement two days ago. Family was concerned about her abdominal distention, however patient was not showing any signs of discomfort. Another NGT was placed yesterday for decompression. It initially put out about 500ml brown liquid which was thought to be stool. Prior to placing the NGT, patient had only vomited twice in the last 5-6 days. Today, her condition really is not changed. The patient's daughter/POA, Chapis Herrera, has been voicing some frustrations with receiving conflicting/differing information from different providers, nurses and case management associate about prognosis, treatment plan, plan of care, etc. Today, family meeting was held to clarify plan and goals of care. Palliative care consulted to be of assistance. -patient known to me as I saw her in April 2018 and ordered the hospice evaluation. -patient is still awake at times, able to answer questions appropriately. Patient stated today that she occasionally has some abdominal pain but is "otherwise pretty good." She currently had no pain when I was in the room. Patient could not verbalize feeling much of a difference in her condition, comfort level, or abdomen since the placement of NGT. -Daughter Chapis Herrera and surendra's [id number], Kaylie, present for family meeting as well as myself, hospice nurse Flor, briefcase sewer Neelima, and Drs. Warren and Laura. -We discussed patient's medical condition as well as treatment plan. It was agreed upon by all that if the NGT did not put out a significant amount of liquid today, it would be removed tomorrow. Nausea can be treated with medication. Pain can be treated with morphine as needed as well. -Chapis is touring [facility] tomorrow, however, they do not have beds open currently. She has already toured [facility], but patient will need NGT removed before going there. Chapis to make a decision on which facility to send patient to. Case management assisting. -Would convert morphine to Roxanol (liquid morphine which is absorbed by buccally) 5mg PO/SL Q3h PRN pain or SOB. Convert Zofran to sublingual. -Reiterated to surendra's daughter and [id number] that patient's life expectancy is currently days to weeks given her decreased intake, oliguria, history of CHF/CKD/KELI/dementia/etc. Also reiterated that patient's condition can change acutely at any time, if that happens we will reconvene and talk about plan. -Patient's daughter stated that all of her questions were answered to her satisfaction and she is feeling better. -Palliative will continue to follow as needed. (2) Admission for hospice care: (3) Gastric outlet obstruction: (4) Gastric distention: History of Present Illness Attending Physician: Yuriy Sanchez DO History of Present Illness This 83 year old female patient with PMH obesity, dementia, CHF, KELI not tolerant of CPAP, and others, who was on home hospice for end-stage heart failure since April 2018 presented to the hospital with acute onset of vomiting. She was found to have gastric outlet obstruction, NGT was placed for decompression. NGT was then removed. Patient was not doing well, had some aspiration pneumonia, was placed on inpatient hospice and was initially expected to pass away in the hospital. Since then, her mental status has waxed and waned. Abdomen apparently was becoming more distended. She was given an enema, had one small bowel movement two days ago. Family was concerned about her abdominal distention, however patient was not showing any signs of discomfort. Another NGT was placed yesterday for decompression. It initially put out about 500ml brown liquid which was thought to be stool. Prior to placing the NGT, patient had only vomited twice in the last 5-6 days. Today, her condition really is not changed. The patient's daughter/POA, Chapis Herrera, has been voicing some frustrations with receiving conflicting/differing information from different providers, nurses and case management associate about prognosis, treatment plan, plan of care, etc. Today, family meeting was held to clarify plan and goals of care. Palliative care consulted to be of assistance. Thank you kindly for this consult. I will follow throughout hospitalization. Allergies Allergy/AdvReac Type Severity Reaction Status Date / Time No Known Allergies Allergy Unverified 12/10/18 04:45 Home Medications Home Medications Medication Instructions Recorded Confirmed Type Ditropan XL 0 mg PO DAILY 12/10/18 12/10/18 History Levemir U-100 Insulin 25 unit SUBCUT AMPM 12/10/18 12/10/18 History Novolog Flexpen U-100 Insulin 5 unit SUBCUT BID PRN 12/10/18 12/10/18 History allopurinol 100 mg PO DAILY 12/10/18 12/10/18 History amlodipine 10 mg PO DAILY 12/10/18 12/10/18 History aspirin [Aspir-Low] 81 mg PO DAILY 12/10/18 12/10/18 History enalapril maleate 10 mg PO DAILY 12/10/18 12/10/18 History furosemide 40 mg PO AMPM 12/10/18 12/10/18 History gabapentin 100 mg PO BID 12/10/18 12/10/18 History guaifenesin [Mucinex] 600 mg PO Q12H 12/10/18 12/10/18 History haloperidol 1 tab PO Q4 PRN 12/10/18 12/10/18 History levothyroxine 175 mcg PO DAILY 12/10/18 12/10/18 History lorazepam 0.5 mg PO Q4 PRN 12/10/18 12/10/18 History memantine 10 mg PO QPM 12/10/18 12/10/18 History metoprolol tartrate 50 mg PO BID 12/10/18 12/10/18 History morphine concentrate 0 mg PO UD PRN 12/10/18 12/10/18 History nystatin 1 applic TOPICAL UD 12/10/18 12/10/18 History nystatin 1 applic TOPICAL UD 12/10/18 12/10/18 History omeprazole 20 mg PO BID 12/10/18 12/10/18 History ondansetron HCl [Zofran] 4 mg PO TID PRN 12/10/18 12/10/18 History oxybutynin chloride 5 mg PO BID 12/10/18 12/10/18 History polyethylene glycol 3350 [Miralax] 17 g PO 5XWK 12/10/18 12/10/18 History potassium chloride 10 meq PO BID 12/10/18 12/10/18 History quetiapine 100 mg PO DAILY PRN 12/10/18 12/10/18 History quetiapine 200 mg PO QPM 12/10/18 12/10/18 History venlafaxine 150 mg PO DAILY 12/10/18 12/10/18 History Patient History Social History Preferred Language: Moldovan Communication Ability: Impaired Communication Ability Comment: Inpatient Hospice; Unable to communicate. Senior Qa Engineer Required: No Beliefs That Will Affect Care: None marital status: / Current Living Situation: Family current occupational status: retired Other Information That Helps Us Care for You: No Feels Safe at Home: Declines to Answer Smoking Status: Never smoker Second Hand Exposure: No Hx Alcohol Use: No (Per Medical Record.) Hx Substance Use: No (Per Medical Record.) Review of Systems Ear, Nose, Mouth, Throat: no dry mouth Respiratory: no cough and no dyspnea Cardiovascular: no chest pain Gastrointestinal: + abdominal pain (occasionally, none at this time); no nausea and no vomiting Neurologic: + memory loss (dementia at baseline) Physical Exam Constitutional: + ill appearing and + obese; no acute distress ENMT: external ear and nose normal, oropharynx normal Ears: no hearing impairment Neck: + thick neck Respiratory: normal respiratory effort, lungs clear to auscultation Auscultation: + diminished lung sounds Cardiovascular: RRR, no murmur, no edema Vessels: dorsalis pedis pulses present Gastrointestinal (Abdomen): Inspection/Auscultation: + abdomen distended and + hypoactive bowel sounds Percussion/Palpation: abdomen soft; abdomen nontender and no guarding Skin: no rashes, warm and dry Neurologic: awake; not confused Psychiatric: Orientation: oriented x 3 Time Spent Midlevel 105 minutes with >50% of time spent at bedside with patient, family, providers, case management, and hospice nurse discussing condition and POC.
[2018-12-26] MEDS: MoRPHine SULFATE 2 MG/ML CARP IV PRN (17:25)
[2018-12-27] MEDS: CHECK SCOPOLAMINE PATCH PLACEMENT SCH ×3 (07:56→23:25)
[2018-12-27] MEDS ORDERED: MoRPHine SULFATE 5 MG/0.25 ML UDP PO PRN (09:19)
[2018-12-27] MEDS ORDERED: ONDANSETRON 4 MG OD TAB PO PRN (09:21)
--- NOTE | 2018-12-27 09:26 | Family Medicine Progress Note ---
Date of Service December 27, 2018 Assessment & Plan (1) Admission for hospice care: Ms. Buckley is an 83yo female currently admitted for inpatient hospice care. Urine output minimal and abdomen firm and distended. Inpatient Hospice -Family will be taking a tour of [facility] tomorrow, given that the patient's prognosis fluctuates on almost a daily basis, we will update the plan daily. For now the plan will be to transfer to a alf facility over the next day or 2. -Comfort measures only -Tylenol scheduled for pain -DC morphine and transferred to Roxanol 5 mg every 3 hours per palliative -DC'd IV Zofran and transition to Zofran ODT 4 mg every 4 hours per palliative -Scoplomine patch -Ativan prn for agitation -Miralax prn S/P NG Tube Placement -Plan to DC NG tube today -NG tube drained 300 mils overnight Episodes of brown emesis over last weekend -Last episode was over the weekend 12/21-12/22 per nursing and a small formed bowel movement yesterday 12/23 -Likely secondary to another small bowel obstruction and backing up of stools -Zofran as needed for nausea dispo: [facility] will have a bed available on Monday, the patient's daughter needs to confer with her brothers regarding where she would like her mother transferred for end-of-life care. Supervising Physician Co-Signing Physician Notes Patient seen and examined with Dr. Warren. Agree with history, exam, assessment and plan of care as outlined. Ms. Buckley is an 83yo female currently admitted for inpatient hospice care. Urine output minimal and abdomen firm and distended secondary to obstruction, but softer than in previous days. No further episodes of emesis. 1. Admission for hospice care. Continue comfort care. Discussed case with hospice nurse. Appreciate palliative care recommendations. 2. SBO. Zofran for nausea. NGT removed today. 3. Hospice care, AUDITING CONTROL CLERK only. Dipso: looking for SNF hospice bed for transfer provided she remains stable cli nically. Subjective Patient's consciousness continues to wax and wane laying in bed in no acute distress this afternoon with her daughter at her bedside. Patient's NG tube is still in place plan to remove this afternoon. Patient in no acute distress, reporting no pain, and still making urine. Her daughter toward [facility] today and will be speaking with her brothers this evening regarding where they would like the patient transferred to for hospice care. Answered all questions, no acute concerns at present. Physical Exam Physical Exam: General: Resting in bed in no acute distress Eyes: Deferred Neck: Normal to visual inspection Chest: Clear to auscultation Cardiac: Regular rate and rhythm GI: less distended, not as tender to palpation, hypoactive bowel sounds MSK: Deferred Skin: Deferred Neuro: Consciousness waxes and wanes Psych: As above Resident Activity Tracking Resident Involvement: Resident Care Provided Care Provided: Adult Hospital Medicine
--- NOTE | 2018-12-27 13:16 | Palliative Care Progress Note ---
Date of Service December 27, 2018 Assessment & Plan (1) Palliative care encounter: -Patient is awake and denies complaints today. -Daughter, Chapis Herrera, at bedside. She has a tour of [facility] today. She will then need to discuss things with her family. -Patient's NGT is still in place, put out 300ml over night, but uncertain if she had any intake. Patient denies abdominal pain or discomfort. Her abd is soft. No nausea. Would consider removing NGT today--will defer to hospitalist/resident team. -Continue to provide comfort and supportive care to patient and family. Will continue to follow. (2) Admission for hospice care: (3) Gastric outlet obstruction: (4) Gastric distention: Subjective Patient remains about the same today. No new complaints. Is awake and comfortable. Daughter Chapis Herrera at bedside. Review of Systems Ear, Nose, Mouth, Throat: no dry mouth Respiratory: no cough and no dyspnea Cardiovascular: no chest pain and no edema Gastrointestinal: no abdominal pain, no nausea and no vomiting Neurologic: no confusion Psychiatric: no anxiety Physical Exam Constitutional: + ill appearing and + obese; no acute distress ENMT: external ear and nose normal, oropharynx normal Ears: no hearing impairment Neck: + thick neck Respiratory: normal respiratory effort, lungs clear to auscultation Auscultation: + diminished lung sounds Cardiovascular: RRR, no murmur, no edema Vessels: dorsalis pedis pulses present Gastrointestinal (Abdomen): Inspection/Auscultation: + abdomen distended and + hypoactive bowel sounds Percussion/Palpation: abdomen soft; abdomen nontender and no guarding Skin: no rashes, warm and dry Neurologic: awake; not confused Psychiatric: Orientation: oriented x 3 Time Spent Midlevel 35 minutes with >50% of time spent at bedside with patient and family discussing plan and EOL issues.
[2018-12-27] MEDS: SCOPOLAMINE 1.5 MG TDSY TD SCH (16:23)
[2018-12-27] MEDS: SENNA 8.8 MG/5 ML UDP PO SCH (19:50)
[2018-12-28] MEDS: CHECK SCOPOLAMINE PATCH PLACEMENT SCH (07:37)
--- NOTE | 2018-12-28 07:47 | Family Medicine Progress Note ---
Date of Service December 28, 2018 Assessment & Plan (1) Admission for hospice care: Ms. Buckley is an 83yo female currently admitted for inpatient hospice care. Urine output minimal and abdomen firm and distended. Inpatient Hospice -Family will be taking a tour of [facility] tomorrow, given that the patient's prognosis fluctuates on almost a daily basis, we will update the plan daily. For now the plan will be to transfer to a [facility] facility over the next day or 2. -Comfort measures only -Tylenol scheduled for pain -DC morphine and transferred to Roxanol 5 mg every 3 hours per palliative -DC'd IV Zofran and transition to Zofran ODT 4 mg every 4 hours per palliative -Scoplomine patch -Ativan prn for agitation -Miralax prn S/P NG Tube Placement -Plan to DC NG tube today -NG tube drained 300 mils overnight Episodes of brown emesis over last weekend -Last episode was over the weekend 12/21-12/22 per nursing and a small formed bowel movement yesterday 12/23 -Likely secondary to another small bowel obstruction and backing up of stools -Zofran as needed for nausea dispo: [facility] will have a bed available on Monday, the patient's daughter needs to confer with her brothers regarding where she would like her mother transferred for end-of-life care.
--- NOTE | 2018-12-28 09:35 | Palliative Care Progress Note ---
Date of Service December 28, 2018 Assessment & Plan (1) Palliative care encounter: -Patient is more awake and denies complaints today. -Moving bowels now, no abd pain, NGT out. Urine output increased. +bowel sound throughout. -With improved condition, plan is to discharge to [facility] today. Hospice care will continue. -Please contact me with any further palliative care needs. (2) Admission for hospice care: (3) Gastric outlet obstruction: (4) Gastric distention: Subjective Patient more awake and denies complaints today. Moving bowels now, no abd pain, NGT out. Urine output increased. Review of Systems Review of Systems: Denies abd pain, N/V, abdominal distension, chest pain, SOB, or generalized pain. Physical Exam Constitutional: + ill appearing and + obese; no acute distress ENMT: external ear and nose normal, oropharynx normal Ears: no hearing impairment Neck: + thick neck Respiratory: normal respiratory effort, lungs clear to auscultation Auscultation: + diminished lung sounds Cardiovascular: RRR, no murmur, no edema Vessels: dorsalis pedis pulses present Gastrointestinal (Abdomen): Inspection/Auscultation: normal bowel sounds; abdomen not distended Percussion/Palpation: abdomen soft; abdomen nontender and no guarding Skin: no rashes, warm and dry Neurologic: awake; not confused Psychiatric: Orientation: oriented x 3 Time Spent Midlevel 35 minutes with >50% of time spnet at bedside with patient and IDT discussing case, GOC, and hospice care.
[2018-12-28] MEDS: SENNA 8.8 MG/5 ML UDP PO SCH (10:02)
[2018-12-28] MEDS ORDERED: MICONAZOLE NITRATE POWDER 43 GM ONE (10:10)
--- NOTE | 2018-12-28 10:37 | Discharge Summary ---
Date of Service December 28, 2018 Admission HPI Per Admitting Provider Chief Complaint: The patient has been at home on hospice, however, today, the patient developed significant nausea and vomiting that was uncontrolled, and was brought to the emergency department for assessment. Primary Care Provider: Luis Siddiqui MD History of present illness is limited to what family members can provide, due to the patient's altered mental state. The patient had been sent home with hospice care, however, the patient developed severe nausea and vomiting that was not controllable, and the patient brought into the emergency department for assessment. Emergency department has been in contact with [facility], who agreed to allow the patient to be initially treated today can see the patient later on in the day today. Was transferred to inpatient hospice on 12/22/2018 Admission Exam Per Admitting Provider General: Resting in bed comfortably. HEENT: NC/AT Chest: Nontender to palpation. CV: RRR, Normal s1, s2. Resp: Breath sounds clear bilaterally on front. Abdomen: Protuberant, firm, distended. Extremities: No edema. Principal Diagnosis Inpatient hospice Discharge Exam General: Resting in bed in no acute distress Eyes: Deferred Neck: Normal to visual inspection Chest: Clear to auscultation Cardiac: Regular rate and rhythm GI: No longer distended, no tenderness to palpation, normal bowel sounds MSK: Deferred Skin: Deferred Neuro: Alert unable to assess orientation Psych: As above Discharge Data Allergies Allergy/AdvReac Type Severity Reaction Status Date / Time No Known Allergies Allergy Unverified 12/10/18 04:45 Consultations 12/20/18 17:06 Consult Case Management - Discharge Planning Routine 12/25/18 12:13 Consult Palliative Care Routine Hospital Course (1) Admission for hospice care: Ms. Buckley is an 83yo female currently admitted for inpatient hospice care. Urine output minimal and abdomen firm and distended. Inpatient Hospice She was transferred to inpatient hospice service due to poor prognosis 12/22. Since then her consciousness has waxed and waned in addition to her symptoms. An palliative NG tube was placed see below. Now the patient UOP is improving and she may have passed the obstruction. Plan to transfer to a custodial facility for end-of-life care. The primary team is followed palliative's recommendations and family's wishes with regards to comfort measures -Family took a tour of [facility] yesterday and elected for the patient to be transferred there. -Comfort measures only -Tylenol scheduled for pain -Roxanol 5 mg every 3 hours per palliative -Zofran ODT 4 mg every 4 hours per palliative -Scoplomine patch prn -Ativan prn for agitation Episodes of brown emesis over last weekend 12/21-12/22 Patient had significant abdominal distention and tenderness as well as episodes of brown emesis that were foul-smelling over the weekend of 12/21. On 12/25 per the family's request an NG tube was placed for palliation of abdominal distention and foul-smelling vomitus. The NG tube was maintained for 2 days and drained approximately 1200 mL of fluid during that time. Fluid was dark brown and reported to smell like stool. NG tube was DC'd on 12/27 patient reported significant improvement in abdominal pain distention and discomfort as well as resumption of seminormal bowel habits. At the request of hospice nurse patient was started on Senokot syrup on 12/27. -Zofran odt 4mg q4h prn for nausea dispo: [facility] Total Time Total Time Spent Total Time Spent (In Minutes): 90 Discharge Plan Discharge Items Patient Disposition: Transfer Alf Fac Reason For Visit: INTRACTABLE NAUSEA AND VOMITING Discharge Diagnosis: Hospice Discharge Goals: Decrease discomfort Activity: Resume your previous activity Non-emergency contact: Primary Care Provider Call non-emergency contact if: your pain is worsening Follow-up/Referrals: Luis Siddiqui III, MD [Primary Care Provider] - Diet Comment: per snf Addtl Provider Instructions: Care instructions: You were admitted to [facility] for treatment of small bowel obstruction and subsequently transferred to inpatient hospice. A discharge summary will be sent to your custodial facility to ensure continuity of care. Medications: - Your medication list has been reviewed and reconciled upon discharge to ensure accuracy and continuity of care. - You are provided with a list of all your current medications at this time. Please review this list closely and make note of any changes. - Please take all of your medications exactly as prescribed. - Tell your primary care provider if you cannot afford your medications. - Call your primary care provider if you are having any side effects or any other problems. Symptoms: Please call your primary care provider for symptoms including, uncontrolled pain, symptoms distressing to the patient For EMERGENCY and VERY SERIOUS health-related issues, such as chest pain, shortness of breath, or sudden onset of the symptoms that brought you to the hospital, you may need to call 911 or go directly to the Emergency Room It has been our privilege to take care of you during your hospital stay. Best Wishes, Carlos Warren MD PGY1 Resident, Family & Community Medicine [facility] Residency at [facility] - [address], [address] MC: [address] [place] [address] Prescriptions: New polyethylene glycol 3350 [Miralax] 17 gram Powder In Packet 17 g PO DAILY PRN (Reason: constipation) 30 Days Qty: 33 RF: 0 sennosides [senna] 8.8 mg/5 mL Syrup 2 ml PO QAM Qty: 30 RF: 0 scopolamine base [Transderm-Scop] 1 mg over 3 days Patch 3 Day 1.5 mg transdermal Q72H Qty: 30 RF: 0 ondansetron 4 mg Tablet,Disintegrating 4 mg PO Q4H PRN (Reason: nausea) 30 Days Qty: 33 RF: 0 Check Scopolamine Patch [Check Scopolamine Patch Placement] 1 ea N/A QS Qty: 30 RF: 0 Remove Scopolamine Patch [Remove Transderm-Scop Patch] 1 ea N/A Q72H Qty: 1 RF: 0 Continued morphine concentrate 100 mg/5 mL (20 mg/mL) solution PO UD PRN (Reason: severe pain/SOB) RF: 0 Discontinued allopurinol 100 mg tablet 100 mg PO DAILY RF: 0 amlodipine 10 mg tablet 10 mg PO DAILY RF: 0 furosemide 40 mg Tablet 40 mg PO AMPM RF: 0 levothyroxine 175 mcg Tablet 175 mcg PO DAILY RF: 0 enalapril maleate 10 mg Tablet 10 mg PO DAILY RF: 0 venlafaxine 150 mg Capsule,Extended Release 24hr 150 mg PO DAILY RF: 0 metoprolol tartrate 50 mg Tablet 50 mg PO BID RF: 0 quetiapine 200 mg Tablet 200 mg PO QPM RF: 0 quetiapine 200 mg Tablet 100 mg PO DAILY PRN (Reason: Unknown) RF: 0 aspirin [Aspir-Low] 81 mg Tablet,Delayed Release (Dr/Ec) 81 mg PO DAILY RF: 0 polyethylene glycol 3350 [Miralax] 17 gram/dose Powder 17 g PO 5XWK RF: 0 memantine 10 mg Tablet 10 mg PO QPM RF: 0 Levemir U-100 Insulin 100 unit/mL Solution 25 unit SUBCUT AMPM RF: 0 omeprazole 20 mg Tablet,Delayed Release (Dr/Ec) 20 mg PO BID RF: 0 gabapentin 100 mg Capsule 100 mg PO BID RF: 0 oxybutynin chloride 5 mg Tablet 5 mg PO BID RF: 0 ondansetron HCl [Zofran] 4 mg Tablet 4 mg PO TID PRN (Reason: Nausea) RF: 0 lorazepam 0.5 mg Tablet 0.5 mg PO Q4 PRN (Reason: Anxiety) RF: 0 nystatin 100,000 unit/gram Cream 1 applic TOPICAL UD RF: 0 nystatin 100,000 unit/gram Powder 1 applic TOPICAL UD RF: 0 Novolog Flexpen U-100 Insulin 100 unit/mL (3 mL) Insulin Pen 5 unit SUBCUT BID PRN (Reason: if bsg is 200+) RF: 0 guaifenesin [Mucinex] 600 mg Tablet Extended Release 12hr 600 mg PO Q12H RF: 0 haloperidol 1 tab PO Q4 PRN (Reason: Unknown) RF: 0 potassium chloride 10 mEq Tablet Extended Release 10 meq PO BID RF: 0 Ditropan XL PO DAILY RF: 0 Stand-Alone Forms: [facility] Discharge Orders: Discharge Order (Routine); Ordered 12/28/18 Ordered By: Carlos Warren Skilled Items Patient informed of condition?: Yes DNR: Yes Discharge Level of Care: Skilled Communicable Disease: No Discharge Prognosis: Deteriorating Admission Data Admit Date/Time: 12/20/18 16:47 Attending Provider: Sabino Rodriges Admit Provider: Kb Benavides Primary Care Provider: Luis Siddiqui III Other Providers: Xiomy Jacobson Service: Medical Other Interventions: Discharge Summary Assessment (RN) Last Done: 12/28/18 11:19 DC Date/Time DO NOT enter until pt leaves facility: 12/28/18 15:44 Supervising Physician Co-Signing Physician Notes Attending attestation Pt seen and examined in concert with Dr. Warren. In agreement with the documented findings as noted in the resident documentation with any exceptions or additions as noted here. Mild increase in UOP today. Tolerating absence of NG tube without apparent distress or worsening of abdominal distention. Resting comfortably and aroused to voice in room. Hospice care - transition to SNF with hospice care with palliative care support SBO - ondansetron scheduled, pain mgmt with SL morphine can be continued per hospice protocol Total time spent: 25 minutes Else see resident documentation as noted. Resident Activity Tracking Resident Involvement: Resident Care Provided Care Provided: Adult Hospital Medicine
== END 2018-12-28 15:44 | disposition hospice, inpatient (51) | DRG 951 ==
LOC: SUATTDRO 16:47 → 4E 16:47
DX: Z79.899 Other long term (current) drug therapy; Z51.5 Encounter for palliative care; R11.2 Nausea with vomiting, unspecified; Z79.4 Long term (current) use of insulin; K31.1 Adult hypertrophic pyloric stenosis; Z79.82 Long term (current) use of aspirin; K56.609 Unspecified intestinal obstruction, unspecified as to partial versus complete obstruction